=== PATIENT | male | born 1940 | race Two or more races ===

== ENCOUNTER 2020-09-22 08:31 | Outpatient (REF) | payer MEDICARE, MEDICAID, SELFPAY ==
[2020-09-22 10:07] LABS: Estimated Average Glucose 97 mg/dL
[2020-09-22 10:17] LABS: Alanine Aminotransferase 16 U/L (0-40); Alkaline Phosphatase 80 U/L (39-117); Anion Gap 12 (12-20); Aspartate Amino Transferase 14 U/L (5-37); Bilirubin Total 0.6 mg/dL (0.0-1.0); Blood Urea Nitrogen 19 mg/dL (9-16); Calcium 9.1 mg/dL (8.4-10.2); Carbon Dioxide 29 mmol/L (22-29); Chloride 101 mmol/L (96-108); Estimated Glomerular Filt Rate > 60; Glucose Fasting 96 mg/dL (60-99); Potassium 4.5 mmol/l (3.3-5.1); Sodium 137 mmol/L (135-145); Total Protein 6.9 g/dL (6.5-8.0)
[2020-09-22 10:40] LABS: T4 Thyroxine 9.4 ug/dL (4.5-12.0); Thyroid Stimulating Hormone 1.09 mIU/mL (0.32-4.0)
== END 2020-09-22 08:32 | disposition home or self-care (01) ==
LOC: HO.LAB 08:31
PROVIDERS: PCP Internal Medicine; Visit Provider Internal Medicine
DX: G47.00 Insomnia, unspecified (principal); E03.9 Hypothyroidism, unspecified; R73.01 Impaired fasting glucose
CPT/HCPCS: 80053; 83036; 84436; 84443

== ENCOUNTER 2021-03-05 12:46 | Outpatient (REF) | payer MEDICARE, MEDICAID, SELFPAY ==
[2021-03-05 13:25] VITALS: BP 138/79; PULSE 69; RESP 16; TEMP 36.9; O2SAT 95; BMI 23.8
== END 2021-03-05 12:47 | disposition home or self-care (01) ==
LOC: HO.MS 12:46
PROVIDERS: PCP Internal Medicine; Visit Provider Ophthalmology
PROC: (CPT 66821; principal; 2021-03-05 13:30)
DX: H26.491 Other secondary cataract, right eye (principal); D64.9 Anemia, unspecified; E03.9 Hypothyroidism, unspecified; Z79.899 Other long term (current) drug therapy
CPT/HCPCS: 66821

== ENCOUNTER 2021-03-08 12:29 | Outpatient (REF) | payer MEDICARE, MEDICAID, SELFPAY ==
[2021-03-08 13:06] LABS: COVID-19 Test Negative (Negative)
== END 2021-03-08 12:30 | disposition home or self-care (01) ==
LOC: HO.LAB 12:29
PROVIDERS: Visit Provider Internal Medicine
DX: Z20.822 Contact with and (suspected) exposure to COVID-19 (principal)
CPT/HCPCS: 36415; 87635; C9803

== ENCOUNTER 2021-03-10 21:10 | Emergency (ER) | payer MEDICARE, MEDICAID, SELFPAY ==
[2021-03-10 21:13] VITALS: BP 141/76; PULSE 78; RESP 18; TEMP 36.7; O2SAT 98; BMI 26.2
--- NOTE | 2021-03-10 22:52 | ED.DENTAL ---
HPI - Dental/Oral General Chief complaint: Dental/Oral Stated complaint: Dental Pain Time Seen by Provider: 03/10/21 22:52 Source: patient and bilingual interpreter Mode of arrival: ambulatory History of Present Illness HPI Narrative: 80-year-old male with 2 weeks of dental pain at tooth #28 and denies any fevers, chills, nausea, vomiting, difficulty swallowing. Related Data Home Medications Medication Instructions Recorded Confirmed ferrous sulfate 325 mg (65 mg 325 mg PO DAILY 10/12/20 10/12/20 iron) tablet Previous Rx's Medication Instructions Recorded folic acid 1 mg tablet 1 mg PO DAILY #30 cap 11/09/20 zolpidem 5 mg tablet 5 mg PO BEDTIME PRN 30 Days #14 tab 12/26/20 levothyroxine 100 mcg tablet 100 mcg PO QAM #30 cap 01/04/21 ascorbic acid (vitamin C) 500 mg 500 mg PO DAILY #30 cap 02/02/21 tablet cyanocobalamin (vitamin B-12) 1,000 mcg PO DAILY #30 cap 02/02/21 1,000 mcg tablet amoxicillin-pot clavulanate 1 tab PO Q12H 5 Days #10 tab 03/10/21 [Augmentin] Allergies Allergy/AdvReac Type Severity Reaction Status Date / Time No Known Allergies Allergy Verified 03/10/21 21:12 Review of Systems Review of Systems: Pertinent positives and negatives as stated in HPI 10 point review of systems is otherwise negative. [facility] Past Medical History Source: nursing notes reviewed Medical History Anxiety and depression BPH (benign prostatic hyperplasia) GERD (gastroesophageal reflux disease) High prostate specific antigen (PSA) Hypothyroid Pernicious anemia Vitamin B12 deficiency Surgical History H/O ventral hernia repair History of appendectomy History of bilateral cataract extraction Family History Family History Father Medical history unknown Mother No problems noted. Social History Social History Advance Directives: No Advance Directives Information Provided: Yes Physical Exam Vital Signs: Vital Signs: Last Vital Signs Temp 98.1 F 03/10/21 21:13 Pulse 78 03/10/21 21:13 Resp 18 03/10/21 21:13 BP 141/76 H 03/10/21 21:13 Pulse Ox 98 03/10/21 21:13 Body Mass Index 26.2 VITAL SIGNS: Reviewed. GENERAL: Well developed, well nourished, in no acute distress. HEAD: Normocephalic/atraumatic NOSE: Nares patent bilateral OROPHARYNX: no oral lesions noted, posterior pharynx clear, broken tooth at #28 without gum inflammation but pain on tapping NECK: Supple, no adenopathy LUNGS: Normal breath sounds. No adventitious sounds or accessory muscle use. SpO2<98> CARDIOVASCULAR: Regular rate and rhythm without noted murmurs ABDOMEN: Soft, non-tender, non-distended with bowel sounds. NEUROLOGIC: Alert and oriented x 4. Course Course Course Narrative: Is a 80-year-old male with history and clinical presentation consistent with dental pain/infection. Patient was provided with combination analgesics and initial dose of antibiotics and then discharged in stable condition with remaining course of antibiotics and instructions to follow up with the dentist on Friday morning. Discharge Plan Discharge Clinical Impression: Pain, dental Patient Disposition: Home, Self-Care Instructions: Toothache (ED) Additional Instructions: 1. Tylenol 1000 mg, por v?a oral, cada 6 horas seg?n sea necesario para controlar el dolor. No exceda los 4000 mg en 24 horas. 2. Ibuprofeno 400 mg, por v?a oral con leche o alimentos, cada 6 horas seg?n sea necesario para controlar el dolor. 3. Aplique hielo en la cammie de la abhijeet?bula jayda 5 a 10 minutos para obtener un alivio adicional del dolor. 4. Llame a un dentista el lunes por la ma?gurjit para immanuel reevaluaci?n. No dude en volver al servicio de urgencias si experimenta un empeoramiento [place] de kendall s?ntomas. Prescriptions: New amoxicillin-pot clavulanate [Augmentin] 875-125 mg tablet 1 tab PO Q12H 5 Days Qty: 10 RF: 0 No Action folic acid 1 mg tablet 1 mg PO DAILY Qty: 30 RF: 6 zolpidem 5 mg tablet 5 mg PO BEDTIME PRN (Reason: insomnia) 30 Days Qty: 14 RF: 3 levothyroxine 100 mcg tablet 100 mcg PO QAM Qty: 30 RF: 5 cyanocobalamin (vitamin B-12) [Vitamin B-12] 1,000 mcg tablet 1,000 mcg PO DAILY Qty: 30 RF: 11 ascorbic acid (vitamin C) [Vitamin C] 500 mg tablet 500 mg PO DAILY Qty: 30 RF: 11 ferrous sulfate [Feosol] 325 mg (65 mg iron) tablet 325 mg PO DAILY RF: 0 Referrals: Po,Mehnaz Tripp MD [Primary Care Provider] - 2 days (Re-evaluation after seen in the emergency department for tooth pain at #28. Started on antibiotics and instructed to follow-up with a dentist on Friday morning.) Print Language: Montenegrin
[2021-03-10] MEDS: Ketorolac Tromethamine 15 MG/ML VIAL IM (23:04)
[2021-03-10] MEDS: Acetaminophen 325 MG TABLET 975 MG PO (23:04)
[2021-03-10] MEDS: Amoxicillin/Potassium Clav 875 MG TABLET PO (23:04)
== END 2021-03-10 23:03 | disposition home or self-care (01) ==
PROVIDERS: Emergency Provider Student in an Organized Health Care Education/Training Program; PCP Internal Medicine
DX: K08.89 Other specified disorders of teeth and supporting structures (principal)
CPT/HCPCS: 96372; 99283; 99284; J1885

== ENCOUNTER 2021-09-05 07:43 | Outpatient (REF) | payer MEDICARE, MEDICAID, SELFPAY ==
[2021-09-05 08:02] LABS: MANUAL DIFF FLAG NO
[2021-09-05 08:36] LABS: Basophils Percent Auto 0.7 % (0-2); Eosinophils Absolute Auto 0.3 X10*3/uL (0.0-0.4); Eosinophils Percent Auto 6.6 % (0-4); Hematocrit 42.3 % (42-52); Hemoglobin 14.9 g/dl (14.0-18.0); Imm Gran Abs Auto 0.01 X10*3/uL (0.00-0.03); Imm Gran Pct Auto 0.2 % (0.0-0.4); Lymphocytes Absolute Auto 0.9 X10*3/uL (1.2-4.9); Lymphocytes Percent Auto 20.5 % (20-40); Mean Corpuscular HGB Conc 35.2 g/dl (31.0-36.0); Mean Corpuscular Hemoglobin 31.4 pg (27.0-33.0); Mean Corpuscular Volume 89.1 fL (80-98); Mean Platelet Volume 8.9 fL (9.4-12.4); Monocytes Absolute Auto 0.5 X10*3/uL (0.1-1.2); Monocytes Percent Auto 11.2 % (2-11); Neutrophils Absolute Auto 2.8 X10*3/uL (2.0-8.3); Neutrophils Percent Auto 60.8 % (45-73); Platelet Count 242 X10*3/uL (160-400); Red Blood Count 4.75 X10*6/uL (4.60-5.80); Red Cell Distribution Width 12.3 % (11.0-16.0); White Blood Count 4.5 X10*3/uL (4.8-10.8)
[2021-09-05 09:01] LABS: Estimated Average Glucose 97 mg/dL
[2021-09-05 09:02] LABS: Alanine Aminotransferase 14 U/L (0-40); Albumin Level 4.1 g/dL (3.5-5.0); Alkaline Phosphatase 84 U/L (39-117); Anion Gap 10 (12-20); Aspartate Amino Transferase 15 U/L (5-37); Bilirubin Total 0.6 mg/dL (0.0-1.0); Blood Urea Nitrogen 13 mg/dL (9-16); Calcium 9.6 mg/dL (8.4-10.2); Carbon Dioxide 29 mmol/L (22-29); Chloride 103 mmol/L (96-108); Cholesterol 168 mg/dL; Estimated Glomerular Filt Rate > 60; Glucose Random 103 mg/dL (60-115); HDL Cholesterol 36 mg/dL; LDL Cholesterol Calculated 110 mg/dl; Potassium 4.7 mmol/L (3.3-5.1); Sodium 137 mmol/L (135-145); Total Protein 7.2 g/dL (6.5-8.0); Triglycerides 111 mg/dL
[2021-09-05 09:23] LABS: Free T4 (Free Thyroxine) 1.06 ng/dL (0.71-1.85); Thyroid Stimulating Hormone 1.11 uIU/mL (0.32-4.0)
[2021-09-05 09:44] LABS: Folate > 20.0 ng/mL (> or = 4.0); Vitamin B12 756 pg/mL (200-900)
== END 2021-09-05 07:44 | disposition home or self-care (01) ==
LOC: HO.LAB 07:43
PROVIDERS: PCP Internal Medicine; Visit Provider Internal Medicine
DX: R73.01 Impaired fasting glucose (principal); E03.9 Hypothyroidism, unspecified; K21.9 Gastro-esophageal reflux disease without esophagitis; E78.00 Pure hypercholesterolemia, unspecified
CPT/HCPCS: 36415; 80053; 80061; 82607; 82746; 83036; 84439; 84443; 85025

== ENCOUNTER 2022-05-15 10:50 | Emergency (ER) | payer MEDICARE, MEDICAID, SELFPAY ==
[2022-05-15 11:10] VITALS: BP 126/68; PULSE 71; RESP 19; TEMP 36.6; O2SAT 98; BMI 23.6
--- NOTE | 2022-05-15 12:35 | ED.EYEPROB ---
HPI - Eye Problem General Chief complaint: Eye Problems Stated complaint: l eye issue Time Seen by Provider: 05/15/22 12:32 Source: patient Mode of arrival: ambulatory Limitations: no limitations History of Present Illness HPI Narrative: Patient presents emergency department for evaluation of left eye redness and itchiness x1 week. Denies any known injury/trauma. Reports a foreign body sensation. Denies vision changes. The eye is uncomfortable. He is able to move his eye without any change in his pain. chief complaint: eye pain and eye redness Onset (ago): week(s) Onset description: gradual Duration: constant Location: left eye Eye Symptoms: burning, redness, pain, foreign body sensation and itching Associated symptoms: none Treatments Prior to Arrival: none Related Data Previous Rx's Medication Instructions Recorded folic acid 1 mg tablet 1 mg PO DAILY #90 caps 08/01/21 ferrous sulfate 325 mg (65 mg 325 mg PO DAILY #90 caps 12/03/21 iron) tablet levothyroxine 100 mcg tablet 100 mcg PO QAM #90 caps 12/31/21 ascorbic acid (vitamin C) 500 mg 500 mg PO DAILY 90 days #90 caps 01/14/22 tablet (Vitamin C) zolpidem 5 mg tablet 5 mg PO BEDTIME PRN insomnia #90 02/06/22 tabs cyanocobalamin (vitamin B-12) 1,000 mcg PO DAILY #30 caps 03/04/22 1,000 mcg tablet (Vitamin B-12) polymyxin B sulfate 10,000 1 drp ophthalmic-Left Q3H 7 days 05/15/22 unit-trimethoprim 1 mg/mL eye #10 mL drops (Polytrim) Allergies Allergy/AdvReac Type Severity Reaction Status Date / Time trazodone Allergy Mild Hallucinati Verified 04/15/22 13:50 ons Review of Systems Review of Systems: Constitutional: No weight loss, fever, chills, weakness or fatigue. Eye: Positive redness. Positive pain. Skin: No rash or itching. Cardiovascular: No chest pain, chest pressure or chest discomfort. No palpitations Respiratory: No shortness of breath, cough or sputum production. Gastrointestinal: No, nausea, vomiting or diarrhea. No abdominal pain . Yes all other systems are reviewed and are negative PMFSH Past Medical History Attestation statement: The following information was validated with the patient. Source: old records reviewed Medical History High prostate specific antigen (PSA) Pernicious anemia Vitamin B12 deficiency Surgical History H/O ventral hernia repair History of appendectomy History of bilateral cataract extraction Family History Family History Father Medical history unknown Mother No problems noted. Social History Social History Housing: Apartment Alcohol intake: never Patient Tobacco Use Status: Former Tobacco user Tobacco use type: Cigarette Years Smoked: 1989 e-Cigarette/Vaping Use: Never Used Second Hand Smoke Exposure: No Advance Directives: No Advance Directives Information Provided: No Current occupational status: retired Cognitive needs: No Hearing needs: No Vision needs: No Physical Exam Vital Signs: Vital Signs: Last Vital Signs Temp 98 F 05/15/22 11:10 Pulse 71 05/15/22 11:10 Resp 19 05/15/22 11:10 BP 126/68 05/15/22 11:10 Pulse Ox 98 05/15/22 11:10 O2 Del Method 05/15/22 11:10 BMI result Body Mass Index 23.6 Vital signs have been reviewed as normal and appeared to be correct. Blood pressure normal.? Heart rate normal.? Respiration rate normal. Temperature normal.? Oxygen saturation normal. Appearance: Alert.?Oriented to person, place and time. No acute distress.?Normal affect. Eyes: Pupils equal, round and reactive to light.?EOMi. No Nystagmus. Left Sclerae injected, conjunctiva is red. ENT: Pharynx normal.?? Neck: Normal inspection.? Neck supple.?? CVS: Heart sounds normal. Normal heart rate and rhythm.? Pulses normal.?? Respiratory: No respiratory distress.? Lung sounds clear to auscultation bilaterally?? Abdomen: Soft and non-tender. Skin: Skin warm and dry.? Normal skin color.? Extremities: No lower extremity edema.? Neuro: Moves all extremities spontaneously. Sensation intact bilaterally. No motor deficits Ambulates with normal steady gait. Course Course Course Narrative: Patient is an 81-year-old male being evaluated for left eye redness and itchiness. Fluorescein staining reveals significant uptake at 7-8 o'clock, likely consistent with corneal abrasion, with bacterial conjunctivitis, Visual acuity performed without significant impairment. Not consistent with preseptal or orbital cellulitis. He is well-appearing. Extraocular movements are intact. Discussed plan of care for warm moist compresses, erythromycin ointment, follow-up with Ophthalmology, discussed reasons to return back to the emergency department, all questions were answered and he was discharged home in stable condition. Reevaluation(s) Time: 13:43 [facility] - Eye Problem Medical Records Attestation: I reviewed the patient's medical records. Discharge Plan Discharge Clinical Impression: Corneal abrasion, left Patient Disposition: Home, Self-Care Additional Instructions: You were evaluated in the emergency department this for left eye redness pain and itching. You were found to have a corneal abrasion. You have been given a new prescription for antibiotic eyedrops every 3 hours while awake, please take these as prescribed. Contact your technician support association Dr. Hurst to schedule a follow-up visit. Return to the emergency department any new or worsening symptoms or concerns. Prescriptions: New polymyxin B sulf-trimethoprim [Polytrim] 10,000 unit- 1 mg/mL drops 1 drp ophthalmic-Left Q3H 7 Days Qty: 10 0RF Rx Instructions: while awake; do not exceed 6 doses in 24 hours No Action folic acid 1 mg tablet 1 mg PO DAILY Qty: 90 2RF ferrous sulfate 325 mg (65 mg iron) tablet 325 mg PO DAILY Qty: 90 3RF levothyroxine 100 mcg tablet 100 mcg PO QAM Qty: 90 1RF zolpidem 5 mg tablet 5 mg PO BEDTIME PRN (Reason: insomnia) Qty: 90 1RF cyanocobalamin (vitamin B-12) [Vitamin B-12] 1,000 mcg tablet 1,000 mcg PO DAILY Qty: 30 11RF ascorbic acid (vitamin C) [Vitamin C] 500 mg tablet 500 mg PO DAILY 90 Days Qty: 90 3RF Referrals: Daryl Hurst [Physician] - 2 days Interventions: ED Discharge Assessment Last Done: 05/15/22 13:53 Discharge Date/Time: 05/15/22 13:54
[2022-05-15] MEDS: Fluorescein Sodium STRIP 1 STRIP EYE-LEFT (13:01)
[2022-05-15] MEDS: Tetracaine HCl/PF 0.5% Oph Sol 4 ML DROPS 3 DROP EYE-LEFT (13:01)
== END 2022-05-15 13:54 | disposition home or self-care (01) ==
PROVIDERS: Emergency Provider Emergency Medicine; PCP Internal Medicine
DX: S05.02XA Injury of conjunctiva and corneal abrasion without foreign body, left eye, initial encounter (principal); X58.XXXA Exposure to other specified factors, initial encounter; Y93.9 Activity, unspecified; Y92.9 Unspecified place or not applicable; Y99.9 Unspecified external cause status
CPT/HCPCS: 99283

== ENCOUNTER 2022-06-24 11:43 | Outpatient (REF) | payer MEDICARE, MEDICAID, SELFPAY ==
[2022-06-24 12:17] VITALS: BMI 22.3
[2022-06-24 12:18] VITALS: BP 112/62; PULSE 69; RESP 16; TEMP 36.9; O2SAT 95
== END 2022-06-24 11:44 | disposition home or self-care (01) ==
LOC: HO.MS 11:43
PROVIDERS: PCP Internal Medicine; Visit Provider Ophthalmology
PROC: (CPT 66821; principal; 2022-06-24 16:00)
DX: H26.492 Other secondary cataract, left eye (principal); E03.9 Hypothyroidism, unspecified; Z96.1 Presence of intraocular lens; D64.9 Anemia, unspecified; K21.9 Gastro-esophageal reflux disease without esophagitis; Z79.899 Other long term (current) drug therapy
CPT/HCPCS: 66821

== ENCOUNTER 2022-07-15 15:42 | Emergency (ER) | payer MEDICARE, MEDICAID, SELFPAY ==
--- NOTE | 2022-07-15 17:29 | PC.NURSE ---
called x 3 to triage no answer-lwt
== END 2022-07-15 17:43 | disposition left against medical advice (07) ==
PROVIDERS: Emergency Provider Emergency Medicine; PCP Internal Medicine
DX: K62.89 Other specified diseases of anus and rectum (principal)

== ENCOUNTER 2022-12-10 11:58 | Emergency (ER) | payer MEDICARE, MEDICAID, SELFPAY ==
[2022-12-10 12:31] VITALS: BP 122/69; PULSE 65; RESP 19; TEMP 36.6; O2SAT 98; BMI 23.0
--- NOTE | 2022-12-10 12:32 | ED.SKABFB ---
HPI - Skin/Abscess/Foreign Bdy General Chief complaint: Wound/Laceration <MIKIE Apodaca - Last Filed: 12/10/22 12:33> Stated complaint: L thigh redness/pain <MIKIE Apodaca - Last Filed: 12/10/22 12:33> Time Seen by Provider: 12/10/22 13:22 <MIKIE Apodaca - Last Filed: 12/10/22 12:33> Source: patient <Sandee Gandara CNP - Last Filed: 12/10/22 14:48> Mode of arrival: ambulatory <Sandee Gandara CNP - Last Filed: 12/10/22 14:48> Limitations: language barrier (Turkish-speaking medical or surgical instrument maker utilized) <Sandee Gandara CNP - Last Filed: 12/10/22 14:48> History of Present Illness HPI narrative: Patient is an 82-year-old male who presents emergency department for evaluation of left lateral thigh redness and pain. Denies any injury to this area. Denies any known bite. Over the past week it has become increasingly larger in size. Denies any additional skin wounds or lesions. States he is not a diabetic. Has not had any fevers or chills. <Sandee Gandara CNP - Last Filed: 12/10/22 14:48> Related Data Home medications: Previous Rx's Medication Instructions Recorded ferrous sulfate 325 mg (65 mg 325 mg PO DAILY #90 caps 12/03/21 iron) tablet ascorbic acid (vitamin C) 500 mg 500 mg PO DAILY 90 days #90 caps 01/14/22 tablet (Vitamin C) cyanocobalamin (vitamin B-12) 1,000 mcg PO DAILY #30 caps 03/04/22 1,000 mcg tablet (Vitamin B-12) polymyxin B sulfate 10,000 1 drp ophthalmic-Left Q3H 7 days 05/15/22 unit-trimethoprim 1 mg/mL eye #10 mL drops (Polytrim) folic acid 1 mg tablet 1 mg PO DAILY #90 caps 06/17/22 levothyroxine 100 mcg tablet 100 mcg PO QAM #90 caps 07/02/22 zolpidem 5 mg tablet 5 mg PO BEDTIME PRN insomnia #90 08/06/22 tabs cephalexin 500 mg capsule 500 mg PO TID 7 days #21 caps 12/10/22 <MIKIE Apodaca - Last Filed: 12/10/22 12:33> Allergies/Adverse reactions: Allergies Allergy/AdvReac Type Severity Reaction Status Date / Time trazodone Allergy Mild Hallucinati Verified 04/15/22 13:50 ons <MIKIE Apodaca - Last Filed: 12/10/22 12:33> Review of Systems Review of Systems: Constitutional :? Denies history of same, Denies any other sites involved, Denies IV drug use, Denies history of MRSA, Denies swollen glands, Denies injury, Denies Fever, Denies Chills, Denies Systemic symptoms Cardiovascular : No Chest Pain, No SOB Respiratory : No Dyspnea Gastrointestinal : No abdominal pain Musculoskeletal : No Joint Swelling Skin : + left lateral thigh erythema, No skin laceration, No Foreign bodies, No spreading rash, Denies bites, Denies discharge, Neuro : No Weakness, No Numbness/tingling Psych : No SI/HI/thoughts of self injury <Sandee Gandara CNP - Last Filed: 12/10/22 14:48> [facility] Past Medical History Attestation statement: The following information was validated with the patient. <Sandee Gandara CNP - Last Filed: 12/10/22 14:48> Source: old records reviewed <Sandee Gandara CNP - Last Filed: 12/10/22 14:48> Medical History: Medical History High prostate specific antigen (PSA) Pernicious anemia Vitamin B12 deficiency <MIKIE Apodaca - Last Filed: 12/10/22 12:33> Surgical History: Surgical History H/O ventral hernia repair History of appendectomy History of bilateral cataract extraction <MIKIE Apodaca - Last Filed: 12/10/22 12:33> Family History Family History: Family History Father Medical history unknown Mother No problems noted. <MIKIE Apoadca - Last Filed: 12/10/22 12:33> Social History Social History: Social History Housing: Apartment Alcohol intake: never Patient Tobacco Use Status: Former Tobacco user Tobacco use type: Cigarette Years Smoked: 1989 e-Cigarette/Vaping Use: Never Used Second Hand Smoke Exposure: No Advance Directives: No Current occupational status: retired Cognitive needs: No Hearing needs: No Vision needs: No <MIKIE Apodaca - Last Filed: 12/10/22 12:33> Physical Exam Vital Signs: Vital Signs: Last Vital Signs Temp 98 F 12/10/22 12:31 Pulse 65 12/10/22 12:31 Resp 19 12/10/22 12:31 BP 122/69 12/10/22 12:31 Pulse Ox 98 12/10/22 12:31 O2 Del Method 12/10/22 12:31 BMI result Body Mass Index 23.0 <MIKIE Apodaca - Last Filed: 12/10/22 12:33> Vital Signs: Last Vital Signs Temp 98 F 12/10/22 12:31 Pulse 65 12/10/22 12:31 Resp 19 12/10/22 12:31 BP 122/69 12/10/22 12:31 Pulse Ox 98 12/10/22 12:31 O2 Del Method 12/10/22 12:31 BMI result Body Mass Index 23.0 <Sandee Gandara CNP - Last Filed: 12/10/22 14:48> Appearance: Alert.?Oriented to person, place and time. No acute distress.?Normal affect. Neck: Normal inspection.? Neck supple.?? CVS: Heart sounds normal. Normal heart rate and rhythm.? Pulses normal.?? Respiratory: No respiratory distress.? Lung sounds clear to auscultation bilaterally?? Abdomen: Soft and non-tender. Normoactive bowel sounds. No pulsatile mass.?? Skin: Skin warm and dry.? Normal skin color.? Proximal left lateral thigh with 2 cm round area of induration, erythema, and warmth. No fluctuance. Extremities: No lower extremity edema.? Neuro: Moves all extremities spontaneously. Sensation intact bilaterally. Ambulates with normal steady gait. <Sandee Gandara CNP - Last Filed: 12/10/22 14:48> Course Course Course Narrative: RME - 82-year-old Turkish-speaking male presents to the ER for 1 week of worsening left lateral thigh pain and redness. Not diabetic. No fevers. Brief exam reveals injury did, erythematous area without any obvious fluctuance. Vital signs are stable. Stable to go back to the waiting room until treatment room is available. <MIKIE Apodaca - Last Filed: 12/10/22 12:33> Medical Decision Making Medical Decision Making MDM Narrative: Patient is an 82-year-old male with past medical history of BPH, GERD, hypothyroidism who presents to the emergency department for evaluation of left lateral thigh redness and pain. Physical examination is most consistent with cellulitis/early abscess at this time, no areas of fluctuance, do not feel that incision and drainage is warranted at this time. Discussed warm moist compresses, prescription for cephalexin to be sent to patient's pharmacy. Reviewed worrisome signs and symptoms that would warrant re-evaluation including signs of worsening infection, or development of abscess that would require drainage. Patient states he will contact his primary care provider and arrange for a follow-up visit within the next 2 days. <Sandee Gandara CNP - Last Filed: 12/10/22 14:48> Differential Diagnosis Differential Diagnoses: The differential diagnosis associated with the presentation includes (As noted above) <Sandee Gandara CNP - Last Filed: 12/10/22 14:48> Prescription Management I considered prescription management with: Antibiotic <Sandee Gandara CNP - Last Filed: 12/10/22 14:48> Discharge Plan Discharge Clinical Impression: Cellulitis of left thigh <MIKIE Apodaca - Last Filed: 12/10/22 12:33> Patient Disposition: Home, Self-Care <MIKIE Apodaca Last Filed: 12/10/22 12:33> Instructions: Cellulitis (ED) <MIKIE Apodaca Last Filed: 12/10/22 12:33> Additional Instructions: Puede ha Tylenol 500 mg, 2 tabletas (1000 mg) cada 4 a 6 horas seg?n sea necesario para el dolor, ravin sin exceder las 3 dosis diarias (3000 mg). Se envi? immanuel receta de antibi?hasmukh a rodriguez farmacia, complete todo thong curso. [place] discutimos, si rodriguez dolor aumenta, el ?taylor de enrojecimiento aumenta de juan?o, si se vuelve suave o si tiene immanuel apariencia central richie/amarilla, esto necesita ser reevaluado. Daniel discutimos, si un absceso comienza deformado, es posible que sea necesario cortarlo para drenarlo adecuadamente. Comun?quese con rodriguez proveedor de atenci?n primaria para programar immanuel visita de seguimiento dentro de la pr?xima semana para asegurar immanuel mejor?a. Puede regresar al departamento de emergencias con cualquier s?ntoma o inquietud nueva o que empeore. You can take Tylenol 500 mg, 2 tablets (1,000mg) every 4-6 hours as needed for pain, but not to exceed 3 doses daily (3,000mg).? A prescription for antibiotic was sent to your pharmacy, please complete this entire course. As we discussed, if your pain is increasing, the area of redness becomes larger in size, if it becomes soft, or having a central white/yellow appearance this needs to be re-evaluated. As we discussed if an abscess begins deformed this may need to be cut into to drain appropriately Please contact your primary care provider to arrange for a follow-up visit within the next week to assure improvement You may return back to emergency department with any new or worsening symptoms or concerns. <MIKIE Apodaca - Last Filed: 12/10/22 12:33> Prescriptions: New cephalexin 500 mg capsule 500 mg PO TID 7 Days Qty: 21 0RF No Action ferrous sulfate 325 mg (65 mg iron) tablet 325 mg PO DAILY Qty: 90 3RF cyanocobalamin (vitamin B-12) [Vitamin B-12] 1,000 mcg tablet 1,000 mcg PO DAILY Qty: 30 11RF folic acid 1 mg tablet 1 mg PO DAILY Qty: 90 2RF levothyroxine 100 mcg tablet 100 mcg PO QAM Qty: 90 2RF zolpidem 5 mg tablet 5 mg PO BEDTIME PRN (Reason: insomnia) Qty: 90 1RF polymyxin B sulf-trimethoprim [Polytrim] 10,000 unit- 1 mg/mL drops 1 drp ophthalmic-Left Q3H 7 Days Qty: 10 0RF Rx Instructions: while awake; do not exceed 6 doses in 24 hours ascorbic acid (vitamin C) [Vitamin C] 500 mg tablet 500 mg PO DAILY 90 Days Qty: 90 3RF <MIKIE Apodaca - Last Filed: 12/10/22 12:33> Referrals: Po,Mehnaz Tripp MD [Primary Care Provider] - <MIKIE Apodaca - Last Filed: 12/10/22 12:33> Discharge Date/Time: 12/10/22 14:25 <MIKIE Apodaca - Last Filed: 12/10/22 12:33> Print Language: Turkish <MIKIE Apodaca - Last Filed: 12/10/22 12:33>
== END 2022-12-10 14:25 | disposition home or self-care (01) ==
PROVIDERS: Emergency Provider Student in an Organized Health Care Education/Training Program; PCP Internal Medicine
DX: L03.116 Cellulitis of left lower limb (principal); M79.652 Pain in left thigh
CPT/HCPCS: 99282; 99283

== ENCOUNTER 2022-12-12 11:14 | Emergency (ER) | payer MEDICARE, MEDICAID, SELFPAY ==
--- NOTE | 2022-12-12 11:20 | ED_ITS ---
HPI - Skin/Abscess/Foreign Bdy General Chief complaint: Skin/Abscess/Foreign Body <Sandra Samuel NP - Last Filed: 12/12/22 11:25> Stated complaint: l leg pain <Sandra Samuel NP - Last Filed: 12/12/22 11:25> Time Seen by Provider: 12/12/22 11:41 <Sandra Samuel NP - Last Filed: 12/12/22 11:25> Source: patient <MIKIE Fuller - Last Filed: 12/12/22 12:23> Mode of arrival: ambulatory <MIKIE Fuller Last Filed: 12/12/22 12:23> Limitations: language barrier ([place] Speaking ) <MIKIE Fuller - Last Filed: 12/12/22 12:23> History of Present Illness HPI narrative: 82yoM presenting to the ED c c/o worsening abscess/cellulitis despite taking the Keflex that he was prescribed here on 12/10/2022. He reports they told him to come back if it is worse. He reports there is more pain, redness and swelling. Although denies any fevers, chills, nausea/vomiting, spreading of the redness or any other symptoms complaints or concerns at this time. <MIKIE Fuller - Last Filed: 12/12/22 12:23> MD complaint: other (Recheck abscess) <MIKIE Fuller - Last Filed: 12/12/22 12:23> Onset (ago): day(s) (Was seen here 2 days ago) <MIKIE Fuller - Last Filed: 12/12/22 12:23> Location: LLE (Left lateral thigh) <MIKIE Fuller Last Filed: 12/12/22 12:23> Severity: mild <MIKIE Fuller Last Filed: 12/12/22 12:23> Quality: aching <MIKIE Fuller Last Filed: 12/12/22 12:23> Pain Consistency: constant <MIKIE Fuller Last Filed: 12/12/22 12:23> Relieving factors: none <MIKIE Fuller Last Filed: 01/12/23 12:23> Exacerbating factors: none <MIKIE Fuller - Last Filed: 12/12/22 12:23> Context: other (Currently on Keflex 500 mg t.i.d. taking as prescribed) <MIKIE Fuller - Last Filed: 12/12/22 12:23> Associated symptoms: other (Worsening redness/swelling/pain) <MIKIE Fuller - Last Filed: 12/12/22 12:23> Treatments prior to arrival: other (See above) <MIKIE Fuller - Last Filed: 12/12/22 12:23> Related Data Home medications: Previous Rx's Medication Instructions Recorded ferrous sulfate 325 mg (65 mg 325 mg PO DAILY #90 caps 12/03/21 iron) tablet ascorbic acid (vitamin C) 500 mg 500 mg PO DAILY 90 days #90 caps 01/14/22 tablet (Vitamin C) cyanocobalamin (vitamin B-12) 1,000 mcg PO DAILY #30 caps 03/04/22 1,000 mcg tablet (Vitamin B-12) polymyxin B sulfate 10,000 1 drp ophthalmic-Left Q3H 7 days 05/15/22 unit-trimethoprim 1 mg/mL eye #10 mL drops (Polytrim) folic acid 1 mg tablet 1 mg PO DAILY #90 caps 06/17/22 levothyroxine 100 mcg tablet 100 mcg PO QAM #90 caps 07/02/22 zolpidem 5 mg tablet 5 mg PO BEDTIME PRN insomnia #90 08/06/22 tabs cephalexin 500 mg capsule 500 mg PO TID 7 days #21 caps 12/10/22 cephalexin 500 mg capsule 500 mg PO Q6H 14 days #56 caps 12/12/22 doxycycline monohydrate 100 mg 100 mg PO BID 14 days #28 tabs 12/12/22 tablet oxycodone 5 mg tablet 5 mg PO Q6H PRN pain #10 tabs 12/12/22 <Sandra Samuel NP - Last Filed: 12/12/22 11:25> Allergies/Adverse reactions: Allergies Allergy/AdvReac Type Severity Reaction Status Date / Time trazodone Allergy Mild Hallucinati Verified 04/15/22 13:50 ons <Sandra Samuel NP - Last Filed: 12/12/22 11:25> Review of Systems Review of Systems: Constitutional : Denies history of same, Denies any other sites involved, Denies IV drug use, Denies history of MRSA, Denies swollen glands, Denies injury, Denies Fever, Denies Chills, + Sig Pain, Denies Systemic symptoms Cardiovascular : No Chest Pain, No SOB Respiratory : No Dyspnea Gastrointestinal : No abdominal pain Musculoskeletal : No Joint Swelling Skin : + abscess with surrounding erythema, No skin laceration, No Foreign bodies, No spreading rash, Denies bites, Denies discharge, Neuro : No Weakness, No Numbness/tingling Psych : No SI/HI/thoughts of self injury <MIKIE Fuller - Last Filed: 12/12/22 12:23> Yes all other systems are reviewed and are negative <MIKIE Fuller - Last Filed: 12/12/22 12:23> [facility] Past Medical History Attestation statement: The following information was validated with the patient. <MIKIE Fuller - Last Filed: 12/12/22 12:23> Source: old records reviewed and nursing notes reviewed <MIKIE Fuller - Last Filed: 12/12/22 12:23> Medical History: Medical History BPH (benign prostatic hyperplasia) GERD (gastroesophageal reflux disease) High prostate specific antigen (PSA) Hypothyroid Pernicious anemia Vitamin B12 deficiency <Sandra Samuel NP - Last Filed: 12/12/22 11:25> Surgical History: Surgical History H/O ventral hernia repair History of appendectomy History of bilateral cataract extraction <Sandra Samuel NP - Last Filed: 12/12/22 11:25> Family History Family History: Family History Father Medical history unknown Mother No problems noted. <Sandra Samuel NP - Last Filed: 12/12/22 11:25> Social History Social History: Social History Housing: Apartment Alcohol intake: never Patient Tobacco Use Status: Former Tobacco user Tobacco use type: Cigarette Years Smoked: 1989 e-Cigarette/Vaping Use: Never Used Second Hand Smoke Exposure: No Advance Directives: No Current occupational status: retired Cognitive needs: No Hearing needs: No Vision needs: No <Sandra Samuel NP - Last Filed: 12/12/22 11:25> Physical Exam Vital Signs: Vital Signs: Last Vital Signs Temp 97.9 F 12/12/22 11:21 Pulse 70 12/12/22 11:21 Resp 18 12/12/22 11:21 BP 137/79 12/12/22 11:21 Pulse Ox 95 12/12/22 11:21 O2 Del Method 12/12/22 11:21 BMI result Body Mass Index 25.4 <Sandra Samuel NP - Last Filed: 12/12/22 11:25> Vital Signs: Last Vital Signs Temp 97.9 F 12/12/22 11:21 Pulse 70 12/12/22 11:21 Resp 18 12/12/22 11:21 BP 137/79 12/12/22 11:21 Pulse Ox 95 12/12/22 11:21 O2 Del Method 12/12/22 11:21 BMI result Body Mass Index 25.4 vital signs have been reviewed as normal and appeared to be correct. Blood pressure normal Heart rate normal. Respiration rate normal. Temperature normal. Oxygen saturation normal. <MIKIE Fuller - Last Filed: 12/12/22 12:23> Appearance: Alert. Oriented X3. No acute distress. Head: Normal external exam. Normocephalic. Atraumatic. Eyes: PERRLA. EOMI. Conjunctiva and sclera normal. Eyelids normal. ENT: Pharynx normal. Uvula midline. Moist mucous membranes. Neck: Normal inspection. Neck supple. FROM. CVS: Normal heart rate and rhythm. Respiratory: No respiratory distress. Painless inspiration. Skin: Skin warm and dry. Normal skin color. Normal skin turgor. Abscess to left upper lateral thigh c mild surrounding erythema. No streaking noted. No drainage at this time. No additional rashes/lesions/lacerations noted. Extremities: Extremities exhibit normal range of motion. Extremities nontender. Neuro: Oriented X 3. No motor deficit. No sensory deficit. Reflexes normal. Normal steady gait. No focal neuro deficits noted. <MIKIE Fuller - Last Filed: 12/12/22 12:23> Course Course Course Narrative: This is a rapid medical exam. 82-year-old male with past medical history of BPH, GERD, hypothyroidism here with left thigh redness/swelling despite being on cephalexin since 12/10. Patient reports they told me to come back if its worse. Patient feels there is more pain, more redness, swelling. No fevers, chills. Patient with abscess to left lateral thigh with induration/tenderness. ?conducive to I&D. Defer additional HPI, ROS, PE to primary provider. <Sandra Samuel NP - Last Filed: 12/12/22 11:25> Reevaluation(s) Reevaluation #1: Patient now status post I&D of abscess. Patient tolerated procedure well. No complications. There is no streaking. Purulent drainage was excreted moderate amount. I did offer the patient admission although at this time I believe it is not warranted and patient refuses to be admitted. Patient is only on single therapy of antibiotics. The abscess was not eye indeed at that time due to it was not ready. At this time the abscess was ready. Therefore I and D performed. No additional labs or imaging indicated. Admission not warranted at this time as patient is only on 1 antibiotic and he is not have any fevers or chills and there is no streaking on exam. Vital signs are stable. Will start on doxycycline. Will also send a new prescription for Keflex to the patient can take it every 6 hours instead of 3 times a day. Along with pain medication. Instructions return if any new or worsening symptoms. Patient understands agrees with this plan. <MIKIE Fuller - Last Filed: 12/12/22 12:23> Time: 12:20 <MIKIE Fuller - Last Filed: 12/12/22 12:23> Medications Administered Discontinued Medications Generic Name Dose Route Start Last Admin Trade Name Freq PRN Reason Stop Dose Admin Doxycycline Monohydrate 100 mg 12/12/22 11:43 12/12/22 11:55 Doxycycline Monohydrate 100 Mg Capsule PO 12/12/22 11:44 100 mg ONCE ONE Administration Lidocaine HCl 2 ml 12/12/22 11:43 12/12/22 11:55 Lidocaine Hcl 1 % Mpf 2 Ml Vial INFILTRATI 12/12/22 11:44 2 ml ONCE ONE Administration Lidocaine HCl 2 ml 12/12/22 11:43 12/12/22 11:55 Lidocaine Hcl 1 % Mpf 2 Ml Vial INFILTRATI 12/12/22 11:44 2 ml ONCE ONE Administration <Sandra Samuel NP - Last Filed: 12/12/22 11:25> Medications Administered Discontinued Medications Generic Name Dose Route Start Last Admin Trade Name Jesenia PRN Reason Stop Dose Admin Doxycycline Monohydrate 100 mg 12/12/22 11:43 12/12/22 11:55 Doxycycline Monohydrate 100 Mg Capsule PO 12/12/22 11:44 100 mg ONCE ONE Administration Lidocaine HCl 2 ml 12/12/22 11:43 12/12/22 11:55 Lidocaine Hcl 1 % Mpf 2 Ml Vial INFILTRATI 12/12/22 11:44 2 ml ONCE ONE Administration Lidocaine HCl 2 ml 12/12/22 11:43 12/12/22 11:55 Lidocaine Hcl 1 % Mpf 2 Ml Vial INFILTRATI 12/12/22 11:44 2 ml ONCE ONE Administration <MIKIE Fuller - Last Filed: 12/12/22 12:23> Medical Decision Making External Record Review External record reviewed: Office record, Outpatient record, Prior outpatient labs and Primary care record <MIKIE Fuller - Last Filed: 12/12/22 12:23> Prescription Management I considered prescription management with: Pain Medication and Antibiotic <MIKIE Fuller - Last Filed: 12/12/22 12:23> Procedures Abscess I/D Site: lower extremity (Thigh) <MIKIE Fuller - Last Filed: 12/12/22 12:23> Side (if applicable): left <MIKIE Fuller - Last Filed: 12/12/22 12:23> Local Anesthetic: lidocaine 1% <MIKIE Fuller - Last Filed: 12/12/22 12:23> Amount of anesthesia used (mL): 4 <MIKIE Fuller Last Filed: 12/12/22 12:23> Technique: needle aspiration and incised with blade <MIKIE Fuller Last Filed: 12/12/22 12:23> Amount of fluid expressed (mL): 10 <MIKIE Fuller - Last Filed: 12/12/22 12:23> Sent for culture/gram staining?: No <MIKIE Fuller - Last Filed: 12/12/22 12:23> Irrigation: Yes <MIKIE Fuller - Last Filed: 12/12/22 12:23> Packing used?: none <MIKIE Fuller - Last Filed: 12/12/22 12:23> Complications: other (No complications Pt tolerated well) <MIKIE Fuller - Last Filed: 12/12/22 12:23> Discharge Plan Discharge Clinical Impression: Cellulitis, Abscess of skin or subcutaneous tissue <Sandra Samuel NP - Last Filed: 12/12/22 11:25> Patient Disposition: Home, Self-Care <Sandra Samuel NP - Last Filed: 12/12/22 11:25> Instructions: Cellulitis (ED), Abscess Incision and Drainage (DC) <Sandra Samuel NP - Last Filed: 12/12/22 11:25> Additional Instructions: Estoy comenzando con un nuevo antibi?hasmukh llamado doxiciclina que ha? dos veces al d?a jayda 14 d?as. El antibi?hasmukh que est? tomando actualmente. Quiero que tambi?n lo tome cada 6 horas jayda 14 d?as. Por lo tanto, envi? immanuel nueva receta. Tambi?n envi? immanuel receta para analg?sicos. Puede cambiar rodriguez vendaje immanuel o dos veces al d?a. Regrese si ve s?ntomas nuevos o que empeoran, especialmente si desarroll? fiebre o escalofr?os. Otf un seguimiento con rodriguez proveedor de atenci?n primaria. <Sandra Samuel NP - Last Filed: 12/12/22 11:25> Prescriptions: New doxycycline monohydrate 100 mg tablet 100 mg PO BID 14 Days Qty: 28 0RF cephalexin 500 mg capsule 500 mg PO Q6H 14 Days Qty: 56 0RF oxycodone 5 mg tablet 5 mg PO Q6H PRN (Reason: pain) Qty: 10 0RF Rx Instructions: Partial Fill upon patient request. No Action ferrous sulfate 325 mg (65 mg iron) tablet 325 mg PO DAILY Qty: 90 3RF cyanocobalamin (vitamin B-12) [Vitamin B-12] 1,000 mcg tablet 1,000 mcg PO DAILY Qty: 30 11RF folic acid 1 mg tablet 1 mg PO DAILY Qty: 90 2RF levothyroxine 100 mcg tablet 100 mcg PO QAM Qty: 90 2RF zolpidem 5 mg tablet 5 mg PO BEDTIME PRN (Reason: insomnia) Qty: 90 1RF polymyxin B sulf-trimethoprim [Polytrim] 10,000 unit- 1 mg/mL drops 1 drp ophthalmic-Left Q3H 7 Days Qty: 10 0RF Rx Instructions: while awake; do not exceed 6 doses in 24 hours cephalexin 500 mg capsule 500 mg PO TID 7 Days Qty: 21 0RF ascorbic acid (vitamin C) [Vitamin C] 500 mg tablet 500 mg PO DAILY 90 Days Qty: 90 3RF <Sandra Samuel NP - Last Filed: 12/12/22 11:25> Referrals: Po,Mehnaz Tripp MD [Primary Care Provider] - 3 days (For wound check) <Sandra Samuel NP - Last Filed: 12/12/22 11:25> Print Language: Argentine <Sandra Samuel NP - Last Filed: 12/12/22 11:25>
[2022-12-12 11:21] VITALS: BP 137/79; PULSE 70; RESP 18; TEMP 36.6; O2SAT 95; BMI 25.4
[2022-12-12] MEDS: Lidocaine HCl 1 % MPF 2 ML VIAL INFILTRATI ×2 (11:55)
[2022-12-12] MEDS: Doxycycline Monohydrate 100 MG CAPSULE PO (11:55)
[2022-12-12] MEDS: Ibuprofen 800 MG TABLET PO (12:23)
== END 2022-12-12 12:27 | disposition home or self-care (01) ==
PROVIDERS: Emergency Provider Student in an Organized Health Care Education/Training Program; PCP Internal Medicine
DX: L02.416 Cutaneous abscess of left lower limb (principal); L03.116 Cellulitis of left lower limb
CPT/HCPCS: 10060; 99283; 99284

== ENCOUNTER 2022-12-15 22:47 | Emergency (ER) | payer MEDICARE, MEDICAID, SELFPAY ==
[2022-12-15 22:48] VITALS: BP 152/79; PULSE 82; RESP 18; TEMP 36.6; O2SAT 98; BMI 22.1
[2022-12-15 23:11] VITALS: BP 152/87; PULSE 71; RESP 16; TEMP 36.9; O2SAT 98
--- NOTE | 2022-12-15 23:26 | PC.NURSE ---
Assessment: Pt's V/S are stable, Pt is on the monitor and it shows NSR. Pt lungs sounds are clear, pt has constipation for about one week. PT has a soft abd with hypoactive bowel sounds bilaterally throughout all quadrants. Pt reports, hx of constipation.
--- NOTE | 2022-12-15 23:36 | ED_ITS ---
HPI - General Adult General Chief complaint: General Medical Stated complaint: constipated Time Seen by Provider: 12/15/22 23:17 Source: patient Mode of arrival: ambulatory Limitations: no limitations History of Present Illness HPI narrative: Patient history of constipation with constipated for last 1 week tried prune juice and milk of magnesia today without much relief feels abdominal pain when try to push Related Data Previous Rx's Medication Instructions Recorded ferrous sulfate 325 mg (65 mg 325 mg PO DAILY #90 caps 12/03/21 iron) tablet ascorbic acid (vitamin C) 500 mg 500 mg PO DAILY 90 days #90 caps 01/14/22 tablet (Vitamin C) cyanocobalamin (vitamin B-12) 1,000 mcg PO DAILY #30 caps 03/04/22 1,000 mcg tablet (Vitamin B-12) polymyxin B sulfate 10,000 1 drp ophthalmic-Left Q3H 7 days 05/15/22 unit-trimethoprim 1 mg/mL eye #10 mL drops (Polytrim) folic acid 1 mg tablet 1 mg PO DAILY #90 caps 06/17/22 levothyroxine 100 mcg tablet 100 mcg PO QAM #90 caps 07/02/22 zolpidem 5 mg tablet 5 mg PO BEDTIME PRN insomnia #90 08/06/22 tabs cephalexin 500 mg capsule 500 mg PO TID 7 days #21 caps 12/10/22 cephalexin 500 mg capsule 500 mg PO Q6H 14 days #56 caps 12/12/22 doxycycline monohydrate 100 mg 100 mg PO BID 14 days #28 tabs 12/12/22 tablet oxycodone 5 mg tablet 5 mg PO Q6H PRN pain #10 tabs 12/12/22 docusate sodium 100 mg capsule 200 mg PO DAILY #60 caps 12/15/22 (Colace) polyethylene glycol 3350 17 17 g PO DAILY #510 grams 12/15/22 gram/dose oral powder (Miralax) Allergies Allergy/AdvReac Type Severity Reaction Status Date / Time trazodone Allergy Mild Hallucinati Verified 12/15/22 22:53 ons Review of Systems Review of Systems: Yes all other systems are reviewed and are negative PMFSH Past Medical History Medical History BPH (benign prostatic hyperplasia) GERD (gastroesophageal reflux disease) High prostate specific antigen (PSA) Hypothyroid Pernicious anemia Vitamin B12 deficiency Surgical History H/O ventral hernia repair History of appendectomy History of bilateral cataract extraction Family History Family History Father Medical history unknown Mother No problems noted. Social History Social History Housing: Apartment Alcohol intake: never Patient Tobacco Use Status: Former Tobacco user Tobacco use type: Cigarette Years Smoked: 1990 Smoked in Last 30 Days: No e-Cigarette/Vaping Use: Never Used Second Hand Smoke Exposure: No Use of substances other than those prescribed or required for medical reasons: No Advance Directives: No Advance Directives Information Provided: No Current occupational status: retired Cognitive needs: No Hearing needs: No Vision needs: No Physical Exam ED Vital Signs: Vital Signs - 24 hr 12/15/22 22:48 12/15/22 23:11 Temperature 98 F 98.5 F Pulse Rate 82 71 Respiratory Rate 18 16 Blood Pressure 152/79 H 152/87 H Pulse Oximetry 98 98 Oxygen Delivery Method Room Air Room Air BMI result Body Mass Index 22.1 Appearance: Alert. Oriented X3. No acute distress. ENT: Pharynx normal. Oral Mucosa moist Neck: Normal inspection. Neck supple. CVS: Normal heart rate and rhythm. Pulses normal. Respiratory: No respiratory distress. Equal air entry bilateral, no wheezing/rales/rhonchi Abdomen: Soft and nontender. Bowel sounds are present, no mass palpable, no CVA tenderness rectal; soft stool in rectum Skin: Skin warm and dry. Normal skin color. Normal skin turgor. Extremities: No lower extremity edema. No calf tenderness Neuro: Oriented X 3. Medical Decision Making Medical Decision Making MDM Narrative: Patient with constipation will give MiraLax and Dulcolax Fleet enema in the ER advised to follow with PCP Discharge Plan Discharge Clinical Impression: Constipation Patient Disposition: Home, Self-Care Instructions: Constipation (ED) Additional Instructions: Drink plenty of fluids Stool softener as prescribed Follow with PCP as needed Beber mucho l?quido Suavizante de heces seg?n lo prescrito Siga con PCP seg?n sea necesario Prescriptions: New polyethylene glycol 3350 [Miralax] 17 gram/dose powder 17 g PO DAILY Qty: 510 0RF docusate sodium [Colace] 100 mg capsule 200 mg PO DAILY Qty: 60 0RF No Action ferrous sulfate 325 mg (65 mg iron) tablet 325 mg PO DAILY Qty: 90 3RF cyanocobalamin (vitamin B-12) [Vitamin B-12] 1,000 mcg tablet 1,000 mcg PO DAILY Qty: 30 11RF folic acid 1 mg tablet 1 mg PO DAILY Qty: 90 2RF levothyroxine 100 mcg tablet 100 mcg PO QAM Qty: 90 2RF zolpidem 5 mg tablet 5 mg PO BEDTIME PRN (Reason: insomnia) Qty: 90 1RF polymyxin B sulf-trimethoprim [Polytrim] 10,000 unit- 1 mg/mL drops 1 drp ophthalmic-Left Q3H 7 Days Qty: 10 0RF Rx Instructions: while awake; do not exceed 6 doses in 24 hours cephalexin 500 mg capsule 500 mg PO TID 7 Days Qty: 21 0RF doxycycline monohydrate 100 mg tablet 100 mg PO BID 14 Days Qty: 28 0RF cephalexin 500 mg capsule 500 mg PO Q6H 14 Days Qty: 56 0RF oxycodone 5 mg tablet 5 mg PO Q6H PRN (Reason: pain) Qty: 10 0RF Rx Instructions: Partial Fill upon patient request. ascorbic acid (vitamin C) [Vitamin C] 500 mg tablet 500 mg PO DAILY 90 Days Qty: 90 3RF Print Language: Portuguese
[2022-12-15] MEDS: Milk of Magnesia 30 ML ORAL.SUSP PO (23:56)
[2022-12-15] MEDS: bisacodyL 5 MG TABLET.DR 10 MG PO (23:56)
[2022-12-16] MEDS: Sodium Phosphate,Mono-Dibasic 133 ML ENEMA PR (00:23)
== END 2022-12-16 00:48 | disposition home or self-care (01) ==
PROVIDERS: Emergency Provider Internal Medicine; PCP Internal Medicine
DX: K59.00 Constipation, unspecified (principal); Z87.891 Personal history of nicotine dependence; Z79.899 Other long term (current) drug therapy
CPT/HCPCS: 99283; 99284

== ENCOUNTER 2023-03-18 08:12 | Emergency (ER) | payer MEDICARE, MEDICAID, SELFPAY ==
[2023-03-18 08:32] VITALS: BP 121/76; PULSE 92; RESP 20; TEMP 36.8; O2SAT 95; BMI 30.9
--- NOTE | 2023-03-18 08:33 | ED.GENADULT ---
HPI - General Adult General Chief complaint: Extremity Injury, Upper Stated complaint: R Arm Abscess Time Seen by Provider: 03/18/23 08:17 Source: patient Mode of arrival: ambulatory Limitations: no limitations History of Present Illness HPI narrative: This is 82 years old male presented to the emergency department complaining of right arm skin abscess for about 2 weeks denies any systemic symptoms Onset (ago): week(s) (2) Location: left and upper extremity Radiation: non-radiation Severity: moderate Quality: burning Relieving factors: none Exacerbating factors: none Related Data Previous Rx's Medication Instructions Recorded ascorbic acid (vitamin C) 500 mg 500 mg PO DAILY 90 days #90 caps 01/14/22 tablet (Vitamin C) cyanocobalamin (vitamin B-12) 1,000 mcg PO DAILY #30 caps 03/04/22 1,000 mcg tablet (Vitamin B-12) polymyxin B sulfate 10,000 1 drp ophthalmic-Left Q3H 7 days 05/15/22 unit-trimethoprim 1 mg/mL eye #10 mL drops (Polytrim) folic acid 1 mg tablet 1 mg PO DAILY #90 caps 06/17/22 levothyroxine 100 mcg tablet 100 mcg PO QAM #90 caps 07/02/22 docusate sodium 100 mg capsule 200 mg PO DAILY #60 caps 12/15/22 (Colace) polyethylene glycol 3350 17 17 g PO DAILY #510 grams 12/15/22 gram/dose oral powder (Miralax) zolpidem 5 mg tablet 5 mg PO BEDTIME PRN insomnia #90 01/15/23 tabs ferrous sulfate 325 mg (65 mg 325 mg PO DAILY #90 caps 01/28/23 iron) tablet sulfamethoxazole 800 1 tab PO Q12H #7 tabs 03/18/23 mg-trimethoprim 160 mg tablet (Bactrim DS) Allergies Allergy/AdvReac Type Severity Reaction Status Date / Time trazodone Allergy Mild Hallucinati Verified 01/15/23 11:57 ons Review of Systems Constitutional: Constitutional: Reports no additional constitutional complaints Cardiovascular: Cardiovascular: Reports no additional cardiovascular complaints [facility] Past Medical History Medical History Abscess of skin or subcutaneous tissue BPH (benign prostatic hyperplasia) Cellulitis of left thigh GERD (gastroesophageal reflux disease) High prostate specific antigen (PSA) Hypothyroid Medicare annual wellness visit, initial Pernicious anemia Vitamin B12 deficiency Surgical History H/O ventral hernia repair History of appendectomy History of bilateral cataract extraction Family History Family History Father Medical history unknown Mother No problems noted. Social History Social History Housing: Apartment Alcohol intake: never Patient Tobacco Use Status: Former Tobacco user Tobacco use type: Cigarette Years Smoked: 1989 e-Cigarette/Vaping Use: Never Used Second Hand Smoke Exposure: No Advance Directives: No Advance Directives Information Provided: Yes Current occupational status: retired Cognitive needs: No Hearing needs: No Vision needs: No Physical Exam ED Vital Signs: Vital Signs - 24 hr 03/18/23 08:32 Temperature 98.2 F Pulse Rate 92 Respiratory Rate 20 Blood Pressure 121/76 Pulse Oximetry 95 Oxygen Delivery Method Room Air BMI result Body Mass Index 30.9 Const General: cooperative, healthy appearing, no acute distress, well developed, alert and awake Nutritional Appearance: well nourished Orientation/consciousness: patient oriented x3 Limitations: no limitations HENMT Head: Yes normal to inspection General nose exam: Normal external nose present Face and sinus: Yes normal facial exam Throat: Yes posterior oropharynx normal Neck Neck: Yes normal visual inspection and Yes full ROM Chest Chest palpation & inspection: normal inspection of the chest Resp Effort & Inspection: normal respiratory effort Auscultation: clear to auscultation bilaterally Cardio Jugular venous distension: no JVD Rate: regular rate Rhythm: regular rhythm GI Inspection: Yes normal to inspection Palpation (GI): Soft to palpation, not firm, nontender and no guarding Auscultation: normal bowel sounds General: Yes no CVA tenderness Back/Spine/Pelvis Back: no CVA tenderness Skin Other: General skin exam: other (abscess noted in the right forearm (see picture)) Neuro General: patient oriented x3 Cranial nerves: Yes CN's II-XII intact bilaterally Extrem Other: As described above patient has an abscess in the right forearm Course Reevaluation(s) Reevaluation #1: I&D was performed, he has no fevers white count is normal,afebrile and no toxic,OK to d/c home Time: 10:52 Medications Administered Discontinued Medications Generic Name Dose Route Start Last Admin Trade Name Jesenia PRN Reason Stop Dose Admin Ibuprofen 800 mg 03/18/23 08:51 03/18/23 09:08 Ibuprofen 800 Mg Tablet PO 03/18/23 08:52 800 mg ONCE ONE Administration Lidocaine HCl 5 ml 03/18/23 08:25 03/18/23 08:35 Lidocaine Hcl 1 % Mpf 5 Ml Vial INFILTRATI 03/18/23 08:26 5 ml ONCE ONE Administration Procedures Abscess I/D Site: other (Rt forearm) Side (if applicable): right Local Anesthetic: lidocaine 1% Amount of anesthesia used (mL): 5 Technique: incised with blade and other (I and D performed blody material obtained) Amount of fluid expressed (mL): 5 Sent for culture/gram staining?: No Packing used?: plain Medical Decision Making Lab Data 03/18/23 08:57 03/18/23 08:57 Labs: Lab Results 03/18/23 03/18/23 Range/Units 08:57 08:57 WBC 7.8 (4.8-10.8) X10*3/uL RBC 4.41 L (4.60-5.80) X10*6/uL Hgb 14.0 (14.0-18.0) g/dl Hct 39.4 L (42.0-52.0) % MCV 89.3 (80.0-98.0) fL MCH 31.7 (27.0-33.0) pg MCHC 35.5 (31.0-36.0) g/dl RDW 11.9 (11.0-16.0) % Plt Count 210 (160-400) X10*3/uL MPV 8.6 L (9.4-12.4) fL Immature Gran % (Auto) 0.4 (0.0-0.4) % Neut % (Auto) 78.7 H (45-73) % Lymph % (Auto) 7.3 L (20-40) % Calloway % (Auto) 11.2 H (2-11) % Eos % (Auto) 2.0 (0-4) % Baso % (Auto) 0.4 (0-2) % Lymph # (Auto) 0.6 L (1.2-4.9) X10*3/uL Calloway # (Auto) 0.9 (0.1-1.2) X10*3/uL Eos # (Auto) 0.2 (0.0-0.4) X10*3/uL Baso # (Auto) 0.0 (0.0-0.2) X10*3/uL Abs Immat Gran (auto) 0.03 (0.00-0.03) X10*3/uL Absolute Neuts (auto) 6.2 (2.0-8.3) x10*3/uL Absolute Nucleated RBC 0.000 (0.0-0.012) X10*3/uL Nucleated RBC % (auto) 0.0 (0.0-0.2) /100WBC Sodium 136 (135-145) mmol/L Potassium 3.9 (3.3-5.1) mmol/L Chloride 104 (96-108) mmol/L Carbon Dioxide 27 (22-29) mmol/L Anion Gap 9 L (12-20) BUN 16 (9-16) mg/dL Creatinine 0.70 (0.5-1.4) mg/dL Estim Creat Clear Calc 79.8 Estimated GFR > 60 Random Glucose 112 (60-115) mg/dL Calcium 8.7 D (8.4-10.2) mg/dL Total Bilirubin 0.8 (0.0-1.0) mg/dL AST 17 (5-37) U/L ALT 19 (0-40) U/L Alkaline Phosphatase 94 (39-117) U/L Total Protein 6.3 L (6.5-8.0) g/dL Albumin 3.5 (3.5-5.0) g/dL Discharge Plan Discharge Clinical Impression: Abscess of right forearm Patient Disposition: Home, Self-Care Instructions: Abscess Incision and Drainage (DC) Additional Instructions: Follow-up in 2 days to remove the paking Prescriptions: New sulfamethoxazole-trimethoprim [Bactrim DS] 800-160 mg tablet 1 tab PO Q12H Qty: 7 0RF No Action cyanocobalamin (vitamin B-12) [Vitamin B-12] 1,000 mcg tablet 1,000 mcg PO DAILY Qty: 30 11RF folic acid 1 mg tablet 1 mg PO DAILY Qty: 90 2RF levothyroxine 100 mcg tablet 100 mcg PO QAM Qty: 90 2RF ferrous sulfate 325 mg (65 mg iron) tablet 325 mg PO DAILY Qty: 90 3RF polymyxin B sulf-trimethoprim [Polytrim] 10,000 unit- 1 mg/mL drops 1 drp ophthalmic-Left Q3H 7 Days Qty: 10 0RF Rx Instructions: while awake; do not exceed 6 doses in 24 hours polyethylene glycol 3350 [Miralax] 17 gram/dose powder 17 g PO DAILY Qty: 510 0RF docusate sodium [Colace] 100 mg capsule 200 mg PO DAILY Qty: 60 0RF ascorbic acid (vitamin C) [Vitamin C] 500 mg tablet 500 mg PO DAILY 90 Days Qty: 90 3RF zolpidem 5 mg tablet 5 mg PO BEDTIME PRN (Reason: insomnia) Qty: 90 1RF
[2023-03-18] MEDS: Lidocaine HCl 1 % MPF 5 ML VIAL INFILTRATI (08:35)
--- NOTE | 2023-03-18 08:36 | PC.NURSE ---
Pt presents with R AC abscess Redness noted, and warm, pain noted around site at this time, provider at bedside
[2023-03-18 09:01] LABS: MANUAL DIFF FLAG NO
[2023-03-18 09:03] LABS: Basophils Percent Auto 0.4 % (0-2); Eosinophils Absolute Auto 0.2 X10*3/uL (0.0-0.4); Hematocrit 39.4 % (42.0-52.0); Imm Gran Abs Auto 0.03 X10*3/uL (0.00-0.03); Imm Gran Pct Auto 0.4 % (0.0-0.4); Lymphocytes Absolute Auto 0.6 X10*3/uL (1.2-4.9); Lymphocytes Percent Auto 7.3 % (20-40); Mean Corpuscular HGB Conc 35.5 g/dl (31.0-36.0); Mean Corpuscular Hemoglobin 31.7 pg (27.0-33.0); Mean Corpuscular Volume 89.3 fL (80.0-98.0); Mean Platelet Volume 8.6 fL (9.4-12.4); Monocytes Absolute Auto 0.9 X10*3/uL (0.1-1.2); Monocytes Percent Auto 11.2 % (2-11); Neutrophils Absolute Auto 6.2 x10*3/uL (2.0-8.3); Neutrophils Percent Auto 78.7 % (45-73); Platelet Count 210 X10*3/uL (160-400); Red Blood Count 4.41 X10*6/uL (4.60-5.80); Red Cell Distribution Width 11.9 % (11.0-16.0); White Blood Count 7.8 X10*3/uL (4.8-10.8)
[2023-03-18] MEDS: Ibuprofen 800 MG TABLET PO (09:08)
[2023-03-18 09:24] LABS: Alanine Aminotransferase 19 U/L (0-40); Albumin Level 3.5 g/dL (3.5-5.0); Alkaline Phosphatase 94 U/L (39-117); Anion Gap 9 (12-20); Aspartate Amino Transferase 17 U/L (5-37); Bilirubin Total 0.8 mg/dL (0.0-1.0); Blood Urea Nitrogen 16 mg/dL (9-16); Calcium 8.7 mg/dL (8.4-10.2); Carbon Dioxide 27 mmol/L (22-29); Chloride 104 mmol/L (96-108); Creatinine Clr Calc Pharmacy 79.8; Estimated Glomerular Filt Rate > 60; Glucose Random 112 mg/dL (60-115); Potassium 3.9 mmol/L (3.3-5.1); Sodium 136 mmol/L (135-145); Total Protein 6.3 g/dL (6.5-8.0)
== END 2023-03-18 11:10 | disposition home or self-care (01) ==
PROVIDERS: Emergency Provider Emergency Medicine; PCP Internal Medicine
DX: L02.413 Cutaneous abscess of right upper limb (principal); Z87.891 Personal history of nicotine dependence; Z79.899 Other long term (current) drug therapy
CPT/HCPCS: 10060; 36415; 80053; 85025; 99284

== ENCOUNTER 2023-03-20 20:00 | Emergency (ER) | payer MEDICARE, MEDICAID, SELFPAY ==
[2023-03-20 20:27] VITALS: BP 133/76; PULSE 70; RESP 14; TEMP 36.7; O2SAT 98; BMI 21.4
--- NOTE | 2023-03-20 20:27 | ED_ITS ---
HPI - Wound/Laceration General Chief Complaint: Skin/Abscess/Foreign Body Stated Complaint: ? wound infection Time Seen by Provider: 03/20/23 20:38 Source: patient Mode of arrival: ambulatory History of Present Illness HPI narrative: 82-year-old male past medical history of GERD, hypothyroid, pernicious anemia, right forearm abscess s/p I&D in the ED on 03/18 prescribed Bactrim presenting to the ED complaining of persistent pain to area. Reports took a shower got the area wet and pulled out packing. States has only been taking Motrin for pain, denies being prescribed antibiotics, however picked up something from the pharmacy. Denies fever, chills, drainage Onset (ago): day(s) Related Data Previous Rx's Medication Instructions Recorded ascorbic acid (vitamin C) 500 mg 500 mg PO DAILY 90 days #90 caps 01/14/22 tablet (Vitamin C) cyanocobalamin (vitamin B-12) 1,000 mcg PO DAILY #30 caps 03/04/22 1,000 mcg tablet (Vitamin B-12) polymyxin B sulfate 10,000 1 drp ophthalmic-Left Q3H 7 days 05/15/22 unit-trimethoprim 1 mg/mL eye #10 mL drops (Polytrim) folic acid 1 mg tablet 1 mg PO DAILY #90 caps 06/17/22 levothyroxine 100 mcg tablet 100 mcg PO QAM #90 caps 07/02/22 docusate sodium 100 mg capsule 200 mg PO DAILY #60 caps 12/15/22 (Colace) polyethylene glycol 3350 17 17 g PO DAILY #510 grams 12/15/22 gram/dose oral powder (Miralax) zolpidem 5 mg tablet 5 mg PO BEDTIME PRN insomnia #90 01/15/23 tabs ferrous sulfate 325 mg (65 mg 325 mg PO DAILY #90 caps 01/28/23 iron) tablet sulfamethoxazole 800 1 tab PO Q12H #7 tabs 03/18/23 mg-trimethoprim 160 mg tablet (Bactrim DS) sulfamethoxazole 800 1 tab PO Q12H 2 days #3 tabs 03/20/23 mg-trimethoprim 160 mg tablet (Bactrim DS) Allergies Allergy/AdvReac Type Severity Reaction Status Date / Time trazodone Allergy Mild Hallucinati Verified 01/15/23 11:57 ons Review of Systems Review of Systems: Constitutional: No Weight loss, No Fever, No Chills ENT/Mouth: No Ear Pain, No Nasal Congestion, No sore throat, No Rhinorrhea, No Swallowing Difficulty Cardiovascular: No Chest Pain, No SOB Respiratory: No Cough, No Sputum, No Wheezing Gastrointestinal: No Nausea, No Vomiting, No Diarrhea, No Constipation, No Abdominal pain Genitourinary: No Dysuria, No Urinary Frequency, No Hematuria, No Flank Pain Musculoskeletal: No joint pain, No Myalgias, No Joint Swelling Skin: + Skin Lesions, No rash Neuro: No Weakness, No Numbness, No Paresthesias Yes all other systems are reviewed and are negative Constitutional: Constitutional: Reports as per [facility] Past Medical History Attestation statement: The following information was validated with the patient. Medical History Abscess of skin or subcutaneous tissue BPH (benign prostatic hyperplasia) Cellulitis of left thigh GERD (gastroesophageal reflux disease) High prostate specific antigen (PSA) Hypothyroid Medicare annual wellness visit, initial Pernicious anemia Vitamin B12 deficiency Surgical History H/O ventral hernia repair History of appendectomy History of bilateral cataract extraction Family History Family History Father Medical history unknown Mother No problems noted. Social History Social History Housing: Apartment Alcohol intake: never Patient Tobacco Use Status: Former Tobacco user Tobacco use type: Cigarette Years Smoked: 1989 e-Cigarette/Vaping Use: Never Used Second Hand Smoke Exposure: No Advance Directives: No Advance Directives Information Provided: No Current occupational status: retired Cognitive needs: No Hearing needs: No Vision needs: No Physical Exam Vital Signs: Vital Signs: Last Vital Signs Temp 98.1 F 03/20/23 20:27 Pulse 70 03/20/23 20:27 Resp 14 03/20/23 20:27 BP 133/76 03/20/23 20:27 Pulse Ox 98 03/20/23 20:27 O2 Del Method Room Air 03/20/23 20:27 BMI result Body Mass Index 21.4 Const: General: cooperative, healthy appearing and no acute distress Orientation/consciousness: patient oriented x3 Limitations: no limitations HEENT: Head: Yes normal to inspection and Yes atraumatic Ears: hearing grossly normal bilaterally General nose exam: Normal external nose present Face and sinus: Yes normal facial exam Eyes: General: appearance normal, both eyes and all related structures EOM: EOMs intact bilaterally Neck: Neck: Yes normal visual inspection and Yes no meningeal signs Resp: Effort & Inspection: normal respiratory effort and no respiratory distress Cardio: Rate: regular rate Heart sounds: S1 normal heart sound present and S2 normal heart sound present Skin: Other: +healing for open abscess to right proximal forearm. No packing in place. Small amount of surrounding erythema, no warmth, no fluctuance or induration. No expressible drainage Rashes: no rashes Neuro: General: patient oriented x3, tone normal and no meningeal signs Gait exam (Neuro): Normal gait present Extrem: General: Yes normal to inspection Medical Decision Making Medical Decision Making MDM Narrative: 82-year-old male past medical history of GERD, hypothyroid, pernicious anemia, right antecubital abscess s/p I&D in the ED on 03/18 prescribed Bactrim presenting to the ED complaining of persistent pain to area. On exam vital signs stable, NAD, nontoxic appearing, physical exams above with appropriately healing abscess s/p I&D. Patient reports he has been taking what he picked up from the pharmacy q.12 hours as prescribed, suspect patient picked up antibiotic and is just not aware. Per review patient was only sent 7 pills of Bactrim, extended to a total of 5 day course, sent 3 additional pills Wound care/checking discussed with patient and grandson Results discussed with patient including worrisome signs and symptoms and strict return precautions, and when to return to the emergency department. They verbalized understanding and feel safe for discharge at this time. Differential Diagnosis Differential Diagnoses: The differential diagnosis associated with the presentation includes As above Admission/Observation Consideration of admission/observation: Escalation of care including admission/observation considered Lab Data [facility] Lab Attestation statement: I reviewed the patient's lab results. Radiology Impression Discussion of test interpretation with radiology: I have reviewed the radiologist's reading. External Record Review External record reviewed: Inpatient record, Office record, Outpatient record, Prior outpatient labs, Prior outpatient radiology, Primary care record and Outside ED record Discharge Plan Discharge Clinical Impression: Abscess re-check Patient Disposition: Home, Self-Care Instructions: Abscess (ED), Warm Compress or Soak (ED) Additional Instructions: Continue taking previously prescribed antibiotics. Need to take antibiotics for a total of days Apply warm compresses Take Tylenol Motrin for pain If redness spreading, areas growing, you have pus drainage return to the ED Follow-up with her doctor in 2 days Prescriptions: New sulfamethoxazole-trimethoprim [Bactrim DS] 800-160 mg tablet 1 tab PO Q12H 2 Days Qty: 3 0RF No Action cyanocobalamin (vitamin B-12) [Vitamin B-12] 1,000 mcg tablet 1,000 mcg PO DAILY Qty: 30 11RF folic acid 1 mg tablet 1 mg PO DAILY Qty: 90 2RF levothyroxine 100 mcg tablet 100 mcg PO QAM Qty: 90 2RF ferrous sulfate 325 mg (65 mg iron) tablet 325 mg PO DAILY Qty: 90 3RF polymyxin B sulf-trimethoprim [Polytrim] 10,000 unit- 1 mg/mL drops 1 drp ophthalmic-Left Q3H 7 Days Qty: 10 0RF Rx Instructions: while awake; do not exceed 6 doses in 24 hours polyethylene glycol 3350 [Miralax] 17 gram/dose powder 17 g PO DAILY Qty: 510 0RF docusate sodium [Colace] 100 mg capsule 200 mg PO DAILY Qty: 60 0RF sulfamethoxazole-trimethoprim [Bactrim DS] 800-160 mg tablet 1 tab PO Q12H Qty: 7 0RF ascorbic acid (vitamin C) [Vitamin C] 500 mg tablet 500 mg PO DAILY 90 Days Qty: 90 3RF zolpidem 5 mg tablet 5 mg PO BEDTIME PRN (Reason: insomnia) Qty: 90 1RF Referrals: [facility] [Primary Care Provider] - 2 days
--- NOTE | 2023-03-20 20:42 | PC.NURSE ---
Pt asesed in triage by provider. wound redressed. Good CSM, no active bleeding, no drainage. new rx sent to pharmacy
--- NOTE | 2023-03-20 21:00 | PC.NURSE ---
Reviewed discharge instructions with pt, pt verbalized understanding.
== END 2023-03-20 21:01 | disposition home or self-care (01) ==
PROVIDERS: Emergency Provider Emergency Medicine Emergency Medical Services
DX: M79.631 Pain in right forearm (principal); Z48.01 Encounter for change or removal of surgical wound dressing
CPT/HCPCS: 99282; 99283

== ENCOUNTER 2023-06-03 09:52 | Emergency (ER) | payer MEDICARE, MEDICAID, SELFPAY ==
[2023-06-03 09:54] VITALS: BP 154/76; PULSE 79; RESP 16; TEMP 36.1; O2SAT 94; BMI 24.5
--- NOTE | 2023-06-03 09:58 | ED.EXTPRO ---
HPI - Extremity Problem General Chief complaint: Extremity Injury, Upper Stated complaint: R shoulder inj Time Seen by Provider: 06/03/23 09:57 Source: patient and town manager Mode of arrival: ambulatory Limitations: language barrier History of Present Illness HPI Narrative: 82-year-old male with a history of hypothyroidism, GERD, BPH presents to the ER with complaints of right shoulder pain which began after lifting a case of water. Patient is left-hand dominant. No associated numbness or tingling Patient reports yesterday he was leaning over or lifting a 24 bottle case of water to put in his car when he felt a pain in his right posterior shoulder. Since then he has weakness of the right upper extremity and pain despite taking Tylenol Related Data Previous Rx's Medication Instructions Recorded polymyxin B sulfate 10,000 1 drp ophthalmic-Left Q3H 7 days 05/15/22 unit-trimethoprim 1 mg/mL eye #10 mL drops (Polytrim) docusate sodium 100 mg capsule 200 mg PO DAILY #60 caps 12/15/22 (Colace) polyethylene glycol 3350 17 17 g PO DAILY #510 grams 12/15/22 gram/dose oral powder (Miralax) zolpidem 5 mg tablet 5 mg PO BEDTIME PRN insomnia #90 01/15/23 tabs ferrous sulfate 325 mg (65 mg 325 mg PO DAILY #90 caps 01/28/23 iron) tablet levothyroxine 100 mcg tablet 100 mcg PO QAM #90 caps 03/31/23 ascorbic acid (vitamin C) 500 mg 500 mg PO DAILY 90 days #90 caps 04/15/23 tablet (Vitamin C) cyanocobalamin (vitamin B-12) 1,000 mcg PO DAILY #30 caps 05/01/23 1,000 mcg tablet (Vitamin B-12) folic acid 1 mg tablet 1 mg PO DAILY #90 caps 05/01/23 diclofenac sodium 1 % topical gel 2 g topical QID #100 grams 06/03/23 (Voltaren Arthritis Pain) naproxen 500 mg tablet 500 mg PO BID PRN pain #20 tabs 06/03/23 Allergies Allergy/AdvReac Type Severity Reaction Status Date / Time trazodone Allergy Mild Hallucinati Verified 04/07/23 09:59 ons Review of Systems Review of Systems: Yes all other systems are reviewed and are negative Constitutional: Constitutional: Reports no additional constitutional complaints, Denies body ache(s), Denies chills, Denies fever(s), Denies headache(s) and Denies weakness Eyes: Eyes: Reports no additional eye complaints and Denies change in vision ENT: Reports system reviewed and no additional complaints, except as documented, Denies dizziness, Denies headache(s), Denies nasal congestion, Denies nasal discharge and Denies neck pain Cardiovascular: Cardiovascular: Reports no additional cardiovascular complaints, Denies chest pain, Denies leg edema and Denies dyspnea Respiratory: Respiratory: Reports no additional respiratory complaints, Denies cough and Denies dyspnea Gastrointestinal: Gastrointestinal: Reports no additional gastrointestinal complaints, Denies abdominal pain, Denies diarrhea, Denies nausea and Denies vomiting Genitourinary: Genitourinary: Denies urinary incontinence Musculoskeletal: Musculoskeletal: Reports no additional musculoskeletal complaints, Denies back pain, Reports arthralgias, Denies joint swelling, Reports limited range of motion, Denies neck pain, Denies numbness and Denies tingling Integumentary/Breasts: Skin/Breast: Reports system reviewed and no additional complaints, except as docu and Denies rash Neurologic: Reports system reviewed and no additional complaints, except as documented, Denies Abnormal speech present, Denies dizziness, Denies headache(s), Denies numbness, Denies tingling and Denies weakness PMF Past Medical History Attestation statement: The following information was validated with the patient. Source: old records reviewed and nursing notes reviewed Medical History Abscess of skin or subcutaneous tissue BPH (benign prostatic hyperplasia) Cellulitis of left thigh GERD (gastroesophageal reflux disease) High prostate specific antigen (PSA) Hypothyroid Medicare annual wellness visit, initial Pernicious anemia Vitamin B12 deficiency Surgical History H/O ventral hernia repair History of appendectomy History of bilateral cataract extraction Family History Family History Father Medical history unknown Mother No problems noted. Social History Social History Housing: Apartment Alcohol intake: never Patient Tobacco Use Status: Former Tobacco user Tobacco use type: Cigarette Years Smoked: 1990 Smoked in Last 30 Days: No e-Cigarette/Vaping Use: Never Used Second Hand Smoke Exposure: No Use of substances other than those prescribed or required for medical reasons: No Advance Directives: No Advance Directives Information Provided: Yes Current occupational status: retired Cognitive needs: No Hearing needs: No Vision needs: No Physical Exam Vital Signs: Vital Signs: Last Vital Signs Temp 97 F 06/03/23 09:54 Pulse 66 06/03/23 10:41 Resp 19 06/03/23 10:41 BP 120/79 06/03/23 10:41 Pulse Ox 96 06/03/23 10:41 O2 Del Method Room Air 06/03/23 10:41 BMI result Body Mass Index 24.5 Const: General: cooperative, healthy appearing, comfortable and no acute distress Orientation/consciousness: patient oriented x3 Limitations: no limitations HEENT: Head: Yes normal to inspection Ears: hearing grossly normal bilaterally General nose exam: Normal external nose present Face and sinus: Yes normal facial exam Mouth: Normal oral and palatal mucosa present Throat: Yes posterior oropharynx normal Eyes: General: appearance normal, both eyes and all related structures Pupils: Equal, round and reactive pupils present Neck: Neck: Yes normal visual inspection Chest: Chest palpation & inspection: normal inspection of the chest Resp: Effort & Inspection: normal respiratory effort Auscultation: clear to auscultation bilaterally Cardio: Rate: regular rate Rhythm: regular rhythm Peripheral pulses: Peripheral pulses 2+ throughout GI: Inspection: Yes normal to inspection Palpation (GI): Soft to palpation and nontender Auscultation: normal bowel sounds Back/Spine/Pelvis: Thoracic/Lumbar Spine: thoracic and lumbar spine normal to inspection Skin: General skin exam: no rashes or lesions noted Neuro: General: patient oriented x3, no focal motor deficits and normal sensation to monofilament Cranial nerves: Yes Equal, round and reactive pupils present Cognition (Neuro): normal cognition Speech: No Abnormal speech present Gait exam (Neuro): Normal gait present Motor exam (neuro): 5/5 motor strength present throughout Extrem: Other: Pain over the right posterior shoulder with limited abduction due to pain There are palpable radial and ulnar pulses with no difficulty. Normal sensation. No swelling, redness or warmth. General: Yes normal to inspection Course Course Course Narrative: X-ray show no bony fracture. No dislocation. Likely rotator cuff strain. Patient will be discharged home with recommendations for supportive care, NSAIDs and orthopedic follow-up. Due to patient having state insurance will likely need referral from primary care Medical Decision Making Medical Decision Making MDM Narrative: 82-year-old male left-hand dominant here with right posterior shoulder pain and weakness after a lifting injury yesterday. On exam patient with tenderness over the right posterior shoulder with limited abduction due to pain. Will check x-rays. Differential Diagnosis Differential Diagnoses: The differential diagnosis associated with the presentation includes Rotator cuff injury, muscle strain, low concern for fracture or dislocation Independent Interpretation I performed an independent interpretation of an: Plain X-Ray Interpretation: I independently reviewed the x-ray and agree with radiologist's report Radiology Impression Discussion of test interpretation with radiology: I have reviewed the radiologist's reading. Radiologist Impression: [address] [address] XRay Report Signed Patient: Frankie Jose MR#: [id number] : 1940 Acct:[id number] Age/Sex: 82 / M ADM Date: 06/03/23 Loc: .ED Attending Dr: Ordering Physician: Sandra Samuel NP Date of Service: 06/03/23 Procedure(s): XR shoulder RT min 2V Accession Number(s): [id number] cc: Sandra Samuel NP~ EXAMINATION: XR SHOULDER, RIGHT CLINICAL INFORMATION: Injury with pain? COMPARISON: None available.? TECHNIQUE: Three views of the right shoulder. FINDINGS: There is no evidence of acute fracture or dislocation of the right shoulder. No calcific tendinitis. Glenohumeral joint unremarkable. There is subacromial spurring present. There is some mild narrowing with spurring about the acromioclavicular joint without evidence of widening of the coracoclavicular space.? XR/XR shoulder RT min 2V IMPRESSION: No evidence of acute fracture or dislocation of the right shoulder. Prescription Management I considered prescription management with: Pain Medication Patient taking Tylenol with continued symptoms. Will add nsaid Discharge Plan Discharge Clinical Impression: Rotator cuff injury Patient Disposition: Home, Self-Care Instructions: Rotator Cuff Injury (ED), Rotator Cuff Injury Exercises (DC) Additional Instructions: Heat or ice. Gentle stretching. You have no broken bones but you likely have an injury of the rotator cuff of the right shoulder. Please call your primary care doctor tomorrow to get a referral to see an orthopedic doctor. Calor o hielo. Estiramiento suave. No tiene huesos rotos, ravin es probable que tenga immanuel lesi?n en el manguito de los rotadores del hombro derecho. Llame a rodriguez m?dico de atenci?n primaria ma?gurjit para obtener immanuel remisi?n para miguelito a un m?dico ortop?dico. Prescriptions: New naproxen 500 mg tablet 500 mg PO BID PRN (Reason: pain) Qty: 20 0RF diclofenac sodium [Voltaren Arthritis Pain] 1 % gel 2 g topical QID Qty: 100 0RF No Action ferrous sulfate 325 mg (65 mg iron) tablet 325 mg PO DAILY Qty: 90 3RF levothyroxine 100 mcg tablet 100 mcg PO QAM Qty: 90 2RF ascorbic acid (vitamin C) [Vitamin C] 500 mg tablet 500 mg PO DAILY 90 Days Qty: 90 3RF folic acid 1 mg tablet 1 mg PO DAILY Qty: 90 2RF cyanocobalamin (vitamin B-12) [Vitamin B-12] 1,000 mcg tablet 1,000 mcg PO DAILY Qty: 30 11RF polymyxin B sulf-trimethoprim [Polytrim] 10,000 unit- 1 mg/mL drops 1 drp ophthalmic-Left Q3H 7 Days Qty: 10 0RF Rx Instructions: while awake; do not exceed 6 doses in 24 hours polyethylene glycol 3350 [Miralax] 17 gram/dose powder 17 g PO DAILY Qty: 510 0RF docusate sodium [Colace] 100 mg capsule 200 mg PO DAILY Qty: 60 0RF zolpidem 5 mg tablet 5 mg PO BEDTIME PRN (Reason: insomnia) Qty: 90 1RF Referrals: [facility] [Provider Group] - 5 days Po,Mehnaz Tripp MD [Primary Care Provider] - 1 day (Call tomorrow to get orthopedic referral) Interventions: ED Discharge Assessment Last Done: 06/03/23 10:43 Discharge Date/Time: 06/03/23 10:45 Print Language: Tristanian
--- NOTE | 2023-06-03 10:39 | PC.NURSE ---
Patient hurt shoulder yesterday while lifting a 24 pack of water into his car. Patient is having trouble lifting his arm at this time. No swelling noted, shoulder tender to palpitation.
[2023-06-03 10:41] VITALS: BP 120/79; PULSE 66; RESP 19; O2SAT 96
== END 2023-06-03 10:45 | disposition home or self-care (01) ==
LOC: HO.ED 10:32
PROVIDERS: Emergency Provider Emergency Medicine Emergency Medical Services; PCP Internal Medicine
DX: S46.001A Unspecified injury of muscle(s) and tendon(s) of the rotator cuff of right shoulder, initial encounter (principal); X50.0XXA Overexertion from strenuous movement or load, initial encounter; Y93.89 Activity, other specified; Y92.9 Unspecified place or not applicable; Y99.9 Unspecified external cause status; M25.511 Pain in right shoulder
CPT/HCPCS: 73030; 99283; 99284

== ENCOUNTER 2023-06-07 08:17 | Outpatient (REF) | payer MEDICARE, MEDICAID, SELFPAY | END 2023-06-07 08:18 | disposition home or self-care (01) | LOC: HO.LAB 08:17 | PROVIDERS: Absent Provider Nurse Practitioner Family; PCP Internal Medicine; Visit Provider Internal Medicine | DX: Z12.5 Encounter for screening for malignant neoplasm of prostate (principal); R73.01 Impaired fasting glucose; E78.00 Pure hypercholesterolemia, unspecified; D64.9 Anemia, unspecified | CPT/HCPCS: 36415; 80053; 80061; 82607; 82728; 82746; 83036; 84153; 84439; 84443; 85025; 85045 ==

== ENCOUNTER 2023-06-16 11:09 | Outpatient (AMB) | payer MEDICARE, MEDICAID, SELFPAY ==
--- NOTE | 2023-06-16 11:11 | A.OFFPC_ITS ---
Vital Signs 06/16/23 11:12 Height 5 ft 2 in Weight 128 lb BMI 23.4 BP 116/70 Blood Pressure Location Lt brachial Position Sitting Pulse 68 Pulse Source Pulse Oximeter Temp Source Skin Pulse Oximetry (%) 97 Oxygen Delivery Method Room Air Intake Visit Reasons: 6mth f/u Mental Health Professional Required: Yes Allergies trazodone Allergy (Mild, Verified 06/16/23 11:12) Hallucinations Medication List - Last Reconciled 06/16/23 by Mehnaz Abel MD ascorbic acid (vitamin C) (Vitamin C) 500 mg PO DAILY 90 days cyanocobalamin (vitamin B-12) (Vitamin B-12) 1,000 mcg PO DAILY diclofenac sodium 1% (Voltaren Arthritis Pain) 2 grams topical QID docusate sodium (Colace) 200 mg (2 x 100 mg) PO DAILY ferrous sulfate 325 mg PO DAILY folic acid 1 mg PO DAILY levothyroxine 100 mcg PO QAM naproxen 500 mg PO BID PRN polyethylene glycol 3350 (Miralax) 17 grams PO DAILY polymyxin B sulf-trimethoprim 10,000 unit- 1 mg/mL (Polytrim) 1 drp ophthalmic- Left Q3H 7 days zolpidem 5 mg PO BEDTIME PRN Tobacco use date assessed: 06/16/23 Last assessed Fall Risk: 06/16/23 Dental Screening Dental Screen Date: 06/16/23 Did you have a dental visit in the last 12 months?: No Did you have a dental problem in the last 6 months where you did not have access to dental care?: No HPI 6mth f/u HPI Details 82-year-old male with a history of insomnia BPH GERD hypothyroidism impaired glucose tolerance and generalized anxiety disorder last seen in March 2022. Review of the notes has been follow-up with the nurse practitioner recently had some right shoulder injury after lifting water and x-ray was done revealing negative results patient also had some abscess on the arm as well as on the thigh which was incision then drained and placed on antibiotic patient is here for follow-up MAx [id number] complains of pain on the R shoulder . pain on the R shoulder and not able to elevate fully. [facility] Medical History Abscess of skin or subcutaneous tissue BPH (benign prostatic hyperplasia) Cellulitis of left thigh GERD (gastroesophageal reflux disease) High prostate specific antigen (PSA) Hypothyroid Medicare annual wellness visit, initial Pernicious anemia Vitamin B12 deficiency Surgical History H/O ventral hernia repair History of appendectomy History of bilateral cataract extraction Family History Father Medical history unknown Mother No problems noted. Social History Housing: Apartment Alcohol intake: never Patient Tobacco Use Status: Former Tobacco user Tobacco use type: Cigarette Years Smoked: 1989 e-Cigarette/Vaping Use: Never Used Second Hand Smoke Exposure: No Current occupational status: retired Cognitive needs: No Hearing needs: No Vision needs: No Questionnaire Thrive Questionnaire Date Thrive assessed: 01/15/23 AUDIT C Alcohol Use Questionnaire (AUDIT-C) 1. How often do you have a drink containing alcohol?: Never 3. How often do you have six or more drinks on one occasion?: Never Total Score: 0 KETTY-7 AMB Questionnaire KETTY-7 Date KETTY - 7 assessed: 01/15/23 Source: Developed by Drs. Sacha Betancur, Katie Segal, Elmo Barillas and colleagues, with an educational zayra from [employer]. Physical exam (Primary Care) Vital Signs: Last Vital Signs Pulse 68 06/16/23 11:12 BP 116/70 06/16/23 11:12 Pulse Ox 97 06/16/23 11:12 Oxygen Delivery Method Room Air 06/16/23 11:12 BMI result Body Mass Index 23.4 Tobacco/Smoking Status: Tobacco use Status Tobacco use date assessed 06/16/23 06/16/23 11:13 Patient Tobacco Use Status Former Tobacco user 06/16/23 11:13 Tobacco use type Cigarette 06/16/23 11:13 e-Cigarette/Vaping Use Never Used 06/16/23 11:13 Thrive Assessment: Date of Thrive Assessment Date Thrive assessed 01/15/23 06/16/23 11:13 Const General: alert; No acute distress Eyes Conjunctivae: conjunctivae normal Resp Auscultation: clear to auscultation bilaterally Cardio Rate: regular rate Rhythm: regular rhythm GI Inspection: Yes normal to inspection Extrem General: Yes normal to inspection and No edema Assessment and Plan Assessment & Plan (1) Impaired fasting glucose: Code(s): R73.01 - Impaired fasting glucose Plan: Decrease the amount of carbohydrate intake, pasta, bread, rice and potatoes are all sugar and that is aside from all the sweet stuff, remember that fruits are good but they are Sweet also. (2) Hypothyroid: Code(s): E03.9 - Hypothyroidism, unspecified Qualifiers: Hypothyroidism type: acquired Qualified Code(s): E03.9 - Hypothyroidism, unspecified Plan: Continue with thyroid medication (3) GERD (gastroesophageal reflux disease): Comment: EGD January 2015 Dr. Aldridge Code(s): K21.9 - Gastro-esophageal reflux disease without esophagitis Qualifiers: Esophagitis presence: without esophagitis Qualified Code(s): K21.9 - Gastro-esophageal reflux disease without esophagitis Plan: Avoid the foods that causes that usually spicy foods, tomato products, juices, c offee, soda and foods that your sensitive to. After eating do not lie down, allow 3-4 hours before in lie down. And keep the head of bed above 30 degrees to avoid the acid from going up. (4) BPH (benign prostatic hyperplasia): Code(s): N40.0 - Benign prostatic hyperplasia without lower urinary tract symptoms Qualifiers: Lower urinary tract symptom presence: symptoms present Lower urinary tract symptom detail: urinary frequency Qualified Code(s): N40.1 - Benign prostatic hyperplasia with lower urinary tract symptoms; R35.0 - Frequency of micturition Plan: Stable (5) Insomnia: Code(s): G47.00 - Insomnia, unspecified Qualifiers: Insomnia type: primary Qualified Code(s): F51.01 - Primary insomnia Plan: Continue with present medications (6) Right shoulder pain: Code(s): M25.511 - Pain in right shoulder Orders: Orders PT Evaluation and Treatment Today M25.511 - Pain in right shoulder Referrals Orthopedics Referral M25.511 - Pain in right shoulder Medications: Changed From naproxen 500 mg PO BID PRN 20 tabs 0RF pain M25.511 - Pain in right shoulder To naproxen 500 mg PO BID 15 days PRN 30 tabs 0RF pain M25.511 - Pain in right shoulder Coding Level of Care Code Est Pt Level 4 (56505) Diagnoses Impaired fasting glucose R73.01 Hypothyroid E03.9 Hypothyroidism type: acquired GERD (gastroesophageal reflux disease) K21.9 Esophagitis presence: without esophagitis BPH (benign prostatic hyperplasia) N40.1; R35.0 Lower urinary tract symptom presence: symptoms present Lower urinary tract symptom detail: urinary frequency Insomnia F51.01 Insomnia type: primary Right shoulder pain M25.511
[2023-06-16 11:12] VITALS: BP 116/70; PULSE 68; O2SAT 97; BMI 23.4
== END 2023-06-16 12:42 | disposition home or self-care (01) ==
PROVIDERS: Visit Provider Internal Medicine
DX: R73.01 Impaired fasting glucose (principal); E03.9 Hypothyroidism, unspecified; K21.9 Gastro-esophageal reflux disease without esophagitis; N40.1 Benign prostatic hyperplasia with lower urinary tract symptoms; R35.0 Frequency of micturition; F51.01 Primary insomnia; M25.511 Pain in right shoulder
CPT/HCPCS: 99214

== ENCOUNTER 2023-07-20 20:00 | Emergency (ER) | payer MEDICARE, MEDICAID, SELFPAY ==
--- NOTE | ~2023-07-20 | XR_ITS ---
EXAMINATION: XR TIBIA AND FIBULA, RIGHT CLINICAL INFORMATION: Right lower leg redness. Suspected osteomyelitis. COMPARISON: None available. TECHNIQUE: AP and lateral views of the right tibia and fibula were obtained. FINDINGS: Moderate diffuse osteopenia. The bony alignments are intact. No evidence of any cortical destruction or periosteal reaction or soft tissue gas formation to suspect osteomyelitis or soft tissue disease. Partially visualized part of the calcaneus shows well-circumscribed nonspecific osteolytic lesion measuring approximately 2 cm at its maximum dimension. XR/XR tibia fibula RT 2V IMPRESSION: 1. Moderate diffuse osteopenia. 2. No radiographic evidence of osteomyelitis involving the right leg. 3. Partially included visualized part of the calcaneus is remarkable for 2.0 cm maximum dimension radiolucent cyst of indeterminate etiology.
[2023-07-20 20:18] VITALS: BP 147/86; PULSE 94; RESP 20; TEMP 37.4; O2SAT 98; BMI 23.3
--- NOTE | 2023-07-20 20:21 | ED.GENADULT ---
HPI - General Adult General Chief complaint: Skin/Abscess/Foreign Body Stated complaint: Right foot pain Time Seen by Provider: 07/20/23 23:08 Source: patient and rehabilitation coordinator Mode of arrival: ambulatory Limitations: no limitations History of Present Illness HPI narrative: 82-year-old male presented to ED complaining of abscess and infection to the right lower extremity started about 2-3 days ago, denies any trauma or injury, patient is prone to abscesses and skin infection no fever, no chills. Related Data Previous Rx's Medication Instructions Recorded polymyxin B sulfate 10,000 1 drp ophthalmic-Left Q3H 7 days 05/15/22 unit-trimethoprim 1 mg/mL eye #10 mL drops (Polytrim) docusate sodium 100 mg capsule 200 mg PO DAILY #60 caps 12/15/22 (Colace) polyethylene glycol 3350 17 17 g PO DAILY #510 grams 12/15/22 gram/dose oral powder (Miralax) ferrous sulfate 325 mg (65 mg 325 mg PO DAILY #90 caps 01/28/23 iron) tablet levothyroxine 100 mcg tablet 100 mcg PO QAM #90 caps 03/31/23 ascorbic acid (vitamin C) 500 mg 500 mg PO DAILY 90 days #90 caps 04/15/23 tablet (Vitamin C) cyanocobalamin (vitamin B-12) 1,000 mcg PO DAILY #30 caps 05/01/23 1,000 mcg tablet (Vitamin B-12) folic acid 1 mg tablet 1 mg PO DAILY #90 caps 05/01/23 diclofenac sodium 1 % topical gel 2 g topical QID #100 grams 06/03/23 (Voltaren Arthritis Pain) naproxen 500 mg tablet 500 mg PO BID PRN pain 15 days #30 07/03/23 tabs zolpidem 5 mg tablet 5 mg PO BEDTIME PRN insomnia #90 07/10/23 tabs doxycycline hyclate 100 mg tablet 100 mg PO BID #20 tabs 07/20/23 Allergies Allergy/AdvReac Type Severity Reaction Status Date / Time trazodone Allergy Mild Hallucinati Verified 06/16/23 11:12 ons Review of Systems Review of Systems: All other systems are reviewed and are negative Constitutional: Reports as per HPI and Reports no additional constitutional complaints Eyes: Reports as per HPI and Reports no additional eye complaints Reports system reviewed and no additional complaints, except as documented Cardiovascular: Reports as per HPI and Reports no additional cardiovascular complaints Respiratory: Reports as per HPI and Reports no additional respiratory complaints Gastrointestinal: Reports as per HPI and Reports no additional gastrointestinal complaints Genitourinary: Reports no additional female genitourinary complaints Musculoskeletal: Reports no additional musculoskeletal complaints Skin/Breast: Reports system reviewed and no additional complaints, except as docu Psychiatric: Reports no additional psychiatric complaints Endocrine: Reports no additional endocrine complaints Hematologic/Lymphatic: Reports no additional hematologic/lymphatic complaints Allergic/Immunologic: Reports no additional allergic/immunologic complaints Reports system reviewed and no additional complaints, except as documented and Reports Abnormal speech present [facility] Past Medical History Medical History Abscess of skin or subcutaneous tissue BPH (benign prostatic hyperplasia) Cellulitis of left thigh GERD (gastroesophageal reflux disease) High prostate specific antigen (PSA) Hypothyroid Medicare annual wellness visit, initial Pernicious anemia Vitamin B12 deficiency Surgical History H/O ventral hernia repair History of appendectomy History of bilateral cataract extraction Family History Family History Father Medical history unknown Mother No problems noted. Social History Social History Housing: Apartment Alcohol intake: never Patient Tobacco Use Status: Former Tobacco user Tobacco use type: Cigarette Years Smoked: 1989 e-Cigarette/Vaping Use: Never Used Second Hand Smoke Exposure: No Current occupational status: retired Cognitive needs: No Hearing needs: No Vision needs: No Physical Exam ED Vital Signs: Vital Signs - 24 hr 07/20/23 20:18 07/20/23 21:39 Temperature 99.4 F 98.8 F Pulse Rate 94 84 Respiratory Rate 20 16 Blood Pressure 147/86 H 147/90 H Pulse Oximetry 98 98 Oxygen Delivery Method Room Air Room Air BMI result Body Mass Index 23.3 Vital signs have been reviewed as appeared to be correct. Blood pressure normal. Heart rate normal. Respiration rate normal. Temperature normal. Oxygen saturation normal. Appearance: Alert. Oriented X3. No acute distress. Head: Normal external exam. Normocephalic. Atraumatic. No Huerta signs noted. No raccoon eyes noted Eyes: PERRLA. EOMI. Conjunctiva and sclera normal. Eyelids normal. ENT: TM's Normal. Pharynx normal. Uvula midline. Moist mucous membranes. No trismus noted. No drooling noted. No muffled voice noted. Neck: Normal inspection. Neck supple. FROM. No adenopathy. Thyroid Normal. No meningeal signs. No neck mass noted. CVS: Normal heart rate and rhythm. Heart sound normal. No murmurs noted. Pulses normal throughout. Respiratory: No respiratory distress. Painless inspiration. Breath sounds normal. No wheezes/rales/rhonchi noted. Chest nontender. No accessory muscle usage noted or decreased air movement noted. Abdomen: Soft and nontender. Bowel sounds normal in all 4 quadrants. No distention noted. No organomegaly noted. No visible injury noted. Back: No CVA tenderness. Full range of motion noted. Skin: Skin warm and dry. Normal skin color. Normal skin turgor. No rashes/lesions/lacerations noted. Extremities: Right mendiola: 5 x 7 cm area of redness with area of fluctuation at the center pain. Neuro: Oriented X 3. Cranial nerve exam: II-XII are grossly intact No motor deficit. No sensory deficit. Reflexes normal. Course Course Course Narrative: RME: 82 yold male presents to the ED for Right lower leg redness, warmth, and ulcer. patietn denies any trauma, fever, or chills. labs or xray ordered Reevaluation(s) Reevaluation #1: Right lower extremities swelling and abscess s/p I&D, start the patient on doxycycline and return in 3 days for wound check. Time: 23:24 Medications Administered Discontinued Medications Generic Name Dose Route Start Last Admin Trade Name Freq PRN Reason Stop Dose Admin Bacitracin 1 appl 07/20/23 23:55 07/20/23 23:57 Bacitracin Oint 0.9 Gm Packet TOPICAL 07/20/23 23:56 1 appl ONCE ONE Administration Protocol Doxycycline Monohydrate 100 mg 07/20/23 23:19 07/20/23 23:28 Doxycycline Monohydrate 100 Mg Capsule PO 07/20/23 23:20 100 mg ONCE ONE Administration Lidocaine HCl 5 ml 07/20/23 23:19 07/20/23 23:27 Lidocaine Hcl 1 % Mpf 5 Ml Vial SUBCUT 07/20/23 23:20 5 ml ONCE ONE Administration Oxycodone HCl 5 mg 07/20/23 23:19 07/20/23 23:28 Oxycodone Hcl Immed Release 5 Mg Tablet PO 07/20/23 23:20 5 mg ONCE ONE Administration Procedures Abscess I/D Site: lower extremity (Right mendiola) Side (if applicable): right Local Anesthetic: lidocaine 1% Amount of anesthesia used (mL): 5 Technique: incised with blade Amount of fluid expressed (mL): 4 Medical Decision Making Differential Diagnosis Differential Diagnoses: The differential diagnosis associated with the presentation includes (Cellulitis right leg, abscess of the right leg, sepsis, electrolyte abnormality, severe anemia.) Admission/Observation Consideration of admission/observation: Escalation of care including admission/observation considered Lab Data MDM Lab Attestation statement: I reviewed the patient's lab results. 07/20/23 20:45 07/20/23 20:45 Labs: Lab Results 07/20/23 07/20/23 07/20/23 Range/Units 20:45 20:45 20:45 WBC 6.9 (4.8-10.8) X10*3/uL RBC 4.31 L (4.60-5.80) X10*6/uL Hgb 13.6 L (14.0-18.0) g/dl Hct 37.7 L (42.0-52.0) % MCV 87.5 (80.0-98.0) fL MCH 31.6 (27.0-33.0) pg MCHC 36.1 H (31.0-36.0) g/dl RDW 12.1 (11.0-16.0) % Plt Count 249 (160-400) X10*3/uL MPV 8.7 L (9.4-12.4) fL Immature Gran % (Auto) 0.3 (0.0-0.4) % Neut % (Auto) 72.0 (45-73) % Lymph % (Auto) 13.5 L (20-40) % [place] % (Auto) 10.6 (2-11) % Eos % (Auto) 3.2 (0-4) % Baso % (Auto) 0.4 (0-2) % Lymph # (Auto) 0.9 L (1.2-4.9) X10*3/uL [place] # (Auto) 0.7 (0.1-1.2) X10*3/uL Eos # (Auto) 0.2 (0.0-0.4) X10*3/uL Baso # (Auto) 0.0 (0.0-0.2) X10*3/uL Abs Immat Gran (auto) 0.02 (0.00-0.03) X10*3/uL Absolute Neuts (auto) 4.9 (2.0-8.3) x10*3/uL Absolute Nucleated RBC 0.000 (0.0-0.012) X10*3/uL Nucleated RBC % (auto) 0.0 (0.0-0.2) /100WBC ESR 38 H (0-15) MM/HR Sodium 138 (135-145) mmol/L Potassium 3.8 (3.3-5.1) mmol/L Chloride 104 (96-108) mmol/L Carbon Dioxide 24 (22-29) mmol/L Anion Gap 14 (12-20) BUN 11 (9-16) mg/dL Creatinine 0.80 (0.5-1.4) mg/dL Estim Creat Clear Calc 60.6 Estimated GFR > 60 Random Glucose 125 H (60-115) mg/dL Calcium 9.7 (8.4-10.2) mg/dL Total Bilirubin 0.5 (0.0-1.0) mg/dL AST 20 (5-37) U/L ALT 25 (0-40) U/L Alkaline Phosphatase 113 (39-117) U/L C-Reactive Protein 6.99 H (< or = 0.50) mg/dL Total Protein 7.5 (6.5-8.0) g/dL Albumin 3.9 (3.5-5.0) g/dL Independent Interpretation I performed an independent interpretation of an: Plain X-Ray (. Moderate diffuse osteopenia. 2. No radiographic evidence of osteomyelitis involving the right leg. 3. Partially included visualized part of the calcaneus is remarkable for 2.0 cm maximum dimension radiolucent cyst of indeterminate etiology. ) Radiology Impression Discussion of test interpretation with radiology: I have reviewed the radiologist's reading. Discharge Plan Discharge Clinical Impression: Cellulitis of leg, right, Abscess Patient Disposition: Home, Self-Care Instructions: Cellulitis (ED) Prescriptions: New doxycycline hyclate 100 mg tablet 100 mg PO BID Qty: 20 0RF No Action ferrous sulfate 325 mg (65 mg iron) tablet 325 mg PO DAILY Qty: 90 3RF levothyroxine 100 mcg tablet 100 mcg PO QAM Qty: 90 2RF ascorbic acid (vitamin C) [Vitamin C] 500 mg tablet 500 mg PO DAILY 90 Days Qty: 90 3RF folic acid 1 mg tablet 1 mg PO DAILY Qty: 90 2RF cyanocobalamin (vitamin B-12) [Vitamin B-12] 1,000 mcg tablet 1,000 mcg PO DAILY Qty: 30 11RF naproxen 500 mg tablet 500 mg PO BID PRN (Reason: pain) 15 Days Qty: 30 0RF zolpidem 5 mg tablet 5 mg PO BEDTIME PRN (Reason: insomnia) Qty: 90 1RF polymyxin B sulf-trimethoprim [Polytrim] 10,000 unit- 1 mg/mL drops 1 drp ophthalmic-Left Q3H 7 Days Qty: 10 0RF Rx Instructions: while awake; do not exceed 6 doses in 24 hours polyethylene glycol 3350 [Miralax] 17 gram/dose powder 17 g PO DAILY Qty: 510 0RF docusate sodium [Colace] 100 mg capsule 200 mg PO DAILY Qty: 60 0RF diclofenac sodium [Voltaren Arthritis Pain] 1 % gel 2 g topical QID Qty: 100 0RF Referrals: Po,Mehnaz Tripp MD [Primary Care Provider] - Interventions: ED Discharge Assessment Last Done: 07/21/23 00:15 Discharge Date/Time: 07/21/23 00:17
[2023-07-20 20:49] LABS: MANUAL DIFF FLAG NO
[2023-07-20 20:51] LABS: Basophils Percent Auto 0.4 % (0-2); Eosinophils Absolute Auto 0.2 X10*3/uL (0.0-0.4); Eosinophils Percent Auto 3.2 % (0-4); Hematocrit 37.7 % (42.0-52.0); Hemoglobin 13.6 g/dl (14.0-18.0); Imm Gran Abs Auto 0.02 X10*3/uL (0.00-0.03); Imm Gran Pct Auto 0.3 % (0.0-0.4); Lymphocytes Absolute Auto 0.9 X10*3/uL (1.2-4.9); Lymphocytes Percent Auto 13.5 % (20-40); Mean Corpuscular HGB Conc 36.1 g/dl (31.0-36.0); Mean Corpuscular Hemoglobin 31.6 pg (27.0-33.0); Mean Corpuscular Volume 87.5 fL (80.0-98.0); Mean Platelet Volume 8.7 fL (9.4-12.4); Monocytes Absolute Auto 0.7 X10*3/uL (0.1-1.2); Monocytes Percent Auto 10.6 % (2-11); Neutrophils Absolute Auto 4.9 x10*3/uL (2.0-8.3); Platelet Count 249 X10*3/uL (160-400); Red Blood Count 4.31 X10*6/uL (4.60-5.80); Red Cell Distribution Width 12.1 % (11.0-16.0); White Blood Count 6.9 X10*3/uL (4.8-10.8)
[2023-07-20 21:06] LABS: Alanine Aminotransferase 25 U/L (0-40); Albumin Level 3.9 g/dL (3.5-5.0); Alkaline Phosphatase 113 U/L (39-117); Anion Gap 14 (12-20); Aspartate Amino Transferase 20 U/L (5-37); Bilirubin Total 0.5 mg/dL (0.0-1.0); Blood Urea Nitrogen 11 mg/dL (9-16); C Reactive Protein 6.99 mg/dL (< or = 0.50); Calcium 9.7 mg/dL (8.4-10.2); Carbon Dioxide 24 mmol/L (22-29); Chloride 104 mmol/L (96-108); Creatinine Clr Calc Pharmacy 60.6; Estimated Glomerular Filt Rate > 60; Glucose Random 125 mg/dL (60-115); Potassium 3.8 mmol/L (3.3-5.1); Sodium 138 mmol/L (135-145); Total Protein 7.5 g/dL (6.5-8.0)
[2023-07-20 21:29] LABS: Erythrocyte Sedimentation Rate 38 MM/HR (0-15)
[2023-07-20 21:39] VITALS: BP 147/90; PULSE 84; RESP 16; TEMP 37.1; O2SAT 98
--- NOTE | 2023-07-20 21:41 | PC.NURSE ---
Pt is spo, no signs of distress. Pt denies chest pain or sob. Pt reports 9/10 lower right leg pain x8 days. Pt changed into hospital attire. Pt given urinal. plan of care ongoing.
[2023-07-20] MEDS: Lidocaine HCl 1 % MPF 5 ML VIAL SUBCUT (23:27)
[2023-07-20] MEDS: oxyCODONE HCl Immed Release 5 MG TABLET PO (23:28)
[2023-07-20] MEDS: Doxycycline Monohydrate 100 MG CAPSULE PO (23:28)
--- NOTE | 2023-07-20 23:31 | PC.NURSE ---
Pt ca&os4, no signs of distress. Pt medicated per jan. Provider to administer lido. plan of care ongoing.
[2023-07-20] MEDS: Bacitracin Oint 0.9 GM PACKET 1 APPL TOPICAL (23:57)
== END 2023-07-21 00:17 | disposition home or self-care (01) ==
PROVIDERS: Physician Assistant; Emergency Provider Emergency Medicine; PCP Internal Medicine
DX: L03.115 Cellulitis of right lower limb (principal); L02.415 Cutaneous abscess of right lower limb; Z87.891 Personal history of nicotine dependence; Z79.899 Other long term (current) drug therapy
CPT/HCPCS: 36415; 73590; 80053; 85025; 85652; 86140; 99284

== ENCOUNTER 2023-07-23 10:09 | Emergency (ER) | payer MEDICARE, MEDICAID, SELFPAY ==
[2023-07-23 10:12] VITALS: BP 137/76; PULSE 83; RESP 19; TEMP 36.6; O2SAT 98; BMI 21.9
--- NOTE | 2023-07-23 11:12 | ED_ITS ---
HPI - Wound/Laceration General Chief Complaint: Wound/Laceration Stated Complaint: wound check Time Seen by Provider: 07/23/23 10:25 Source: patient, old records reviewed and historical interpreter Mode of arrival: ambulatory Limitations: no limitations History of Present Illness HPI narrative: 82-year-old Indonesian-speaking male presents the ER for evaluation of right lower leg wound. He was seen here 3 days ago where he had an abscess incised and drained. He was discharged on doxycycline. He states The redness around the wound and the swelling are significantly improved. He states he was told to come back here for wound follow-up. He also states he would like some dressing supply changes as he has none at home. He reports overall the wound is getting better. No fevers or chills at home. Onset (ago): day(s) Extremity Location: right: lower leg Place: home Patient tetanus UTD: Yes Treatments prior to arrival: other ( Doxycycline) Related Data Previous Rx's Medication Instructions Recorded polymyxin B sulfate 10,000 1 drp ophthalmic-Left Q3H 7 days 05/15/22 unit-trimethoprim 1 mg/mL eye #10 mL drops (Polytrim) docusate sodium 100 mg capsule 200 mg PO DAILY #60 caps 12/15/22 (Colace) polyethylene glycol 3350 17 17 g PO DAILY #510 grams 12/15/22 gram/dose oral powder (Miralax) ferrous sulfate 325 mg (65 mg 325 mg PO DAILY #90 caps 01/28/23 iron) tablet levothyroxine 100 mcg tablet 100 mcg PO QAM #90 caps 03/31/23 ascorbic acid (vitamin C) 500 mg 500 mg PO DAILY 90 days #90 caps 04/15/23 tablet (Vitamin C) cyanocobalamin (vitamin B-12) 1,000 mcg PO DAILY #30 caps 05/01/23 1,000 mcg tablet (Vitamin B-12) folic acid 1 mg tablet 1 mg PO DAILY #90 caps 05/01/23 diclofenac sodium 1 % topical gel 2 g topical QID #100 grams 06/03/23 (Voltaren Arthritis Pain) naproxen 500 mg tablet 500 mg PO BID PRN pain 15 days #30 07/03/23 tabs doxycycline hyclate 100 mg tablet 100 mg PO BID #20 tabs 07/20/23 zolpidem 5 mg tablet 5 mg PO BEDTIME PRN insomnia #90 07/21/23 tabs Allergies Allergy/AdvReac Type Severity Reaction Status Date / Time trazodone Allergy Mild Hallucinati Verified 07/23/23 10:12 ons Review of Systems Review of Systems: Yes all other systems are reviewed and are negative [facility] Past Medical History Medical History Abscess of skin or subcutaneous tissue BPH (benign prostatic hyperplasia) Cellulitis of left thigh GERD (gastroesophageal reflux disease) High prostate specific antigen (PSA) Hypothyroid Medicare annual wellness visit, initial Pernicious anemia Vitamin B12 deficiency Surgical History H/O ventral hernia repair History of appendectomy History of bilateral cataract extraction Family History Family History Father Medical history unknown Mother No problems noted. Social History Social History Housing: Apartment Alcohol intake: never Patient Tobacco Use Status: Former Tobacco user Tobacco use type: Cigarette Years Smoked: 1989 e-Cigarette/Vaping Use: Never Used Second Hand Smoke Exposure: No Advance Directives: No Advance Directives Information Provided: Yes Current occupational status: retired Cognitive needs: No Hearing needs: No Vision needs: No Physical Exam Vital Signs: Vital Signs: Last Vital Signs Temp 98 F 07/23/23 10:12 Pulse 83 07/23/23 10:12 Resp 19 07/23/23 10:12 BP 137/76 07/23/23 10:12 Pulse Ox 98 07/23/23 10:12 O2 Del Method Room Air 07/23/23 10:12 BMI result Body Mass Index 21.9 Appearance: Alert. Oriented X3. No acute distress. HEENT: normal inspection CVS: Normal heart rate and rhythm. Pulses normal. Respiratory: No respiratory distress. Skin: Skin warm and dry. Normal skin color. Normal skin turgor. No rashes. Extremities: right lower leg with 1.5cm open wound w/ granulation tissue, minimal surrounding swelling, erythema. no fluctunace or induration. no purulent material expressed Neuro: Oriented X 3. No motor deficit. No sensory deficit. Medical Decision Making Medical Decision Making MDM Narrative: 82 yo male presents to the ER for wound evaluation s/p I&D 3 days ago to an abscess of the right lower leg. on doxycycline with improving wound appearance. area was cleansed with saline and new dry sterile dressing applied. wound care discussed using staff respiratory therapist including return precautions. he has f/u with PCP on 08/07. stable for d/c home Differential Diagnosis Differential Diagnoses: The differential diagnosis associated with the presentation includes healing abscess, delayed wound healing, cellulitis, arterial wound, diabetic wound Lab Data [facility] Lab Attestation statement: I reviewed the patient's lab results. no leukocytosis on 07/20 External Record Review External record reviewed: Outpatient record Prescription Management I considered prescription management with: Pain Medication and Antibiotic Critical Care Time Critical Care Time Critical Care Time: No Discharge Plan Discharge Clinical Impression: Abscess Patient Disposition: Home, Self-Care Instructions: Abscess Follow-up (ED) Additional Instructions: Your abscess and wound is healing appropriately. Continue to take the antibiotics as prescribed. Change the dressing daily. You can use warm compresses on the area 2-3 times per day. Follow-up with your doctor to ensure complete resolution. If you develop new or worsening symptoms call 911 or come back to the ER for further evaluation. Rodriguez absceso y herida se est?n curando adecuadamente. Contin?e tomando los antibi?ticos seg?n lo recetado. Cambie el vendaje diariamente. Puedes usar compresas tibias en el ?taylor 2 o 3 veces al d?a. Otf un seguimiento con rodriguez m?dico para garantizar immanuel resoluci?n completa. Si desarrolla s?ntomas nuevos o que empeoran, llame al 911 o regrese a la alvina de emergencias para immanuel evaluaci?n adicional. Prescriptions: No Action ferrous sulfate 325 mg (65 mg iron) tablet 325 mg PO DAILY Qty: 90 3RF levothyroxine 100 mcg tablet 100 mcg PO QAM Qty: 90 2RF ascorbic acid (vitamin C) [Vitamin C] 500 mg tablet 500 mg PO DAILY 90 Days Qty: 90 3RF folic acid 1 mg tablet 1 mg PO DAILY Qty: 90 2RF cyanocobalamin (vitamin B-12) [Vitamin B-12] 1,000 mcg tablet 1,000 mcg PO DAILY Qty: 30 11RF naproxen 500 mg tablet 500 mg PO BID PRN (Reason: pain) 15 Days Qty: 30 0RF zolpidem 5 mg tablet 5 mg PO BEDTIME PRN (Reason: insomnia) Qty: 90 1RF polymyxin B sulf-trimethoprim [Polytrim] 10,000 unit- 1 mg/mL drops 1 drp ophthalmic-Left Q3H 7 Days Qty: 10 0RF Rx Instructions: while awake; do not exceed 6 doses in 24 hours polyethylene glycol 3350 [Miralax] 17 gram/dose powder 17 g PO DAILY Qty: 510 0RF docusate sodium [Colace] 100 mg capsule 200 mg PO DAILY Qty: 60 0RF doxycycline hyclate 100 mg tablet 100 mg PO BID Qty: 20 0RF diclofenac sodium [Voltaren Arthritis Pain] 1 % gel 2 g topical QID Qty: 100 0RF Interventions: ED Discharge Assessment Last Done: 07/23/23 12:50 Discharge Date/Time: 07/23/23 12:51
== END 2023-07-23 12:51 | disposition home or self-care (01) ==
PROVIDERS: Emergency Provider Emergency Medicine; PCP Internal Medicine
DX: Z48.00 Encounter for change or removal of nonsurgical wound dressing (principal); L02.415 Cutaneous abscess of right lower limb
CPT/HCPCS: 99282; 99283

== ENCOUNTER 2023-07-30 10:44 | Outpatient (AMB) | payer MEDICARE, MEDICAID, SELFPAY ==
--- NOTE | 2023-07-30 10:54 | MHC.OFFVIS ---
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 Patient reports he was holding a 24 pack of water and his shoulder gave out about 5 months ago. He states having ongoing pain for 5 months. The patient reports weakness when lifting his right hand above shoulder height. He has tried Tylenol and anti-inflammatory medicines which gave him minimal relief. He has also done physical therapy exercises which aggravated his pain. Allergies trazodone Allergy (Mild, Verified 07/30/23 10:58) Hallucinations Medication List - Last Reconciled 07/30/23 by Milo Hale MD ascorbic acid (vitamin C) (Vitamin C) 500 mg PO DAILY 90 days cyanocobalamin (vitamin B-12) (Vitamin B-12) 1,000 mcg PO DAILY diclofenac sodium 1% (Voltaren Arthritis Pain) 2 grams topical QID docusate sodium (Colace) 200 mg (2 x 100 mg) PO DAILY doxycycline hyclate 100 mg PO BID ferrous sulfate 325 mg PO DAILY folic acid 1 mg PO DAILY levothyroxine 100 mcg PO QAM naproxen 500 mg PO BID PRN 15 days polyethylene glycol 3350 (Miralax) 17 grams PO DAILY polymyxin B sulf-trimethoprim 10,000 unit- 1 mg/mL (Polytrim) 1 drp ophthalmic-Left Q3H 7 days zolpidem 5 mg PO BEDTIME PRN PFSH Medical History Abscess of skin or subcutaneous tissue BPH (benign prostatic hyperplasia) Cellulitis of left thigh GERD (gastroesophageal reflux disease) High prostate specific antigen (PSA) Hypothyroid Medicare annual wellness visit, initial Pernicious anemia Vitamin B12 deficiency Surgical History H/O ventral hernia repair History of appendectomy History of bilateral cataract extraction Family History Father Medical history unknown Mother No problems noted. Social History Housing: Apartment Alcohol intake: never Patient Tobacco Use Status: Former Tobacco user Tobacco use type: Cigarette Years Smoked: 1989 e-Cigarette/Vaping Use: Never Used Second Hand Smoke Exposure: No Current occupational status: retired Cognitive needs: No Hearing needs: No Vision needs: No Physical Exam Vital Signs: BMI result Body Mass Index 21.8 Const Other: Well-nourished well-developed very friendly male awake alert and oriented x3 in no acute distress Extrem Other: Bilateral upper extremity examination shows good capillary refill, no skin lesions noted, normal sensation light touch Right shoulder examination shows slightly decreased range of motion when compared to his left shoulder, 4/5 strength with supraspinatus testing, positive impingement signs, tenderness over his acromioclavicular joint, no instability Office Procedures Joint Injection/Drain Joint Injection/Drain Primary Site: right shoulder Prep: site was prepped using aseptic technique Injected: 40 mg of, Kenalog and 1% plain lidocaine Procedure: The patient tolerated the procedure well Coding 03093 - Large joint Procedure code (CPT) selection complete Results Reviewed Results Reviewed: X-rays of the patient's right shoulder show severe acromioclavicular joint narrowing, type 3 acromion, no acute bony abnormalities Assessment & Plan Assessment & Plan (1) Impingement of right shoulder: Code(s): M25.811 - Other specified joint disorders, right shoulder Plan: Mr. Jose presents with right shoulder pain and weakness due to impingement syndrome and possible rotator cuff tearing. I had a lengthy discussion with the patient regarding the treatment options. He wishes to hold off on surgery for as long as possible. I agree with this plan. The risks and benefits of a right shoulder cortisone injection were discussed at length with the patient. The patient wished to proceed. He tolerated the injection well. The do's and don'ts of lifting were discussed at length with the patient. He will continue with his home stretching program to prevent stiffness. He will follow up with me on an as-needed basis should his symptoms not plateau at an unacceptable level over the next few months. Feel free to call me at any time should questions regarding his orthopedic management arise. Thank you very much for asking me to see this very friendly gentleman. I spent 23 minutes in reviewing the patient's records and imaging studies, seeing the patient and documenting in the medical record. Orders: Orders AMB Joint Injection/Aspiration Today M25.811 - Other specified joint disorders, right shoulder Coding Level of Care Code New Pt Level 2 (27302) Diagnoses Impingement of right shoulder M25.811 CPT Codes Coding - 89806 Large joint: 45237 - Large joint ([id number])
[2023-07-30 10:58] VITALS: BMI 21.8
== END 2023-07-30 11:18 | disposition home or self-care (01) ==
PROVIDERS: PCP Internal Medicine; Visit Provider Orthopaedic Surgery
DX: M25.811 Other specified joint disorders, right shoulder (principal)
CPT/HCPCS: 20610; 99204

== ENCOUNTER → 2023-07-30 10:44 | Outpatient (BNVA) | payer MEDICARE, MEDICAID, SELFPAY | PROVIDERS: PCP Internal Medicine; Visit Provider Orthopaedic Surgery | DX: M25.811 Other specified joint disorders, right shoulder (principal) | CPT/HCPCS: 20610; 99202; J3301 ==

== ENCOUNTER 2023-07-31 12:20 | Emergency (ER) | payer MEDICARE, MEDICAID, SELFPAY ==
[2023-07-31 12:30] VITALS: BP 154/76; PULSE 69; RESP 16; TEMP 36.8; O2SAT 96; BMI 23.3
--- NOTE | 2023-07-31 12:39 | ED.GENADULT ---
HPI - General Adult General Chief complaint: Wound/Laceration Stated complaint: medication refill Time Seen by Provider: 07/31/23 12:39 Source: patient Mode of arrival: ambulatory Limitations: no limitations History of Present Illness HPI narrative: 82 yold male s/p Cellulitis /abscess drainage presents to the ED for evaluation of right leg wound/abscess that was drained and patient was placed on antibiotics. patient finished doxycline and want refill. Patient states no new redness, fever, chills, pus drainage, calf pain, red stereaks, or bluish black discloration. Related Data Previous Rx's Medication Instructions Recorded polymyxin B sulfate 10,000 1 drp ophthalmic-Left Q3H 7 days 05/15/22 unit-trimethoprim 1 mg/mL eye #10 mL drops (Polytrim) docusate sodium 100 mg capsule 200 mg PO DAILY #60 caps 12/15/22 (Colace) polyethylene glycol 3350 17 17 g PO DAILY #510 grams 12/15/22 gram/dose oral powder (Miralax) ferrous sulfate 325 mg (65 mg 325 mg PO DAILY #90 caps 01/28/23 iron) tablet levothyroxine 100 mcg tablet 100 mcg PO QAM #90 caps 03/31/23 ascorbic acid (vitamin C) 500 mg 500 mg PO DAILY 90 days #90 caps 04/15/23 tablet (Vitamin C) cyanocobalamin (vitamin B-12) 1,000 mcg PO DAILY #30 caps 05/01/23 1,000 mcg tablet (Vitamin B-12) folic acid 1 mg tablet 1 mg PO DAILY #90 caps 05/01/23 diclofenac sodium 1 % topical gel 2 g topical QID #100 grams 06/03/23 (Voltaren Arthritis Pain) naproxen 500 mg tablet 500 mg PO BID PRN pain 15 days #30 07/03/23 tabs zolpidem 5 mg tablet 5 mg PO BEDTIME PRN insomnia #90 07/21/23 tabs doxycycline hyclate 100 mg tablet 100 mg PO BID #20 tabs 07/31/23 Allergies Allergy/AdvReac Type Severity Reaction Status Date / Time trazodone Allergy Mild Hallucinati Verified 07/31/23 16:43 ons Review of Systems Review of Systems: RIght leg wound evaliation Yes all other systems are reviewed and are negative PMFSH Past Medical History Medical History Abscess of skin or subcutaneous tissue BPH (benign prostatic hyperplasia) Cellulitis of left thigh GERD (gastroesophageal reflux disease) High prostate specific antigen (PSA) Hypothyroid Medicare annual wellness visit, initial Pernicious anemia Vitamin B12 deficiency Surgical History H/O ventral hernia repair History of appendectomy History of bilateral cataract extraction Family History Family History Father Medical history unknown Mother No problems noted. Social History Social History Housing: Apartment Alcohol intake: never Patient Tobacco Use Status: Former Tobacco user Tobacco use type: Cigarette Years Smoked: 1989 e-Cigarette/Vaping Use: Never Used Second Hand Smoke Exposure: No service: No Current occupational status: retired Cognitive needs: No Hearing needs: No Vision needs: No Physical Exam ED Vital Signs: BMI result Body Mass Index 23.3 Const General: cooperative, healthy appearing, comfortable, no acute distress, well developed, alert, awake and Physically active Orientation/consciousness: oriented to person, oriented to place, oriented to time and patient oriented x3 HENMT Head: Yes normal to inspection, Yes No palpable skull fracture present, Yes normocephalic, Yes atraumatic and No abrasion Eyes General: appearance normal, both eyes and all related structures Neck Neck: Yes normal visual inspection, Yes full ROM, Yes no lymphadenopathy, Yes no meningeal signs, Yes trachea midline, Yes supple, No anterior neck swelling and No tender Chest Chest palpation & inspection: normal inspection of the chest and normal palpation of entire chest wall Resp Effort & Inspection: normal respiratory effort and able to speak in complete sentences Auscultation: clear to auscultation bilaterally Cardio Jugular venous distension: no JVD Heart sounds: S1 normal heart sound present and S2 normal heart sound present GI Inspection: Yes normal to inspection and No abdominal wall ecchymosis Palpation (GI): Soft to palpation, not firm, nontender, no guarding and not rigid General: No CVA tenderness and Yes no CVA tenderness Back/Spine/Pelvis Back: no CVA tenderness, No CVA tenderness and No back tenderness Skin General skin exam: no rashes or lesions noted and elasticity normal Neuro General: oriented to person, oriented to place, oriented to time, patient oriented x3, gait normal, tone normal, moves all extremities, Normal light touch and pain sensation, no meningeal signs, no focal motor deficits, CN's II-XI intact bilaterally and normal sensation to monofilament Extrem General: Yes normal to inspection and Yes full ROM Ankle/foot/toe images: 1. Healing abscess/cellulitis. No new erythema, pus drainage, warmth, or foul odor. negative bluish/black discoloration. Motor/neuro/vascular exam is intact. Psych Appearance: grossly normal, well kempt and not disheveled Course Course Course Narrative: RME: 82 yold male presents to the ED for right leg abscess/cellulitis wound re-evaluation and doxycyceline refill. Patient states significiant improvement in redness and resolving of drainage. patient states no fever, chills, nuasea, vomitting, new redness, calf pain, or trauma. NO need for doxycucline refill. wound is healing. Patient will follow up with [facility] and he aslo states he has PCP appointmetn on 08/07. Medical Decision Making Medical Decision Making MDM Narrative: 82 yold male with presents to the ED for right healing abscess and doxycline refill. Physical exam shows healing absess and no signs of new infection. no need for doxycyline. Patient informed to follow up with wound clinic and PCP ( has appointment on the 08/07/2023) Differential Diagnosis Differential Diagnoses: The differential diagnosis associated with the presentation includes (healing abscess/cellulitis, osteomyelitis, fracture) Admission/Observation Consideration of admission/observation: Escalation of care including admission/observation considered External Record Review External record reviewed: Other (Prior ED visit.) Prescription Management none Social Determinants Patient?s care significantly limited by Social Determinants of Health including: Other Social Determinant of Health (Tajik language) Discharge Plan Discharge Clinical Impression: Abscess re-check Patient Disposition: Home, Self-Care Instructions: Abscess Follow-up (ED) Additional Instructions: No es necesario renovar los antibi?ticos. Otf un seguimiento con la cl?antonio de heridas y el PCP. Regrese al servicio de urgencias si presenta secreci?n, enrojecimiento, hinchaz?n, dolor en la pantorrilla, fiebre, escalofr?os, phillip urbina, decoloraci?n bertha azulada, n?useas, v?mitos o cualquier otro s?ntoma preocupante. Prescriptions: No Action ferrous sulfate 325 mg (65 mg iron) tablet 325 mg PO DAILY Qty: 90 3RF levothyroxine 100 mcg tablet 100 mcg PO QAM Qty: 90 2RF ascorbic acid (vitamin C) [Vitamin C] 500 mg tablet 500 mg PO DAILY 90 Days Qty: 90 3RF folic acid 1 mg tablet 1 mg PO DAILY Qty: 90 2RF cyanocobalamin (vitamin B-12) [Vitamin B-12] 1,000 mcg tablet 1,000 mcg PO DAILY Qty: 30 11RF naproxen 500 mg tablet 500 mg PO BID PRN (Reason: pain) 15 Days Qty: 30 0RF zolpidem 5 mg tablet 5 mg PO BEDTIME PRN (Reason: insomnia) Qty: 90 1RF polymyxin B sulf-trimethoprim [Polytrim] 10,000 unit- 1 mg/mL drops 1 drp ophthalmic-Left Q3H 7 Days Qty: 10 0RF Rx Instructions: while awake; do not exceed 6 doses in 24 hours polyethylene glycol 3350 [Miralax] 17 gram/dose powder 17 g PO DAILY Qty: 510 0RF docusate sodium [Colace] 100 mg capsule 200 mg PO DAILY Qty: 60 0RF diclofenac sodium [Voltaren Arthritis Pain] 1 % gel 2 g topical QID Qty: 100 0RF doxycycline hyclate 100 mg tablet 100 mg PO BID Qty: 20 0RF [place] [facility] [place] (left leg healing abscess) Interventions: ED Discharge Assessment Last Done: 07/31/23 13:03 Discharge Date/Time: 07/31/23 13:04 Print Language: Tajik
== END 2023-07-31 13:04 | disposition home or self-care (01) ==
PROVIDERS: Emergency Provider Emergency Medicine; PCP Internal Medicine
DX: Z48.00 Encounter for change or removal of nonsurgical wound dressing (principal); L02.415 Cutaneous abscess of right lower limb
CPT/HCPCS: 99282

== ENCOUNTER 2023-07-31 15:59 | Outpatient (AMB) | payer MEDICARE, MEDICAID, SELFPAY ==
--- NOTE | 2023-07-31 16:20 | A.OFFPC_ITS ---
Vital Signs 07/31/23 16:21 Height 5 ft 4 in Weight 126 lb BMI 21.6 BP 136/80 Blood Pressure Location Lt brachial Position Sitting [place] [facility] [place] Int[place] Note: [place] [facility] [place] Sign Out Clerk Required: No Accompanied by: Self / Same As Patient Allergies trazodone Allergy (Mild, Verified 07/31/23 16:43) Hallucinations Medication List - Last Reconciled 07/31/23 by Gemma Carnye MD ascorbic acid (vitamin C) (Vitamin C) 500 mg PO DAILY 90 days cyanocobalamin (vitamin B-12) (Vitamin B-12) 1,000 mcg PO DAILY diclofenac sodium 1% (Voltaren Arthritis Pain) 2 grams topical QID docusate sodium (Colace) 200 mg (2 x 100 mg) PO DAILY doxycycline hyclate 100 mg PO BID ferrous sulfate 325 mg PO DAILY folic acid 1 mg PO DAILY levothyroxine 100 mcg PO QAM naproxen 500 mg PO BID PRN 15 days polyethylene glycol 3350 (Miralax) 17 grams PO DAILY polymyxin B sulf-trimethoprim 10,000 unit- 1 mg/mL (Polytrim) 1 drp ophthalmic- Left Q3H 7 days zolpidem 5 mg PO BEDTIME PRN Tobacco use date assessed: 06/16/23 Fall risk assessment: No Falls in past year Last assessed Fall Risk: 07/31/23 Dental Screening Dental Screen Date: 07/31/23 Did you have a dental visit in the last 12 months?: No Did you have a dental problem in the last 6 months where you did not have access to dental care?: No Was dental information given to patient?: Patient declined HPI HPI Comments History of Present Illness Details This is an 82-year-old male with hypothyroid, insomnia and constipation comes today for hospital discharge follow-up with discharge date 07/23/23 due to left leg cellulitis associated with an abscess that was drained. Completed doxycycline course and feels better but still has an open wound and will be referred to wound clinic and have more doxycycline. Last TSH was normal. Insomnia stable with Zolpidem. Constipation stable with Miralax prn. Last TSH in May was normal. REPLACED BY [facility] Medical History (Updated 08/01/23 @ 07:59 by Gemma Carney MD) Abscess of skin or subcutaneous tissue BPH (benign prostatic hyperplasia) Cellulitis of left thigh GERD (gastroesophageal reflux disease) High prostate specific antigen (PSA) Hypothyroid Medicare annual wellness visit, initial Pernicious anemia Vitamin B12 deficiency Surgical History H/O ventral hernia repair History of appendectomy History of bilateral cataract extraction Family History Father Medical history unknown Mother No problems noted. Social History Housing: Apartment Alcohol intake: never Patient Tobacco Use Status: Former Tobacco user Tobacco use type: Cigarette Years Smoked: 1989 e-Cigarette/Vaping Use: Never Used Second Hand Smoke Exposure: No service: No Current occupational status: retired Cognitive needs: No Hearing needs: No Vision needs: No Questionnaire Thrive Questionnaire Date Thrive assessed: 01/15/23 KETTY-7 AMB Questionnaire KETTY-7 Date KETTY - 7 assessed: 01/15/23 Source: Developed by Drs. Sacha Betancur, Katie Segal, Elmo Barillas and colleagues, with an educational zayra from [employer]. Review of Systems Const All systems reviewed & are unremarkable except as noted in HPI and below Eyes Reports no additional complaints, Denies change in vision and Denies other visual disturbances Card Denies chest pain at rest, Denies chest pain with activity, Denies edema, Denies irregular heart rhythm, Denies claudication, Denies dyspnea, Denies dyspnea on exertion, Denies orthopnea, Denies paroxysmal nocturnal dyspnea and Denies slow heart rate Resp Denies cough, Denies dyspnea and Denies dyspnea on exertion GI Denies abdominal pain, Denies change in bowel habits, Denies excessive flatus, Denies nausea and Denies vomiting Denies urinary hesitancy, Denies urinary incontinence and Denies urinary urgency Musc Denies abnormal gait, Denies atrophy, Denies deformity and Denies limited range of motion Skin/Breast Denies bleeding lesions, Denies changing lesions and Denies rash Neuro Denies abnormal gait and Denies lack of coordination Physical exam (Primary Care) Vital Signs: Last Vital Signs BP 136/80 07/31/23 16:21 BMI result Body Mass Index 21.6 Tobacco/Smoking Status: Tobacco use Status Tobacco use date assessed 06/16/23 07/31/23 16:28 Patient Tobacco Use Status Former Tobacco user 07/31/23 16:28 Tobacco use type Cigarette 07/31/23 16:28 e-Cigarette/Vaping Use Never Used 07/31/23 16:28 Thrive Assessment: Date of Thrive Assessment Date Thrive assessed 01/15/23 07/31/23 16:28 Eyes General: appearance normal, both eyes and all related structures Eyelids: Yes eyelids normal Conjunctivae: conjunctivae normal Neck Neck: Yes normal visual inspection and Yes supple Resp Effort & Inspection: normal respiratory effort Auscultation: clear to auscultation bilaterally Cardio Jugular venous distension: no JVD Rate: regular rate Rhythm: regular rhythm Heart sounds: S1 normal heart sound present and S2 normal heart sound present Extrem General: Yes full ROM Assessment and Plan Assessment & Plan (1) Hospital discharge follow-up: Code(s): Z09 - Encounter for follow-up examination after completed treatment for conditions other than malignant neoplasm Plan: Discharge date 07/23/2023 due to left leg abscess that was drained. Patient completed doxycycline course. Went back to ER to check his wound which is still open. Looks markedly improved. Will have refill of doxycycline and referral to wound clinic. (2) Cellulitis of left thigh: Code(s): L03.116 - Cellulitis of left lower limb Plan: Continue doxycycline. (3) Open wound: Code(s): T14.8XXA - Other injury of unspecified body region, initial encounter Plan: Referred to wound clinic. (4) Hypothyroid: Code(s): E03.9 - Hypothyroidism, unspecified Qualifiers: Hypothyroidism type: acquired Qualified Code(s): E03.9 - Hypothyroidism, unspecified Plan: Continue levothyroxine. (5) Insomnia: Code(s): G47.00 - Insomnia, unspecified Qualifiers: Insomnia type: primary Qualified Code(s): F51.01 - Primary insomnia Plan: Continue Zolpidem. (6) Constipation by delayed colonic transit: Code(s): K59.01 - Slow transit constipation Plan: Continue MiraLax as needed. Orders: Referrals Wound Care Referral T14.8XXA - Other injury of unspecified body region, initial encounter Medications: Refilled doxycycline hyclate 100 mg PO BID 20 tabs 0RF Coding Level of Care Code TCM Mod MDM <= 14 Days Diagnoses Hospital discharge follow-up Z09 Cellulitis of left thigh L03.116 Open wound T14.8XXA Hypothyroid E03.9 Hypothyroidism type: acquired Insomnia F51.01 Insomnia type: primary Constipation by delayed colonic transit K59.01 Time Spent (min) 23
[2023-07-31 16:21] VITALS: BP 136/80; BMI 21.6
== END 2023-07-31 16:51 | disposition home or self-care (01) ==
PROVIDERS: PCP Internal Medicine; Visit Provider Internal Medicine
DX: L03.116 Cellulitis of left lower limb (principal); E03.9 Hypothyroidism, unspecified; Z09 Encounter for follow-up examination after completed treatment for conditions other than malignant neoplasm; T14.8XXA Other injury of unspecified body region, initial encounter; F51.01 Primary insomnia; K59.01 Slow transit constipation
CPT/HCPCS: 99214

== ENCOUNTER 2023-08-20 12:07 | Outpatient (RCR) | payer MEDICARE, MEDICAID, SELFPAY | END 2023-08-25 15:37 | disposition home or self-care (01) | LOC: HO.WCC 12:07 | PROVIDERS: PCP Internal Medicine; Visit Provider Surgery | DX: Z09 Encounter for follow-up examination after completed treatment for conditions other than malignant neoplasm (principal); Z87.891 Personal history of nicotine dependence; Z87.2 Personal history of diseases of the skin and subcutaneous tissue | CPT/HCPCS: 99213 ==

== ENCOUNTER 2023-09-29 12:51 | Outpatient (AMB) | payer MEDICARE, MEDICAID, SELFPAY ==
[2023-09-29 13:01] VITALS: BP 120/62; PULSE 62; O2SAT 100; BMI 20.9
--- NOTE | 2023-09-29 13:01 | A.OFFPC_ITS ---
Vital Signs 09/29/23 13:01 Height 5 ft 4 in Weight 122 lb 0.8 oz BMI 20.9 BP 120/62 Blood Pressure Location Lt brachial Position Sitting Pulse 62 Pulse Source Pulse Oximeter Pulse Oximetry (%) 100 Oxygen Delivery Method Room Air Intake Visit Reasons: physical Interlocking And Signal Mechanic Required: Yes Interlocking And Signal Mechanic Language: Guyanese Allergies trazodone Allergy (Mild, Verified 09/29/23 13:01) Hallucinations Medication List - Last Reconciled 09/29/23 by Mehnaz Abel MD ascorbic acid (vitamin C) (Vitamin C) 500 mg PO DAILY 90 days cyanocobalamin (vitamin B-12) (Vitamin B-12) 1,000 mcg PO DAILY docusate sodium (Colace) 200 mg (2 x 100 mg) PO DAILY ferrous sulfate 325 mg PO DAILY folic acid 1 mg PO DAILY levothyroxine 100 mcg PO QAM polyethylene glycol 3350 (Miralax) 17 grams PO DAILY zolpidem 5 mg PO BEDTIME PRN Tobacco use date assessed: 09/29/23 Fall risk assessment: No Falls in past year Last assessed Fall Risk: 09/29/23 Dental Screening Dental Screen Date: 09/29/23 HPI physical HPI Details 82-year-old male with impaired glucose t olerance hypothyroid GERD BPH insomnia coming in for physical exam. Last seen in May 2023. Patient has declined colonoscopy . Patient has been seeing wound care for the right leg wound seen by my colleague right leg cellulitis. Patient also being seen by Ortho for the right shoulder pain diagnosis of impingement of the right shoulder cortisone injection done. deny call or trauma. decline rectal and hernia exam [facility] Medical History (Updated 09/29/23 @ 13:51 by Mehnaz Abel MD) Cellulitis of leg, right Medicare annual wellness visit, initial Abscess of skin or subcutaneous tissue Cellulitis of left thigh Hypothyroid Pernicious anemia GERD (gastroesophageal reflux disease) Vitamin B12 deficiency High prostate specific antigen (PSA) BPH (benign prostatic hyperplasia) Surgical History History of bilateral cataract extraction H/O ventral hernia repair History of appendectomy Family History Father Medical history unknown Mother No problems noted. Social History Housing: Apartment Alcohol intake: never Patient Tobacco Use Status: Former Tobacco user Tobacco use type: Cigarette Years Smoked: 1989 e-Cigarette/Vaping Use: Never Used Second Hand Smoke Exposure: No service: No Current occupational status: retired Cognitive needs: No Hearing needs: No Vision needs: No Questionnaire PHQ-9 Over the last 2 weeks, how often have you been bothered by any of the following problems? 1. Little interest or pleasure in doing things: not at all 2. Feeling down, depressed, or hopeless: not at all 3. Trouble falling or staying asleep, or sleeping too much: not at all 4. Feeling tired or having little energy: not at all 5. Poor appetite or overeating: not at all 6. Feeling bad about yourself - or that you are a failure or have let yourself or your family down: not at all 7. Trouble concentrating on things, such as reading the newspaper or watching television: not at all 8. Moving or speaking so slowly that other people could have noticed. Or the opposite - being so fidgety or restless that you have been moving around a lot more than usual: not at all 9. Thoughts that you would be better off or of hurting yourself in some way: not at all Total score: 0 Depression Screening Interpretation: Negative Depression Screening Done: Yes Source: Developed by Drs. Sacha Betancur, Katie Segal, Elmo Barillas and colleagues, with an educational zayra from [employer]. Thrive Questionnaire Date Thrive assessed: 09/29/23 I am a: Patient What is your living situation today?: I have a steady place to live Within the past 12 months, did the food you bought not last and you didn't have the money to get more?: Never true Within the past 12 months, did you worry whether your food would run out before you got money to buy more?: Never true Do you have trouble paying for medicines?: No Do you have trouble getting transportation to medical appointments?: No Do you have trouble paying your heating and electricity bill?: No Do you have trouble taking care of your child, family member or friend?: No Do you have trouble with day-to-day activities such as bathing, preparing meals, shopping, managing finances, etc.?: No Are you currently unemployed and looking for a job?: No Are you interested in more education?: No AUDIT C Alcohol Use Questionnaire (AUDIT-C) 1. How often do you have a drink containing alcohol?: Never 3. How often do you have six or more drinks on one occasion?: Never Total Score: 0 KETTY-7 AMB Questionnaire KETTY-7 Date KETTY - 7 assessed: 09/29/23 Feeling nervous, anxious, or on edge: 0 = Not at all Not being able to stop or control worryin = Not at all Worrying too much about different things: 0 = Not at all Trouble relaxin = Not at all Being so restless that it is hard to sit still: 0 = Not at all Becoming easily annoyed or irritable: 0 = Not at all Feeling afraid as if something awful might happen: 0 = Not at all Total KETTY-7 score (0-4 normal; 5-9 mild; 10-14 moderate; 15-21 severe): 0 Source: Developed by Drs. Sacha Betancur, Katie Segal, Elmo Barillas and colleagues, with an educational zayra from [employer]. Review of Systems Const Denies poor appetite and Denies weakness Eyes Denies no additional complaints ENT Reports Normal hearing present, Denies dizziness, Denies nasal congestion, Denies tinnitus and Denies sore throat Card Denies chest pain, Denies syncope, Denies rapid heart rate and Denies dyspnea Resp Denies cough and Denies dyspnea GI Denies change in stool character, Reports constipation, Denies diarrhea, Denies nausea and Denies vomiting Denies dysuria and Denies urinary frequency Neuro Reports Normal hearing present, Denies confusion, Denies dizziness, Denies syncope and Denies weakness Psych Denies confusion Physical exam (Primary Care) Vital Signs: Last Vital Signs Pulse 62 09/29/23 13:01 BP 120/62 09/29/23 13:01 Pulse Ox 100 09/29/23 13:01 Oxygen Delivery Method Room Air 09/29/23 13:01 BMI result Body Mass Index 20.9 Tobacco/Smoking Status: Tobacco use Status Tobacco use date assessed 09/29/23 09/29/23 13:03 Patient Tobacco Use Status Former Tobacco user 09/29/23 13:03 Tobacco use type Cigarette 09/29/23 13:03 e-Cigarette/Vaping Use Never Used 09/29/23 13:03 PHQ-9: PHQ-9 Score PHQ-9: Total score 0 09/29/23 13:15 Depression Screening Interpretation: Negative Thrive Assessment: Date of Thrive Assessment Date Thrive assessed 09/29/23 09/29/23 13:03 Const General: No confusion Orientation/consciousness: No confusion HENMT Head: Yes normocephalic Ears: external ears normal and TM's normal bilaterally Face and sinus: Yes normal facial exam Mouth: moist mucous membranes Throat: Yes tonsils normal Eyes Conjunctivae: conjunctivae normal Pupils: Equal, round and reactive pupils present and Pupil accommodation reflex normal Direct Ophthalmoscopy: normal light reflex Neck Neck: No lymphadenopathy Thyroid: Thyroid normal Chest Chest palpation & inspection: normal inspection of the chest Resp Effort & Inspection: normal respiratory effort and no audible wheezes Auscultation: clear to auscultation bilaterally, no crackles, no wheezes and lung sounds not diminished Cardio Rate: regular rate Rhythm: regular rhythm Peripheral pulses: radial pulses present and dorsalis pedis present GI Palpation (GI): no masses Auscultation: normal bowel sounds and normoactive bowel sounds Rectal Exam - Male: Yes deferred Skin General skin exam: no rashes or lesions noted Rashes: no rashes Neuro General: No confusion Cranial nerves: Yes Equal, round and reactive pupils present and Yes Normal hearing present Cognition (Neuro): normal cognition Gait exam (Neuro): Normal gait present Motor exam (neuro): 5/5 motor strength present throughout Deep tendon reflexes (DTR's): Right brachioradialis reflex intensity grade: 2+, Left brachioradialis reflex intensity grade: 2+, Right patellar reflex intensity grade: 2+ and Left patellar reflex intensity grade: 2+ Extrem General: No edema Office Procedures Flu Questionnaire Does the patient have a severe egg allergy?: No Does the patient have severe life threatening allergies?: No Does the patient have a fever or illness today?: No Has the patient ever had Guillain-[place] Syndrome?: No Has the patient ever had any past reaction to a flu shot?: No Immunizations flu vacc [id number] 6mos up(PF) 60 mcg(15 mcgx4)/0.5 mL IM syringe Performing Provider: Mehnaz Abel MD [facility] Administered by: ANGÉLICA Helms on 09/29/23 13:22 Dose Route Admin Location Dispensed Lot Number Expiration Date NDC Carrier Loader 0.5 mL IM Left Deltoid 0.5 mL [id number] 05/30/24 08490-098-61 [employer] VIS Given Date VIS Provided VIS Publication Date 09/29/23 Single Vaccine 21 Eligibility Eligibility Date Funding Source Not [facility] Eligible 09/29/23 Private Assessment and Plan Assessment & Plan (1) Annual physical exam: Code(s): Z00.00 - Encounter for general adult medical examination without abnormal findings (2) Hypothyroid: Code(s): E03.9 - Hypothyroidism, unspecified Qualifiers: Hypothyroidism type: acquired Qualified Code(s): E03.9 - Hypothyroidism, unspecified Plan: Continue with the thyroid medication (3) GERD (gastroesophageal reflux disease): Comment: EGD January 2015 Dr. Aldridge Code(s): K21.9 - Gastro-esophageal reflux disease without esophagitis Qualifiers: Esophagitis presence: without esophagitis Qualified Code(s): K21.9 - Gastro-esophageal reflux disease without esophagitis Plan: Avoid the foods that causes that usually spicy foods, tomato products, juices, coffee, soda and foods that your sensitive to. After eating do not lie down, allow 3-4 hours before in lie down. And keep the head of bed above 30 degrees to avoid the acid from going up. (4) Generalized anxiety disorder: Code(s): F41.1 - Generalized anxiety disorder (5) Impingement of right shoulder: Code(s): M25.811 - Other specified joint disorders, right shoulder Plan: Patient follows up with ortho and has had injections (6) Cellulitis of leg, right: Code(s): L03.115 - Cellulitis of right lower limb Plan: Patient follows up with wound care. Orders: Orders Influenza [id number] Immunization Today Z23 - Encounter for immunization Ferritin 3 Months E03.9 - Hypothyroidism, unspecified Reticulocyte Count 3 Months E03.9 - Hypothyroidism, unspecified Vitamin B12 and Folate 3 Months E03.9 - Hypothyroidism, unspecified Lipid Panel 3 Months E03.9 - Hypothyroidism, unspecified, E78.00 - Pure hypercholesterolemia, unspecified IRON PROFILE 3 Months E03.9 - Hypothyroidism, unspecified Complete Blood Count Auto Diff 3 Months E03.9 - Hypothyroidism, unspecified Comprehensive Met. Panel 3 Months E03.9 - Hypothyroidism, unspecified Free T4 (Free Thyroxine) 3 Months E03.9 - Hypothyroidism, unspecified Thyroid Stimulating Hormone 3 Months E03.9 - Hypothyroidism, unspecified Medications: Refilled docusate sodium (Colace) 200 mg (2 x 100 mg) PO DAILY 180 caps 0RF docusate sodium (Colace) 200 mg (2 x 100 mg) PO DAILY 60 caps 0RF Coding Level of Care Code Est Pt Prev Care >65y(16704) Diagnoses Annual physical exam Z00.00 Acquired hypothyroidism E03.9 Hypothyroidism type: acquired Gastroesophageal reflux disease without esophagitis K21.9 Esophagitis presence: without esophagitis Generalized anxiety disorder F41.1 Impingement of right shoulder M25.811 Cellulitis of leg, right L03.115
== END 2023-09-29 14:18 | disposition home or self-care (01) ==
PROVIDERS: Visit Provider Internal Medicine
DX: Z00.00 Encounter for general adult medical examination without abnormal findings (principal); E03.9 Hypothyroidism, unspecified; K21.9 Gastro-esophageal reflux disease without esophagitis; F41.1 Generalized anxiety disorder; M25.811 Other specified joint disorders, right shoulder; L03.115 Cellulitis of right lower limb; Z23 Encounter for immunization
CPT/HCPCS: 90471; 90686; 99397

== ENCOUNTER 2023-11-24 11:08 | Emergency (ER) | payer MEDICARE, MEDICAID, SELFPAY ==
[2023-11-24 11:13] VITALS: BP 142/99; PULSE 80; RESP 18; TEMP 36.2; O2SAT 98; BMI 23.0
--- NOTE | 2023-11-24 11:15 | ED.GENADULT ---
HPI - General Adult General Chief complaint: Extremity Injury, Lower Stated complaint: l knee pain Time Seen by Provider: 11/24/23 11:17 Source: patient Mode of arrival: ambulatory Limitations: no limitations History of Present Illness HPI narrative: 83-year-old male presents for evaluation of scrape to left knee that occurred a few weeks ago and does not seem to be getting better. He is concerned it may be infected. Does not remember exactly how he got this scrape. No falls or trauma. Denies fevers, chills, numbness, tingling Related Data Previous Rx's Medication Instructions Recorded polyethylene glycol 3350 17 17 g PO DAILY #510 grams 12/15/22 gram/dose oral powder (Miralax) ferrous sulfate 325 mg (65 mg 325 mg PO DAILY #90 caps 01/28/23 iron) tablet levothyroxine 100 mcg tablet 100 mcg PO QAM #90 caps 03/31/23 ascorbic acid (vitamin C) 500 mg 500 mg PO DAILY 90 days #90 caps 04/15/23 tablet (Vitamin C) cyanocobalamin (vitamin B-12) 1,000 mcg PO DAILY #30 caps 05/01/23 1,000 mcg tablet (Vitamin B-12) folic acid 1 mg tablet 1 mg PO DAILY #90 caps 05/01/23 zolpidem 5 mg tablet 5 mg PO BEDTIME PRN insomnia #90 07/21/23 tabs docusate sodium 100 mg capsule 200 mg (2 x 100 mg) PO DAILY #180 09/29/23 (Colace) caps bacitracin 500 unit/gram topical 1 appl topical TID #28 grams 11/24/23 ointment Allergies Allergy/AdvReac Type Severity Reaction Status Date / Time trazodone Allergy Mild Hallucinati Verified 11/24/23 11:12 ons Review of Systems Review of Systems: Constitutional : No Fever, No Chills, Cardiovascular : No Chest Pain, No SOB Respiratory : No Dyspnea Gastrointestinal : No abdominal pain Musculoskeletal : No Joint Swelling Skin : No rash, positive skin laceration Neuro : No Weakness, No Numbness Psych : No SI/HI Yes all other systems are reviewed and are negative [facility] Past Medical History Attestation statement: The following information was validated with the patient. Source: old records reviewed and nursing notes reviewed Medical History (Updated 11/24/23 @ 11:16 by MIKIE Null) Cellulitis of leg, right Medicare annual wellness visit, initial Abscess of skin or subcutaneous tissue Cellulitis of left thigh Hypothyroid Pernicious anemia GERD (gastroesophageal reflux disease) Vitamin B12 deficiency High prostate specific antigen (PSA) BPH (benign prostatic hyperplasia) Surgical History History of bilateral cataract extraction H/O ventral hernia repair History of appendectomy Family History Family History Father Medical history unknown Mother No problems noted. Social History Social History Housing: Apartment Alcohol intake: never Patient Tobacco Use Status: Former Tobacco user Tobacco use type: Cigarette Years Smoked: 1989 e-Cigarette/Vaping Use: Never Used Second Hand Smoke Exposure: No Advance Directives: No Advance Directives Information Provided: Yes service: No Current occupational status: retired Cognitive needs: No Hearing needs: No Vision needs: No Physical Exam ED Vital Signs: Vital Signs - 24 hr 11/24/23 11:13 Temperature 97.2 F Pulse Rate 80 Respiratory Rate 18 Blood Pressure 142/99 H Pulse Oximetry 98 Oxygen Delivery Method Room Air BMI result Body Mass Index 23.0 vss Appearance: Alert.? Oriented X3.? No acute distress.? Head: Normocephalic, atraumatic, no step-offs or deformities Eyes: Pupils equal, round and reactive to light.? CVS: Normal heart rate and rhythm.? Pulses normal.? Respiratory: No respiratory distress.? Breath sounds normal.? Abdomen: Soft and nontender.? Skin: Skin warm and dry.? Normal skin color.? Normal skin turgor.? Extremities: No lower extremity edema.? No calf ttp. 5/5 strength to bilateral upper and lower extremities + small abrasion w/ overlying mild erythema no fluctuance. Full painless rom to b/l knees. normal sensation distally. Ambulating w/ steady gait normal coordination. Neuro: Oriented X 3.? No motor deficit.? No sensory deficit. CN 2-12 intact Medical Decision Making Medical Decision Making MDM Narrative: 83 year old male presents w/ scrape to left knee which he is concerned may be infected. Physical exam significant for 5/5 strength to bilateral upper and lower extremities + small abrasion w/ overlying mild erythema no fluctuance. Full painless rom to b/l knees. normal sensation distally. Ambulating w/ steady gait normal coordination. This is likely an abrasion, no signs of acute infection, septic joint abscess. No signs of neurovascular compromise or threat to limb Plan at this time will discharge patient from triage will give bacitracin. No indication for oral antibiotics. Educated patient on diagnosis and treatment plan, answered all question, patient verbalizes understanding. At this time patient will be discharged home, advised to return with new or worsening symptoms. Educated on worrisome signs and symptoms and when to return. At this time I feel comfortable discharge home. Differential Diagnosis Differential Diagnoses: The differential diagnosis associated with the presentation includes This is likely an abrasion, no signs of acute infection, septic joint abscess. No signs of neurovascular compromise or threat to limb Admission/Observation Consideration of admission/observation: Escalation of care including admission/observation considered no indiaction Prescription Management I considered prescription management with: Antibiotic Critical Care Time Critical Care Time Critical Care Time: No Discharge Plan Discharge Clinical Impression: Abrasion of knee Patient Disposition: Home, Self-Care Instructions: Abrasion (ED) Additional Instructions: Take your medications as prescribed. If you were prescribed antibiotics today, it is important that you take your medication to their entirety, do not skip any doses, do not finish them early. Follow-up with your primary care provider this week. Return to the emergency department with new or worsening symptoms. Such as fevers, chills, chest pain, shortness of breath, nausea, vomiting, dizziness, headache, vision changes, lethargy In case of emergency call 911 Prescriptions: New bacitracin 500 unit/gram ointment 1 appl topical TID Qty: 28 0RF No Action ferrous sulfate 325 mg (65 mg iron) tablet 325 mg PO DAILY Qty: 90 3RF levothyroxine 100 mcg tablet 100 mcg PO QAM Qty: 90 2RF ascorbic acid (vitamin C) [Vitamin C] 500 mg tablet 500 mg PO DAILY 90 Days Qty: 90 3RF folic acid 1 mg tablet 1 mg PO DAILY Qty: 90 2RF cyanocobalamin (vitamin B-12) [Vitamin B-12] 1,000 mcg tablet 1,000 mcg PO DAILY Qty: 30 11RF zolpidem 5 mg tablet 5 mg PO BEDTIME PRN (Reason: insomnia) Qty: 90 1RF polyethylene glycol 3350 [Miralax] 17 gram/dose powder 17 g PO DAILY Qty: 510 0RF docusate sodium [Colace] 100 mg capsule 200 mg PO DAILY Qty: 180 0RF Referrals: Po,Mehnaz Tripp MD [Primary Care Provider] - 2 days Interventions: ED Discharge Assessment Last Done: 11/24/23 11:22
== END 2023-11-24 11:23 | disposition home or self-care (01) ==
PROVIDERS: Emergency Provider Emergency Medicine; PCP Internal Medicine
DX: S80.212A Abrasion, left knee, initial encounter (principal); X58.XXXA Exposure to other specified factors, initial encounter; Y93.9 Activity, unspecified; Y92.9 Unspecified place or not applicable; Y99.9 Unspecified external cause status
CPT/HCPCS: 99282; 99283

== ENCOUNTER 2024-01-10 08:50 | Emergency (ER) | payer MEDICARE, MEDICAID, SELFPAY ==
--- NOTE | ~2024-01-10 | XR_ITS ---
EXAMINATION: Right elbow and right knee pain. CLINICAL INDICATION: Pain and injury. COMPARISON: Right knee 01/27/2020. TECHNIQUE: Right knee 4 views. Right elbow 3 views. FINDINGS: RIGHT KNEE: There is mild loss of tricompartment joint space without bony erosive changes, loose bodies or joint effusion. There is no visible acute fracture or dislocation. There is anterior tibial tubercle fragmentation likely congenital nonfusion or old traumatic injury.. There is minimal anterior soft tissue swelling RIGHT ELBOW: The joint space is maintained normal. There is no fracture, loose bodies or soft tissue swelling. XR/XR elbow RT min 3V IMPRESSION: 1. Mild anterior tibial tubercle fragmentation likely congenital nonfusion or old traumatic injury. There is no acute fracture or dislocation right knee. 2. Unremarkable right elbow exam.
--- NOTE | ~2024-01-10 | XR_ITS ---
EXAMINATION: Right elbow and right knee pain. CLINICAL INDICATION: Pain and injury. COMPARISON: Right knee 01/27/2020. TECHNIQUE: Right knee 4 views. Right elbow 3 views. FINDINGS: RIGHT KNEE: There is mild loss of tricompartment joint space without bony erosive changes, loose bodies or joint effusion. There is no visible acute fracture or dislocation. There is anterior tibial tubercle fragmentation likely congenital nonfusion or old traumatic injury.. There is minimal anterior soft tissue swelling RIGHT ELBOW: The joint space is maintained normal. There is no fracture, loose bodies or soft tissue swelling. XR/XR knee RT 4V IMPRESSION: 1. Mild anterior tibial tubercle fragmentation likely congenital nonfusion or old traumatic injury. There is no acute fracture or dislocation right knee. 2. Unremarkable right elbow exam.
--- NOTE | ~2024-01-10 | CT_ITS ---
EXAMINATION: CT brain and CT cervical spine and CT chest without contrast. CLINICAL INDICATION: Fall, injury and pain. COMPARISON: None. TECHNIQUE: 5 mm thin axial and reformatted 2 mm thin sagittal and coronal images of brain were obtained. Axial 3 mm thin and reformatted 2 mm thin sagittal and coronal images of cervical spine were obtained. Lastly 5 mm thin axial and reformatted 3 mm thin sagittal and coronal images of chest were obtained without contrast. This CT examination was performed using dose optimization technique as appropriate, variously including the following: Automated exposure control Adjustment of MA and/or KV according to patient size(this includes techniques or standardized protocols for targeted exams where dose is matched to indication/reason for exam; extremities or head. Use of iterative reconstruction techniques. FINDINGS: BRAIN: There is no acute intra-axial, extra-axial bleed, masses or midline shift. There is no acute infarction evolution. There is no edema brower to white matter differentiation is maintained normal. The lateral ventricles are symmetrical in size and configuration without enlargement. Bone windows no calvarial abnormality. Bilateral paranasal sinuses and mastoid air cells are well-aerated. No scalp soft tissue abnormality. CERVICAL SPINE: There is mild straightening of cervical lordosis. The vertebral heights, alignment and disc heights are normal. T there are inferior endplate Schmorl's node C5 and C6 vertebra. There is no visible acute fracture, dislocation or subluxation seen. There is mild ventral spondylosis C4-C5, C5-C6 and C6-C7 disc levels. The craniovertebral junction and C1-C2 alignment is normal. The prevertebral and paravertebral soft tissues are normal. The airway is widely patent. The lung apices are clear. CHEST: LUNGS: Lungs are well-expanded and clear. Large cyst is noted in right upper lobe inferior to azygoesophageal recess. There is no contusion, consolidation, mass or pulmonary nodules. Mild atelectatic changes seen in the right middle lobe. Mediastinum: Central trachea and the bronchi are widely patent. The heart size and great vessels are normal caliber. Ascending aorta measures 4.2 x 4.0 cm with no evidence of aneurysm. There is moderate coronary artery calcifications. No pericardial effusion seen. No abnormal size mediastinal or hilar lymph nodes seen. Thyroid lobes are small and barely visible. Pleura: There is no pleural effusion, thickening or calcification. No pneumothorax. Axilla: Small shotty lymph nodes are seen in bilateral axilla the largest lymph node left axilla has a small central fatty lucency suggestive of benign etiology. The chest wall is unremarkable. Osseous structures: No aggressive lytic or sclerotic process seen. There are degenerative disc changes dorsal spine. Upper abdomen: Visualized liver, spleen, pancreas and adrenal glands unremarkable. The gallbladder is unremarkable. There are surgical roro at the GE junction with small hiatal hernia. CT/CT cervical spine wo IV con IMPRESSION: 1. No acute intracranial process seen. 2. There is no acute fracture, dislocation or subluxation of cervical spine. There are degenerative disc changes with inferior endplate Schmorl's node C5 and C6 vertebra. 3. There is no acute process seen in the chest.
[2024-01-10 08:58] VITALS: BP 131/78; PULSE 85; RESP 18; TEMP 36.6; O2SAT 98; BMI 20.8
--- NOTE | 2024-01-10 09:07 | ED_ITS ---
HPI - General Adult General Chief complaint: Fall Stated complaint: Fall couple days ago/L side pain Time Seen by Provider: 01/10/24 09:07 Source: patient and director acute Mode of arrival: ambulatory Limitations: language barrier History of Present Illness HPI narrative: Patient is an 83 year old assigned male at with a history of GERD and BPH presenting to the emergency department today with left rib pain, right knee pain, and right elbow pain. Patient states that 3 days ago he slipped on the side walk when trying to get out of his truck and landed on all his hands and knees. Patient denies hitting his head or having any loss of consciousness. Patient denies any dizziness, lightheadedness, abdominal pain, nausea, vomiting, fever, chills, blurry vision, double vision, loss of vision, chest pain, diffic ulty breathing, shortness of breath, back pain, night sweats, pain with urination, increased urinary frequency, increased urinary urgency, blood in his urine or stool, syncope or a near syncopal episode, bowel incontinence, bladder incontinence, bowel retention, bladder retention, or any other complaints at this time. Onset (ago): day(s) (3) Radiation: non-radiation Severity: mild Severity scale (1-10): 3 Quality: aching Pain Consistency: other (on inspiration ) Relieving factors: none Exacerbating factors: other (on inspiration ) Associated symptoms: denies other symptoms Treatments prior to arrival: none Related Data Previous Rx's Medication Instructions Recorded polyethylene glycol 3350 17 17 g PO DAILY #510 grams 12/15/22 gram/dose oral powder (Miralax) ferrous sulfate 325 mg (65 mg 325 mg PO DAILY #90 caps 01/28/23 iron) tablet ascorbic acid (vitamin C) 500 mg 500 mg PO DAILY 90 days #90 caps 04/15/23 tablet (Vitamin C) cyanocobalamin (vitamin B-12) 1,000 mcg PO DAILY #30 caps 05/01/23 1,000 mcg tablet (Vitamin B-12) folic acid 1 mg tablet 1 mg PO DAILY #90 caps 05/01/23 docusate sodium 100 mg capsule 200 mg (2 x 100 mg) PO DAILY #180 09/29/23 (Colace) caps bacitracin 500 unit/gram topical 1 appl topical TID #28 grams 11/24/23 ointment levothyroxine 100 mcg tablet 100 mcg PO QAM #90 caps 12/26/23 zolpidem 5 mg tablet 5 mg PO BEDTIME PRN insomnia #90 01/09/24 tabs cefuroxime axetil 250 mg tablet 250 mg PO BID 7 days #14 tabs 01/10/24 Allergies Allergy/AdvReac Type Severity Reaction Status Date / Time trazodone Allergy Mild Hallucinati Verified 01/10/24 09:05 ons Review of Systems Constitutional: Constitutional: Reports no additional constitutional complaints, Denies chills, Denies fever(s) and Denies night sweats Eyes: Eyes: Reports no additional eye complaints, Denies blurry vision, Denies change in vision, Denies diplopia, Denies eye discharge, Denies loss of vision and Denies eye pain ENT: Denies dizziness Cardiovascular: Cardiovascular: Reports no additional cardiovascular complaints, Denies chest pain, Denies lightheadedness, Denies Loss of Consciousness and Denies dyspnea Respiratory: Respiratory: Reports no additional respiratory complaints and Denies dyspnea Gastrointestinal: Gastrointestinal: Reports no additional gastrointestinal complaints, Denies abdominal pain, Denies melena, Denies hematochezia, Denies change in bowel habits and Denies change in stool character Genitourinary: Genitourinary: Reports no additional male genitourinary complaints, Denies hematuria, Denies oliguria, Denies difficulty urinating, Denies dysuria, Denies urinary frequency, Denies urinary hesitancy, Denies urinary incontinence and Denies urinary urgency Musculoskeletal: Musculoskeletal: Reports no additional musculoskeletal complaints, Denies numbness and Denies tingling Comments: right elbow pain, right knee pain, left rib pain Neurologic: Denies dizziness, Denies loss of vision, Denies numbness and Denies tingling Psychiatric: Psychiatric: Reports no additional psychiatric complaints Endocrine: Endocrine: Reports no additional endocrine complaints Hematologic/Lymphatic: Hematologic/Lymphatic: Reports no additional hematologic/lymphatic complaints Allergic/Immunologic: Allergic/Immunologic: Reports no additional allergic/immunologic complaints PMFSH Past Medical History Attestation statement: The following information was validated with the patient. Source: old records reviewed and nursing notes reviewed Medical History Hospital discharge follow-up Open wound Right shoulder pain Medicare annual wellness visit, initial Cellulitis of left thigh Annual physical exam Colonoscopy refused Impaired fasting glucose Cellulitis of leg, right Abscess of skin or subcutaneous tissue Hypothyroid Pernicious anemia GERD (gastroesophageal reflux disease) Vitamin B12 deficiency High prostate specific antigen (PSA) BPH (benign prostatic hyperplasia) Surgical History History of bilateral cataract extraction H/O ventral hernia repair History of appendectomy Family History Family History Father Medical history unknown Mother No problems noted. Social History Social History Housing: Apartment Alcohol intake: never Patient Tobacco Use Status: Former Tobacco user Tobacco use type: Cigarette Years Smoked: 1989 e-Cigarette/Vaping Use: Never Used Second Hand Smoke Exposure: No Advance Directives: No Advance Directives Information Provided: No service: No Current occupational status: retired Cognitive needs: No Hearing needs: No Vision needs: No Physical Exam ED Vital Signs: Vital Signs - 24 hr 01/10/24 08:58 Temperature 97.9 F Pulse Rate 85 Respiratory Rate 18 Blood Pressure 131/78 Pulse Oximetry 98 Oxygen Delivery Method Room Air BMI result Body Mass Index 20.8 Const General: no acute distress Nutritional Appearance: average body habitus Orientation/consciousness: patient oriented x3 Limitations: no limitations HENMT Head: Yes normal to inspection and Yes atraumatic Ears: hearing grossly normal bilaterally and external ears normal General nose exam: Normal external nose present, no nasal discharge noted and no epistaxis Face and sinus: Yes normal facial exam, No abrasion and No laceration Mouth: Normal oral and palatal mucosa present, no drooling and no muffled voice Eyes General: appearance normal, both eyes and all related structures Periorbital: periorbital findings normal Eyelids: Yes eyelids normal Conjunctivae: conjunctivae normal Pupils: Equal, round and reactive pupils present EOM: EOMs intact bilaterally Neck Neck: Yes normal visual inspection, Yes full ROM and Yes no lymphadenopathy Chest Chest palpation & inspection: normal inspection of the chest Resp Effort & Inspection: normal respiratory effort Auscultation: clear to auscultation bilaterally GI Inspection: Yes normal to inspection Neuro General: patient oriented x3 Cranial nerves: Yes Equal, round and reactive pupils present Cognition (Neuro): normal cognition Motor exam (neuro): 5/5 motor strength present throughout Sensory Exam: Normal double simultaneous stimulation for sensation Coordination: [id number] test normal Extrem Other: abrasion to right knee abrasion to the right medial elbow with minimal surrounding erythema General: Yes full ROM and Yes capillary refill normal Psych Appearance: grossly normal Mental Status: mental status grossly normal Affect: normal affect Attitude: cooperative Thought process: Normal thought process present Thought content: Normal thought content present Insight: Good insight present (Psych) Medical Decision Making Medical Decision Making MDM Narrative: Patient is an 83 year old assigned male at with a history of GERD and BPH presenting to the emergency department today with right knee pain, right elbow pain, and left rib pain. Patient's physical exam was as noted in the physical exam portion of this note. Patient's right elbow and right knee x-rays showed no acute process. Patient's head, C-spine, and chest CTs showed no acute process. Patient's chest CT did have incidental findings of an expanded aorta at 4.0 x 4.2 and a right upper lobe lung cyst. I explained these to the patient and stressed the importance of following up with his PCP about them. Patient's right elbow abrasion does appear cellulitic, will cover with ABX. I explained my physical exam findings as well as all test results to the patient. I answered all questions asked by the patient. I stressed the importance of the patient taking his medication as prescribed. I stressed the importance of the patient following up with his primary care provider. I stressed the importance of the patient returning to the emergency department immediately if his symptoms were to worsen or if he were to develop any dizziness, shortness of breath, difficulty breathing, chest pain, blurry vision, loss of vision, nausea, vomiting, abdominal pain, fever, chills, back pain, or any other complaints. Patient verbalized agreement and understanding with this treatment plan and discharge. Differential Diagnosis Differential Diagnoses: The differential diagnosis associated with the presentation includes trauma due to fall intercostal muscle strain rib fracture rib joint dysfunction sternal fracture cellulitis abrasion Admission/Observation Consideration of admission/observation: Escalation of care including admission/observation considered Patient would have been admitted to the hospital had his work up had any findings where hospital admission was appropriate and his clinical presentation warranted hospital admission. Independent Interpretation I performed an independent interpretation of an: Plain X-Ray and CT Scan Interpretation: My interpretation is in agreement with the radiologist's impression of these imaging studies. EXAMINATION: CT brain and CT cervical spine and CT chest without contrast. CLINICAL INDICATION: Fall, injury and pain. COMPARISON: None. TECHNIQUE: 5 mm thin axial and reformatted 2 mm thin sagittal and coronal images of brain were obtained. Axial 3 mm thin and reformatted 2 mm thin sagittal and coronal images of cervical spine were obtained. Lastly 5 mm thin axial and reformatted 3 mm thin sagittal and coronal images of chest were obtained without contrast. This CT examination was performed using dose optimization technique as appropriate, variously including the following: Automated exposure control Adjustment of MA and/or KV according to patient size(this includes techniques or standardized protocols for targeted exams where dose is matched to indication/reason for exam; extremities or head. Use of iterative reconstruction techniques. FINDINGS: BRAIN: There is no acute intra-axial, extra-axial bleed, masses or midline shift. There is no acute infarction evolution. There is no edema brower to white matter differentiation is maintained normal. The lateral ventricles are symmetrical in size and configuration without enlargement. Bone windows no calvarial abnormality. Bilateral paranasal sinuses and mastoid air cells are well-aerated. No scalp soft tissue abnormality. CERVICAL SPINE: There is mild straightening of cervical lordosis. The vertebral heights, alignment and disc heights are normal. T there are inferior endplate Schmorl's node C5 and C6 vertebra. There is no visible acute fracture, dislocation or subluxation seen. There is mild ventral spondylosis C4-C5, C5-C6 and C6-C7 disc levels. The craniovertebral junction and C1-C2 alignment is normal. The prevertebral and paravertebral soft tissues are normal. The airway is widely patent. The lung apices are clear. CHEST: LUNGS: Lungs are well-expanded and clear. Large cyst is noted in right upper lobe inferior to azygoesophageal recess. There is no contusion, consolidation, mass or pulmonary nodules. Mild atelectatic changes seen in the right middle lobe. Mediastinum: Central trachea and the bronchi are widely patent. The heart size and great vessels are normal caliber. Ascending aorta measures 4.2 x 4.0 cm with no evidence of aneurysm. There is moderate coronary artery calcifications. No pericardial effusion seen. No abnormal size mediastinal or hilar lymph nodes seen. Thyroid lobes are small and barely visible. Pleura: There is no pleural effusion, thickening or calcification. No pneumothorax. Axilla: Small shotty lymph nodes are seen in bilateral axilla the largest lymph node left axilla has a small central fatty lucency suggestive of benign etiology. The chest wall is unremarkable. Osseous structures: No aggressive lytic or sclerotic process seen. There are degenerative disc changes dorsal spine. Upper abdomen: Visualized liver, spleen, pancreas and adrenal glands unremarkable. The gallbladder is unremarkable. There are surgical roro at the GE junction with small hiatal hernia. CT/CT head/brain wo IV con IMPRESSION: 1. No acute intracranial process seen. 2. There is no acute fracture, dislocation or subluxation of cervical spine. There are degenerative disc changes with inferior endplate Schmorl's node C5 and C6 vertebra. 3. There is no acute process seen in the chest. Dictated By: Tony Cueva MD Signed By: Electronically signed by Tony Cueva MD 01/10/24 1052 EXAMINATION: Right elbow and right knee pain. CLINICAL INDICATION: Pain and injury. COMPARISON: Right knee 01/27/2020. TECHNIQUE: Right knee 4 views. Right elbow 3 views. FINDINGS: RIGHT KNEE: There is mild loss of tricompartment joint space without bony erosive changes, loose bodies or joint effusion. There is no visible acute fracture or dislocation. There is anterior tibial tubercle fragmentation likely congenital nonfusion or old traumatic injury.. There is minimal anterior soft tissue swelling RIGHT ELBOW: The joint space is maintained normal. There is no fracture, loose bodies or soft tissue swelling. XR/XR knee RT 4V IMPRESSION: 1. Mild anterior tibial tubercle fragmentation likely congenital nonfusion or old traumatic injury. There is no acute fracture or dislocation right knee. 2. Unremarkable right elbow exam. Dictated By: Tony Cueva MD Signed By: Electronically signed by Tony Cueva MD 01/10/24 6709 Radiology Impression Discussion of test interpretation with radiology: I have reviewed the radiologist's reading. Prescription Management I considered prescription management with: Antibiotic (patient prescribed an antibiotic for cellulitis) Discharge Plan Discharge Clinical Impression: Cellulitis, Abrasion, Fall, Rib pain on left side Patient Disposition: Home, Self-Care Instructions: Cellulitis (DC), Fall Prevention for Older Adults (ED) Additional Instructions: Your CT scan of the chest showed a cyst in the right upper lung lobe, this needs to be followed up on with your primary care provider. Additionally, it showed your aorta (large artery) to be large at 4.2 x 4.0cm. This also needs to be followed up on by your primary care provider. PLEASE Follow up with your primary care provider. Your right elbow abrasion appears to be infected, please take the antibiotic prescribed for this. Return to the emergency department immediately if your symptoms worsen or if you develop any dizziness, shortness of breath, difficulty breathing, chest pain, blurry vision, loss of vision, nausea, vomiting, abdominal pain, fever, chills, back pain, or any other complaints. Heller tomograf?a computarizada del t?rax mostr? un quiste en el l?bulo superior derecho del pulm?n; esto debe ser examinado con heller proveedor de atenci?n primaria. Adem?s, mostr? que heller aorta (arteria leonardo) era leonardo, de 4,2 x 4,0 cm. Heller proveedor de atenci?n primaria tambi?n debe realizar un seguimiento de esto. POR FAVOR, shaye un seguimiento con heller proveedor de atenci?n primaria. La abrasi?n de heller codo derecho parece estar infectada; tome el antibi?hasmukh prescrito para ello. Regrese al departamento de emergencias inmediatamente si kendall s?ntomas empeoran o si presenta mareos, dificultad para respirar, dificultad para respirar, dolor en el pecho, visi?n borrosa, p?rdida de la visi?n, n?useas, v?mitos, dolor abdominal, fiebre, escalofr?os, dolor de espalda o cualquier otras quejas. Prescriptions: New cefuroxime axetil 250 mg tablet 250 mg PO BID 7 Days Qty: 14 0RF No Action ferrous sulfate 325 mg (65 mg iron) tablet 325 mg PO DAILY Qty: 90 3RF ascorbic acid (vitamin C) [Vitamin C] 500 mg tablet 500 mg PO DAILY 90 Days Qty: 90 3RF folic acid 1 mg tablet 1 mg PO DAILY Qty: 90 2RF cyanocobalamin (vitamin B-12) [Vitamin B-12] 1,000 mcg tablet 1,000 mcg PO DAILY Qty: 30 11RF levothyroxine 100 mcg tablet 100 mcg PO QAM Qty: 90 2RF zolpidem 5 mg tablet 5 mg PO BEDTIME PRN (Reason: insomnia) Qty: 90 1RF polyethylene glycol 3350 [Miralax] 17 gram/dose powder 17 g PO DAILY Qty: 510 0RF bacitracin 500 unit/gram ointment 1 appl topical TID Qty: 28 0RF docusate sodium [Colace] 100 mg capsule 200 mg PO DAILY Qty: 180 0RF Referrals: Po,Mehnaz Tripp MD [Primary Care Provider] - Interventions: ED Discharge Assessment Last Done: 01/10/24 11:19 Discharge Date/Time: 01/10/24 11:19 Print Language: Bangladeshi
== END 2024-01-10 11:19 | disposition home or self-care (01) ==
PROVIDERS: Emergency Provider Emergency Medicine; PCP Internal Medicine
DX: L03.113 Cellulitis of right upper limb (principal); R07.81 Pleurodynia; Z91.81 History of falling
CPT/HCPCS: 70450; 71250; 72125; 73080; 73564; 99282; 99284

== ENCOUNTER 2024-01-15 12:40 | Outpatient (AMB) | payer MEDICARE, MEDICAID, SELFPAY ==
[2024-01-15 12:43] VITALS: BP 132/70; PULSE 63; O2SAT 98; BMI 22.3
--- NOTE | 2024-01-15 12:43 | MHC.PC.OV ---
Vital Signs 01/15/24 12:43 Height 5 ft 3 in Weight 126 lb BMI 22.3 BP 132/70 Blood Pressure Location Lt brachial Position Sitting Pulse 63 Pulse Source Pulse Oximeter Pulse Oximetry (%) 98 Oxygen Delivery Method Room Air Intake Visit Reasons: [facility] [place] Intake Note: Patient has lump on back and he is not sure if that is what came up in the CT scan. Allergies trazodone Allergy (Mild, Verified 01/15/24 12:43) Hallucinations Tobacco use date assessed: 01/15/24 Fall risk assessment: 1 Fall in past year Last assessed Fall Risk: 01/15/24 Dental Screening Dental Screen Date: 01/15/24 Did you have a dental visit in the last 12 months?: Yes Did you have a dental problem in the last 6 months where you did not have access to dental care?: No Was dental information given to patient?: Patient has dentist HPI [facility] [place]24 fall HPI Details 83-year-old male with hypothyroidism GERD generalized anxiety disorder coming in for follow-up. Last seen for physical exam in August 2023 had right leg cellulitis. Review of the notes ER visit 01/10/2024 for fall left rib pain right knee pain right elbow pain x-rays have shown no acute process CT of the spine and CT of the chest negative incidental finding of unexpanded aorta at 4 by 4.2 cm and the right upper lobe lung cyst patient was given an antibiotic for the right elbow abrasion. November 24 ER note again for left knee scraping and was given an antibiotic ointment. abrasion R medial elbow and R knee, pain on the chest rib area, deny getting unsteady and this is the first time after a long time [facility] Medical History Hospital discharge follow-up Open wound Right shoulder pain Medicare annual wellness visit, initial Cellulitis of left thigh Annual physical exam Colonoscopy refused Impaired fasting glucose Cellulitis of leg, right Abscess of skin or subcutaneous tissue Hypothyroid Pernicious anemia GERD (gastroesophageal reflux disease) Vitamin B12 deficiency High prostate specific antigen (PSA) BPH (benign prostatic hyperplasia) Surgical History History of bilateral cataract extraction H/O ventral hernia repair History of appendectomy Family History Father Medical history unknown Mother No problems noted. Social History Housing: Apartment Alcohol intake: never Patient Tobacco Use Status: Former Tobacco user Tobacco use type: Cigarette Years Smoked: 1989 e-Cigarette/Vaping Use: Never Used Second Hand Smoke Exposure: No service: No Current occupational status: retired Cognitive needs: No Hearing needs: No Vision needs: No Questionnaire PHQ-9 Over the last 2 weeks, how often have you been bothered by any of the following problems? 1. Little interest or pleasure in doing things: not at all 2. Feeling down, depressed, or hopeless: not at all 3. Trouble falling or staying asleep, or sleeping too much: not at all 4. Feeling tired or having little energy: not at all 5. Poor appetite or overeating: not at all 6. Feeling bad about yourself - or that you are a failure or have let yourself or your family down: not at all 7. Trouble concentrating on things, such as reading the newspaper or watching television: not at all 8. Moving or speaking so slowly that other people could have noticed. Or the opposite - being so fidgety or restless that you have been moving around a lot more than usual: not at all 9. Thoughts that you would be better off or of hurting yourself in some way: not at all Total score: 0 Depression Screening Interpretation: Negative Depression Screening Done: Yes Source: Developed by Drs. Sacha Betancur, Katie Segal, Elmo Barillas and colleagues, with an educational zayra from [employer]. Thrive Questionnaire Date Thrive assessed: 01/15/24 I am a: Patient What is your living situation today?: I have a steady place to live Within the past 12 months, did the food you bought not last and you didn't have the money to get more?: Never true Within the past 12 months, did you worry whether your food would run out before you got money to buy more?: Never true Do you have trouble paying for medicines?: No Do you have trouble getting transportation to medical appointments?: No Do you have trouble paying your heating and electricity bill?: No Do you have trouble taking care of your child, family member or friend?: No Do you have trouble with day-to-day activities such as bathing, preparing meals, shopping, managing finances, etc.?: No Are you currently unemployed and looking for a job?: No Are you interested in more education?: No Currently or been in a relationship where the following occur: no concerns reported THRIVE Score: 0 AUDIT C Alcohol Use Questionnaire (AUDIT-C) 1. How often do you have a drink containing alcohol?: Never 3. How often do you have six or more drinks on one occasion?: Never Total Score: 0 KETTY-7 AMB Questionnaire KETTY-7 Date KETTY - 7 assessed: 01/15/24 Feeling nervous, anxious, or on edge: 0 = Not at all Not being able to stop or control worryin = Not at all Worrying too much about different things: 0 = Not at all Trouble relaxin = Not at all Being so restless that it is hard to sit still: 0 = Not at all Becoming easily annoyed or irritable: 0 = Not at all Feeling afraid as if something awful might happen: 0 = Not at all Total KETTY-7 score (0-4 normal; 5-9 mild; 10-14 moderate; 15-21 severe): 0 Source: Developed by Drs. Sacha Betancur, Katie Segal, Elmo Barillas and colleagues, with an educational zayra from [employer]. Physical exam (Primary Care) Vital Signs: Last Vital Signs Pulse 63 01/15/24 12:43 BP 132/70 01/15/24 12:43 Pulse Ox 98 01/15/24 12:43 Oxygen Delivery Method Room Air 01/15/24 12:43 BMI result Body Mass Index 22.3 Tobacco/Smoking Status: Tobacco use Status Tobacco use date assessed 01/15/24 01/15/24 12:44 Patient Tobacco Use Status Former Tobacco user 01/15/24 12:44 Tobacco use type Cigarette 01/15/24 12:44 e-Cigarette/Vaping Use Never Used 01/15/24 12:44 PHQ-9: PHQ-9 Score PHQ-9: Total score 0 01/15/24 13:21 Depression Screening Interpretation: Negative Thrive Assessment: Date of Thrive Assessment Date Thrive assessed 01/15/24 01/15/24 12:44 Currently or been in a relationship where the following occur: no concerns reported Const General: alert; No acute distress Eyes Conjunctivae: conjunctivae normal Resp Auscultation: clear to auscultation bilaterally Cardio Rate: regular rate Rhythm: regular rhythm GI Inspection: Yes normal to inspection Assessment and Plan Assessment & Plan (1) Ascending aorta dilatation: Comment: January 2024 4 x 4.2 Code(s): I77.810 - Thoracic aortic ectasia Plan: echo ordered (2) Lung cyst: Comment: Right lung January 2024 Code(s): J98.4 - Other disorders of lung Plan: referral to pulmonary (3) Hypothyroid: Code(s): E03.9 - Hypothyroidism, unspecified Qualifiers: Hypothyroidism type: acquired Qualified Code(s): E03.9 - Hypothyroidism, unspecified (4) GERD (gastroesophageal reflux disease): Comment: EGD January 2015 Dr. Aldridge Code(s): K21.9 - Gastro-esophageal reflux disease without esophagitis Qualifiers: Esophagitis presence: without esophagitis Qualified Code(s): K21.9 - Gastro-esophageal reflux disease without esophagitis (5) Insomnia: Code(s): G47.00 - Insomnia, unspecified Qualifiers: Insomnia type: primary Qualified Code(s): F51.01 - Primary insomnia (6) Abrasion of right elbow: Code(s): S50.311A - Abrasion of right elbow, initial encounter Orders: Orders CA echo transthoracic complete Today I77.810 - Thoracic aortic ectasia Referrals Pulmonology Referral J98.4 - Other disorders of lung Medications: Refilled bacitracin 1 appl topical TID 28 grams 0RF S50.311A - Abrasion of right elbow, initial encounter Coding Level of Care Code Est Pt Level 4 (69172) Diagnoses Ascending aorta dilatation I77.810 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 Acquired hypothyroidism E03.9 Hypothyroidism type: acquired Gastroesophageal reflux disease without esophagitis K21.9 Esophagitis presence: without esophagitis Primary insomnia F51.01 Insomnia type: primary Abrasion of right elbow S50.311A
== END 2024-01-15 13:48 | disposition home or self-care (01) ==
PROVIDERS: PCP Internal Medicine; Visit Provider Internal Medicine
DX: I77.810 Thoracic aortic ectasia (principal); J98.4 Other disorders of lung; E03.9 Hypothyroidism, unspecified; K21.9 Gastro-esophageal reflux disease without esophagitis; F51.01 Primary insomnia; S50.311A Abrasion of right elbow, initial encounter
CPT/HCPCS: 99214

== ENCOUNTER → 2024-02-09 14:40 | Outpatient (REF) | payer MEDICARE, MEDICAID, SELFPAY ==
--- NOTE | 2024-02-09 14:47 | CA_ITS ---
Transthoracic Echocardiogram Patient (Last, First, Middle): Frankie Jose H Gender: Male Date of : 1940 Age: 83 Procedure Date: 02/09/2024 Procedure Type: Transthoracic Echocardiogram Location: OP Height: 162.56 cm Weight: 54.43 kg BSA: 1.57 m2 Heart Rate: 62 bpm BP: 150 / 80 mmHg Pairer: NATE Referring MD: Mehnaz Abel MD Shoe Singer: Cy Shaw MD Symptoms: I77.810 - Thoracic aortic ectasia Study Quality: Adequate ECG Rhythm: Sinus Conclusions: - 1. Normal LV systolic function with LVEF of 55-60% with grade 1 diastolic dysfunction 2. Mild aortic regurgitation 3. Mildly dilated ascending aorta 3.9 cm 4. Normal RV systolic pressure 5. No gross pericardial effusion Findings Left Ventricle Normal left ventricular size, thickness, and systolic function. The visually estimated ejection fraction is between 55-60%. Spectral Doppler is indicative of an impaired relaxation filling pattern. E/E prime ratio is <8, consistent with normal filling pressures. Evidence suggests grade I (mild) diastolic dysfunction. Peak GLS is -18.4%, within normal limits. Right Ventricle Normal right ventricular cavity size and systolic function. Atria The left atrium is normal in size. There is no evidence of interatrial shunt. The right atrium is normal in size. Aortic Valve There is mild calcification of the aortic valve. There is no aortic valve stenosis. There is mild aortic valve regurgitation. Mitral Valve Normal mitral valve structure and function. There is trace mitral valve regurgitation. There is no mitral valve stenosis. Pulmonic Valve The pulmonic valve is likely normal. There is trace pulmonic valve regurgitation. Tricuspid Valve Normal tricuspid valve structure. There is mild tricuspid valve regurgitation. The right ventricular systolic pressure is normal. The right ventricular systolic pressure is 29 mmHg. Normal right atrial pressure. There is no evidence of pulmonary hypertension. Great Vessels The pulmonary artery was not well visualized. There is mild dilatation of the ascending aorta measuring 3.90 cm. Venous The inferior vena cava is normal in size and collapses greater than 50% with inspiration. Pericardium/Pleural There is no evidence of pericardial effusion. Prior Study Comparison No prior study available for comparison. Measurements 2D Linear Measurements IVSd: 1.04 0.6-0.9/0.6-1.0 cm LVIDd: 2.81 3.9-5.3/4.2-5.9 cm LVIDd Index: 1.79 2.4-3.2/2.2-3.1 cm/m2 LVIDs: 1.82 2.0-3.6 cm LVPWd: 0.81 0.7-1.1 cm LA Diam: 3.50 2.7-3.8/3.0-4.0 cm LAIDs Index: 2.23 1.5-2.3 cm/m2 LV Mass: 81.83 67-162/88-224 g LV Mass Index: 52.12 43-95/49-115 g/m2 LVOT Diam: 2.10 3.0+(-)1.3 cm 2D Systolic Function EF 4C: 57.80 >55% EF 2C: 60.10 >55% EF BiP: 58.60 >55% Mitral Valve MV Pk E: 0.51 MV PK A: 0.81 MV Decel Time: 181.00 E/A: 0.60 E'Lateral: 7.40 E'Medial: 5.44 E/E' Med: 9.40 E/E' Lat: 6.90 PHT: 53.00 MVA PHT: 4.15 Decel Maverick: 2.85 Aortic Valve AoV Pk Gurinder: 1.41 AoV Mn Gurinder: 0.99 AoV VTI: 0.29 AoV Pk Grad: 8.00 Aov Mn Grad: 4.00 ANGEL Cont.VTI: 2.75 AI Pk Gurinder: 4.89 AI Maverick: 2.80 LVOT LVOT Pk Gurinder: 1.09 LVOT Mn Gurinder: 0.70 LVOT VTI: 0.22 LVOT Pk Grad: 5.00 LVOT Mn Grad: 2.00 LVOT Diam: 2.10 LVOT Area: 3.46 Diastolic Function MV Pk E: 0.51 MV Pk A: 0.81 E/A: 0.60 E'Medial: 5.44 E/E' Med: 9.40 E' Laterial: 7.40 E/E' Lat: 6.90 Right Ventricle TAPSE (mm): 27.70 TVS' Gurinder: 15.30 Tricuspid Valve TR Pk Gurinder: 2.27 TR Pk Grad: 21.00 RA Press: 8.00 RVSP: 29.00 Great Vessels Aorta Sinus of Valsalva: 4.00 2.0-3.5 cm Ao Asc: 3.90 2.1-3.4 cm Ao Arch: 2.80 Pulmonary Valve PV Pk Gurinder: 1.18 Peak PV Grad: 6.00 Updated in Other Vendor System with Status of Final Cy Shaw MD electronically signed on 02/09/2024 4:39:57 PM with status of Final
== END ==
LOC: HO.CARD 14:40
PROVIDERS: Visit Provider Internal Medicine
DX: I77.810 Thoracic aortic ectasia (principal)
CPT/HCPCS: 93306; 93356

== ENCOUNTER → 2024-02-09 14:47 | Outpatient (BNV) | payer MEDICARE, MEDICAID, SELFPAY | PROVIDERS: Visit Provider Internal Medicine Cardiovascular Disease | DX: I35.1 Nonrheumatic aortic (valve) insufficiency (principal); I36.1 Nonrheumatic tricuspid (valve) insufficiency | CPT/HCPCS: 93306; 93356 ==

== ENCOUNTER 2024-02-26 14:40 | Outpatient (AMB) | payer MEDICARE, MEDICAID, SELFPAY ==
--- NOTE | 2024-02-26 15:09 | A.OFFVIS_ITS ---
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 The patient is an 83-year-old gentleman who apparently was in usual state health until recently when he had a injury fall and went to the ER. The patient did have a CT scan of the chest Because he was having some chest discomfort after the injury. Moderate in severity. Denied any significant shortness breath or cough. I did review the images with him. Appears to have a large cystic area medially in the right hemithorax. Thin walled. The patient does not have any other imaging studies the past to be able to compare. No other abnormalities noted. This appears to be a benign finding. The patient clinically is feeling well. His chest pain now subsided. Denies any shortness of breath. Denies any pulmonary limitations. He has not had any weight loss or night sweats. Will plan to repeat the CT scan in a year's time. However, the patient develops any worsening symptoms he will call for an earlier assessment. [facility] Medical History Hospital discharge follow-up Open wound Right shoulder pain Medicare annual wellness visit, initial Cellulitis of left thigh Annual physical exam Colonoscopy refused Impaired fasting glucose Cellulitis of leg, right Abscess of skin or subcutaneous tissue Hypothyroid Pernicious anemia GERD (gastroesophageal reflux disease) Vitamin B12 deficiency High prostate specific antigen (PSA) BPH (benign prostatic hyperplasia) Surgical History History of bilateral cataract extraction H/O ventral hernia repair History of appendectomy Family History Father Medical history unknown Mother No problems noted. Social History Housing: Apartment Alcohol intake: never Patient Tobacco Use Status: Former Tobacco user Tobacco use type: Cigarette Years Smoked: 1989 e-Cigarette/Vaping Use: Never Used Second Hand Smoke Exposure: No service: No Current occupational status: retired Cognitive needs: No Hearing needs: No Vision needs: No Review of Systems Const Denies fever(s) and Denies weakness Eyes Denies no additional complaints ENT Reports Normal hearing present, Denies dizziness, Denies nasal congestion, Denies tinnitus and Denies sore throat Card Denies chest pain, Denies syncope, Denies rapid heart rate and Denies dyspnea Resp Denies cough, Denies dyspnea and Denies wheezing GI Denies change in stool character, Reports constipation, Denies diarrhea, Denies nausea and Denies vomiting Denies dysuria and Denies urinary frequency Neuro Reports Normal hearing present, Denies confusion, Denies dizziness, Denies syncope and Denies weakness Psych Denies confusion Isaac/Lymph Denies easy bruising and Denies lymphadenopathy Aller/Immun Denies wheezing Physical Exam Vital Signs: Last Vital Signs Pulse 67 02/26/24 15:10 BP 134/70 02/26/24 15:10 Pulse Ox 97 02/26/24 15:10 Oxygen Delivery Method Room Air 02/26/24 15:10 BMI result Body Mass Index 22.1 Const General: No confusion Orientation/consciousness: No confusion HEENT Head: Yes normocephalic Neck Neck: Yes supple Chest Chest palpation & inspection: normal inspection of the chest Resp Effort & Inspection: normal respiratory effort Auscultation: clear to auscultation bilaterally Cardio Heart sounds: S1 normal heart sound present and S2 normal heart sound present GI Palpation (GI): Soft to palpation Skin General skin exam: no rashes or lesions noted Neuro General: No confusion Cranial nerves: Yes Normal hearing present Extrem General: Yes no clubbing, cyanosis or edema Results Reviewed Results Reviewed: Assessment & Plan Assessment & Plan (1) Lung cyst: Comment: Right lung January 2024 Code(s): J98.4 - Other disorders of lung Plan Repeat CT chest in 01/2024 or sooner if any new issues arise F/U after CT chest Orders: Orders 2 CT chest wo IV con 01/03/25 J98.4 - Other disorders of lung Coding Level of Care Code New Pt Level 4 (99470) Diagnoses 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 Time Spent (min) 35
[2024-02-26 15:10] VITALS: BP 134/70; PULSE 67; O2SAT 97; BMI 22.1
== END 2024-02-26 15:26 | disposition home or self-care (01) ==
PROVIDERS: PCP Internal Medicine; Referring Provider Internal Medicine; Visit Provider Hospitalist
DX: J98.4 Other disorders of lung (principal)
CPT/HCPCS: 99204

== ENCOUNTER → 2024-02-26 14:40 | Outpatient (BNVA) | payer MEDICARE, MEDICAID, SELFPAY | PROVIDERS: PCP Internal Medicine; Referring Provider Internal Medicine; Visit Provider Hospitalist | DX: J98.4 Other disorders of lung (principal) | CPT/HCPCS: 99202 ==

== ENCOUNTER 2024-08-31 13:58 | Outpatient (AMB) | payer MEDICARE, MEDICAID, SELFPAY ==
[2024-08-31 14:01] VITALS: BP 126/68; PULSE 70; O2SAT 97; BMI 21.8
--- NOTE | 2024-08-31 14:01 | A.OFFPC_ITS ---
Vital Signs 08/31/24 14:01 Height 5 ft 3 in Weight 123 lb 0.8 oz BMI 21.8 BP 126/68 Blood Pressure Location Lt brachial Position Sitting Pulse 70 Pulse Source Pulse Oximeter Pulse Oximetry (%) 97 Oxygen Delivery Method Room Air Intake Visit Reasons: 3m follow up Hide Cleaner Required: No Allergies trazodone Allergy (Mild, Verified 08/31/24 14:06) Hallucinations Tobacco use date assessed: 01/15/24 Fall risk assessment: No Falls in past year Last assessed Fall Risk: 08/31/24 Dental Screening Dental Screen Date: 01/15/24 Did you have a dental visit in the last 12 months?: Yes Did you have a dental problem in the last 6 months where you did not have access to dental care?: No Was dental information given to patient?: Patient has dentist HPI 3m follow up HPI Details 83-year-old male with a history of GERD BPH hypothyroid generalized anxiety disorder history of ascending aortic dilatation coming in for follow-up. Patient was last seen in January and had an echocardiogram done normal ejection fraction with grade 1 diastolic dysfunction ascending aorta is 3.9. 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 Large cystic area medially in the right hemithorax thin-walled. Appears to be a benign finding advised to repeat CT scan in 1 year. [id number] ([id number])interpret [facility] Medical History Hospital discharge follow-up Open wound Right shoulder pain Medicare annual wellness visit, initial Cellulitis of left thigh Annual physical exam Colonoscopy refused Impaired fasting glucose Cellulitis of leg, right Abscess of skin or subcutaneous tissue Hypothyroid Pernicious anemia GERD (gastroesophageal reflux disease) Vitamin B12 deficiency High prostate specific antigen (PSA) BPH (benign prostatic hyperplasia) Surgical History History of bilateral cataract extraction H/O ventral hernia repair History of appendectomy Family History Father Medical history unknown Mother No problems noted. Social History Housing: Apartment Alcohol intake: never Patient Tobacco Use Status: Former Tobacco user Tobacco use type: Cigarette Years Smoked: 1989 e-Cigarette/Vaping Use: Never Used Second Hand Smoke Exposure: No service: No Current occupational status: retired Cognitive needs: No Hearing needs: No Vision needs: No Questionnaire PHQ-9 Over the last 2 weeks, how often have you been bothered by any of the following problems? 1. Little interest or pleasure in doing things: not at all 2. Feeling down, depressed, or hopeless: not at all 3. Trouble falling or staying asleep, or sleeping too much: not at all 4. Feeling tired or having little energy: not at all 5. Poor appetite or overeating: not at all 6. Feeling bad about yourself - or that you are a failure or have let yourself or your family down: not at all 7. Trouble concentrating on things, such as reading the newspaper or watching television: not at all 8. Moving or speaking so slowly that other people could have noticed. Or the opposite - being so fidgety or restless that you have been moving around a lot more than usual: not at all 9. Thoughts that you would be better off or of hurting yourself in some way: not at all Total score: 0 Depression Screening Interpretation: Negative Depression Screening Done: Yes Source: Developed by Drs. Sacha Betancur, Katie Segal, Elmo Barillas and colleagues, with an educational zayra from [employer] Thrive Questionnaire Date Thrive assessed: 01/15/24 Are you currently unemployed and looking for a job?: Yes AUDIT C Alcohol Use Questionnaire (AUDIT-C) 1. How often do you have a drink containing alcohol?: Never 3. How often do you have six or more drinks on one occasion?: Never Total Score: 0 KETTY-7 AMB Questionnaire KETTY-7 Date KETTY - 7 assessed: 01/15/24 Feeling nervous, anxious, or on edge: 0 = Not at all Not being able to stop or control worryin = Not at all Worrying too much about different things: 0 = Not at all Trouble relaxin = Not at all Being so restless that it is hard to sit still: 0 = Not at all Becoming easily annoyed or irritable: 0 = Not at all Feeling afraid as if something awful might happen: 0 = Not at all Total KETTY-7 score (0-4 normal; 5-9 mild; 10-14 moderate; 15-21 severe): 0 Source: Developed by Drs. Sacha Betancur, Katie Segal, Elmo Barillas and colleagues, with an educational zayra from [employer] Physical exam (Primary Care) Vital Signs: Last Vital Signs Pulse 70 08/31/24 14:01 BP 126/68 08/31/24 14:01 Pulse Ox 97 08/31/24 14:01 Oxygen Delivery Method Room Air 08/31/24 14:01 BMI result Body Mass Index 21.8 Tobacco/Smoking Status: Tobacco use Status Tobacco use date assessed 01/15/24 08/31/24 14:02 Patient Tobacco Use Status Former Tobacco user 08/31/24 14:02 Tobacco use type Cigarette 08/31/24 14:02 e-Cigarette/Vaping Use Never Used 08/31/24 14:02 PHQ-9: PHQ-9 Score PHQ-9: Total score 0 08/31/24 14:40 Depression Screening Interpretation: Negative Thrive Assessment: Date of Thrive Assessment Date Thrive assessed 01/15/24 08/31/24 14:02 Const General: alert; No acute distress Eyes Conjunctivae: conjunctivae normal Resp Auscultation: clear to auscultation bilaterally Cardio Rate: regular rate Rhythm: regular rhythm GI Inspection: Yes normal to inspection Extrem General: Yes normal to inspection and No edema Office Procedures Flu Questionnaire Does the patient have a severe egg allergy?: No Does the patient have severe life threatening allergies?: No Does the patient have a fever or illness today?: No Has the patient ever had Guillain-Durham Syndrome?: No Has the patient ever had any past reaction to a flu shot?: No Immunizations Fluarix Triv 2564-1419 (PF) 45 mcg (15 mcg x 3)/0.5 mL IM syringe Performing Provider: Mehnaz Abel MD Performing Location: [facility] – [place] [facility] Administered by: ANGÉLICA Helms on 08/31/24 14:58 Dose Route Admin Location Dispensed Lot Number Expiration Date [facility] [employer] 0.5 mL IM Left Deltoid 0.5 mL [id number] 05/30/25 [id number] SigFig VIS Given Date VIS Provided VIS Publication Date 08/31/24 Single Vaccine 21 Eligibility Eligibility Date Funding Source Not VFC Eligible 08/31/24 Private Coding Level of Care Code Est Pt Level 4 (16545) Diagnoses 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 Ascending aorta dilatation I77.810 Acquired hypothyroidism E03.9 Hypothyroidism type: acquired Gastroesophageal reflux disease without esophagitis K21.9 Esophagitis presence: without esophagitis Benign prostatic hyperplasia with urinary frequency N40.1; R35.0 Lower urinary tract symptom detail: urinary frequency Lower urinary tract symptom presence: symptoms present Generalized anxiety disorder F41.1 Assessment & Plan Assessment & Plan (1) Lung cyst: Comment: Right lung January 2024 Code(s): J98.4 - Other disorders of lung Category: Medical Plan: Patient was seen by Pulmonary and advised follow-up in 1 year (2) Ascending aorta dilatation: Comment: Normal LV systolic function with LVEF of 55-60% with grade 1 diastolic dysfunction 2. Mild aortic regurgitation 3. Mildly dilated ascending aorta 3.9 cm 4. Normal RV systolic pressure 5. No gross pericardial effusion 01/2024 Code(s): I77.810 - Thoracic aortic ectasia Category: Medical Plan: Echocardiogram showing 3.9 cm and will continue to follow-up (3) Hypothyroid: Code(s): E03.9 - Hypothyroidism, unspecified Category: Medical Qualifiers: Hypothyroidism type: acquired Qualified Code(s): E03.9 - Hypothyroidism, unspecified Plan: Continue with thyroid medication. blood work request (4) GERD (gastroesophageal reflux disease): Comment: EGD January 2015 Dr. Aldridge Code(s): K21.9 - Gastro-esophageal reflux disease without esophagitis Category: Medical Qualifiers: Esophagitis presence: without esophagitis Qualified Code(s): K21.9 - Gastro-esophageal reflux disease without esophagitis Plan: Avoid the foods that causes that usually spicy foods, tomato products, juices, coffee, soda and foods that your sensitive to. After eating do not lie down, allow 3-4 hours before in lie down. And keep the head of bed above 30 degrees to avoid the acid from going up. (5) BPH (benign prostatic hyperplasia): Code(s): N40.0 - Benign prostatic hyperplasia without lower urinary tract symptoms Category: Medical Qualifiers: Lower urinary tract symptom detail: urinary frequency Lower urinary tract symptom presence: symptoms present Qualified Code(s): N40.1 - Benign prostatic hyperplasia with lower urinary tract symptoms; R35.0 - Frequency of micturition Plan: Will continue to monitor (6) Generalized anxiety disorder: Code(s): F41.1 - Generalized anxiety disorder Category: Medical Plan: Stable Orders: Orders Influenza [id number] Immunization Today Z23 - Encounter for immunization Medications: New Fluarix Triv [id number] (PF) (flu vacc [id number] 6mos up(PF)) 0.5 mL IM ONCE 0.5 mL 0RF NS Z23 - Encounter for immunization
== END 2024-08-31 15:04 | disposition home or self-care (01) ==
PROVIDERS: PCP Internal Medicine; Visit Provider Internal Medicine
DX: J98.4 Other disorders of lung (principal); I77.810 Thoracic aortic ectasia; E03.9 Hypothyroidism, unspecified; K21.9 Gastro-esophageal reflux disease without esophagitis; N40.1 Benign prostatic hyperplasia with lower urinary tract symptoms; R35.0 Frequency of micturition; F41.1 Generalized anxiety disorder; Z23 Encounter for immunization

== ENCOUNTER → 2024-08-31 13:58 | Outpatient (BNVA) | payer MEDICARE, MEDICAID, SELFPAY | PROVIDERS: PCP Internal Medicine; Visit Provider Internal Medicine | DX: Z23 Encounter for immunization (principal); F41.1 Generalized anxiety disorder; J98.4 Other disorders of lung; I77.810 Thoracic aortic ectasia; E03.9 Hypothyroidism, unspecified; K21.9 Gastro-esophageal reflux disease without esophagitis | CPT/HCPCS: 90471; 90656; 99212 ==

== ENCOUNTER 2024-12-27 14:35 | Emergency (ER) | payer MEDICARE, MEDICAID, SELFPAY ==
[2024-12-27 14:56] VITALS: BP 147/70; PULSE 74; RESP 16; TEMP 37.2; O2SAT 100; BMI 22.7
--- NOTE | 2024-12-27 14:57 | ED_ITS ---
HPI - General Adult General Chief complaint: Skin/Abscess/Foreign Body Stated complaint: lump on chest in pain Time Seen by Provider: 12/27/24 20:01 Source: patient Limitations: language barrier History of Present Illness ED Provider: Rachel Cain PA-C HPI narrative: 84-year-old male presents with abscess to left chest wall x4 days. Patient has had other such abscesses on other regions of the body. Denies fever Related Data Previous Rx's ?Medication ?Instructions ?Recorded polyethylene glycol 3350 17 17 g PO DAILY #510 grams 12/15/22 gram/dose oral powder (Miralax) docusate sodium 100 mg capsule 200 mg (2 x 100 mg) PO DAILY #180 09/29/23 (Colace) caps bacitracin 500 unit/gram topical 1 appl topical TID #28 grams 01/15/24 ointment folic acid 1 mg tablet 1 mg PO DAILY #90 caps 03/15/24 ferrous sulfate 325 mg (65 mg 325 mg PO DAILY #90 caps 03/27/24 iron) tablet ascorbic acid (vitamin C) 500 mg 500 mg PO DAILY 90 days #90 caps 06/02/24 tablet (Vitamin C) cyanocobalamin (vitamin B-12) 1,000 mcg PO DAILY #30 caps 06/28/24 1,000 mcg tablet (Vitamin B-12) levothyroxine 100 mcg tablet 100 mcg PO QAM #90 caps 09/27/24 zolpidem 5 mg tablet 5 mg PO BEDTIME PRN insomnia #90 12/13/24 tabs doxycycline hyclate 100 mg capsule 100 mg PO BID #14 caps 12/27/24 Allergies Allergy/AdvReac Type Severity Reaction Status Date / Time trazodone Allergy Mild Hallucinati Verified 12/27/24 14:58 ons Review of Systems Review of Systems: Yes all other systems are reviewed and are negative Constitutional: Constitutional: Denies fatigue and Denies fever(s) Gastrointestinal: Gastrointestinal: Denies nausea Integumentary/Breasts: Skin/Breast: Reports erythema and Denies rash Endocrine: Endocrine: Denies fatigue PMFSH Past Medical History Attestation statement: The following information was validated with the patient. Medical History Hospital discharge follow-up Open wound Right shoulder pain Medicare annual wellness visit, initial Cellulitis of left thigh Annual physical exam Colonoscopy refused Impaired fasting glucose Cellulitis of leg, right Abscess of skin or subcutaneous tissue Hypothyroid Pernicious anemia GERD (gastroesophageal reflux disease) Vitamin B12 deficiency High prostate specific antigen (PSA) BPH (benign prostatic hyperplasia) Surgical History History of bilateral cataract extraction H/O ventral hernia repair History of appendectomy Family History Family History Father Medical history unknown Mother No problems noted. Social History Social History Housing: Apartment Alcohol intake: never Patient Tobacco Use Status: Former Tobacco user Tobacco use type: Cigarette Years Smoked: 1989 e-Cigarette/Vaping Use: Never Used Second Hand Smoke Exposure: No Advance Directives: No Advance Directives Information Provided: No Do you have a plan to hurt others: No Plan service: No Current occupational status: retired Cognitive needs: No Hearing needs: No Vision needs: No Physical Exam ED Vital Signs: Vital Signs - 24 hr 12/27/24 14:56 12/27/24 20:49 Temperature 99.0 F 98.9 F Pulse Rate 74 77 Respiratory Rate 16 18 Blood Pressure 147/70 H 156/84 H Pulse Oximetry 100 98 Oxygen Delivery Method Room Air Room Air BMI result Body Mass Index 22.7 Const Other: Alert Orientation/consciousness: patient oriented x3 Chest Other: Indurated erythematous swelling noted inferior to left breast, minimal central fluctuance, tender to palpation no active drainage Resp Effort & Inspection: normal respiratory effort Cardio Other: Normal peripheral perfusion Skin Other: Warm dry no rash Neuro General: patient oriented x3, gait normal, no focal motor deficits and CN's II- XI intact bilaterally Psych Other: Calm cooperative Course Course Course Narrative: RME performed by Danna Adame PA-C. Patient is an 84 year old assigned male at presenting to the emergency department with a left sided chest lump. Patient states that over the last 4 days he has had a small lump on his left chest that is getting larger and more painful. Detailed physical exam and review of systems are deferred to the educational speech language clinician. Patient placed back in the waiting room pending room availability. Medications Administered Discontinued Medications Generic Name Dose Route Start Last Admin Trade Name Freq PRN Reason Stop Dose Admin Doxycycline Monohydrate 100 mg 12/27/24 20:03 12/27/24 21:30 Doxycycline Monohydrate 100 Mg Capsule PO 12/27/24 20:04 100 mg ONCE ONE Administration Procedures Abscess I/D Site: chest Side (if applicable): left Sedation/analgesia: none Local Anesthetic: lidocaine 1% and with epi Amount of anesthesia used (mL): 2 Technique: incised with blade Amount of fluid expressed (mL): 1 Sent for culture/gram staining?: No Irrigation: Yes Packing used?: none Medical Decision Making Medical Decision Making MDM Narrative: 84-year-old male presents with abscess to left chest wall x4 days. Patient has had other such abscesses on other regions of the body. Denies fever No relevant chronic issues History: Per patient I have considered the following differential diagnoses: Cellulitis, purulent cellulitis, folliculitis, abscess Plan: The site needs to be I and D, we will place on doxy Discharge Plan Discharge Clinical Impression: Abscess of skin or subcutaneous tissue Patient Disposition: Home, Self-Care Instructions: Incision and Drainage (ED) Additional Instructions: You had an infection: Abscess, the infection was drained at bedside. See home care instructions. Take the doxycycline as directed and follow up with your primary care provider in a week. Prescriptions: New doxycycline hyclate 100 mg capsule 100 mg PO BID Qty: 14 0RF No Action folic acid 1 mg tablet 1 mg PO DAILY Qty: 90 2RF ferrous sulfate 325 mg (65 mg iron) tablet 325 mg PO DAILY Qty: 90 3RF ascorbic acid (vitamin C) [Vitamin C] 500 mg tablet 500 mg PO DAILY 90 Days Qty: 90 3RF cyanocobalamin (vitamin B-12) [Vitamin B-12] 1,000 mcg tablet 1,000 mcg PO DAILY Qty: 30 11RF levothyroxine 100 mcg tablet 100 mcg PO QAM Qty: 90 2RF zolpidem 5 mg tablet 5 mg PO BEDTIME PRN (Reason: insomnia) Qty: 90 0RF polyethylene glycol 3350 [Miralax] 17 gram/dose powder 17 g PO DAILY Qty: 510 0RF bacitracin 500 unit/gram ointment 1 appl topical TID Qty: 28 0RF docusate sodium [Colace] 100 mg capsule 200 mg PO DAILY Qty: 180 0RF Print Language: Khmer
[2024-12-27 20:49] VITALS: BP 156/84; PULSE 77; RESP 18; TEMP 37.2; O2SAT 98
[2024-12-27] MEDS: Doxycycline Monohydrate 100 MG CAPSULE PO (21:30)
[2024-12-27] MEDS: Lidocaine HCl 1%/Epi 1:100,000 10 ML VIAL INFILTRATI (22:14)
[2024-12-27 22:51] VITALS: BP 162/86; PULSE 78; RESP 14; TEMP 36.7; O2SAT 97; O2SAT 98
== END 2024-12-27 22:52 | disposition home or self-care (01) ==
PROVIDERS: Emergency Provider Emergency Medicine; PCP Internal Medicine
DX: L02.213 Cutaneous abscess of chest wall (principal); Z87.891 Personal history of nicotine dependence
CPT/HCPCS: 10060; 99284; J2004

== ENCOUNTER 2025-02-11 18:18 | Emergency (ER) | payer MEDICARE, MEDICAID, SELFPAY ==
[2025-02-11 18:27] VITALS: BP 144/78; PULSE 76; RESP 18; TEMP 37.1; O2SAT 94; BMI 21.9
[2025-02-11 21:40] VITALS: BP 154/72; PULSE 62; RESP 14; TEMP 36.8; O2SAT 93
--- NOTE | 2025-02-11 21:51 | PC.NURSE ---
Pt a&ox4, no signs of distress. Pt reports 7/10 left eye pain, and itch x3 days, denies visual changes Denies injury/trauma Plan of care ongoing
--- NOTE | 2025-02-11 22:37 | ED_ITS ---
HPI - Eye Problem General Chief complaint: Eye Problems Stated complaint: Left eye pain Time Seen by Provider: 02/11/25 22:36 Source: patient Mode of arrival: ambulatory Limitations: no limitations History of Present Illness ED Provider: HPI Narrative: Patient has been feeling burning pain in the left eye for last 3 days with for having foreign body sensation no direct trauma Related Data Previous Rx's ?Medication ?Instructions ?Recorded polyethylene glycol 3350 17 17 g PO DAILY #510 grams 12/15/22 gram/dose oral powder (Miralax) docusate sodium 100 mg capsule 200 mg (2 x 100 mg) PO DAILY #180 09/29/23 (Colace) caps bacitracin 500 unit/gram topical 1 appl topical TID #28 grams 01/15/24 ointment ferrous sulfate 325 mg (65 mg 325 mg PO DAILY #90 caps 03/27/24 iron) tablet ascorbic acid (vitamin C) 500 mg 500 mg PO DAILY 90 days #90 caps 06/02/24 tablet (Vitamin C) cyanocobalamin (vitamin B-12) 1,000 mcg PO DAILY #30 caps 06/28/24 1,000 mcg tablet (Vitamin B-12) levothyroxine 100 mcg tablet 100 mcg PO QAM #90 caps 09/27/24 zolpidem 5 mg tablet 5 mg PO BEDTIME PRN insomnia #90 12/13/24 tabs doxycycline hyclate 100 mg capsule 100 mg PO BID #14 caps 12/27/24 folic acid 1 mg tablet 1 mg PO DAILY #90 caps 01/31/25 tobramycin 0.3 % eye drops 2 drp ophthalmic (eye) Q4H #5 mL 02/11/25 Allergies Allergy/AdvReac Type Severity Reaction Status Date / Time trazodone Allergy Mild Hallucinati Verified 02/11/25 18:30 ons Review of Systems Review of Systems: Yes all other systems are reviewed and are negative PMFSH Past Medical History Medical History Hospital discharge follow-up Open wound Right shoulder pain Medicare annual wellness visit, initial Cellulitis of left thigh Annual physical exam Colonoscopy refused Impaired fasting glucose Cellulitis of leg, right Abscess of skin or subcutaneous tissue Hypothyroid Pernicious anemia GERD (gastroesophageal reflux disease) Vitamin B12 deficiency High prostate specific antigen (PSA) BPH (benign prostatic hyperplasia) Surgical History History of bilateral cataract extraction H/O ventral hernia repair History of appendectomy Family History Family History Father Medical history unknown Mother No problems noted. Social History Social History Housing: Apartment Alcohol intake: never Patient Tobacco Use Status: Former Tobacco user Tobacco use type: Cigarette Years Smoked: 1990 Smoked in Last 30 Days: No e-Cigarette/Vaping Use: Never Used Second Hand Smoke Exposure: No Use of substances other than those prescribed or required for medical reasons: No Advance Directives: No Advance Directives Information Provided: No Do you have a plan to hurt others: No Plan service: No Current occupational status: retired Cognitive needs: No Hearing needs: No Vision needs: No Physical Exam Vital Signs: Vital Signs: Last Vital Signs Temp 98.3 F 02/11/25 23:52 Pulse 62 02/11/25 23:52 Resp 14 02/11/25 23:52 BP 154/72 H 02/11/25 23:52 Pulse Ox 93 02/11/25 23:52 O2 Del Method Room Air 02/11/25 23:52 BMI result Body Mass Index 21.9 Appearance: Alert. Oriented X3. No acute distress. Eyes: no pallor or icterus left eye palpable conjunctival inflammation no exudate noticed no foreign body no abrasion ENT: Pharynx normal. Oral Mucosa moist Neck: Normal inspection. Neck supple. CVS: Normal heart rate and rhythm. Pulses normal. Respiratory: No respiratory distress. Equal air entry bilateral, no wheezing/rales/rhonchi Abd: soft, not tender Skin: Skin warm and dry. Normal skin color. Normal skin turgor. Extremities: No lower extremity edema, no calf tenderness Neuro: Oriented X 3. Medications Administered Discontinued Medications Generic Name Dose Route Start Last Admin Trade Name Freq PRN Reason Stop Dose Admin Tobramycin Sulfate 2 drop 02/11/25 23:39 02/11/25 23:48 Tobramycin Sulfate 0.3% Trudy Op 5 Ml Btl EYE-LEFT 02/11/25 23:40 2 drop ONCE ONE Administration Discharge Plan Discharge Clinical Impression: Bacterial conjunctivitis Patient Disposition: Home, Self-Care Instructions: Conjunctivitis (ED) Additional Instructions: Use eyedrops as prescribed Follow up with your PCP Prescriptions: New tobramycin 0.3 % drops 2 drp ophthalmic (eye) Q4H Qty: 5 0RF No Action ferrous sulfate 325 mg (65 mg iron) tablet 325 mg PO DAILY Qty: 90 3RF ascorbic acid (vitamin C) [Vitamin C] 500 mg tablet 500 mg PO DAILY 90 Days Qty: 90 3RF cyanocobalamin (vitamin B-12) [Vitamin B-12] 1,000 mcg tablet 1,000 mcg PO DAILY Qty: 30 11RF levothyroxine 100 mcg tablet 100 mcg PO QAM Qty: 90 2RF zolpidem 5 mg tablet 5 mg PO BEDTIME PRN (Reason: insomnia) Qty: 90 0RF folic acid 1 mg tablet 1 mg PO DAILY Qty: 90 2RF polyethylene glycol 3350 [Miralax] 17 gram/dose powder 17 g PO DAILY Qty: 510 0RF doxycycline hyclate 100 mg capsule 100 mg PO BID Qty: 14 0RF bacitracin 500 unit/gram ointment 1 appl topical TID Qty: 28 0RF docusate sodium [Colace] 100 mg capsule 200 mg PO DAILY Qty: 180 0RF Interventions: ED Discharge Assessment Last Done: 02/11/25 23:52 Discharge Date/Time: 02/11/25 23:54 Print Language: Persian
[2025-02-11] MEDS: Tobramycin Sulfate 0.3% Sol Op 5 ML BTL 2 DROP EYE-LEFT (23:48)
[2025-02-11 23:52] VITALS: BP 154/72; PULSE 62; RESP 14; TEMP 36.8; O2SAT 93
--- NOTE | 2025-02-11 23:52 | PC.NURSE ---
Pt medicated per [facility] Plan of care ongoing.
== END 2025-02-11 23:54 | disposition home or self-care (01) ==
PROVIDERS: Emergency Provider Internal Medicine; PCP Internal Medicine
DX: H10.023 Other mucopurulent conjunctivitis, bilateral (principal); H57.12 Ocular pain, left eye; Z87.891 Personal history of nicotine dependence
CPT/HCPCS: 99283; 99284

== ENCOUNTER 2025-03-11 08:54 | Outpatient (REF) | payer MEDICARE, MEDICAID, SELFPAY ==
[2025-03-11 09:10] LABS: MANUAL DIFF FLAG NO
[2025-03-11 09:30] LABS: Basophils Percent Auto 0.8 % (0-2); Eosinophils Absolute Auto 0.2 X10*3/uL (0.0-0.4); Eosinophils Percent Auto 4.1 % (0-4); Hematocrit 41.5 % (42.0-52.0); Hemoglobin 14.4 g/dl (14.0-18.0); Imm Gran Abs Auto 0.01 X10*3/uL (0.00-0.03); Imm Gran Pct Auto 0.2 % (0.0-0.4); Lymphocytes Absolute Auto 0.6 X10*3/uL (1.2-4.9); Lymphocytes Percent Auto 12.9 % (20-40); Mean Corpuscular HGB Conc 34.7 g/dl (31.0-36.0); Mean Corpuscular Hemoglobin 31.9 pg (27.0-33.0); Mean Platelet Volume 8.7 fL (9.4-12.4); Monocytes Absolute Auto 0.7 X10*3/uL (0.1-1.2); Monocytes Percent Auto 13.5 % (2-11); Neutrophils Absolute Auto 3.3 x10*3/uL (2.0-8.3); Neutrophils Percent Auto 68.5 % (45-73); Platelet Count 220 X10*3/uL (160-400); Red Blood Count 4.51 X10*6/uL (4.60-5.80); Red Cell Distribution Width 12.3 % (11.0-16.0); Retic HGB Equivalent 35.4 pg (30.0-35.0); Reticulocyte Percent 1.4 % (0.5-1.8); Reticulocytes Absolute 0.063 X10*6/uL (0.026-0.095); White Blood Count 4.9 X10*3/uL (4.8-10.8)
[2025-03-11 10:28] LABS: Alanine Aminotransferase 18 U/L (0-40); Albumin Level 3.9 g/dL (3.5-5.0); Alkaline Phosphatase 85 U/L (39-117); Anion Gap 9 (12-20); Aspartate Amino Transferase 26 U/L (5-37); Bilirubin Total 0.6 mg/dL (0.0-1.0); Blood Urea Nitrogen 19 mg/dL (9-16); Calcium 9.2 mg/dL (8.4-10.2); Carbon Dioxide 29 mmol/L (22-29); Chloride 103 mmol/L (96-108); Cholesterol 144 mg/dL (<200); Estimated Glomerular Filt Rate > 60; Glucose Random 97 mg/dL (60-115); HDL Cholesterol 36 mg/dL (>40); Iron 91 mcg/dL (45-160); LDL Cholesterol Calculated 93 mg/dL (<100); Percent Iron Saturation 41 % (15-50); Potassium 4.4 mmol/L (3.3-5.1); Sodium 137 mmol/L (135-145); Total Iron Binding Capacity 220 mcg/dL (228-428); Total Protein 7.2 g/dL (6.5-8.0); Triglycerides 75 mg/dL (<150); Unsaturated Iron Binding 129 ug/dL
[2025-03-11 10:33] LABS: Ferritin 341 ng/mL (20-250); Free T4 (Free Thyroxine) 0.97 ng/dL (0.71-1.85); Thyroid Stimulating Hormone 3.13 uIU/mL (0.32-4.0)
[2025-03-11 10:41] LABS: Folate 14.6 ng/mL (> or = 4.0); Vitamin B12 1011 pg/mL (200-900)
== END 2025-03-11 08:55 | disposition home or self-care (01) ==
LOC: HO.LAB 08:54
PROVIDERS: PCP Internal Medicine; Visit Provider Internal Medicine
DX: E03.9 Hypothyroidism, unspecified (principal); E78.00 Pure hypercholesterolemia, unspecified
CPT/HCPCS: 36415; 80053; 80061; 82607; 82728; 82746; 83540; 84439; 84443; 85025; 85045

== ENCOUNTER 2025-03-15 22:40 | Emergency (ER) | payer MEDICARE, MEDICAID, SELFPAY ==
--- NOTE | 2025-03-15 | ECG_ITS ---
Test Reason : BACKPAIN Blood Pressure : */* mmHG Vent. Rate : 65 BPM Atrial Rate : 65 BPM P-R Int : 186 ms QRS Dur : 98 ms QT Int : 400 ms P-R-T Axes : 32 -2 13 degrees QTcB Int : 416 ms Normal sinus rhythm Normal ECG When compared with ECG of 12-Jun-2017 08:55, Nonspecific T wave abnormality no longer evident in Anterior leads Referred By: Generic ED Physician Electronically Signed By: GUANACO LARA MD
--- NOTE | ~2025-03-15 | CT_ITS ---
CLINICAL HISTORY: pain CT thoracic spine without contrast Comparison: None Findings: Normal vertebral body alignment. No acute fractures or dislocations. Osteopenia. Multilevel spondylosis with diffuse osteophytosis, facet arthropathy and degenerative disc disease. Chronic appearing superior endplate height loss noted in the upper thoracic spine at T1, T2, T3 and T4. No acute fractures identified. Thin-walled cysts in the right upper lobe. Atelectasis Moderate-sized hiatal hernia with postsurgical changes of the GE junction. Upper abdominal contents unremarkable. Scattered atheromatous plaques throughout the aorta with descending thoracic aortic aneurysms measuring 3 cm. Comparison with priors and attention on follow-up advised. IMPRESSION: Chronic changes without acute findings. This document has been electronically signed by: Jah Yu MD on 03/16/2025 01:52:42
[2025-03-15 22:48] VITALS: BP 151/81; PULSE 71; RESP 16; TEMP 36.6; O2SAT 98; BMI 22.3
--- NOTE | 2025-03-16 00:06 | ED_ITS ---
HPI - General Adult General Chief complaint: Back Pain/Injury Stated complaint: Back pain Time Seen by Provider: 03/16/25 00:05 Source: patient Limitations: language barrier History of Present Illness ED Provider: Rachel Cain PA-C HPI narrative: 84-year-old male with a history of hypothyroidism, ascending aorta dilatation, lung cyst, anxiety, GERD, BPH who presents with upper back pain since this evening. Pain is diffuse over entire mid to upper back. Denies new activity, heavy lifting, trauma, fall. Denies weakness of upper extremities, paresthesia. Denies chest pain, or abdominal pain. Related Data Previous Rx's ?Medication ?Instructions ?Recorded polyethylene glycol 3350 17 17 g PO DAILY #510 grams 12/15/22 gram/dose oral powder (Miralax) docusate sodium 100 mg capsule 200 mg (2 x 100 mg) PO DAILY #180 09/29/23 (Colace) caps bacitracin 500 unit/gram topical 1 appl topical TID #28 grams 01/15/24 ointment ferrous sulfate 325 mg (65 mg 325 mg PO DAILY #90 caps 03/27/24 iron) tablet ascorbic acid (vitamin C) 500 mg 500 mg PO DAILY 90 days #90 caps 06/02/24 tablet (Vitamin C) cyanocobalamin (vitamin B-12) 1,000 mcg PO DAILY #30 caps 06/28/24 1,000 mcg tablet (Vitamin B-12) levothyroxine 100 mcg tablet 100 mcg PO QAM #90 caps 09/27/24 doxycycline hyclate 100 mg capsule 100 mg PO BID #14 caps 12/27/24 folic acid 1 mg tablet 1 mg PO DAILY #90 caps 01/31/25 tobramycin 0.3 % eye drops 2 drp ophthalmic (eye) Q4H #5 mL 02/11/25 zolpidem 5 mg tablet 5 mg PO BEDTIME PRN insomnia #90 03/14/25 tabs acetaminophen 500 mg tablet 1,000 mg (2 x 500 mg) PO Q8H PRN 03/16/25 (Acetaminophen Extra Strength) pain #20 tabs methylprednisolone 4 mg tablets in 4 mg PO QAM #21 ea 03/16/25 a dose pack (Medrol (Tobi)) Allergies Allergy/AdvReac Type Severity Reaction Status Date / Time trazodone Allergy Mild Hallucinati Verified 03/15/25 22:49 ons Review of Systems Review of Systems: Yes all other systems are reviewed and are negative Constitutional: Constitutional: Denies fatigue and Denies fever(s) ENT: Denies neck pain Cardiovascular: Cardiovascular: Denies chest pain and Denies dyspnea Respiratory: Respiratory: Denies cough and Denies dyspnea Gastrointestinal: Gastrointestinal: Denies abdominal pain, Denies nausea and Denies vomiting Musculoskeletal: Musculoskeletal: Reports back pain, Denies muscle weakness, Denies neck pain, Denies numbness, Denies radiating pain into limb and Denies tingling Neurologic: Denies numbness and Denies tingling Endocrine: Endocrine: Denies fatigue PMF Past Medical History Attestation statement: The following information was validated with the patient. Medical History Hospital discharge follow-up Open wound Right shoulder pain Medicare annual wellness visit, initial Cellulitis of left thigh Annual physical exam Colonoscopy refused Impaired fasting glucose Cellulitis of leg, right Abscess of skin or subcutaneous tissue Hypothyroid Pernicious anemia GERD (gastroesophageal reflux disease) Vitamin B12 deficiency High prostate specific antigen (PSA) BPH (benign prostatic hyperplasia) Surgical History History of bilateral cataract extraction H/O ventral hernia repair History of appendectomy Family History Family History Father Medical history unknown Mother No problems noted. Social History Social History Housing: Apartment Alcohol intake: never Patient Tobacco Use Status: Former Tobacco user Tobacco use type: Cigarette Years Smoked: 1990 Smoked in Last 30 Days: No e-Cigarette/Vaping Use: Never Used Second Hand Smoke Exposure: No Use of substances other than those prescribed or required for medical reasons: No Advance Directives: No Advance Directives Information Provided: Yes Do you have a plan to hurt others: No Plan service: No Current occupational status: retired Cognitive needs: No Hearing needs: No Vision needs: No Physical Exam ED Vital Signs: Vital Signs - 24 hr 03/15/25 22:48 Temperature 97.9 F Pulse Rate 71 Respiratory Rate 16 Blood Pressure 151/81 H Pulse Oximetry 98 Oxygen Delivery Method Room Air BMI result Body Mass Index 22.3 Const Other: Alert well-appearing Orientation/consciousness: patient oriented x3 Resp Effort & Inspection: normal respiratory effort Cardio Other: Normal peripheral perfusion, radial pulses +2 bilaterally Back/Spine/Pelvis Other: Tender the full length of the spine upper down to the base of the T-spine, no step-offs, no deformity, no focality on the exam Skin Other: Warm dry no rash Neuro General: patient oriented x3, gait normal, no focal motor deficits and CN's II- XI intact bilaterally Extrem Other: Strength 5/5 bilateral upper extremities with resistance Psych Other: Cooperative Medications Administered Discontinued Medications Generic Name Dose Route Start Last Admin Trade Name Freq PRN Reason Stop Dose Admin Acetaminophen 975 mg 03/16/25 00:49 03/16/25 01:14 Acetaminophen 325 Mg Tablet PO 03/16/25 00:50 975 mg ONCE ONE Administration Ibuprofen 600 mg 03/16/25 00:49 03/16/25 01:15 Ibuprofen 600 Mg Tablet PO 03/16/25 00:50 600 mg ONCE ONE Administration Medical Decision Making Medical Decision Making MDM Narrative: 84-year-old male with a history of hypothyroidism, ascending aorta dilatation, lung cyst, anxiety, GERD, BPH who presents with upper back pain since this evening. Pain is diffuse over entire mid to upper back. Denies new activity, heavy lifting, trauma, fall. Denies weakness of upper extremities, paresthesia. Denies chest pain, or abdominal pain. Problem: Dilatation of ascending aorta, lung cyst, age History: Per patient I have considered the following differential diagnoses: Musculoskeletal strain, compression fracture, dissection, Plan: Obtaining a CT scan, perhaps he has a spontaneous compression fracture given his age, he has no mechanism of injury for musculoskeletal strain. Thought about dissection given his history of the ascending aorta dilatation, however he is not overtly hypertensive, the pain is focal to the back, radial pulses are equal, he is also neurovascularly intact. We will give Tylenol and ibuprofen. I have independently reviewed the following tests: CT thoracic spine:Findings: Normal vertebral body alignment. No acute fractures or dislocations. Osteopenia. Multilevel spondylosis with diffuse osteophytosis, facet arthropathy and degenerative disc disease. Chronic appearing superior endplate height loss noted in the upper thoracic spine at T1, T2, T3 and T4. No acute fractures identified. Thin-walled cysts in the right upper lobe. Atelectasis Moderate-sized hiatal hernia with postsurgical changes of the GE junction. Upper abdominal contents unremarkable. Scattered atheromatous plaques throughout the aorta with descending thoracic aortic aneurysms measuring 3 cm. Comparison with priors and attention on follow-up advised. IMPRESSION: Chronic changes without acute findings. Discharge Plan Discharge Clinical Impression: Osteoarthritis, Thoracic back pain Patient Disposition: Home, Self-Care Instructions: Thoracic Pain (ED) Additional Instructions: You were found to have arthritis on the CT scan. See home care instructions. You can use Tylenol 1000 mg taken every 8 hours with food for your pain. Take the Medrol Dosepak as directed, start this medication in the morning. This is an anti-inflammatory. Follow up with your primary care provider. Prescriptions: New methylprednisolone [Medrol (Tobi)] 4 mg tablets,dose pack 4 mg PO QAM Qty: 21 0RF Rx Instructions: Take per package instructions acetaminophen [Acetaminophen Extra Strength] 500 mg tablet 1,000 mg PO Q8H PRN (Reason: pain) Qty: 20 0RF No Action ferrous sulfate 325 mg (65 mg iron) tablet 325 mg PO DAILY Qty: 90 3RF ascorbic acid (vitamin C) [Vitamin C] 500 mg tablet 500 mg PO DAILY 90 Days Qty: 90 3RF cyanocobalamin (vitamin B-12) [Vitamin B-12] 1,000 mcg tablet 1,000 mcg PO DAILY Qty: 30 11RF levothyroxine 100 mcg tablet 100 mcg PO QAM Qty: 90 2RF folic acid 1 mg tablet 1 mg PO DAILY Qty: 90 2RF zolpidem 5 mg tablet 5 mg PO BEDTIME PRN (Reason: insomnia) Qty: 90 0RF polyethylene glycol 3350 [Miralax] 17 gram/dose powder 17 g PO DAILY Qty: 510 0RF doxycycline hyclate 100 mg capsule 100 mg PO BID Qty: 14 0RF tobramycin 0.3 % drops 2 drp ophthalmic (eye) Q4H Qty: 5 0RF bacitracin 500 unit/gram ointment 1 appl topical TID Qty: 28 0RF docusate sodium [Colace] 100 mg capsule 200 mg PO DAILY Qty: 180 0RF Print Language: Salvadorean
--- NOTE | 2025-03-16 00:24 | PC.NURSE ---
Provider to bedside for primary eval.
--- NOTE | 2025-03-16 00:43 | PC.NURSE ---
Pt off floor to CT.
[2025-03-16] MEDS: Acetaminophen 325 MG TABLET 975 MG PO (01:14)
[2025-03-16] MEDS: Ibuprofen 600 MG TABLET PO (01:15)
[2025-03-16 02:10] VITALS: BP 151/81; PULSE 71; RESP 16; TEMP 36.6; O2SAT 98
== END 2025-03-16 02:11 | disposition home or self-care (01) ==
PROVIDERS: Emergency Provider Emergency Medicine; PCP Internal Medicine
DX: M47.814 Spondylosis without myelopathy or radiculopathy, thoracic region (principal); M54.6 Pain in thoracic spine; Z87.891 Personal history of nicotine dependence; Z79.899 Other long term (current) drug therapy
CPT/HCPCS: 72128; 93005; 99284; 99285

== ENCOUNTER → 2025-03-15 23:19 | Outpatient (BNV) | payer MEDICARE, MEDICAID, SELFPAY | PROVIDERS: Emergency Provider Emergency Medicine; PCP Internal Medicine; Visit Provider Internal Medicine Cardiovascular Disease | DX: M54.9 Dorsalgia, unspecified (principal) | CPT/HCPCS: 93010 ==

== ENCOUNTER → 2025-03-16 00:24 | Outpatient (BNV) | payer MEDICARE, MEDICAID, SELFPAY | PROVIDERS: Emergency Provider Emergency Medicine; PCP Internal Medicine; Visit Provider Radiology Diagnostic Radiology | DX: M54.6 Pain in thoracic spine (principal) | CPT/HCPCS: 72128 ==

== ENCOUNTER 2025-03-17 13:00 | Outpatient (AMB) | payer MEDICARE, MEDICAID, SELFPAY ==
[2025-03-17 13:08] VITALS: BP 126/70; BMI 22.5
--- NOTE | 2025-03-17 13:08 | A.OFFPC_ITS ---
Vital Signs 03/17/25 13:08 Height 5 ft 4 in Blood Pressure Location Lt brachial Position Sitting Pulse Source Pulse Oximeter Oxygen Delivery Method Room Air Intake Visit Reasons: SWV, AAA, Lung cyst Clock Assembler Required: No Accompanied by: Self / Same As Patient Allergies trazodone Allergy (Mild, Verified 03/17/25 13:09) Hallucinations Tobacco use date assessed: 03/17/25 Last assessed Fall Risk: 03/17/25 Dental Screening Dental Screen Date: 03/17/25 [facility] Medical History Hospital discharge follow-up Open wound Right shoulder pain Medicare annual wellness visit, initial Cellulitis of left thigh Annual physical exam Colonoscopy refused Impaired fasting glucose Cellulitis of leg, right Abscess of skin or subcutaneous tissue Hypothyroid Pernicious anemia GERD (gastroesophageal reflux disease) Vitamin B12 deficiency High prostate specific antigen (PSA) BPH (benign prostatic hyperplasia) Surgical History History of bilateral cataract extraction H/O ventral hernia repair History of appendectomy Family History Father Medical history unknown Mother No problems noted. Social History Housing: Apartment Alcohol intake: never Patient Tobacco Use Status: Former Tobacco user Tobacco use type: Cigarette Years Smoked: 1989 e-Cigarette/Vaping Use: Never Used Second Hand Smoke Exposure: No service: No Current occupational status: retired Cognitive needs: No Hearing needs: No Vision needs: No Questionnaire PHQ-9 Over the last 2 weeks, how often have you been bothered by any of the following problems? 1. Little interest or pleasure in doing things: not at all 2. Feeling down, depressed, or hopeless: not at all 3. Trouble falling or staying asleep, or sleeping too much: not at all 4. Feeling tired or having little energy: not at all 5. Poor appetite or overeating: not at all 6. Feeling bad about yourself - or that you are a failure or have let yourself or your family down: not at all 7. Trouble concentrating on things, such as reading the newspaper or watching television: not at all 8. Moving or speaking so slowly that other people could have noticed. Or the opposite - being so fidgety or restless that you have been moving around a lot more than usual: not at all 9. Thoughts that you would be better off or of hurting yourself in some way: not at all Total score: 0 Depression Screening Interpretation: Negative Depression Screening Done: Yes Source: Developed by Drs. Sacha Betancur, Katie Segal, Elmo Barillas and colleagues, with an educational zayra from [employer]. Thrive Questionnaire Date Thrive assessed: 03/17/25 I am a: Patient What is your living situation today?: I have a steady place to live Within the past 12 months, did the food you bought not last and you didn't have the money to get more?: Never true Within the past 12 months, did you worry whether your food would run out before you got money to buy more?: Never true Do you have trouble paying for medicines?: No Do you have trouble getting transportation to medical appointments?: No Do you have trouble paying your heating and electricity bill?: No Do you have trouble taking care of your child, family member or friend?: No Do you have trouble with day-to-day activities such as bathing, preparing meals, shopping, managing finances, etc.?: No Are you currently unemployed and looking for a job?: Yes Are you interested in more education?: No Please select the resources that you would like help with: None Currently or been in a relationship where the following occur: No concerns reported THRIVE Score: 0 AUDIT C Alcohol Use Questionnaire (AUDIT-C) 1. How often do you have a drink containing alcohol?: Never 3. How often do you have six or more drinks on one occasion?: Never Total Score: 0 KETTY-7 AMB Questionnaire KETTY-7 Date KETTY - 7 assessed: 03/17/25 Feeling nervous, anxious, or on edge: 0 = Not at all Not being able to stop or control worryin = Not at all Worrying too much about different things: 0 = Not at all Trouble relaxin = Not at all Being so restless that it is hard to sit still: 0 = Not at all Becoming easily annoyed or irritable: 0 = Not at all Feeling afraid as if something awful might happen: 0 = Not at all Total KETTY-7 score (0-4 normal; 5-9 mild; 10-14 moderate; 15-21 severe): 0 Source: Developed by Drs. Sacha Betancur, Katie Segal, Elmo Barillas and colleagues, with an educational zayra from [employer]. Physical exam (Primary Care) Tobacco/Smoking Status: Tobacco use Status Tobacco use date assessed 01/15/24 08/31/24 14:02 Patient Tobacco Use Status Former Tobacco user 03/15/25 23:12 Tobacco use type Cigarette 08/31/24 14:02 e-Cigarette/Vaping Use Never Used 08/31/24 14:02 Depression Screening Interpretation: Negative Thrive Assessment: Date of Thrive Assessment Date Thrive assessed 01/15/24 08/31/24 14:02 Currently or been in a relationship where the following occur: No concerns reported Coding
--- NOTE | 2025-03-17 13:23 | AM.OFFVISMDC ---
Intake Vital Signs 03/17/25 13:08 Height 5 ft 4 in Weight 131 lb 4 oz BMI 22.5 BP 126/70 Blood Pressure Location Lt brachial Position Sitting Pulse Source Pulse Oximeter Oxygen Delivery Method Room Air Intake Visit Reasons: SWV, AAA, Lung cyst Prepress Stripper Required: No Accompanied by: Self / Same As Patient Allergies trazodone Allergy (Mild, Verified 03/17/25 13:24) Hallucinations Medication List - Last Reconciled 03/17/25 by Mehnaz Abel MD acetaminophen (Acetaminophen Extra Strength) 1,000 mg (2 x 500 mg) PO Q8H PRN ascorbic acid (vitamin C) (Vitamin C) 500 mg PO DAILY 90 days bacitracin 1 appl topical TID cyanocobalamin (vitamin B-12) (Vitamin B-12) 1,000 mcg PO DAILY docusate sodium (Colace) 200 mg (2 x 100 mg) PO DAILY ferrous sulfate 325 mg PO DAILY folic acid 1 mg PO DAILY levothyroxine 100 mcg PO QAM methylprednisolone (Medrol (Tobi)) 4 mg PO QAM polyethylene glycol 3350 (Miralax) 17 grams PO DAILY tobramycin 0.3% 2 drps ophthalmic (eye) Q4H zolpidem 5 mg PO BEDTIME PRN Do you need a note to return to daycare/school/sports/work: No HPI SWV, AAA, Lung cyst HPI Details [facility] [id number] spnish interpret, surgery on the LUQ- 1 year ago- infecteiob [facility] Medical History Hospital discharge follow-up Open wound Right shoulder pain Medicare annual wellness visit, initial Cellulitis of left thigh Annual physical exam Colonoscopy refused Impaired fasting glucose Cellulitis of leg, right Abscess of skin or subcutaneous tissue Hypothyroid Pernicious anemia GERD (gastroesophageal reflux disease) Vitamin B12 deficiency High prostate specific antigen (PSA) BPH (benign prostatic hyperplasia) Surgical History History of bilateral cataract extraction H/O ventral hernia repair History of appendectomy Family History Father Medical history unknown Mother No problems noted. Social History (Reviewed 03/17/25 @ 13:16 by RAVI Hansen Housing: Apartment Alcohol intake: never Patient Tobacco Use Status: Former Tobacco user Tobacco use type: Cigarette Years Smoked: 1989 e-Cigarette/Vaping Use: Never Used Second Hand Smoke Exposure: No service: No Current occupational status: retired Cognitive needs: No Hearing needs: No Vision needs: No Questionnaire Medicare Wellness Checkup What is your age?: 81 or older What gender do you identify with?: male During the past 4 weeks, how much have you been bothered by emotional problems such as feeling anxious, depressed, irritable, sad or downhearted, and blue?: not at all During the past 4 weeks, has your physical & emotional health limited your social activities with family, friends, neighbors, or groups?: not at all During the past 4 weeks, how much bodily pain have you generally had?: mild pain During the past 4 weeks, was someone available to help you if you needed & wanted help?: no, not at all During the past 4 weeks, what was the hardest physical activity you could do for at least 2 minutes?: light Can you get to places out of walking distance without help? (For eg., can you travel alone on buses, taxis or drive your car?): Yes Can you go shopping for groceries or clothes without someone's help?: Yes Can you prepare your own meals?: Yes Can you do your housework without help?: Yes Because of any health problems, do you need the help of another person with your personal care needs such as eating, bathing, dressing or getting around the house?: No Can you handle your own money without help?: Yes During the past 4 weeks, how would you rate your health in general?: good During the past 4 weeks how have things been going for you?: pretty well Are you having difficulties driving your car?: no Do you always fasten your seat belt when you are in a car?: yes, usually During past 4 weeks, have you been bothered by the following: never: Falling or dizzy when standing up, Sexual problems?, Trouble eating well? and Problems using the telephone? and sometimes: Teeth or denture problems? and Tiredness or fatigue? Have you fallen 2 or more times in the past year?: No Are you afraid of falling?: No Are you a smoker?: no During the past 4 weeks, how many drinks of wine, beer, or other alcoholic beverages did you have?: no alcohol at all Do you exercise for about 20 minutes 3 or more times a week?: no, I usually do not exercise this much Have you been given information to help with the following?: no: Hazards in your house that might hurt you? and no: Keeping track of your medications? How often do you have trouble taking medicines the way you have been told to take them?: I always take medicine as prescribed How confident are you that you can control & manage most of your health problems?: very confident What is your race?: or origin or descent PHQ-9 Over the last 2 weeks, how often have you been bothered by any of the following problems? 1. Little interest or pleasure in doing things: not at all 2. Feeling down, depressed, or hopeless: not at all 3. Trouble falling or staying asleep, or sleeping too much: not at all 4. Feeling tired or having little energy: nearly every day 5. Poor appetite or overeating: not at all 6. Feeling bad about yourself - or that you are a failure or have let yourself or your family down: not at all 7. Trouble concentrating on things, such as reading the newspaper or watching television: nearly every day 8. Moving or speaking so slowly that other people could have noticed. Or the opposite - being so fidgety or restless that you have been moving around a lot more than usual: not at all 9. Thoughts that you would be better off or of hurting yourself in some way: not at all Total score: 6 Depression Screening Interpretation: Negative Depression Screening Done: Yes Source: Developed by Drs. Sacha Betancur, Katie Segal, Elmo Barillas and colleagues, with an educational zayra from [employer]. PHQ-2/PHQ-9 PHQ-2 Over the last 2 weeks, how often have you been bothered by any of the following problems? 1. Little interest or pleasure in doing things: not at all 2. Feeling down, depressed, or hopeless: not at all Total score: 0 If score is 3 or greater, continue 3. Trouble falling or staying asleep, or sleeping too much: not at all 4. Feeling tired or having little energy: nearly every day 5. Poor appetite or overeating: not at all 6. Feeling bad about yourself - or that you are a failure or have let yourself or your family down: not at all 7. Trouble concentrating on things, such as reading the newspaper or watching television: nearly every day 8. Moving or speaking so slowly that other people could have noticed. Or the opposite - being so fidgety or restless that you have been moving around a lot more than usual: not at all 9. Thoughts that you would be better off or of hurting yourself in some way: not at all Total score: 6 0-4 None-Minimal, 5-9 Mild, 10-14 Moderate, 15-19 Moderately Severe, 20-27 Severe Source: Developed by Drs. Sacha Betancur, Katie Segal, Elmo Barillas and colleagues, with an educational zayra from [employer]. Thrive Questionnaire Date Thrive assessed: 03/17/25 I am a: Patient What is your living situation today?: I have a steady place to live Within the past 12 months, did the food you bought not last and you didn't have the money to get more?: Never true Within the past 12 months, did you worry whether your food would run out before you got money to buy more?: Never true Do you have trouble paying for medicines?: No Do you have trouble getting transportation to medical appointments?: No Do you have trouble paying your heating and electricity bill?: No Do you have trouble taking care of your child, family member or friend?: No Do you have trouble with day-to-day activities such as bathing, preparing meals, shopping, managing finances, etc.?: No Are you currently unemployed and looking for a job?: Yes Are you interested in more education?: No Please select the resources that you would like help with: None Currently or been in a relationship where the following occur: No concerns reported THRIVE Score: 0 KETTY-7 AMB Questionnaire KETTY-7 Date KETTY - 7 assessed: 03/17/25 Feeling nervous, anxious, or on edge: 0 = Not at all Not being able to stop or control worryin = Not at all Worrying too much about different things: 0 = Not at all Trouble relaxin = Not at all Being so restless that it is hard to sit still: 0 = Not at all Becoming easily annoyed or irritable: 0 = Not at all Feeling afraid as if something awful might happen: 0 = Not at all Total KETTY-7 score (0-4 normal; 5-9 mild; 10-14 moderate; 15-21 severe): 0 Source: Developed by Drs. Sacha Betancur, Katie Segal, Elmo Barillas and colleagues, with an educational zayra from [employer]. Review of Systems Const Denies poor appetite and Denies weakness Eyes Denies no additional complaints ENT Reports Normal hearing present, Denies dizziness, Denies nasal congestion, Denies tinnitus and Denies sore throat Card Denies chest pain, Denies syncope, Denies rapid heart rate and Denies dyspnea Resp Denies cough and Denies dyspnea GI Denies change in stool character, Reports constipation, Denies diarrhea, Denies nausea and Denies vomiting Denies dysuria and Denies urinary frequency Neuro Reports Normal hearing present, Denies confusion, Denies dizziness, Denies syncope and Denies weakness Psych Denies confusion Physical Exam Vital Signs: Last Vital Signs BP 126/70 03/17/25 13:08 Oxygen Delivery Method Room Air 03/17/25 13:08 BMI result Body Mass Index 22.5 Const General: No confusion Orientation/consciousness: No confusion HEENT Head: Yes normocephalic Ears: external ears normal and TM's normal bilaterally Face and sinus: Yes normal facial exam Mouth: moist mucous membranes Throat: Yes tonsils normal Eyes Conjunctivae: conjunctivae normal Pupils: Equal, round and reactive pupils present and Pupil accommodation reflex normal Direct Ophthalmoscopy: normal light reflex Neck Neck: No lymphadenopathy Thyroid: Thyroid normal Chest Chest palpation & inspection: normal inspection of the chest Resp Effort & Inspection: normal respiratory effort and no audible wheezes Auscultation: clear to auscultation bilaterally, no crackles, no wheezes and lung sounds not diminished Cardio Rate: regular rate Rhythm: regular rhythm Peripheral pulses: radial pulses present and dorsalis pedis present GI Other: declined Palpation (GI): no masses Auscultation: normal bowel sounds and normoactive bowel sounds Rectal Exam - Male: Yes deferred Other: declined Skin General skin exam: no rashes or lesions noted Rashes: no rashes Neuro General: No confusion Cranial nerves: Yes Equal, round and reactive pupils present and Yes Normal hearing present Cognition (Neuro): normal cognition Gait exam (Neuro): Normal gait present Motor exam (neuro): 5/5 motor strength present throughout Deep tendon reflexes (DTR's): Right brachioradialis reflex intensity grade: 2+, Left brachioradialis reflex intensity grade: 2+, Right patellar reflex intensity grade: 2+ and Left patellar reflex intensity grade: 2+ Extrem General: No edema Assessment & Plan Assessment & Plan (1) Medicare annual wellness visit, subsequent: Code(s): Z00.00 - Encounter for general adult medical examination without abnormal findings Plan: Patient is advised to eat healthy, keep well hydrated, keep active and have adequate sleep. (2) GERD (gastroesophageal reflux disease): Comment: EGD January 2015 Dr. Aldridge Code(s): K21.9 - Gastro-esophageal reflux disease without esophagitis Qualifiers: Esophagitis presence: without esophagitis Qualified Code(s): K21.9 - Gastro-esophageal reflux disease without esophagitis Plan: Avoid the foods that causes that usually spicy foods, tomato products, juices, coffee, soda and foods that your sensitive to. After eating do not lie down, allow 3-4 hours before in lie down. And keep the head of bed above 30 degrees to avoid the acid from going up. (3) Hypothyroid: Code(s): E03.9 - Hypothyroidism, unspecified Qualifiers: Hypothyroidism type: acquired Qualified Code(s): E03.9 - Hypothyroidism, unspecified Plan: Continue with thyroid medication (4) Generalized anxiety disorder: Code(s): F41.1 - Generalized anxiety disorder Plan: Stable (5) Ascending aorta dilatation: Comment: Normal LV systolic function with LVEF of 55-60% with grade 1 diastolic dysfunction 2. Mild aortic regurgitation 3. Mildly dilated ascending aorta 3.9 cm 4. Normal RV systolic pressure 5. No gross pericardial effusion 01/2024 Code(s): I77.810 - Thoracic aortic ectasia Plan: Will continue to monitor ascending aorta is mild dilatation (6) Lung cyst: Comment: Right lung January 2024 Code(s): J98.4 - Other disorders of lung Plan: Continue to follow-up with Pulmonary (7) BPH (benign prostatic hyperplasia): Code(s): N40.0 - Benign prostatic hyperplasia without lower urinary tract symptoms Qualifiers: Lower urinary tract symptom detail: urinary frequency Lower urinary tract symptom presence: symptoms present Qualified Code(s): N40.1 - Benign prostatic hyperplasia with lower urinary tract symptoms; R35.0 - Frequency of micturition Plan: Stable Plan History of Present Illness The patient is an 84-year-old male presenting for an annual wellness visit. He has a comprehensive medical history that includes benign prostatic hyperplasia, GERD, hypothyroidism, and generalized anxiety disorder. During a recent evaluation, a thoracic spine CT scan in March 2024 revealed multilevel spondylosis, diffuse osteophytosis, facet arthropathy, and degenerative disc disease. Additionally, a thoracic aortic aneurysm was diagnosed, with the current size measured at 3 cm. The patient has experienced consistent daily heartburn, indicative of gastroesophageal reflux disease, which requires ongoing management. A previous episode of bacterial conjunctivitis in January 2024 required attention, although pulmonary follow-up for a lung cyst was not completed as recommended. He also administratively declined a previous CAT scan for an undisclosed reason. Normal results from recent bloodwork in March 2024, encompassing a complete blood count and biochemical evaluation, were noted without abnormalities. Past issues with trazodone due to hallucinations have been avoided in treatment plans. Constipation has been a concern, initially managed with Miralax and potentially warranting a switch to lactulose. The patient's lifestyle reflects abstention from alcohol and tobacco use, although advisable water intake is under six to eight cups daily. Health Maintenance - Blood tests on March 11, 2024, showed normal results in blood count, liver and renal function, cholesterol, B12, and thyroid levels. - Routine echocardiography in January 2024 indicates continued monitoring of the thoracic aortic aneurysm. - The patient was advised on GERD management, including dietary habits, to reduce episodes of heartburn. - Discussed increasing water intake to 6-8 glasses daily. - Recommended shingles vaccination: non-mandatory but beneficial. - Avoidance of spicy and acidic foods and proper elevation during sleep to manage gastroesophageal reflux. - Informed about potential need for pneumonia vaccine and regular screenings moving forward. - Advised regular exercise and healthy nutrition. Social History - Denies smoking and alcohol use. - Reports regular hydration (3 bottles/day). - Lives independently, no history of substance abuse. - Participates in routine health check-ups but previously declined certain procedures like colonoscopy. Review of Systems - General: Denies recent dizziness or episodes of fainting. - Eyes: History of conjunctivitis, awaiting assessment with eye care. - Cardiovascular: Denies chest pain and shortness of breath on exertion. - Gastrointestinal: Reports daily heartburn; denies nausea, vomiting. Constipation has been managed with Miralax. - Respiratory: Denies shortness of breath at night; does not report persistent cough. - Musculoskeletal: History of thoracic spine degenerative disorders; denies current back pain. - Neurological: Denies recent dizziness, no recent changes in hearing. - Psychiatric: History of hallucinations with trazodone. Physical Exam General: Cooperative, healthy appearing, comfortable, no acute distress and well developed Orientation: Patient oriented x3 Limitations: No limitations Head: Normal to inspection Ears: Hearing grossly normal bilaterally Nose: Normal external nose present Face and sinus: Normal facial exam Eyes: Appearance normal, both eyes and all related structures Neck: Normal visual inspection and Yes full ROM Respiratory: Normal respiratory effort and able to speak in complete sentences. Clear to auscultation bilaterally Cardiovascular: Regular rate and rhythm. Normal S1 and S2 GI: Normal to inspection. Soft to palpation and nontender Skin: No rashes or lesions noted Neuro: Patient oriented x3 Extremities: Normal to inspection Results - Labs: March 11 blood test results indicate normal blood count, electrolytes, renal function, glucose, liver functions, lipid profile, B12, and thyroid levels. - Tests and Diagnostics: CT scan of the thoracic spine shows multilevel spondylosis, diffuse osteophytosis, facet arthropathy, and degenerative disc disease. Prior echocardiogram revealed mild aortic dilatation. Plan During this visit, I addressed multiple aspects of the patient's chronic illnesses and wellness needs. The patient's GERD symptoms warrant lifestyle modification and possibly medication intervention due to daily heartburn occurrence. Bloodwork and prior imaging studies confirmed ongoing management sufficiency for benign prostatic hyperplasia and hypothyroidism. The evaluation of potential complications due to the identified thoracic aortic aneurysm and structural back changes led to advisories in engaging continued surveillance and necessary follow-ups. With the patient's historical refusal of the colonoscopic procedure, emphasis was placed on ongoing symptom monitoring. Contributing factors to prior hallucinations associated with trazodone were reiterated to ensure avoidance, supplementing the patient's treatment plan by selecting non-reactive medications like those for constipation alleviation. Implementing vaccination updates and ensuring habit formation perception around zolpidem usage were discussed implicitly. Patient was informed and verbally consented to the use of an ambient scribe for clinic note documentation during this visit. Discussion Notes In my discussions with the patient, I emphasized the need to continue monitoring various conditions, including GERD, benign prostatic hyperplasia, and the thoracic aortic aneurysm. We discussed the importance of routine follow-ups, specifically for those conditions revealed in imaging studies. For GERD, I advised dietary adjustments and upheld recommendations for avoiding certain triggers and maintaining upright posture post-meals. We reiterated the need to contact pulmonary specialists for further evaluation of the lung cyst, despite past recommendations unheeded by the patient. I explained the risks and benefits of continuing current medication regimens, particularly focusing on potential side effects and indicated follow-ups. When addressing the potential shingle vaccination, I informed the patient about the availability and benefits through pharmacy acquisition. Patient understanding of the association between certain lifestyle habits and disease management improvement was secured across discussions regarding hydration, nutrition, and medication compliance. Exploring zolpidem?s non-addictive yet habitual nature facilitated an open conversation about long-term reliance risks. The patient was appreciative of concise communication, and our engagement assures sustained continuity. Patient Instructions - Take any GERD medications regularly as prescribed and follow dietary guidelines to prevent heartburn. - Consistently complete routine follow-ups for thoracic aortic aneurysm monitoring and other chronic conditions. - Increase water intake to 6-8 glasses daily for proper hydration. - Discuss shingles vaccine with a pharmacy for scheduling. - Avoid spicy and acidic foods and do not lie down immediately after meals to manage GERD. - If constipation persists, use lactulose as directed and if symptoms continue, return for follow-up care. - Be proactive in keeping all recommended specialist appointments. - Report any new symptoms or concerns promptly. - Continue current thyroid medication as prescribed. - Comply with routine physical exams and laboratory assessments. Orders: Orders CA echo transthoracic complete Today I77.810 - Thoracic aortic ectasia Medications: New omeprazole 20 mg PO DAILY 30 caps 0RF K21.9 - Gastro-esophageal reflux disease without esophagitis Quality Reporting (2019) Depression/Bipolar (159/160/161/177) PHQ-9: Total score: 6 Coding Level of Care Code Medicare Subsequent (G0439) Diagnoses Medicare annual wellness visit, subsequent Z00.00 Gastroesophageal reflux disease without esophagitis K21.9 Esophagitis presence: without esophagitis Acquired hypothyroidism E03.9 Hypothyroidism type: acquired Generalized anxiety disorder F41.1 Ascending aorta dilatation I77.810 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 Benign prostatic hyperplasia with urinary frequency N40.1; R35.0 Lower urinary tract symptom detail: urinary frequency Lower urinary tract symptom presence: symptoms present
== END 2025-03-17 14:12 | disposition home or self-care (01) ==
LOC: HO.HMCH 13:00
PROVIDERS: PCP Internal Medicine; Visit Provider Internal Medicine
DX: Z00.00 Encounter for general adult medical examination without abnormal findings (principal); I77.810 Thoracic aortic ectasia; K21.9 Gastro-esophageal reflux disease without esophagitis; E03.9 Hypothyroidism, unspecified; F41.1 Generalized anxiety disorder; J98.4 Other disorders of lung; N40.1 Benign prostatic hyperplasia with lower urinary tract symptoms; R35.0 Frequency of micturition

== ENCOUNTER → 2025-03-17 13:00 | Outpatient (BNVA) | payer MEDICARE, MEDICAID, SELFPAY | PROVIDERS: PCP Internal Medicine; Visit Provider Internal Medicine | DX: Z13.89 Encounter for screening for other disorder (principal) ==

== ENCOUNTER 2025-04-07 10:42 | Emergency (ER) | payer MEDICARE, MEDICAID, SELFPAY ==
[2025-04-07 10:45] VITALS: BP 152/86; PULSE 80; RESP 16; TEMP 37.1; O2SAT 96; BMI 22.6
--- NOTE | 2025-04-07 10:58 | ED.LOWEXIN ---
HPI - Extremity Injury (Lower) General Chief Complaint: Extremity Injury, Lower Stated Complaint: L leg infection Time Seen by Provider: 04/07/25 10:58 Source: patient, RN notes reviewed and per diem interpreter Mode of arrival: ambulatory Limitations: language barrier History of Present Illness ED Provider: Crystal Macias PA-C HPI Narrative: This is a 84-year-old portuguese-speaking male, with a history of hypothyroidism, ascending aorta dilatation, lung cyst, anxiety, GERD, BPH, who presents to the ER with concerns for a area of redness and pain on his right lower leg. Patient states that he noticed to area of redness his leg 3-4 days ago. He states that it has increased in size. He is unsure how this began however states that he often times has abscesses that required incision and drainage. He denies any fevers or chills. Denies taking any medications at home to treat his current symptoms. No other complaints or concerns at this time. Onset (ago): day(s) Relieving factors: nothing Exacerbating factors: nothing Associated symptoms: swelling Other symptoms: none Related Data Previous Rx's ?Medication ?Instructions ?Recorded polyethylene glycol 3350 17 17 g PO DAILY #510 grams 12/15/22 gram/dose oral powder (Miralax) docusate sodium 100 mg capsule 200 mg (2 x 100 mg) PO DAILY #180 09/29/23 (Colace) caps bacitracin 500 unit/gram topical 1 appl topical TID #28 grams 01/15/24 ointment ferrous sulfate 325 mg (65 mg 325 mg PO DAILY #90 caps 03/27/24 iron) tablet ascorbic acid (vitamin C) 500 mg 500 mg PO DAILY 90 days #90 caps 06/02/24 tablet (Vitamin C) cyanocobalamin (vitamin B-12) 1,000 mcg PO DAILY #30 caps 06/28/24 1,000 mcg tablet (Vitamin B-12) levothyroxine 100 mcg tablet 100 mcg PO QAM #90 caps 09/27/24 folic acid 1 mg tablet 1 mg PO DAILY #90 caps 01/31/25 tobramycin 0.3 % eye drops 2 drp ophthalmic (eye) Q4H #5 mL 02/11/25 zolpidem 5 mg tablet 5 mg PO BEDTIME PRN insomnia #90 03/14/25 tabs acetaminophen 500 mg tablet 1,000 mg (2 x 500 mg) PO Q8H PRN 03/16/25 (Acetaminophen Extra Strength) pain #20 tabs methylprednisolone 4 mg tablets in 4 mg PO QAM #21 ea 03/16/25 a dose pack (Medrol (Tobi)) omeprazole 20 mg capsule,delayed 20 mg PO DAILY #30 caps 03/17/25 release cephalexin 500 mg capsule 500 mg PO QID 5 days #20 caps 04/07/25 doxycycline hyclate 100 mg capsule 100 mg PO BID 7 days #14 caps 04/07/25 Allergies Allergy/AdvReac Type Severity Reaction Status Date / Time trazodone Allergy Mild Hallucinati Verified 04/07/25 10:48 ons Review of Systems Review of Systems: Constitutional: No Weight loss, No Fever, No Chills, No Night Sweats, No Fatigue, No Malaise ENT/Mouth: No Hearing loss, No Ear Pain, No Nasal Congestion, No Sinus Pain, No Hoarseness, No sore throat, No Rhinorrhea, No Swallowing Difficulty Eyes: No Eye Pain, No Swelling, No Redness, No Foreign Body, No Discharge, No Vision Changes Cardiovascular: No Chest Pain, No SOB, No Dyspnea on Exertion, No Orthopnea, No Edema, No Palpitations Respiratory: No Cough, No Sputum, No Wheezing, No Smoke Exposure, No Dyspnea Gastrointestinal: No Nausea, No Vomiting, No Diarrhea, No Constipation, No Abdominal pain, No Hematochezia, No Melena Genitourinary: No irregular bleeding, No Dysuria, No Urinary Frequency, No Hematuria, No Urinary Incontinence/retention, No Urgency, No Flank Pain, No Urinary Flow Changes, No Hesitancy Musculoskeletal: No joint pain, No Myalgias, No Joint Swelling Skin: + Skin Lesions, No rash Neuro: No Weakness, No Numbness, No Paresthesias, No Loss of Consciousness, No Dizziness, No Headache Psych: No Anxiety/Panic, No Depression, No SI/HI/AH/VH, No Social Issues, Heme/Lymph: No Bruising, No Bleeding,No Lymphadenopathy Endocrine: No Polyuria, No Polydipsia, No Temperature Intolerance Yes all other systems are reviewed and are negative Constitutional: Constitutional: Reports as per [facility] Past Medical History Medical History Hospital discharge follow-up Open wound Right shoulder pain Medicare annual wellness visit, initial Cellulitis of left thigh Annual physical exam Colonoscopy refused Impaired fasting glucose Cellulitis of leg, right Abscess of skin or subcutaneous tissue Hypothyroid Pernicious anemia GERD (gastroesophageal reflux disease) Vitamin B12 deficiency High prostate specific antigen (PSA) BPH (benign prostatic hyperplasia) Surgical History History of bilateral cataract extraction H/O ventral hernia repair History of appendectomy Family History Family History Father Medical history unknown Mother No problems noted. Social History Social History Housing: Apartment Alcohol intake: never Patient Tobacco Use Status: Former Tobacco user Tobacco use type: Cigarette Years Smoked: 1989 e-Cigarette/Vaping Use: Never Used Second Hand Smoke Exposure: No Advance Directives: No Advance Directives Information Provided: Yes service: No Current occupational status: retired Cognitive needs: No Hearing needs: No Vision needs: No Physical Exam Vital Signs: Vital Signs: Last Vital Signs Temp 98.7 F 04/07/25 12:14 Pulse 80 04/07/25 12:14 Resp 16 04/07/25 12:14 BP 152/86 H 04/07/25 12:14 Pulse Ox 96 04/07/25 12:14 O2 Del Method Room Air 04/07/25 12:14 BMI result Body Mass Index 22.6 Const: Other: Appearance: Alert. Oriented X3. No acute distress. Eyes: Pupils equal, round and reactive to light. ENT: Pharynx normal. Neck: Normal inspection. Neck supple. CVS: Normal heart rate and rhythm. Pulses normal. Respiratory: No respiratory distress. Breath sounds normal. Abdomen: Soft and nontender. +BS x4 Skin: Skin warm and dry. Normal skin color. Normal skin turgor. No rashes. Extremities: Right lower leg, lateral aspect of the leg, mid calf, with a 2 x 2 cm area of erythema, warmth, fluctuance and induration. Mild surrounding erythema approximating proximally 3 cm circumferentially. Tender to palpation. No active drainage. Neuro: Oriented X 3. No motor deficit. No sensory deficit. CN II-XII intact. Medications Administered Discontinued Medications Generic Name Dose Route Start Last Admin Trade Name Jesenia PRN Reason Stop Dose Admin Bacitracin 1 appl 04/07/25 11:40 04/07/25 11:44 Bacitracin Oint 0.9 Gm Packet TOPICAL 04/07/25 11:41 1 appl ONCE ONE Administration Protocol Cephalexin HCl 500 mg 04/07/25 11:40 04/07/25 11:53 Cephalexin 500 Mg Capsule PO 04/07/25 11:41 500 mg ONCE ONE Administration Doxycycline Monohydrate 100 mg 04/07/25 11:40 04/07/25 11:53 Doxycycline Monohydrate 100 Mg Capsule PO 04/07/25 11:41 100 mg ONCE ONE Administration Lidocaine HCl 5 ml 04/07/25 11:21 04/07/25 11:28 Lidocaine Hcl 1 % Mpf 5 Ml Vial SUBCUT 04/07/25 11:22 5 ml ONCE ONE Administration Medical Decision Making Medical Decision Making MDM Narrative: This is a 84-year-old portuguese-speaking male, with a history of hypothyroidism, ascending aorta dilatation, lung cyst, anxiety, GERD, BPH, who presents emergency department with concerns for right lower leg redness and swelling. Patient with superficial abscess noted to the lateral leg. Mild surrounding erythema and warmth. Discussed options of performing incision and drainage or treating conservatively with oral antibiotics however advised patient that if we do not excise it, he may need to return for an excision and drainage. He agrees for incision and drainage today. See procedure note for detail. He tolerated this procedure well without any complications or concerns. He was placed on doxycycline and Keflex. Given strict return precautions. His Tdap is updated, last received in 2019. Patient stable for discharge Differential Diagnosis Differential Diagnoses: The differential diagnosis associated with the presentation includes abscess, cyst, cellulitis, wound, insect bite Procedures Abscess I/D Site: lower extremity Side (if applicable): right Local Anesthetic: lidocaine 1% Amount of anesthesia used (mL): 2 Technique: incised with blade Amount of fluid expressed (mL): 5 Sent for culture/gram staining?: Yes Irrigation: Yes Packing used?: none Discharge Plan Discharge Clinical Impression: Abscess, Cellulitis Patient Disposition: Home, Self-Care Instructions: Cellulitis (ED), Incision and Drainage (ED) Additional Instructions: You were seen in the emergency department due to right lower extremity redness and swelling. Your exam was concerning for an abscess that we excised and drained. We sent out a culture for this wound. We will call you if we need to change any antibiotics. Please take both courses of antibiotics as prescribed. Finish the entire course even if your symptoms improve. Warm compresses multiple times per day. Please be advised that this will continue to drain for several days. Watch for any new or worsening symptoms including but not limited to increased redness, pain, fevers, chills if any of these occur, please seek emergent care. Take your antibiotic as prescribed until it is complete. Even if your symptoms start to resolve, you must complete the antibiotic course. Yeadon el antibi?hasmukh seg?n lo prescrito hasta completarlo. Aunque los s?ntomas empiecen a mejorar, debe completar el tratamiento antibi?hasmukh. Follow up with your primary care provider. Return to the emergency department immediately?if your symptoms?were to worsen or if you were to develop any shortness of breath, difficulty breathing, chest pain, dizziness, lightheadedness, back pain, abdominal pain, fever, chills, or any other symptoms. Otf?seguimiento?con rodriguez m?dico de atenci?n primaria. Acuda inmediatamente al servicio de urgencias si kendall s?ntomas empeoran o si presenta falta de aliento, dificultad para respirar, dolor tor?cico, mareos, aturdimiento, dolor de espalda, dolor abdominal, fiebre, escalofr?os o cualquier otro s?ntoma. Prescriptions: New cephalexin 500 mg capsule 500 mg PO QID 5 Days Qty: 20 0RF doxycycline hyclate 100 mg capsule 100 mg PO BID 7 Days Qty: 14 0RF No Action ferrous sulfate 325 mg (65 mg iron) tablet 325 mg PO DAILY Qty: 90 3RF ascorbic acid (vitamin C) [Vitamin C] 500 mg tablet 500 mg PO DAILY 90 Days Qty: 90 3RF cyanocobalamin (vitamin B-12) [Vitamin B-12] 1,000 mcg tablet 1,000 mcg PO DAILY Qty: 30 11RF levothyroxine 100 mcg tablet 100 mcg PO QAM Qty: 90 2RF folic acid 1 mg tablet 1 mg PO DAILY Qty: 90 2RF zolpidem 5 mg tablet 5 mg PO BEDTIME PRN (Reason: insomnia) Qty: 90 0RF polyethylene glycol 3350 [Miralax] 17 gram/dose powder 17 g PO DAILY Qty: 510 0RF tobramycin 0.3 % drops 2 drp ophthalmic (eye) Q4H Qty: 5 0RF methylprednisolone [Medrol (Tobi)] 4 mg tablets,dose pack 4 mg PO QAM Qty: 21 0RF Rx Instructions: Take per package instructions acetaminophen [Acetaminophen Extra Strength] 500 mg tablet 1,000 mg PO Q8H PRN (Reason: pain) Qty: 20 0RF bacitracin 500 unit/gram ointment 1 appl topical TID Qty: 28 0RF docusate sodium [Colace] 100 mg capsule 200 mg PO DAILY Qty: 180 0RF omeprazole 20 mg capsule,delayed release(DR/EC) 20 mg PO DAILY Qty: 30 0RF Interventions: ED Discharge Assessment Last Done: 04/07/25 12:14 Discharge Date/Time: 04/07/25 12:14 Print Language: Martiniquais
[2025-04-07] MEDS: Lidocaine HCl 1 % MPF 5 ML VIAL SUBCUT (11:28)
[2025-04-07] MEDS: Bacitracin Oint 0.9 GM PACKET 1 APPL TOPICAL (11:44)
[2025-04-07] MEDS: Doxycycline Monohydrate 100 MG CAPSULE PO (11:53)
[2025-04-07] MEDS: cephALEXin 500 MG CAPSULE PO (11:53)
[2025-04-07 12:14] VITALS: BP 152/86; PULSE 80; RESP 16; TEMP 37.1; O2SAT 96
== END 2025-04-07 12:14 | disposition home or self-care (01) ==
PROVIDERS: Emergency Provider Emergency Medicine Emergency Medical Services; PCP Internal Medicine
DX: L02.415 Cutaneous abscess of right lower limb (principal); L03.115 Cellulitis of right lower limb; M79.662 Pain in left lower leg
CPT/HCPCS: 10060; 87070; 87077; 87186; 87205; 99282; 99284; J2003

== ENCOUNTER 2025-04-10 17:08 | Emergency (ER) | payer MEDICARE, MEDICAID, SELFPAY ==
[2025-04-10 17:10] VITALS: BP 130/82; PULSE 80; RESP 19; TEMP 36.6; O2SAT 95; BMI 21.6
--- NOTE | 2025-04-10 17:10 | ED_ITS ---
HPI - General Adult General Chief complaint: Eye Problems Stated complaint: left eye issues Time Seen by Provider: 04/10/25 20:11 Source: patient Mode of arrival: ambulatory Limitations: language barrier (Patient's 1st language is Cameroonian, he does speak some Kinyarwanda, [facility] rouge sifter used) History of Present Illness ED Provider: Dr. Eddy Chew HPI narrative: 84-year-old male history of anxiety, GERD, BPH, who presents emergency department for evaluation of left eye pain, swelling and discharge x2 days. Patient denies any injury. He states he has had a similar presentation in the past and was treated for an eye infection. Patient states he does have blurred vision. He denied fever, chills, headache, nausea, vomiting. Related Data Previous Rx's ?Medication ?Instructions ?Recorded polyethylene glycol 3350 17 17 g PO DAILY #510 grams 12/15/22 gram/dose oral powder (Miralax) docusate sodium 100 mg capsule 200 mg (2 x 100 mg) PO DAILY #180 09/29/23 (Colace) caps bacitracin 500 unit/gram topical 1 appl topical TID #28 grams 01/15/24 ointment ferrous sulfate 325 mg (65 mg 325 mg PO DAILY #90 caps 03/27/24 iron) tablet ascorbic acid (vitamin C) 500 mg 500 mg PO DAILY 90 days #90 caps 06/02/24 tablet (Vitamin C) cyanocobalamin (vitamin B-12) 1,000 mcg PO DAILY #30 caps 06/28/24 1,000 mcg tablet (Vitamin B-12) levothyroxine 100 mcg tablet 100 mcg PO QAM #90 caps 09/27/24 folic acid 1 mg tablet 1 mg PO DAILY #90 caps 01/31/25 tobramycin 0.3 % eye drops 2 drp ophthalmic (eye) Q4H #5 mL 02/11/25 zolpidem 5 mg tablet 5 mg PO BEDTIME PRN insomnia #90 03/14/25 tabs acetaminophen 500 mg tablet 1,000 mg (2 x 500 mg) PO Q8H PRN 03/16/25 (Acetaminophen Extra Strength) pain #20 tabs methylprednisolone 4 mg tablets in 4 mg PO QAM #21 ea 03/16/25 a dose pack (Medrol (Tobi)) omeprazole 20 mg capsule,delayed 20 mg PO DAILY #30 caps 03/17/25 release cephalexin 500 mg capsule 500 mg PO QID 5 days #20 caps 04/07/25 doxycycline hyclate 100 mg capsule 100 mg PO BID 7 days #14 caps 04/07/25 sulfacetamide sodium 10 % eye drops 2 drp ophthalmic-Left QID 10 days 04/10/25 #15 mL Allergies Allergy/AdvReac Type Severity Reaction Status Date / Time trazodone Allergy Mild Hallucinati Verified 04/10/25 17:12 ons Review of Systems Review of Systems: Yes all other systems are reviewed and are negative [facility] Past Medical History Medical History Hospital discharge follow-up Open wound Right shoulder pain Medicare annual wellness visit, initial Cellulitis of left thigh Annual physical exam Colonoscopy refused Impaired fasting glucose Cellulitis of leg, right Abscess of skin or subcutaneous tissue Hypothyroid Pernicious anemia GERD (gastroesophageal reflux disease) Vitamin B12 deficiency High prostate specific antigen (PSA) BPH (benign prostatic hyperplasia) Surgical History History of bilateral cataract extraction H/O ventral hernia repair History of appendectomy Family History Family History Father Medical history unknown Mother No problems noted. Social History Social History Housing: Apartment Alcohol intake: never Patient Tobacco Use Status: Former Tobacco user Tobacco use type: Cigarette Years Smoked: 1989 e-Cigarette/Vaping Use: Never Used Second Hand Smoke Exposure: No Advance Directives: No Advance Directives Information Provided: Yes Do you have a plan to hurt others: No Plan service: No Current occupational status: retired Cognitive needs: No Hearing needs: No Vision needs: No Physical Exam ED Vital Signs: Vital Signs - 24 hr 04/10/25 17:10 Temperature 98 F Pulse Rate 80 Respiratory Rate 19 Blood Pressure 130/82 Pulse Oximetry 95 Oxygen Delivery Method Room Air BMI result Body Mass Index 21.6 Vital signs were normal except for slight elevation in his blood pressure of 130/82 Exam: General: Awake, alert in no distress Head: Normocephalic, atraumatic EENT: Patient has left eye revealed injected conjunctiva with a watery discharge, fluorescein dye and exam with Wood's lamp revealed no uptake of the dye and no acute abrasion Psych: Pleasant, cooperative Course Course Course Narrative: RME performed by Danna Adame PA-C. Patient is an 84 year old assigned male at presenting to the emergency department with left eye irritation and burning. Patient states over the last few days he has had left eye burning and pain. Detailed physical exam and review of systems are deferred to the educational speech language clinician. Patient placed back in the waiting room pending room availability. Medical Decision Making Medical Decision Making MDM Narrative: 84-year-old male history of anxiety, GERD, BPH, who presents emergency department for evaluation of left eye pain, swelling and discharge x2 days. Patient denies any injury. He states he has had a similar presentation in the past and was treated for an eye infection. Patient states he does have blurred vision. He denied fever, chills, headache, nausea, vomiting. Vital signs revealed an elevated blood pressure otherwise unremarkable. Exam of the left I did reveal injected conjunctiva with a watery discharge, no increased uptake with fluorescein dye and Wood's lamp evaluation. Differential diagnosis: ?Includes but is not limited to conjunctivitis, scleritis, corneal abrasion Course: 20:42 Patient's examination is consistent with acute conjunctivitis with no evidence for an abrasion at this time. Patient was started on sulfacetamide 2 drops 4 times a day for 10 days. He was given his 1st dose of this medication here in the emergency department. He was given printed and verbal instructions and d ischarged home. Admission/Observation Consideration of admission/observation: Escalation of care including admission/observation considered (No) Prescription Management I considered prescription management with: Other (Bleph 10 (sulfacetamide) optic drops) Discharge Plan Discharge Clinical Impression: Acute conjunctivitis of left eye Patient Disposition: Home, Self-Care Instructions: How to Use Eye Drops (ED), Conjunctivitis (ED) Additional Instructions: Your exam is consistent with an infection of your eye. You do not have a abrasion/scratch to your eye based on your exam today. Use Bleph-10 (sulfacetamide) apply to the left eye, two drop 4 times a day for 10 days. Follow-up with your eye doctor in 2 days Please return to the emergency department if your symptoms get worse or if you d evelop any symptoms that are concerning to you. Prescriptions: New sulfacetamide sodium 10 % drops 2 drp ophthalmic-Left QID 10 Days Qty: 15 0RF No Action ferrous sulfate 325 mg (65 mg iron) tablet 325 mg PO DAILY Qty: 90 3RF ascorbic acid (vitamin C) [Vitamin C] 500 mg tablet 500 mg PO DAILY 90 Days Qty: 90 3RF cyanocobalamin (vitamin B-12) [Vitamin B-12] 1,000 mcg tablet 1,000 mcg PO DAILY Qty: 30 11RF levothyroxine 100 mcg tablet 100 mcg PO QAM Qty: 90 2RF folic acid 1 mg tablet 1 mg PO DAILY Qty: 90 2RF zolpidem 5 mg tablet 5 mg PO BEDTIME PRN (Reason: insomnia) Qty: 90 0RF polyethylene glycol 3350 [Miralax] 17 gram/dose powder 17 g PO DAILY Qty: 510 0RF cephalexin 500 mg capsule 500 mg PO QID 5 Days Qty: 20 0RF doxycycline hyclate 100 mg capsule 100 mg PO BID 7 Days Qty: 14 0RF tobramycin 0.3 % drops 2 drp ophthalmic (eye) Q4H Qty: 5 0RF methylprednisolone [Medrol (Tobi)] 4 mg tablets,dose pack 4 mg PO QAM Qty: 21 0RF Rx Instructions: Take per package instructions acetaminophen [Acetaminophen Extra Strength] 500 mg tablet 1,000 mg PO Q8H PRN (Reason: pain) Qty: 20 0RF bacitracin 500 unit/gram ointment 1 appl topical TID Qty: 28 0RF docusate sodium [Colace] 100 mg capsule 200 mg PO DAILY Qty: 180 0RF omeprazole 20 mg capsule,delayed release(DR/EC) 20 mg PO DAILY Qty: 30 0RF Print Language: Cameroonian
[2025-04-10 20:59] VITALS: BP 151/81; PULSE 69; RESP 18; TEMP 36.5; O2SAT 98
[2025-04-10] MEDS: Sulfacetamide Sodium 10 % Oph 15 ML DRBTL 2 DROP EYE-LEFT (21:02)
== END 2025-04-10 21:03 | disposition home or self-care (01) ==
PROVIDERS: Emergency Provider Emergency Medicine Emergency Medical Services
DX: H10.32 Unspecified acute conjunctivitis, left eye (principal); H53.8 Other visual disturbances; Z79.899 Other long term (current) drug therapy
CPT/HCPCS: 99282; 99283

== ENCOUNTER 2025-04-13 16:30 | Emergency (ER) | payer MEDICARE, MEDICAID, SELFPAY ==
--- NOTE | 2025-04-13 16:33 | ED_ITS ---
HPI - Eye Problem General Chief complaint: Eye Problems Stated complaint: Eye pain/irritation, seen other day Time Seen by Provider: 04/13/25 17:10 Source: patient Mode of arrival: ambulatory Limitations: no limitations History of Present Illness ED Provider: HPI Narrative: Patient is 84 years old with history of GERD, hypothyroidism, general anxiety disorder comes here for redness of the left eye with purulent discharge was seen here on 04/10 prescribed sulfacetamide fluorescein test was negative patient did have purulent discharge that time at this time patient does not have any significant discharge but feels increased burning sensation when he puts eyedrops I was not able to sleep last night patient is requesting to change antibiotic eyedrops patient does not have any issues with the right eye no history of glaucoma no vision changes Related Data Previous Rx's ?Medication ?Instructions ?Recorded polyethylene glycol 3350 17 17 g PO DAILY #510 grams 12/15/22 gram/dose oral powder (Miralax) docusate sodium 100 mg capsule 200 mg (2 x 100 mg) PO DAILY #180 09/29/23 (Colace) caps bacitracin 500 unit/gram topical 1 appl topical TID #28 grams 01/15/24 ointment ferrous sulfate 325 mg (65 mg 325 mg PO DAILY #90 caps 03/27/24 iron) tablet ascorbic acid (vitamin C) 500 mg 500 mg PO DAILY 90 days #90 caps 06/02/24 tablet (Vitamin C) cyanocobalamin (vitamin B-12) 1,000 mcg PO DAILY #30 caps 06/28/24 1,000 mcg tablet (Vitamin B-12) levothyroxine 100 mcg tablet 100 mcg PO QAM #90 caps 09/27/24 folic acid 1 mg tablet 1 mg PO DAILY #90 caps 01/31/25 tobramycin 0.3 % eye drops 2 drp ophthalmic (eye) Q4H #5 mL 02/11/25 zolpidem 5 mg tablet 5 mg PO BEDTIME PRN insomnia #90 03/14/25 tabs acetaminophen 500 mg tablet 1,000 mg (2 x 500 mg) PO Q8H PRN 03/16/25 (Acetaminophen Extra Strength) pain #20 tabs methylprednisolone 4 mg tablets in 4 mg PO QAM #21 ea 03/16/25 a dose pack (Medrol (Tobi)) omeprazole 20 mg capsule,delayed 20 mg PO DAILY #30 caps 03/17/25 release cephalexin 500 mg capsule 500 mg PO QID 5 days #20 caps 04/07/25 doxycycline hyclate 100 mg capsule 100 mg PO BID 7 days #14 caps 04/07/25 sulfacetamide sodium 10 % eye drops 2 drp ophthalmic-Left QID 10 days 04/10/25 #15 mL tobramycin 0.3 % eye drops 2 drp ophthalmic-Left Q4H #5 mL 04/13/25 Allergies Allergy/AdvReac Type Severity Reaction Status Date / Time trazodone Allergy Mild Hallucinati Verified 04/13/25 16:48 ons Review of Systems Review of Systems: Yes all other systems are reviewed and are negative [facility] Past Medical History Medical History Hospital discharge follow-up Open wound Right shoulder pain Medicare annual wellness visit, initial Cellulitis of left thigh Annual physical exam Colonoscopy refused Impaired fasting glucose Cellulitis of leg, right Abscess of skin or subcutaneous tissue Hypothyroid Pernicious anemia GERD (gastroesophageal reflux disease) Vitamin B12 deficiency High prostate specific antigen (PSA) BPH (benign prostatic hyperplasia) Surgical History History of bilateral cataract extraction H/O ventral hernia repair History of appendectomy Family History Family History Father Medical history unknown Mother No problems noted. Social History Social History Housing: Apartment Alcohol intake: never Patient Tobacco Use Status: Former Tobacco user Tobacco use type: Cigarette Years Smoked: 1990 Smoked in Last 30 Days: No e-Cigarette/Vaping Use: Never Used Second Hand Smoke Exposure: No Use of substances other than those prescribed or required for medical reasons: No Advance Directives: No Advance Directives Information Provided: Yes service: No Current occupational status: retired Cognitive needs: No Hearing needs: No Vision needs: No Physical Exam Vital Signs: Vital Signs: Last Vital Signs Temp 98.3 F 04/13/25 18:03 Pulse 64 04/13/25 18:03 Resp 16 04/13/25 18:03 BP 114/90 H 04/13/25 18:03 Pulse Ox 97 04/13/25 18:03 O2 Del Method Room Air 04/13/25 18:03 BMI result Body Mass Index 23.4 Appearance: Alert. Oriented X3. No acute distress. Eyes: no pallor or icterus erythematous conjunctiva no foreign body seen watery discharge anterior chamber normal cornea normal ENT: Pharynx normal Oral Mucosa moist tympanic membrane intact no erythema, Neck: Normal inspection. Neck supple. CVS: Normal heart rate and rhythm. Pulses normal. Respiratory: No respiratory distress. Equal air entry bilateral, no wheezing/rales/rhonchi Abd: soft, not tender Skin: Skin warm and dry. Normal skin color. Normal skin turgor. Extremities: No lower extremity edema, no calf tenderness Neuro: Oriented X 3. Course Course Course Narrative: This is a rapid medical exam performed by Javier Turner NP: Additional HPI, ROS, PE not included below will be deferred to primary provider. 84 yo male with PMHx of hypothyroidism, GERD, anemia, BPH, presents to the ED due to L eye pain. Patient states he was seen in [facility] [place] ED on Friday (04/10) and was started on tobramycin drops for suspected pink eye. States he began using drops yesterday (04/12) and has increased pain and burning in L eye after starting medications. Plan: visual acuity Medications Administered Discontinued Medications Generic Name Dose Route Start Last Admin Trade Name Derekq PRN Reason Stop Dose Admin Tobramycin Sulfate 2 drop 04/13/25 17:22 04/13/25 18:02 Tobramycin Sulfate 0.3% Rtudy Op 5 Ml Btl EYE-LEFT 04/13/25 17:23 2 drop ONCE ONE Administration Medical Decision Making Medical Decision Making [facility] Narrative: Patient' with conjunctivitis feels increased burning sensation when he puts sulfacetamide eyedrops no purulent discharge at this time will prescribe tobramycin patient has had fluorescein test was negative during last visit also there was no foreign body seen Discharge Plan Discharge Clinical Impression: Bacterial conjunctivitis Patient Disposition: Home, Self-Care Instructions: Conjunctivitis (ED) Additional Instructions: Use eyedrops as provided every 4 hours till clear Stop using sulfacetamide eyedrops Follow with your PCP if not better Prescriptions: New tobramycin 0.3 % drops 2 drp ophthalmic-Left Q4H Qty: 5 0RF No Action ferrous sulfate 325 mg (65 mg iron) tablet 325 mg PO DAILY Qty: 90 3RF ascorbic acid (vitamin C) [Vitamin C] 500 mg tablet 500 mg PO DAILY 90 Days Qty: 90 3RF cyanocobalamin (vitamin B-12) [Vitamin B-12] 1,000 mcg tablet 1,000 mcg PO DAILY Qty: 30 11RF levothyroxine 100 mcg tablet 100 mcg PO QAM Qty: 90 2RF folic acid 1 mg tablet 1 mg PO DAILY Qty: 90 2RF zolpidem 5 mg tablet 5 mg PO BEDTIME PRN (Reason: insomnia) Qty: 90 0RF polyethylene glycol 3350 [Miralax] 17 gram/dose powder 17 g PO DAILY Qty: 510 0RF cephalexin 500 mg capsule 500 mg PO QID 5 Days Qty: 20 0RF doxycycline hyclate 100 mg capsule 100 mg PO BID 7 Days Qty: 14 0RF tobramycin 0.3 % drops 2 drp ophthalmic (eye) Q4H Qty: 5 0RF methylprednisolone [Medrol (Tobi)] 4 mg tablets,dose pack 4 mg PO QAM Qty: 21 0RF Rx Instructions: Take per package instructions acetaminophen [Acetaminophen Extra Strength] 500 mg tablet 1,000 mg PO Q8H PRN (Reason: pain) Qty: 20 0RF sulfacetamide sodium 10 % drops 2 drp ophthalmic-Left QID 10 Days Qty: 15 0RF bacitracin 500 unit/gram ointment 1 appl topical TID Qty: 28 0RF docusate sodium [Colace] 100 mg capsule 200 mg PO DAILY Qty: 180 0RF omeprazole 20 mg capsule,delayed release(DR/EC) 20 mg PO DAILY Qty: 30 0RF Interventions: ED Discharge Assessment Last Done: 04/13/25 18:03 Discharge Date/Time: 04/13/25 18:03 Print Language: Luxembourger
[2025-04-13 16:44] VITALS: BP 114/90; PULSE 64; RESP 16; TEMP 36.8; O2SAT 97; BMI 23.4
[2025-04-13] MEDS: Tobramycin Sulfate 0.3% Sol Op 5 ML BTL 2 DROP EYE-LEFT (18:02)
[2025-04-13 18:03] VITALS: BP 114/90; PULSE 64; RESP 16; TEMP 36.8; O2SAT 97
== END 2025-04-13 18:03 | disposition home or self-care (01) ==
PROVIDERS: Emergency Provider Internal Medicine; PCP Internal Medicine
DX: H10.89 Other conjunctivitis (principal); H57.12 Ocular pain, left eye; F41.9 Anxiety disorder, unspecified; Z87.891 Personal history of nicotine dependence
CPT/HCPCS: 99283

== ENCOUNTER 2025-05-08 12:45 | Emergency (ER) | payer MEDICARE, MEDICAID, SELFPAY ==
[2025-05-08 12:58] VITALS: BP 118/79; PULSE 79; RESP 18; TEMP 37; O2SAT 97; BMI 24.0
--- NOTE | 2025-05-08 12:58 | ED_ITS ---
HPI - Extremity Injury (Lower) General Chief Complaint: Extremity Injury, Lower Stated Complaint: l foot toe pain Time Seen by Provider: 05/08/25 13:01 Source: patient, RN notes reviewed and old records reviewed Mode of arrival: ambulatory History of Present Illness ED Provider: Kristen Cesar PA-C HPI Narrative: 84-year-old Greenlandic-speaking male with a past medical history hypothyroid, GERD, anemia, BPH, presenting to the ED complaining of painful, erythematous, & pruritic left 5th toe x 3 days. Admits he was wearing older/larger shoes, denies that at present. Denies known injury, trauma, fall, drainage from area, fever Related Data Previous Rx's ?Medication ?Instructions ?Recorded polyethylene glycol 3350 17 17 g PO DAILY #510 grams 12/15/22 gram/dose oral powder (Miralax) docusate sodium 100 mg capsule 200 mg (2 x 100 mg) PO DAILY #180 09/29/23 (Colace) caps bacitracin 500 unit/gram topical 1 appl topical TID #28 grams 01/15/24 ointment ferrous sulfate 325 mg (65 mg 325 mg PO DAILY #90 caps 03/27/24 iron) tablet ascorbic acid (vitamin C) 500 mg 500 mg PO DAILY 90 days #90 caps 06/02/24 tablet (Vitamin C) cyanocobalamin (vitamin B-12) 1,000 mcg PO DAILY #30 caps 06/28/24 1,000 mcg tablet (Vitamin B-12) levothyroxine 100 mcg tablet 100 mcg PO QAM #90 caps 09/27/24 folic acid 1 mg tablet 1 mg PO DAILY #90 caps 01/31/25 tobramycin 0.3 % eye drops 2 drp ophthalmic (eye) Q4H #5 mL 02/11/25 zolpidem 5 mg tablet 5 mg PO BEDTIME PRN insomnia #90 03/14/25 tabs acetaminophen 500 mg tablet 1,000 mg (2 x 500 mg) PO Q8H PRN 03/16/25 (Acetaminophen Extra Strength) pain #20 tabs methylprednisolone 4 mg tablets in 4 mg PO QAM #21 ea 03/16/25 a dose pack (Medrol (Tobi)) omeprazole 20 mg capsule,delayed 20 mg PO DAILY #30 caps 03/17/25 release cephalexin 500 mg capsule 500 mg PO QID 5 days #20 caps 04/07/25 doxycycline hyclate 100 mg capsule 100 mg PO BID 7 days #14 caps 04/07/25 sulfacetamide sodium 10 % eye drops 2 drp ophthalmic-Left QID 10 days 04/10/25 #15 mL tobramycin 0.3 % eye drops 2 drp ophthalmic-Left Q4H #5 mL 04/13/25 cephalexin 500 mg capsule 500 mg PO QID 5 days #20 caps 05/08/25 Allergies Allergy/AdvReac Type Severity Reaction Status Date / Time trazodone Allergy Mild Hallucinati Verified 05/08/25 13:01 ons Review of Systems Review of Systems: Yes all other systems are reviewed and are negative Constitutional: Constitutional: Reports as per [facility] Past Medical History Attestation statement: The following information was validated with the patient. Source: old records reviewed Medical History Hospital discharge follow-up Open wound Right shoulder pain Medicare annual wellness visit, initial Cellulitis of left thigh Annual physical exam Colonoscopy refused Impaired fasting glucose Cellulitis of leg, right Abscess of skin or subcutaneous tissue Hypothyroid Pernicious anemia GERD (gastroesophageal reflux disease) Vitamin B12 deficiency High prostate specific antigen (PSA) BPH (benign prostatic hyperplasia) Surgical History History of bilateral cataract extraction H/O ventral hernia repair History of appendectomy Family History Family History Father Medical history unknown Mother No problems noted. Social History Social History Housing: Apartment Alcohol intake: never Patient Tobacco Use Status: Former Tobacco user Tobacco use type: Cigarette Years Smoked: 1989 e-Cigarette/Vaping Use: Never Used Second Hand Smoke Exposure: No service: No Current occupational status: retired Cognitive needs: No Hearing needs: No Vision needs: No Physical Exam Vital Signs: Vital Signs: Last Vital Signs Temp 98.6 F 05/08/25 12:58 Pulse 79 05/08/25 12:58 Resp 18 05/08/25 12:58 BP 118/79 05/08/25 12:58 Pulse Ox 97 06/08/25 12:58 O2 Del Method Room Air 05/08/25 12:58 BMI result Body Mass Index 24.0 Const: General: cooperative, healthy appearing and no acute distress Orientation/consciousness: patient oriented x3 Limitations: no limitations HEENT: Head: Yes normal to inspection and Yes atraumatic Ears: hearing grossly normal bilaterally General nose exam: Normal external nose present Face and sinus: Yes normal facial exam Eyes: General: appearance normal, both eyes and all related structures EOM: EOMs intact bilaterally Neck: Neck: Yes normal visual inspection and Yes no meningeal signs Resp: Effort & Inspection: normal respiratory effort and no respiratory distress Cardio: Rate: regular rate Skin: Other: Left 5th toe with mild swelling and erythema. Nontender to palpation. No pointing, no fluctuance/induration or streaking. Neurovascularly intact. No pitting edema. Rashes: no rashes Neuro: General: patient oriented x3, tone normal and no meningeal signs Cranial nerves: Yes CN's II-XII intact bilaterally Gait exam (Neuro): Normal gait present Extrem: General: Yes normal to inspection Medical Decision Making Medical Decision Making MDM Narrative: 84-year-old [place]ic-speaking male with a past medical history hypothyroid, GERD, anemia, BPH, presenting to the ED complaining of painful, erythematous, & pruritic left 5th toe x 3 days. On exam vital signs stable, NAD, nontoxic appearing, physical exam as noted above. Concern for early cellulitis vs pressure wound/erythema. No evidence of abscess or blister formation. Low suspicion for osteomyelitis, no evidence of lymphangitis. Unlikely DVT Plan: P.o. antibiotics, PCP follow-up Please refer to course for remaining clinical decision making, interpretation of labs/imaging results, and discussions with consultants and/or family members. Results discussed with patient including worrisome signs and symptoms and strict return precautions, and when to return to the emergency department. They verbalized understanding and feel safe for discharge at this time. Differential Diagnosis Differential Diagnoses: The differential diagnosis associated with the presentation includes As above External Record Review External record reviewed: Inpatient record, Office record, Outpatient record, Prior outpatient labs, Prior outpatient radiology, Primary care record and Outside ED record Tests considered The following testing was considered but not selected: As above Prescription Management I considered prescription management with: Pain Medication and Antibiotic Chronic Conditions Patient?s care impacted by: Other Social Determinants Patient?s care significantly limited by Social Determinants of Health including: Other Social Determinant of Health Discharge Plan Discharge Clinical Impression: Cellulitis Patient Disposition: Home, Self-Care Instructions: Cellulitis (ED) Additional Instructions: The redness your toes likely from increased pressure, please wear appropriately size shoes This could be an early infection, Keflex as an antibiotic please take as prescribed until completion If redness/swelling is worsening, persistent, you have streaking up your leg, fever, pointing, drainage return to the ED immediately Follow up with your doctor Prescriptions: New cephalexin 500 mg capsule 500 mg PO QID 5 Days Qty: 20 0RF No Action ferrous sulfate 325 mg (65 mg iron) tablet 325 mg PO DAILY Qty: 90 3RF ascorbic acid (vitamin C) [Vitamin C] 500 mg tablet 500 mg PO DAILY 90 Days Qty: 90 3RF cyanocobalamin (vitamin B-12) [Vitamin B-12] 1,000 mcg tablet 1,000 mcg PO DAILY Qty: 30 11RF levothyroxine 100 mcg tablet 100 mcg PO QAM Qty: 90 2RF folic acid 1 mg tablet 1 mg PO DAILY Qty: 90 2RF zolpidem 5 mg tablet 5 mg PO BEDTIME PRN (Reason: insomnia) Qty: 90 0RF polyethylene glycol 3350 [Miralax] 17 gram/dose powder 17 g PO DAILY Qty: 510 0RF cephalexin 500 mg capsule 500 mg PO QID 5 Days Qty: 20 0RF doxycycline hyclate 100 mg capsule 100 mg PO BID 7 Days Qty: 14 0RF tobramycin 0.3 % drops 2 drp ophthalmic-Left Q4H Qty: 5 0RF tobramycin 0.3 % drops 2 drp ophthalmic (eye) Q4H Qty: 5 0RF methylprednisolone [Medrol (Tobi)] 4 mg tablets,dose pack 4 mg PO QAM Qty: 21 0RF Rx Instructions: Take per package instructions acetaminophen [Acetaminophen Extra Strength] 500 mg tablet 1,000 mg PO Q8H PRN (Reason: pain) Qty: 20 0RF sulfacetamide sodium 10 % drops 2 drp ophthalmic-Left QID 10 Days Qty: 15 0RF bacitracin 500 unit/gram ointment 1 appl topical TID Qty: 28 0RF docusate sodium [Colace] 100 mg capsule 200 mg PO DAILY Qty: 180 0RF omeprazole 20 mg capsule,delayed release(DR/EC) 20 mg PO DAILY Qty: 30 0RF Referrals: Po,Mehnaz Tripp MD [Primary Care Provider] - 1 week Print Language: Greenlandic
[2025-05-08 13:20] VITALS: BP 118/79; PULSE 79; RESP 18; TEMP 37; O2SAT 97
== END 2025-05-08 13:21 | disposition home or self-care (01) ==
PROVIDERS: Emergency Provider Emergency Medicine; PCP Internal Medicine
DX: L03.032 Cellulitis of left toe (principal); M79.675 Pain in left toe(s)
CPT/HCPCS: 99282; 99283

== ENCOUNTER 2025-05-18 19:18 | Emergency (ER) | payer MEDICARE, MEDICAID, SELFPAY ==
[2025-05-18 19:26] VITALS: BP 134/69; PULSE 74; RESP 20; TEMP 36.8; O2SAT 95; BMI 21.6
--- NOTE | 2025-05-18 19:32 | ED.GENADULT ---
HPI - General Adult General Chief complaint: Skin/Abscess/Foreign Body Stated complaint: med refill Time Seen by Provider: 05/18/25 19:31 Source: patient, RN notes reviewed and old records reviewed Mode of arrival: ambulatory Limitations: no limitations History of Present Illness ED Provider: Andrew HPI narrative: 84-year-old male with past medical history significant for hypothyroidism, GERD, anemia, BPH presents for evaluation of continued left 5th toe pain. He will be seen here 11 days ago and diagnosed with possible cellulitis. He took 5 days with the Keflex. He reports that the redness improved and the pain improved, however it returned after stopping the antibiotic. He is requesting a refill Denies any trauma or injury to the area. He reports he was able to get she has Related Data Previous Rx's ?Medication ?Instructions ?Recorded polyethylene glycol 3350 17 17 g PO DAILY #510 grams 12/15/22 gram/dose oral powder (Miralax) docusate sodium 100 mg capsule 200 mg (2 x 100 mg) PO DAILY #180 09/29/23 (Colace) caps bacitracin 500 unit/gram topical 1 appl topical TID #28 grams 01/15/24 ointment ferrous sulfate 325 mg (65 mg 325 mg PO DAILY #90 caps 03/27/24 iron) tablet ascorbic acid (vitamin C) 500 mg 500 mg PO DAILY 90 days #90 caps 06/02/24 tablet (Vitamin C) cyanocobalamin (vitamin B-12) 1,000 mcg PO DAILY #30 caps 06/28/24 1,000 mcg tablet (Vitamin B-12) levothyroxine 100 mcg tablet 100 mcg PO QAM #90 caps 09/27/24 folic acid 1 mg tablet 1 mg PO DAILY #90 caps 01/31/25 tobramycin 0.3 % eye drops 2 drp ophthalmic (eye) Q4H #5 mL 02/11/25 zolpidem 5 mg tablet 5 mg PO BEDTIME PRN insomnia #90 03/14/25 tabs acetaminophen 500 mg tablet 1,000 mg (2 x 500 mg) PO Q8H PRN 03/16/25 (Acetaminophen Extra Strength) pain #20 tabs methylprednisolone 4 mg tablets in 4 mg PO QAM #21 ea 03/16/25 a dose pack (Medrol (Tobi)) omeprazole 20 mg capsule,delayed 20 mg PO DAILY #30 caps 03/17/25 release cephalexin 500 mg capsule 500 mg PO QID 5 days #20 caps 04/07/25 doxycycline hyclate 100 mg capsule 100 mg PO BID 7 days #14 caps 04/07/25 sulfacetamide sodium 10 % eye drops 2 drp ophthalmic-Left QID 10 days 04/10/25 #15 mL tobramycin 0.3 % eye drops 2 drp ophthalmic-Left Q4H #5 mL 04/13/25 cephalexin 500 mg capsule 500 mg PO QID 5 days #20 caps 05/08/25 cephalexin 500 mg tablet 500 mg PO QID #28 tabs 05/18/25 Allergies Allergy/AdvReac Type Severity Reaction Status Date / Time trazodone Allergy Mild Hallucinati Verified 05/18/25 19:27 ons Review of Systems Constitutional: Constitutional: Denies body ache(s), Denies chills and Denies fever(s) ENT: Denies dizziness Musculoskeletal: Comments: Pain to left 5th toe Integumentary/Breasts: Skin/Breast: Reports erythema Neurologic: Denies dizziness [facility] Past Medical History Medical History Hospital discharge follow-up Open wound Right shoulder pain Medicare annual wellness visit, initial Cellulitis of left thigh Annual physical exam Colonoscopy refused Impaired fasting glucose Cellulitis of leg, right Abscess of skin or subcutaneous tissue Hypothyroid Pernicious anemia GERD (gastroesophageal reflux disease) Vitamin B12 deficiency High prostate specific antigen (PSA) BPH (benign prostatic hyperplasia) Surgical History History of bilateral cataract extraction H/O ventral hernia repair History of appendectomy Family History Family History Father Medical history unknown Mother No problems noted. Social History Social History Housing: Apartment Alcohol intake: never Patient Tobacco Use Status: Former Tobacco user Tobacco use type: Cigarette Years Smoked: 1989 e-Cigarette/Vaping Use: Never Used Second Hand Smoke Exposure: No Advance Directives: No Advance Directives Information Provided: No service: No Current occupational status: retired Cognitive needs: No Hearing needs: No Vision needs: No Physical Exam ED Vital Signs: Vital Signs - 24 hr 05/18/25 19:26 05/18/25 19:39 Temperature 98.3 F 98.3 F Pulse Rate 74 74 Respiratory Rate 20 20 Blood Pressure 134/69 134/69 Pulse Oximetry 95 95 Oxygen Delivery Method Room Air Room Air BMI result Body Mass Index 21.6 Const General: healthy appearing, comfortable, no acute distress, alert and awake Nutritional Appearance: well nourished Orientation/consciousness: patient oriented x3 HENMT Head: Yes normocephalic and Yes atraumatic Eyes Eyelids: Yes eyelids normal Conjunctivae: conjunctivae normal Sclerae: sclerae normal Corneas: corneas normal Pupils: Equal, round and reactive pupils present EOM: EOMs intact bilaterally Neck Neck: Yes full ROM Resp Effort & Inspection: normal respiratory effort, able to speak in complete sentences and not labored Skin Other: There is erythema to the left 5th toe, no obvious wounds. There appears to be minimal edema. There is some tenderness to palpation. The patient is able to flex and extend the toe. No streaking erythema, no tenderness extending up the left foot. General skin exam: elasticity normal Neuro General: patient oriented x3 Cranial nerves: Yes Equal, round and reactive pupils present and Yes Bilaterally intact EOM present Cognition (Neuro): normal cognition Extrem Other: Moving all extremities well without any obvious deformities Medical Decision Making Medical Decision Making MDM Narrative: The patient appears to have a continued cellulitis of the left foot. He reports that his symptoms improved with the cephalexin but he was only given a 5 day course, we will try an additional 1 week course. 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 There were no open wounds, he is not a diabetic. There was no evidence of abscess, low suspicion for osteomyelitis. Differential Diagnosis Differential Diagnoses: The differential diagnosis associated with the presentation includes Cellulitis Gout Paronychia Abscess Discharge Plan Discharge Clinical Impression: Cellulitis of fifth toe Patient Disposition: Home, Self-Care Instructions: Cellulitis (ED) Additional Instructions: The redness in you toe may be consistent with cellulitis. Take the antibiotics as prescribed for 1 full week. It is important to follow up with your primary doctor. If your symptoms are not improving you may have to see Podiatry Prescriptions: New cephalexin 500 mg tablet 500 mg PO QID Qty: 28 0RF No Action ferrous sulfate 325 mg (65 mg iron) tablet 325 mg PO DAILY Qty: 90 3RF ascorbic acid (vitamin C) [Vitamin C] 500 mg tablet 500 mg PO DAILY 90 Days Qty: 90 3RF cyanocobalamin (vitamin B-12) [Vitamin B-12] 1,000 mcg tablet 1,000 mcg PO DAILY Qty: 30 11RF levothyroxine 100 mcg tablet 100 mcg PO QAM Qty: 90 2RF folic acid 1 mg tablet 1 mg PO DAILY Qty: 90 2RF zolpidem 5 mg tablet 5 mg PO BEDTIME PRN (Reason: insomnia) Qty: 90 0RF polyethylene glycol 3350 [Miralax] 17 gram/dose powder 17 g PO DAILY Qty: 510 0RF cephalexin 500 mg capsule 500 mg PO QID 5 Days Qty: 20 0RF doxycycline hyclate 100 mg capsule 100 mg PO BID 7 Days Qty: 14 0RF tobramycin 0.3 % drops 2 drp ophthalmic-Left Q4H Qty: 5 0RF tobramycin 0.3 % drops 2 drp ophthalmic (eye) Q4H Qty: 5 0RF methylprednisolone [Medrol (Tobi)] 4 mg tablets,dose pack 4 mg PO QAM Qty: 21 0RF Rx Instructions: Take per package instructions acetaminophen [Acetaminophen Extra Strength] 500 mg tablet 1,000 mg PO Q8H PRN (Reason: pain) Qty: 20 0RF sulfacetamide sodium 10 % drops 2 drp ophthalmic-Left QID 10 Days Qty: 15 0RF cephalexin 500 mg capsule 500 mg PO QID 5 Days Qty: 20 0RF bacitracin 500 unit/gram ointment 1 appl topical TID Qty: 28 0RF docusate sodium [Colace] 100 mg capsule 200 mg PO DAILY Qty: 180 0RF omeprazole 20 mg capsule,delayed release(DR/EC) 20 mg PO DAILY Qty: 30 0RF Interventions: ED Discharge Assessment Last Done: 05/18/25 19:39 Discharge Date/Time: 05/18/25 19:40 Print Language: Bulgarian
[2025-05-18 19:39] VITALS: BP 134/69; PULSE 74; RESP 20; TEMP 36.8; O2SAT 95
== END 2025-05-18 19:40 | disposition home or self-care (01) ==
PROVIDERS: Emergency Provider Emergency Medicine
DX: L03.032 Cellulitis of left toe (principal); M79.675 Pain in left toe(s)
CPT/HCPCS: 99282; 99283

== ENCOUNTER 2025-07-18 09:06 | Emergency (ER) | payer MEDICARE, MEDICAID, SELFPAY ==
--- NOTE | ~2025-07-18 | US_ITS ---
CLINICAL HISTORY: testicular pain and swelliing redness US Scrotum with color flow and pulse Doppler with spectral analysis: Comparison: None Technique: Real time sonographic imaging, including pulse Doppler and color-flow imaging, was performed. Multiple home office representative static images were saved for review. Findings: Right testicle normal size and echotexture, measuring 2.7 x 1.5 x 2.0 cm. Normal color and spectral analysis. Left testicle normal size and echotexture, measuring 2.5 x 1.6 x 2.0 cm. Normal color and spectral analysis. No testicular masses or inflammatory signs of orchitis Normal epididymides. No varicoceles. There is scrotal skin thickening mostly on the left Impression: The testicles are unremarkable. No signs of testicular torsion. There is considerable skin thickening involving the left scrotum with hyperemia indicating cellulitis of skin and superficial fascia. There is a left scrotal reactive hydrocele. This document has been electronically signed by: Aries Martin MD on 07/18/2025 18:54:54
--- NOTE | ~2025-07-18 | US_ITS ---
CLINICAL HISTORY: testicular pain and swelliing redness US Scrotum with color flow and pulse Doppler with spectral analysis: Comparison: None Technique: Real time sonographic imaging, including pulse Doppler and color-flow imaging, was performed. Multiple telesales representative static images were saved for review. Findings: Right testicle normal size and echotexture, measuring 2.7 x 1.5 x 2.0 cm. Normal color and spectral analysis. Left testicle normal size and echotexture, measuring 2.5 x 1.6 x 2.0 cm. Normal color and spectral analysis. No testicular masses or inflammatory signs of orchitis Normal epididymides. No varicoceles. There is scrotal skin thickening mostly on the left Impression: The testicles are unremarkable. No signs of testicular torsion. There is considerable skin thickening involving the left scrotum with hyperemia indicating cellulitis of skin and superficial fascia. There is a left scrotal reactive hydrocele. This document has been electronically signed by: Aries Martin MD on 07/18/2025 18:54:54
--- NOTE | ~2025-07-18 | CT_ITS ---
CLINICAL HISTORY: testicular redness. mingo gangrene? Pelvis CT with Contrast: Comparison: Ultrasound 07/18/2025 Findings: Bowel loops in the lower abdomen are of normal caliber without inflammatory changes. No signs of bowel obstruction. Paravertebral musculature is normal. The pelvic sidewalls are unremarkable. Urinary bladder outer surface outline is smooth. The urinary bladder uroepithelia is difficult to evaluate without contrast excreted in the urinary bladder. The prostate is enlarged measuring 5.8 x 5.2 x 6.6 cm Few scattered arterial vascular calcified plaques are present in the distal aorta and iliac arteries. No free intraperitoneal fluid. No intra-abdominal adenopathy. Few scattered bilateral inguinal subcentimeter short axis diameter fibro fatty lymph nodes are present. There is 1.2 cm edematous thickening of the scrotum of both testicles, mostly in the left. No CT tiny gas bubbles of gas-forming organism. No inguinal hernias. Impression: 1. Large prostate gland with nodular contour. 2. Edematous skin thickening of the scrotal sac and perineum. Differential diagnosis would include cellulitis, idiopathic scrotal edema, scrotal lymphatic edema, and Mingo gangrene. Although there are no tiny gas bubbles of gas-forming organism, it should be noted that only 54% of the patients with necrotizing fasciitis present on CT with tiny gas bubbles. Anytime deep fascia is involved, necrotizing fasciitis must be considered in the differential diagnosis. This document has been electronically signed by: Aries Martin MD on 07/18/2025 20:05:56
[2025-07-18 09:38] VITALS: BP 138/75; PULSE 70; RESP 16; TEMP 37; O2SAT 97; BMI 24.6
--- NOTE | 2025-07-18 09:42 | ED.MALEGU ---
HPI - Male Genitourinary General Chief complaint: Urogenital-Male Stated complaint: pt states has testicular pain Time Seen by Provider: 07/18/25 17:39 Source: patient Mode of arrival: ambulatory Limitations: no limitations History of Present Illness ED Provider: Chidi Berry HPI Narrative: 84 yold male presents to the ED for scrotum redness, itchniess with pain for one week. patient states no painful urination, penile lesions, or dysuria/hematuria. Related Data Previous Rx's ?Medication ?Instructions ?Recorded polyethylene glycol 3350 17 17 g PO DAILY #510 grams 12/15/22 gram/dose oral powder (Miralax) docusate sodium 100 mg capsule 200 mg (2 x 100 mg) PO DAILY #180 09/29/23 (Colace) caps bacitracin 500 unit/gram topical 1 appl topical TID #28 grams 01/15/24 ointment ascorbic acid (vitamin C) 500 mg 500 mg PO DAILY 90 days #90 caps 06/02/24 tablet (Vitamin C) cyanocobalamin (vitamin B-12) 1,000 mcg PO DAILY #30 caps 06/28/24 1,000 mcg tablet (Vitamin B-12) folic acid 1 mg tablet 1 mg PO DAILY #90 caps 01/31/25 tobramycin 0.3 % eye drops 2 drp ophthalmic (eye) Q4H #5 mL 02/11/25 acetaminophen 500 mg tablet 1,000 mg (2 x 500 mg) PO Q8H PRN 03/16/25 (Acetaminophen Extra Strength) pain #20 tabs methylprednisolone 4 mg tablets in 4 mg PO QAM #21 ea 03/16/25 a dose pack (Medrol (Tobi)) omeprazole 20 mg capsule,delayed 20 mg PO DAILY #30 caps 03/17/25 release cephalexin 500 mg capsule 500 mg PO QID 5 days #20 caps 04/07/25 doxycycline hyclate 100 mg capsule 100 mg PO BID 7 days #14 caps 04/07/25 sulfacetamide sodium 10 % eye drops 2 drp ophthalmic-Left QID 10 days 04/10/25 #15 mL tobramycin 0.3 % eye drops 2 drp ophthalmic-Left Q4H #5 mL 04/13/25 cephalexin 500 mg capsule 500 mg PO QID 5 days #20 caps 05/08/25 cephalexin 500 mg tablet 500 mg PO QID #28 tabs 05/18/25 ferrous sulfate 325 mg (65 mg 325 mg PO DAILY #90 caps 06/01/25 iron) tablet zolpidem 5 mg tablet 5 mg PO BEDTIME PRN insomnia #90 06/06/25 tabs levothyroxine 100 mcg tablet 100 mcg PO QAM #90 caps 07/10/25 cephalexin 500 mg capsule 500 mg PO QID 7 days #28 caps 07/18/25 doxycycline hyclate 100 mg capsule 100 mg PO BID 7 days #14 caps 07/18/25 naproxen 500 mg tablet 500 mg PO BID PRN pain #14 tabs 07/18/25 Allergies Allergy/AdvReac Type Severity Reaction Status Date / Time trazodone Allergy Mild Hallucinati Verified 07/19/25 07:01 ons Review of Systems Review of Systems: scrotal pain, redness, itchniess Yes all other systems are reviewed and are negative [facility] Past Medical History Medical History Hospital discharge follow-up Open wound Right shoulder pain Medicare annual wellness visit, initial Cellulitis of left thigh Annual physical exam Colonoscopy refused Impaired fasting glucose Cellulitis of leg, right Abscess of skin or subcutaneous tissue Hypothyroid Pernicious anemia GERD (gastroesophageal reflux disease) Vitamin B12 deficiency High prostate specific antigen (PSA) BPH (benign prostatic hyperplasia) Surgical History History of bilateral cataract extraction H/O ventral hernia repair History of appendectomy Family History Family History Father Medical history unknown Mother No problems noted. Social History Social History (System 07/19/25 @ 07:01 by Kiki Vasquez) Housing: Apartment Alcohol intake: never Patient Tobacco Use Status: Former Tobacco user Tobacco use type: Cigarette Years Smoked: 1989 e-Cigarette/Vaping Use: Never Used Second Hand Smoke Exposure: No service: No Current occupational status: retired Cognitive needs: No Hearing needs: No Vision needs: No Physical Exam Vital Signs: Vital Signs: Last Vital Signs Temp 98.6 F 07/18/25 22:38 Pulse 70 07/18/25 22:38 Resp 16 07/18/25 22:38 BP 138/75 07/18/25 22:38 Pulse Ox 97 07/18/25 22:38 BMI result Body Mass Index 24.6 Const: General: cooperative, healthy appearing, comfortable, no acute distress, well developed, alert, awake and Physically active Orientation/consciousness: patient oriented x3 HEENT: Head: Yes normal to inspection, Yes No palpable skull fracture present, Yes normocephalic and Yes atraumatic Eyes: General: appearance normal, both eyes and all related structures Neck: Neck: Yes normal visual inspection, Yes full ROM, Yes no lymphadenopathy, Yes no meningeal signs, Yes trachea midline, Yes supple, No anterior neck swelling and No tender Chest: Chest palpation & inspection: normal inspection of the chest and normal palpation of entire chest wall Resp: Effort & Inspection: normal respiratory effort and able to speak in complete sentences Auscultation: clear to auscultation bilaterally Cardio: Jugular venous distension: no JVD Heart sounds: S1 normal heart sound present and S2 normal heart sound present GI: Inspection: Yes normal to inspection Palpation (GI): Soft to palpation, not firm, nontender, no guarding and not rigid : Other: General: Yes no CVA tenderness Back/Spine/Pelvis: Back: no CVA tenderness and No back tenderness Skin: General skin exam: no rashes or lesions noted, elasticity normal and turgor normal Neuro: General: patient oriented x3, gait normal, moves all extremities, Normal light touch and pain sensation, no meningeal signs, no focal motor deficits, CN's II-XI intact bilaterally and normal sensation to monofilament Extrem: General: Yes normal to inspection, Yes full ROM and Yes capillary refill normal Psych: Appearance: grossly normal, well kempt and not disheveled Course Course Course Narrative: This is a Rapid Medical Examination (RME) performed by Yury Lui PA-C in triage. Full HPI, ROS, assessment and treatment plan per primary provider in the Main ED. Hx: 84 yo M here for eval of scrotal itching x1 week. states he is not sexually active. denies any penile discharge or dysuria. PE/vitals: area not evaled in triage d/t privacy. Plan: UA, CTNG, further eval in room Medications Administered Discontinued Medications Generic Name Dose Route Start Last Admin Trade Name Freq PRN Reason Stop Dose Admin Ceftriaxone Sodium 1 gm 07/18/25 21:08 08/18/25 21:51 Ceftriaxone Sodium 1 Gm Vial IVPUSH 07/18/25 21:09 1 gm ONCE ONE Administration Iohexol 100 ml 07/18/25 19:20 07/18/25 19:20 Iohexol 350 Mg/Ml 100 Ml Infus..Btl IV 07/18/25 19:21 85 ml ONCE ONE Administration Medical Decision Making Medical Decision Making MDM Narrative: 84-year-old male presents to ED for testicular redness and swelling for 1 week. Patient denies any recent trauma be sexually active. Exam positive for erythematous redness of testicles with tenderness and pain. Ultrasound showed cellulitis without any signs of torsion. CAT scan shows cellulitis with possible Mingo gangrene as differential. Physical exam negative for signs of gangrene or black eschar. Case discussed with urologist Dr. Dee who disagrees with radiologist reading of possible Mingo gangrene and states patient can be discharged after 1 dose of IV antibiotics. Patient is well-appearing and not toxic. Not suspecting Mingo gangrene. Patient's, daughter and mother explained worrisome signs and informed to return to the ED immediately. Dr. Vogel states patient also can be discharged Differential Diagnosis Differential Diagnoses: The differential diagnosis associated with the presentation includes (Cellulitis, fungal infection, Mingo gangrene, torsion, epididymitis) Admission/Observation Consideration of admission/observation: Escalation of care including admission/observation considered Consult Healthcare Provider Management of the patient was discussed with: Hospitalist (Dr. Vogel) and Javascript Front End Developer (Dr. Dee) Lab Data MDM Lab Attestation statement: I reviewed the patient's lab results. 07/18/25 18:31 07/18/25 18:31 Labs: Lab Results 07/18/25 07/18/25 Range/Units 18:31 22:06 WBC 7.5 (4.8-10.8) X10*3/uL RBC 4.49 L (4.60-5.80) X10*6/uL Hgb 14.3 (14.0-18.0) g/dl Hct 39.9 L (42.0-52.0) % MCV 88.9 (80.0-98.0) fL MCH 31.8 (27.0-33.0) pg MCHC 35.8 (31.0-36.0) g/dl RDW 12.3 (11.0-16.0) % Plt Count 268 (160-400) X10*3/uL MPV 8.8 L (9.4-12.4) fL Immature Gran % (Auto) 0.3 (0.0-0.4) % Neut % (Auto) 72.8 (45-73) % Lymph % (Auto) 13.1 L (20-40) % [place] % (Auto) 8.8 (2-11) % Eos % (Auto) 4.5 H (0-4) % Baso % (Auto) 0.5 (0-2) % Lymph # (Auto) 1.0 L (1.2-4.9) X10*3/uL [place] # (Auto) 0.7 (0.1-1.2) X10*3/uL Eos # (Auto) 0.3 (0.0-0.4) X10*3/uL Baso # (Auto) 0.0 (0.0-0.2) X10*3/uL Abs Immat Gran (auto) 0.02 (0.00-0.03) X10*3/uL Absolute Neuts (auto) 5.5 (2.0-8.3) x10*3/uL Absolute Nucleated RBC 0.000 (0.0-0.012) X10*3/uL Nucleated RBC % (auto) 0.0 (0.0-0.2) /100WBC Sodium 142 (135-145) mmol/L Potassium 3.8 (3.3-5.1) mmol/L Chloride 105 (96-108) mmol/L Carbon Dioxide 28 (22-29) mmol/L Anion Gap 13 (12-20) BUN 14 (9-16) mg/dL Creatinine 0.69 (0.5-1.4) mg/dL Estim Creat Clear Calc 60.0 Estimated GFR > 60 Random Glucose 95 (60-115) mg/dL Calcium 9.3 (8.4-10.2) mg/dL Total Bilirubin 0.4 (0.0-1.0) mg/dL AST 30 (5-37) U/L ALT 16 (0-40) U/L Alkaline Phosphatase 92 (39-117) U/L Total Protein 7.7 (6.5-8.0) g/dL Albumin 4.4 (3.5-5.0) g/dL Urine Color Yellow Urine Appearance Clear Urine pH 6.5 (5.0-9.0) Ur Specific [place] 1.010 (1.005-1.025) Urine Protein Negative (Neg-Trace) mg/dL Urine Glucose (UA) Negative (Negative) mg/dL Urine Ketones Negative (Negative) mg/dL Urine Blood Negative (Negative) Urine Nitrite Negative (Negative) Ur Leukocyte Esterase Negative (Negative) Ur N gonorrhoeae DNA (PCR) NOT DETECTED (Not Detect.) Ur Chlamydia DNA (PCR) NOT DETECTED (Not Detect.) Independent Interpretation I performed an independent interpretation of an: CT Scan Independent Historian Clinical information obtained from an independent historian. History obtained from or confirmed by: Other (Patient) Prescription Management I considered prescription management with: Pain Medication and Antibiotic Critical Care Time Critical Care Time Critical Care Time: Yes Total Critical Care Time: 60 Attestation: scrotal cellulitis, IV anitiobitcs, usltrasound, CT scan ordered, URologist consult. Discharge Plan Discharge Clinical Impression: Cellulitis, scrotum Patient Disposition: Home, Self-Care Instructions: Cellulitis (ED) Additional Instructions: Recommend follow up with primary care provider and our urologist Dr. Dee. You will need to take antibiotics to fight skin infection of your scrotum. Return to the ED for worsening pain, increased swelling, increased redness, pus discharge, foul odor, black gangrene color, fever, chills, altered mental status, weakness, or any other concerning symptoms. Our covering urologist, Dr. Dee, does not believe you have mingo Gangrene. Ordering Physician: Chidi Berry Date of Service: 07/18/25 Procedure(s): US scrotum Accession Number(s): [id number] cc: Chidi Berry; Mehnaz Abel MD~ CLINICAL HISTORY: testicular pain and swelliing redness US Scrotum with color flow and pulse Doppler with spectral analysis: Comparison: None Technique: Real time sonographic imaging, including pulse Doppler and color-flow imaging, was performed. Multiple manufacturers representative static images were saved for review. Findings: Right testicle normal size and echotexture, measuring 2.7 x 1.5 x 2.0 cm. Normal color and spectral analysis. Left testicle normal size and echotexture, measuring 2.5 x 1.6 x 2.0 cm. Normal color and spectral analysis. No testicular masses or inflammatory signs of orchitis Normal epididymides. No varicoceles. There is scrotal skin thickening mostly on the left Impression: The testicles are unremarkable. No signs of testicular torsion. There is considerable skin thickening involving the left scrotum with hyperemia indicating cellulitis of skin and superficial fascia. There is a left scrotal reactive hydrocele. This document has been electronically signed by: Aries Martin MD on 07/18/2025 18:54:[address] [place] [id number] [address] Scan Report Signed with Addenda Patient: Frankie Jose MR#: [id number] : 1940 Acct:[id number] Age/Sex: 84 / M ADM Date: 07/18/25 Loc: HO.ED Attending Dr: Ordering Physician: Chidi Berry Date of Service: 07/18/25 Procedure(s): CT pelvis w IV con Accession Number(s): [id number] cc: Chidi Berry; Mehnaz Abel MD~ Report Number: [id number]: Total DLP = 264.00 mGy-cm ADDENDUMThis document has been electronically signed by: Aries Martin MD on 07/18/2025 20:05:56 ADDENDUM: This report was discussed with Jamal DELUNA on Jul 18, 2025 20:26:00 EDT. This document has been electronically signed by: Radha Ratliff on 07/18/2025 20:27:33 Addendum Dictated By: Aries Martin MD Addendum Signed By: <Electronically signed by Aries Martin MD in OV> 07/18/252027 Addendum Cosigned By: DD/ TD/TT: 07/18/25 CLINICAL HISTORY: testicular redness. mingo gangrene? Pelvis CT with Contrast: Comparison: Ultrasound 07/18/2025 Findings: Bowel loops in the lower abdomen are of normal caliber without inflammatory changes. No signs of bowel obstruction. Paravertebral musculature is normal. The pelvic sidewalls are unremarkable. Urinary bladder outer surface outline is smooth. The urinary bladder uroepithelia is difficult to evaluate without contrast excreted in the urinary bladder. The prostate is enlarged measuring 5.8 x 5.2 x 6.6 cm Few scattered arterial vascular calcified plaques are present in the distal aorta and iliac arteries. No free intraperitoneal fluid. No intra-abdominal adenopathy. Few scattered bilateral inguinal subcentimeter short axis diameter fibro fatty lymph nodes are present. There is 1.2 cm edematous thickening of the scrotum of both testicles, mostly in the left. No CT tiny gas bubbles of gas-forming organism. No inguinal hernias. Impression: 1. Large prostate gland with nodular contour. 2. Edematous skin thickening of the scrotal sac and perineum. Differential diagnosis would include cellulitis, idiopathic scrotal edema, scrotal lymphatic edema, and Mingo gangrene. Although there are no tiny gas bubbles of gas-forming organism, it should be noted that only 54% of the patients with necrotizing fasciitis present on CT with tiny gas bubbles. Anytime deep fascia is involved, necrotizing fasciitis must be considered in the differential diagnosis. This document has been electronically signed by: Aries Martin MD on 07/18/2025 20:05:56 Prescriptions: New cephalexin 500 mg capsule 500 mg PO QID 7 Days Qty: 28 0RF doxycycline hyclate 100 mg capsule 100 mg PO BID 7 Days Qty: 14 0RF naproxen 500 mg tablet 500 mg PO BID PRN (Reason: pain) Qty: 14 0RF No Action ascorbic acid (vitamin C) [Vitamin C] 500 mg tablet 500 mg PO DAILY 90 Days Qty: 90 3RF cyanocobalamin (vitamin B-12) [Vitamin B-12] 1,000 mcg tablet 1,000 mcg PO DAILY Qty: 30 11RF folic acid 1 mg tablet 1 mg PO DAILY Qty: 90 2RF ferrous sulfate 325 mg (65 mg iron) tablet 325 mg PO DAILY Qty: 90 3RF zolpidem 5 mg tablet 5 mg PO BEDTIME PRN (Reason: insomnia) Qty: 90 0RF levothyroxine 100 mcg tablet 100 mcg PO QAM Qty: 90 2RF polyethylene glycol 3350 [Miralax] 17 gram/dose powder 17 g PO DAILY Qty: 510 0RF cephalexin 500 mg capsule 500 mg PO QID 5 Days Qty: 20 0RF doxycycline hyclate 100 mg capsule 100 mg PO BID 7 Days Qty: 14 0RF tobramycin 0.3 % drops 2 drp ophthalmic-Left Q4H Qty: 5 0RF cephalexin 500 mg tablet 500 mg PO QID Qty: 28 0RF tobramycin 0.3 % drops 2 drp ophthalmic (eye) Q4H Qty: 5 0RF methylprednisolone [Medrol (Tobi)] 4 mg tablets,dose pack 4 mg PO QAM Qty: 21 0RF Rx Instructions: Take per package instructions acetaminophen [Acetaminophen Extra Strength] 500 mg tablet 1,000 mg PO Q8H PRN (Reason: pain) Qty: 20 0RF sulfacetamide sodium 10 % drops 2 drp ophthalmic-Left QID 10 Days Qty: 15 0RF cephalexin 500 mg capsule 500 mg PO QID 5 Days Qty: 20 0RF bacitracin 500 unit/gram ointment 1 appl topical TID Qty: 28 0RF docusate sodium [Colace] 100 mg capsule 200 mg PO DAILY Qty: 180 0RF omeprazole 20 mg capsule,delayed release(DR/EC) 20 mg PO DAILY Qty: 30 0RF Referrals: [facility] [Provider Group, Urology] - 2 days Referral Note: Scrotal cellulitis Clinical Impression: Cellulitis, scrotum Po,Mehnaz Tripp MD [Primary Care Provider, Internal Medicine] - 2 days Referral Note: Testicular pain. Scrotal redness Clinical Impression: Cellulitis, scrotum Interventions: ED Discharge Assessment Last Done: 07/18/25 22:38 Discharge Date/Time: 07/18/25 22:39 Print Language: Nepali
[2025-07-18 18:39] LABS: MANUAL DIFF FLAG NO
[2025-07-18 18:46] LABS: Hematocrit 39.9 % (42.0-52.0); Hemoglobin 14.3 g/dl (14.0-18.0); Imm Gran Abs Auto 0.02 X10*3/uL (0.00-0.03); Imm Gran Pct Auto 0.3 % (0.0-0.4); Lymphocytes Absolute Auto 1.0 X10*3/uL (1.2-4.9); Mean Corpuscular HGB Conc 35.8 g/dl (31.0-36.0); Mean Corpuscular Hemoglobin 31.8 pg (27.0-33.0); Mean Corpuscular Volume 88.9 fL (80.0-98.0); NRBC Abs Auto 0.000 X10*3/uL (0.0-0.012); NRBC Pct Auto 0.0 /100WBC (0.0-0.2); Platelet Count 268 X10*3/uL (160-400); Red Blood Count 4.49 X10*6/uL (4.60-5.80); White Blood Count 7.5 X10*3/uL (4.8-10.8)
[2025-07-18 18:58] LABS: Alanine Aminotransferase 16 U/L (0-40); Albumin Level 4.4 g/dL (3.5-5.0); Alkaline Phosphatase 92 U/L (39-117); Anion Gap 13 (12-20); Aspartate Amino Transferase 30 U/L (5-37); Blood Urea Nitrogen 14 mg/dL (9-16); Calcium 9.3 mg/dL (8.4-10.2); Carbon Dioxide 28 mmol/L (22-29); Chloride 105 mmol/L (96-108); Creatinine Clr Calc Pharmacy 60.0; Estimated Glomerular Filt Rate > 60; Potassium 3.8 mmol/L (3.3-5.1); Sodium 142 mmol/L (135-145); Total Protein 7.7 g/dL (6.5-8.0)
[2025-07-18] MEDS: iohexoL 350 MG/ML 100 ML INFUS..BTL IV (19:20)
[2025-07-18 22:14] LABS: Appearance Urine Clear; Glucose Urine UA Negative (Negative); PH 6.5 (5.0-9.0); Specific Gravity - Urine 1.010 (1.005-1.025)
[2025-07-18 22:38] VITALS: BP 138/75; PULSE 70; RESP 16; TEMP 37; O2SAT 97
[2025-07-19 01:58] LABS: CT PCR Urine NOT DETECTED (Not Detect.); NG PCR Urine NOT DETECTED (Not Detect.)
== END 2025-07-18 22:39 | disposition home or self-care (01) ==
PROVIDERS: Physician Assistant; Physician Assistant Medical; Emergency Provider Emergency Medicine; PCP Internal Medicine
DX: N49.2 Inflammatory disorders of scrotum (principal); N50.82 Scrotal pain; N50.89 Other specified disorders of the male genital organs
CPT/HCPCS: 36415; 72193; 76870; 80053; 81003; 85025; 87040; 87491; 87591; 93975; 96374; 99282; 99284; J0696; Q9967

== ENCOUNTER → 2025-07-18 17:53 | Outpatient (BNV) | payer MEDICARE, MEDICAID, SELFPAY | PROVIDERS: Emergency Provider Emergency Medicine; PCP Internal Medicine; Visit Provider Radiology Diagnostic Radiology | DX: N40.2 Nodular prostate without lower urinary tract symptoms (principal); N50.89 Other specified disorders of the male genital organs; N50.819 Testicular pain, unspecified; N49.2 Inflammatory disorders of scrotum; N43.3 Hydrocele, unspecified | CPT/HCPCS: 72193; 76870; 93975 ==

== ENCOUNTER 2025-07-21 10:30 | Outpatient (AMB) | payer MEDICARE, MEDICAID, SELFPAY ==
--- NOTE | 2025-07-21 10:42 | MHC.PC.OV ---
Vital Signs 07/21/25 10:43 Height 5 ft 1 in Weight 129 lb 4 oz BMI 24.4 BP 110/60 Blood Pressure Location Lt brachial Position Sitting Respiration 18 Pulse 68 Temp 96.2 F L Pulse Oximetry (%) 99 Oxygen Delivery Method Room Air Intake Visit Reasons: Insomnia, GERD Online Marketing Manager Required: No Accompanied by: Self / Same As Patient Allergies trazodone Allergy (Mild, Verified 07/21/25 10:44) Hallucinations Medication List - Last Reconciled 07/21/25 by Mehnaz Abel MD acetaminophen (Acetaminophen Extra Strength) 1,000 mg (2 x 500 mg) PO Q8H PRN ascorbic acid (vitamin C) (Vitamin C) 500 mg PO DAILY 90 days bacitracin 1 appl topical TID cephalexin 500 mg PO QID 7 days cyanocobalamin (vitamin B-12) (Vitamin B-12) 1,000 mcg PO DAILY docusate sodium (Colace) 200 mg (2 x 100 mg) PO DAILY doxycycline hyclate 100 mg PO BID 7 days ferrous sulfate 325 mg PO DAILY folic acid 1 mg PO DAILY levothyroxine 100 mcg PO QAM naproxen 500 mg PO BID PRN omeprazole 20 mg PO DAILY polyethylene glycol 3350 (Miralax) 17 grams PO DAILY zolpidem 5 mg PO BEDTIME PRN Tobacco use date assessed: 07/21/25 Fall risk assessment: No Falls in past year Last assessed Fall Risk: 07/21/25 Dental Screening Dental Screen Date: 07/21/25 Did you have a dental visit in the last 12 months?: Yes Did you have a dental problem in the last 6 months where you did not have access to dental care?: No Was dental information given to patient?: Patient has dentist HPI Insomnia, GERD HPI Details patient states doing good with the infection [facility] Medical History Hospital discharge follow-up Open wound Right shoulder pain Medicare annual wellness visit, initial Cellulitis of left thigh Annual physical exam Colonoscopy refused Impaired fasting glucose Cellulitis of leg, right Abscess of skin or subcutaneous tissue Hypothyroid Pernicious anemia GERD (gastroesophageal reflux disease) Vitamin B12 deficiency High prostate specific antigen (PSA) BPH (benign prostatic hyperplasia) Surgical History History of bilateral cataract extraction H/O ventral hernia repair History of appendectomy Family History Father Medical history unknown Mother No problems noted. Social History Housing: Apartment Alcohol intake: never Patient Tobacco Use Status: Former Tobacco user Tobacco use type: Cigarette Years Smoked: 1989 e-Cigarette/Vaping Use: Never Used Second Hand Smoke Exposure: No service: No Current occupational status: retired Cognitive needs: No Hearing needs: No Vision needs: No Questionnaire PHQ-9 Over the last 2 weeks, how often have you been bothered by any of the following problems? 1. Little interest or pleasure in doing things: not at all 2. Feeling down, depressed, or hopeless: not at all 3. Trouble falling or staying asleep, or sleeping too much: not at all 4. Feeling tired or having little energy: not at all 5. Poor appetite or overeating: not at all 6. Feeling bad about yourself - or that you are a failure or have let yourself or your family down: not at all 7. Trouble concentrating on things, such as reading the newspaper or watching television: not at all 8. Moving or speaking so slowly that other people could have noticed. Or the opposite - being so fidgety or restless that you have been moving around a lot more than usual: not at all 9. Thoughts that you would be better off or of hurting yourself in some way: not at all Total score: 0 Source: Developed by Drs. Sacha Betancur, Katie Segal, Elmo Barillas and colleagues, with an educational zayra from [facility]. Thrive Questionnaire Date Thrive assessed: 07/21/25 I am a: Patient What is your living situation today?: I have a steady place to live Within the past 12 months, did the food you bought not last and you didn't have the money to get more?: Never true Within the past 12 months, did you worry whether your food would run out before you got money to buy more?: Never true Do you have trouble paying for medicines?: No Do you have trouble getting transportation to medical appointments?: No Do you have trouble paying your heating and electricity bill?: No Do you have trouble taking care of your child, family member or friend?: No Do you have trouble with day-to-day activities such as bathing, preparing meals, shopping, managing finances, etc.?: No Are you currently unemployed and looking for a job?: No Are you interested in more education?: No Please select the resources that you would like help with: None Currently or been in a relationship where the following occur: No concerns reported THRIVE Score: 0 AUDIT C Alcohol Use Questionnaire (AUDIT-C) 1. How often do you have a drink containing alcohol?: Never Total Score: 0 KETTY-7 AMB Questionnaire KETTY-7 Date KETTY - 7 assessed: 07/21/25 Feeling nervous, anxious, or on edge: 0 = Not at all Not being able to stop or control worryin = Not at all Worrying too much about different things: 0 = Not at all Trouble relaxin = Not at all Being so restless that it is hard to sit still: 0 = Not at all Becoming easily annoyed or irritable: 0 = Not at all Feeling afraid as if something awful might happen: 0 = Not at all Total KETTY-7 score (0-4 normal; 5-9 mild; 10-14 moderate; 15-21 severe): 0 Source: Developed by Drs. Sacha Betancur, Katie Segal, Elmo Barillas and colleagues, with an educational zayra from [facility]. Physical exam (Primary Care) Vital Signs: Last Vital Signs Temp 96.2 F L 07/21/25 10:43 Pulse 68 07/21/25 10:43 Resp 18 07/21/25 10:43 BP 110/60 07/21/25 10:43 Pulse Ox 99 07/21/25 10:43 Oxygen Delivery Method Room Air 07/21/25 10:43 BMI result Body Mass Index 24.4 Tobacco/Smoking Status: Tobacco use Status Tobacco use date assessed 07/21/25 07/21/25 10:50 Patient Tobacco Use Status Former Tobacco user 07/21/25 10:50 Tobacco use type Cigarette 07/21/25 10:50 e-Cigarette/Vaping Use Never Used 07/21/25 10:50 PHQ-9: PHQ-9 Score PHQ-9: Total score 0 07/21/25 11:22 Thrive Assessment: Date of Thrive Assessment Date Thrive assessed 07/21/25 07/21/25 10:50 Currently or been in a relationship where the following occur: No concerns reported Const General: alert; No acute distress Eyes Conjunctivae: conjunctivae normal Resp Auscultation: clear to auscultation bilaterally Cardio Rate: regular rate Rhythm: regular rhythm GI Inspection: Yes normal to inspection Extrem General: Yes normal to inspection and No edema Coding Level of Care Code Est Pt Level 4 (03481) Diagnoses Cellulitis, toe L03.039 Cellulitis, scrotum N49.2 Gastroesophageal reflux disease without esophagitis K21.9 Esophagitis presence: without esophagitis Acquired hypothyroidism E03.9 Hypothyroidism type: acquired Benign prostatic hyperplasia with urinary frequency N40.1; R35.0 Lower urinary tract symptom detail: urinary frequency Lower urinary tract symptom presence: symptoms present Generalized anxiety disorder F41.1 Assessment & Plan Assessment & Plan (1) Cellulitis, toe: Code(s): L03.039 - Cellulitis of unspecified toe Category: Medical Plan: Patient was treated with antibiotics in May (2) Cellulitis, scrotum: Code(s): N49.2 - Inflammatory disorders of scrotum Category: Medical Plan: Patient was just seen in the hospital and was treated with cephalexin and doxycycline (3) GERD (gastroesophageal reflux disease): Comment: EGD January 2015 Dr. Aldridge Code(s): K21.9 - Gastro-esophageal reflux disease without esophagitis Category: Medical Qualifiers: Esophagitis presence: without esophagitis Qualified Code(s): K21.9 - Gastro-esophageal reflux disease without esophagitis Plan: Avoid the foods that causes that usually spicy foods, tomato products, juices, coffee, soda and foods that your sensitive to. After eating do not lie down, allow 3-4 hours before in lie down. And keep the head of bed above 30 degrees to avoid the acid from going up. (4) Hypothyroid: Code(s): E03.9 - Hypothyroidism, unspecified Category: Medical Qualifiers: Hypothyroidism type: acquired Qualified Code(s): E03.9 - Hypothyroidism, unspecified Plan: Continue with thyroid medication March 2025 last blood work (5) BPH (benign prostatic hyperplasia): Code(s): N40.0 - Benign prostatic hyperplasia without lower urinary tract symptoms Category: Medical Qualifiers: Lower urinary tract symptom detail: urinary frequency Lower urinary tract symptom presence: symptoms present Qualified Code(s): N40.1 - Benign prostatic hyperplasia with lower urinary tract symptoms; R35.0 - Frequency of micturition Plan: Stable (6) Generalized anxiety disorder: Code(s): F41.1 - Generalized anxiety disorder Category: Medical Plan: Stable Plan History of Present Illness The patient is an 84-year-old male presenting for a follow-up visit. The patient has a history of Benign Prostatic Hyperplasia (BPH), Gastroesophageal Reflux Disease (GERD), hypothyroidism, and generalized anxiety disorder. He was last seen in March 2025 for an annual wellness visit and has declined a colonoscopy. The patient was hospitalized on July 18 for testicular pain, where he was found to have scleral redness and testicular cellulitis without torsion. He was treated with cephalexin and doxycycline. In May, the patient was hospitalized for an infection in the fifth toe, which was also treated with cephalexin. In March, he experienced eye pain due to conjunctivitis and was treated with tobramycin. The patient's last blood work in July 18 showed normal blood count, electrolytes, renal function, blood sugar, and liver function. His last cholesterol test in March 2025 showed an LDL of 93 mg/dL. Health Maintenance - Declined colonoscopy - Last cholesterol test in March 2025 with LDL of 93 mg/dL Social History Review of Systems - Genitourinary: Reports testicular pain - Integumentary: Reports infection in the fifth toe - Ophthalmologic: Reports eye pain Physical Exam Results - Labs: Normal blood count, electrolytes, renal function, blood sugar, and liver function as of July 18 - Cholesterol: LDL of 93 mg/dL in March 2025 Plan The patient will continue with current medications for hypothyroidism and GERD management. He is advised to maintain hygiene to prevent recurrent infections, particularly in areas prone to cellulitis. Follow-up with a urologist is scheduled to address ongoing concerns related to testicular health. Patient was informed and verbally consented to the use of an ambient scribe for clinic note documentation during this visit. Discussion Notes During the visit, I discussed the importance of maintaining hygiene to prevent infections, especially in areas prone to cellulitis. We also reviewed the patient's medication regimen for hypothyroidism and GERD, ensuring adherence to prescribed treatments. A follow-up appointment with a urologist was confirmed to further evaluate testicular health concerns. Patient Instructions - Continue taking your thyroid and GERD medications as prescribed. - Maintain good hygiene, especially in areas prone to infection. - Attend your follow-up appointment with the urologist.
[2025-07-21 10:43] VITALS: BP 110/60; PULSE 68; RESP 18; TEMP 35.7; O2SAT 99; BMI 24.4
--- OUTSIDE RECORDS SUMMARY | 2025-07-21 12:01 | XMS_ITS | Patient Health Record ---
Author Organization [facility] Address [address] [place] [id number] Care Team Providers Care Animal Care Assistant Name Role Phone Mehnaz Abel MD Primary Care Provider Sacha Davis [phone] Allergies Allergen (clinical drug ingredient) Drug/Non Drug Allergy documented on EMR Reaction Allergy Type Onset Date Status ? soap (uncoded) Unknown Allergy Act sohail Reason For Referral No Information Medications Medication SIG (Take, Route, Frequency, Duration) Notes Start Date End Date Status Zolpidem Tartrate 5 MG 1 tablet at bedti me as needed Orally Once a day Active Folic Acid 1 MG 1 tablet Oral Once a day Active Multi Vitamin/Minerals 1 1 Orally QD Active Omeprazole 20 MG Oral for 030 Active Cyanocobalamin 1000 MCG/ML 1 Injection monthly Active DocQLace 100 MG 1 capsule as needed Orally Once a day Active Problems Problem Type SNOMED Code ICD Code Onset Dates Problem Status W/U Status Risk Notes Problem Vitamin B6 deficiency (109191542) Vitamin B<SUB>6</SUB> deficiency (266.1) Active confirmed Problem Nutritional anemia (90766497) Anemia associated with other specified nutritional deficiency (281.8) Active confirmed Problem Vitamin products adverse reaction (370305000) Vitamins, not elsewhere classified, causing adverse effect in therapeutic use (E933.5) Active confirmed Problem Constipation (41305870) Constipation (564.00) Active confirmed Problem Gastroesophageal reflux disease (931977238) GERD (gastroesophage al reflux disease) (530.81) Active confirmed Problem Chronic antral gastritis (25800854) Chronic antral gastritis (535.10) Active confirmed Plan Of Treatment Pending Test Test Name Order Date PARIETAL CELL ANTIBODY 01/04/2015 Future Test Test Name Order Date UPPER GI ENDOSCOPY 01/04/2015 Insurance Providers Payer Name Payer Address Payer Phone Subscriber Number Group Number Insured Name Patient Relationship to Insured Coverage Start Date Coverage End Date MED[place]ARE OF [place] [address] [place] [address] [phone] [id number] LILY SANTOS Self - patient is the insured MEDICAID OF [facility] [address] [place] [phone] [id number] LILY SANTOS Self - patient is the insured Medical (General) History Medical History History ICD Code Denies [place],DM,CVA,Lung disease,renal dise ase Hypothyroidism B12 deficiency with anemia - found in 12/2014-receiving B12 shots--he had a normal folate level, iron level, and iron saturation at that time as well. He has a positive intrinsic factor antibody EGD's in [address] Vasquez-re cords not available EGD in 01/2015-hiatal hernia and mild gastritis--biopsies were negative for celiac disease and negative for H. pylori--there was no esophagitis nor Amato's esophagus. Surgical History Surgery Date(Month/Year) Esophagus surgery-Dr. Vasquez- -records are not available but this sounds like he had a hiatal hernia operation Appy
== END 2025-07-21 11:31 | disposition home or self-care (01) ==
LOC: HO.HMCH 10:31
PROVIDERS: PCP Internal Medicine; Visit Provider Internal Medicine
DX: L03.039 Cellulitis of unspecified toe (principal); N49.2 Inflammatory disorders of scrotum; K21.9 Gastro-esophageal reflux disease without esophagitis; E03.9 Hypothyroidism, unspecified; N40.1 Benign prostatic hyperplasia with lower urinary tract symptoms; R35.0 Frequency of micturition; F41.1 Generalized anxiety disorder

== ENCOUNTER → 2025-07-21 10:30 | Outpatient (BNVA) | payer MEDICARE, MEDICAID, SELFPAY | PROVIDERS: PCP Internal Medicine; Visit Provider Internal Medicine | DX: N49.2 Inflammatory disorders of scrotum (principal); K21.9 Gastro-esophageal reflux disease without esophagitis; E03.9 Hypothyroidism, unspecified; N40.1 Benign prostatic hyperplasia with lower urinary tract symptoms; R35.0 Frequency of micturition; F41.1 Generalized anxiety disorder; Z87.891 Personal history of nicotine dependence | CPT/HCPCS: 99212 ==

== ENCOUNTER 2025-07-22 11:14 | Outpatient (AMB) | payer MEDICARE, MEDICAID, SELFPAY ==
--- OUTSIDE RECORDS SUMMARY | 2025-07-22 11:21 | XMS_ITS | Patient Health Record ---
Author Organization [facility] Address [address] [place] [id number] Care Team Providers Care Senior Project Architect Name Role Phone Mehnaz Abel MD Primary Care Provider Sacha Davis [phone] Allergies Allergen (clinical drug ingredient) Drug/Non Drug [...] Status Risk Notes Problem Vitamin B6 deficiency (601304649) Vitamin B<SUB>6</SUB> deficiency (266.1) Active confirmed Problem Nutritional anemia (47947945) Anemia associated with other specified nutritional deficiency (281.8) Active confirmed Problem Vitamin products adverse reaction (517637396) Vitamins, not elsewhere classified, causing adverse effect in therapeutic use (E933.5) Active confirmed Problem Constipation (34505283) Constipation (564.00) Active confirmed Problem GERD (gastroesophagea l reflux disease) (530.81) Active confirmed Problem Chronic antral gastritis (68878735) Chronic antral gastritis (535.10) Active confirmed Plan Of Treatment Pending Test Test Name Order Date PARIETAL CELL ANTIBODY 01/04/2015 Future Test Test Name Order Date UPPER GI ENDOSCOPY 01/04/2015 Insurance Providers Payer Name Payer Address Payer Phone Subscriber Number Group Number Insured Name Patient Relationship to Insured Coverage Start Date Coverage End Date MEDICARE OF [place] [address] [place] [id number] WILLIAM AlysiaLILY Self - patient is the insured MEDICAID OF [facility] [address] [place] [phone] [id number] LILY SANTOS Self - patient is the insured Medical (General) History Medical History History ICD Code Denies [place],DM,CVA,Lung disease,renal dise ase Hypothyroidism B12 deficiency with [...]
--- NOTE | 2025-07-22 11:41 | MHC.OFFVIS ---
Intake Visit Reasons: Scrotal edema (this week per Dr. Dee) Intake Note: New Patient is present for scrotal edema Urology Rx:VITB-12 Blood Thinners:none Imaging completed: none General Foreman Required: No Accompanied by: Self / Same As Patient Allergies trazodone Allergy (Mild, Verified 07/22/25 12:00) Hallucinations HPI Comments Details: Frankie is a pleasant Citizen Of [place]-speaking male. He is a patient of Dr. Abel. He is seen for the following urologic conditions - scrotal cellulitis Saying given IV antibiotics Has ER Significant scrotal pruritus Obvious damage from itching Prescribed amitriptyline to reduced nocturnal itching [facility] Medical History Hospital discharge follow-up Open wound Right shoulder pain Medicare annual wellness visit, initial Cellulitis of left thigh Annual physical exam Colonoscopy refused Impaired fasting glucose Cellulitis of leg, right Abscess of skin or subcutaneous tissue Hypothyroid Pernicious anemia GERD (gastroesophageal reflux disease) Vitamin B12 deficiency High prostate specific antigen (PSA) BPH (benign prostatic hyperplasia) Surgical History History of bilateral cataract extraction H/O ventral hernia repair History of appendectomy Family History Father Medical history unknown Mother No problems noted. Social History Housing: Apartment Alcohol intake: never Patient Tobacco Use Status: Former Tobacco user Tobacco use type: Cigarette Years Smoked: 1989 e-Cigarette/Vaping Use: Never Used Second Hand Smoke Exposure: No service: No Current occupational status: retired Cognitive needs: No Hearing needs: No Vision needs: No Review of Systems Const Denies chills and Denies fever(s) Card Reports no additional complaints and Denies syncope Resp Denies cough GI Denies abdominal pain and Denies heartburn Reports as per HPI and Denies change in libido Neuro Denies syncope Psych Denies change in libido Endo Denies change in libido Physical Exam Const General: cooperative, healthy appearing, comfortable and no acute distress Orientation/consciousness: patient oriented x3 HEENT Face and sinus: Yes normal facial exam Mouth: moist mucous membranes Neck Neck: Yes normal visual inspection, Yes full ROM and Yes trachea midline Chest Chest palpation & inspection: normal inspection of the chest Resp Effort & Inspection: normal respiratory effort, able to speak in complete sentences and no respiratory distress GI Inspection: Yes normal to inspection Back/Spine/Pelvis Cervical Spine: normal cervical lordosis Thoracic/Lumbar Spine: thoracic and lumbar spine normal to inspection Skin General skin exam: no rashes or lesions noted Neuro General: patient oriented x3, gait normal, tone normal and moves all extremities Extrem General: Yes normal to inspection and Yes capillary refill normal Results AMB Urinalysis, Automated UA Leukoctes 0 Eliezer/uL Last Edit by TERESITA Cristina on 07/22/25 12:13 UA Nitrite Negative Last Edit by Sandra Carter CCM on 07/22/25 12:13 UA Urobilinogen 0.2 mg/dL Last Edit by Sandra Carter CCM on 07/22/25 12:13 UA Protein 0 mg/dL Last Edit by Sandra Carter CCM on 07/22/25 12:13 UA pH 6.0 Last Edit by Sandra Carter CCM on 07/22/25 12:13 UA Blood 0 Panfilo/uL Last Edit by Sandra Carter CCM on 07/22/25 12:13 UA Specific [place] 1.010 Last Edit by TERESITA Cristina on 07/22/25 12:13 UA Ketone Negative Last Edit by TERESITA Cristina on 07/22/25 12:13 UA Bilirubin 0 mg/dL Last Edit by Sandra Carter CCM on 07/22/25 12:13 UA Glucose 0 mg/dL Last Edit by Sandra Carter CCM on 07/22/25 12:13 Results Reviewed Results Reviewed: Laboratory Last Values Urine pH (Auto) 6.0 07/22/25 12:11 Specific [place] (Auto) 1.010 07/22/25 12:11 Urine Protein (Auto) 0 mg/dL 07/22/25 12:11 Glucose (UA)(Auto) 0 mg/dL 07/22/25 12:11 Urine Ketones (Auto) Negative 07/22/25 12:11 Urine Blood (Auto) 0 Panfilo/uL 07/22/25 12:11 Urine Nitrite (Auto) Negative 07/22/25 12:11 Urine Bilirubin (Auto) 0 mg/dL 07/22/25 12:11 Urine Urobilinogen (Auto) 0.2 mg/dL 07/22/25 12:11 Leukocyte Esterase (Auto) 0 Eliezer/uL 07/22/25 12:11 Assessment & Plan Assessment & Plan (1) Scrotal pruritus: Code(s): L29.1 - Pruritus scroti Category: Medical Plan Three-month follow-up Orders: Orders AMB Urinalysis Automated Today Z13.9 - Encounter for screening, unspecified Medications: New amitriptyline 25 mg PO BEDTIME 30 tabs 1RF 30 days L29.1 - Pruritus scroti Patient Instructions: This note is constructed using voice recognition software. While every effort has been made to ensure accuracy salad maker errors may have been included. Imaging studies, laboratory and physical exam results were discussed and reviewed in detail. No major barriers to patient understanding were identified. An opportunity to ask questions regarding the treatment plan was provided. All questions were answered. The patient expressed understanding and agreement with the above treatment plan. The patient is aware they should contact our office by phone for worsening of their current condition or the appearance of new urologic symptoms. Compliance is encouraged with any medications and followup testing that is ordered. It is a privilege to participate in the urologic care of your patient. If you have any questions or concerns regarding treatment for the above conditions, or other urologic issues, please do not hesitate to contact me. The office telephone contact is [phone]. Sincerely, Dr Abel Dee MD, [facility] - Urology Compassionate Specialist Care for the Genitourinary System Coding Level of Care Code New Pt Level 4 (69794) Diagnoses Scrotal pruritus L29.1
== END 2025-07-22 13:39 | disposition home or self-care (01) ==
LOC: HO.HUSH 11:15
PROVIDERS: PCP Internal Medicine; Visit Provider Urology
DX: Z13.9 Encounter for screening, unspecified (principal); L29.1 Pruritus scroti
CPT/HCPCS: 99204

== ENCOUNTER → 2025-07-22 11:14 | Outpatient (BNVA) | payer MEDICARE, MEDICAID, SELFPAY | PROVIDERS: PCP Internal Medicine; Visit Provider Urology | DX: L29.1 Pruritus scroti (principal) | CPT/HCPCS: 81003; 99202 ==

== ENCOUNTER 2025-09-08 11:04 | Emergency (ER) | payer MEDICARE, MEDICAID, SELFPAY ==
[2025-09-08 11:20] VITALS: BP 119/72; PULSE 79; RESP 18; TEMP 36.9; O2SAT 95; BMI 22.0
--- NOTE | 2025-09-08 11:33 | ED.GENADULT ---
HPI - General Adult General Chief complaint: Eye Problems Stated complaint: L eye irritation Time Seen by Provider: 09/08/25 14:13 Related Data Previous Rx's ?Medication ?Instructions ?Recorded polyethylene glycol 3350 17 17 g PO DAILY #510 grams 12/15/22 gram/dose oral powder (Miralax) docusate sodium 100 mg capsule 200 mg (2 x 100 mg) PO DAILY #180 09/29/23 (Colace) caps bacitracin 500 unit/gram topical 1 appl topical TID #28 grams 01/15/24 ointment acetaminophen 500 mg tablet 1,000 mg (2 x 500 mg) PO Q8H PRN 03/16/25 (Acetaminophen Extra Strength) pain #20 tabs omeprazole 20 mg capsule,delayed 20 mg PO DAILY #30 caps 03/17/25 release amitriptyline 25 mg tablet 25 mg PO BEDTIME 30 days #30 tabs 07/22/25 ascorbic acid (vitamin C) 500 mg 500 mg PO DAILY 90 days #90 caps 08/10/25 tablet (Vitamin C) cyanocobalamin (vitamin B-12) 1,000 mcg PO DAILY #30 caps 09/01/25 1,000 mcg tablet (Vitamin B-12) zolpidem 5 mg tablet 5 mg PO BEDTIME PRN insomnia #90 09/02/25 tabs Allergies Allergy/AdvReac Type Severity Reaction Status Date / Time trazodone Allergy Mild Hallucinati Verified 09/09/25 10:27 [facility] Past Medical History Medical History Hospital discharge follow-up Open wound Right shoulder pain Medicare annual wellness visit, initial Cellulitis of left thigh Annual physical exam Colonoscopy refused Impaired fasting glucose Cellulitis of leg, right Abscess of skin or subcutaneous tissue Hypothyroid Pernicious anemia GERD (gastroesophageal reflux disease) Vitamin B12 deficiency High prostate specific antigen (PSA) BPH (benign prostatic hyperplasia) Surgical History History of bilateral cataract extraction H/O ventral hernia repair History of appendectomy Family History Family History Father Medical history unknown Mother No problems noted. Social History Social History (Reviewed 09/09/25 @ 14:47 by NATO Lopez Housing: Apartment Alcohol intake: never Patient Tobacco Use Status: Former Tobacco user Tobacco use type: Cigarette Years Smoked: 1989 e-Cigarette/Vaping Use: Never Used Second Hand Smoke Exposure: No Advance Directives: No Advance Directives Information Provided: Yes service: No Current occupational status: retired Cognitive needs: No Hearing needs: No Vision needs: No Physical Exam ED Vital Signs: Vital Signs - 24 hr 09/08/25 11:20 Temperature 98.4 F Pulse Rate 79 Respiratory Rate 18 Blood Pressure 119/72 Pulse Oximetry 95 Oxygen Delivery Method Room Air BMI result Body Mass Index 22.0 Course Course Course Narrative: This is a rapid medical exam performed by Javier Turner NP: Additional HPI, ROS, PE not included below will be deferred to primary provider. Patient is a an 84-year-old male presenting in the emergency department with complaint of left eye redness and pain with vision loss for the past 3 days. IOP: OD: 10, OS: 12 Plan: Visual acuity Patient left the emergency department before myself or any of the other clinicians could review or explain physical exam findings, test results, need or lack there of for additional testing, treatment options, or a treatment plan. Attempted to call patient to encourage return to the ED, no answer, left voicemail to return to ED or follow up with ophthalmology. Discharge Plan Discharge Clinical Impression: Acute pain in left eye Patient Disposition: Left W/O Completing Treatment Prescriptions: No Action ascorbic acid (vitamin C) [Vitamin C] 500 mg tablet 500 mg PO DAILY 90 Days Qty: 90 3RF cyanocobalamin (vitamin B-12) [Vitamin B-12] 1,000 mcg tablet 1,000 mcg PO DAILY Qty: 30 11RF zolpidem 5 mg tablet 5 mg PO BEDTIME PRN (Reason: insomnia) Qty: 90 0RF polyethylene glycol 3350 [Miralax] 17 gram/dose powder 17 g PO DAILY Qty: 510 0RF acetaminophen [Acetaminophen Extra Strength] 500 mg tablet 1,000 mg PO Q8H PRN (Reason: pain) Qty: 20 0RF bacitracin 500 unit/gram ointment 1 appl topical TID Qty: 28 0RF docusate sodium [Colace] 100 mg capsule 200 mg PO DAILY Qty: 180 0RF amitriptyline 25 mg tablet 25 mg PO BEDTIME 30 Days Qty: 30 1RF omeprazole 20 mg capsule,delayed release(DR/EC) 20 mg PO DAILY Qty: 30 0RF Discharge Date/Time: 09/08/25 14:15
--- NOTE | 2025-09-08 11:55 | MHC.EDTECH ---
pt did the visual acuity testing but only can see out of the right only. pt saying he cant see at all through the left eye.
== END 2025-09-08 14:15 | disposition left against medical advice (07) ==
PROVIDERS: Emergency Provider Emergency Medicine; PCP Internal Medicine
DX: H57.12 Ocular pain, left eye (principal); H54.62 Unqualified visual loss, left eye, normal vision right eye
CPT/HCPCS: 99282

== ENCOUNTER 2025-09-09 10:17 | Emergency (ER) | payer MEDICARE, MEDICAID, SELFPAY ==
[2025-09-09 10:22] VITALS: BP 141/63; PULSE 86; RESP 18; TEMP 37; O2SAT 96; BMI 22.0
--- NOTE | 2025-09-09 10:24 | ED.EYEPROB ---
HPI - Eye Problem General Chief complaint: Eye Problems Stated complaint: L eye issues Time Seen by Provider: 09/09/25 11:16 Source: patient, RN notes reviewed and old records reviewed Mode of arrival: ambulatory History of Present Illness ED Provider: Kristen Cesar PA-C HPI Narrative: 84-year-old Comoran-speaking male with past medical history cataract surgery, presenting to the ED complaining of sudden onset left eye blurry vision 3 days ago with associated burning and pruritus. Reports associated photophobia. Denies wearing glasses or contacts. Denies drainage, injury, trauma/fall, headache, nausea/vomiting, vision loss Related Data Previous Rx's ?Medication ?Instructions ?Recorded polyethylene glycol 3350 17 17 g PO DAILY #510 grams 12/15/22 gram/dose oral powder (Miralax) docusate sodium 100 mg capsule 200 mg (2 x 100 mg) PO DAILY #180 09/29/23 (Colace) caps bacitracin 500 unit/gram topical 1 appl topical TID #28 grams 01/15/24 ointment acetaminophen 500 mg tablet 1,000 mg (2 x 500 mg) PO Q8H PRN 03/16/25 (Acetaminophen Extra Strength) pain #20 tabs omeprazole 20 mg capsule,delayed 20 mg PO DAILY #30 caps 03/17/25 release amitriptyline 25 mg tablet 25 mg PO BEDTIME 30 days #30 tabs 07/22/25 ascorbic acid (vitamin C) 500 mg 500 mg PO DAILY 90 days #90 caps 08/10/25 tablet (Vitamin C) cyanocobalamin (vitamin B-12) 1,000 mcg PO DAILY #30 caps 09/01/25 1,000 mcg tablet (Vitamin B-12) zolpidem 5 mg tablet 5 mg PO BEDTIME PRN insomnia #90 09/02/25 tabs Allergies Allergy/AdvReac Type Severity Reaction Status Date / Time trazodone Allergy Mild Hallucinati Verified 09/09/25 10:27 ons Review of Systems Review of Systems: Yes all other systems are reviewed and are negative Constitutional: Constitutional: Reports as per HPI Eyes: Eyes: Reports photophobia (Left) PMFSH Past Medical History Attestation statement: The following information was validated with the patient. Source: old records reviewed Medical History Hospital discharge follow-up Open wound Right shoulder pain Medicare annual wellness visit, initial Cellulitis of left thigh Annual physical exam Colonoscopy refused Impaired fasting glucose Cellulitis of leg, right Abscess of skin or subcutaneous tissue Hypothyroid Pernicious anemia GERD (gastroesophageal reflux disease) Vitamin B12 deficiency High prostate specific antigen (PSA) BPH (benign prostatic hyperplasia) Surgical History History of bilateral cataract extraction H/O ventral hernia repair History of appendectomy Family History Family History Father Medical history unknown Mother No problems noted. Social History Social History Housing: Apartment Alcohol intake: never Patient Tobacco Use Status: Former Tobacco user Tobacco use type: Cigarette Years Smoked: 1989 e-Cigarette/Vaping Use: Never Used Second Hand Smoke Exposure: No Advance Directives: No Advance Directives Information Provided: Yes service: No Current occupational status: retired Cognitive needs: No Hearing needs: No Vision needs: No Physical Exam Vital Signs: Vital Signs: Last Vital Signs Temp 98.6 F 09/09/25 13:34 Pulse 86 09/09/25 13:34 Resp 18 09/09/25 13:34 BP 141/63 H 09/09/25 13:34 Pulse Ox 96 09/09/25 13:34 O2 Del Method Room Air 09/09/25 13:34 BMI result Body Mass Index 22.0 Const: General: cooperative, healthy appearing and no acute distress Orientation/consciousness: patient oriented x3 Limitations: no limitations HEENT: Head: Yes normal to inspection and Yes atraumatic Ears: hearing grossly normal bilaterally General nose exam: Normal external nose present Face and sinus: Yes normal facial exam Eyes: Other: IOP wnl bilaterally No fluorescein uptake on staining. No evidence of globe rupture. General: appearance normal, both eyes and all related structures Periorbital: periorbital findings normal Eyelids: Yes eyelids normal Conjunctivae: conjunctival abnormal left conjunctival injection diffuse Pupils: Equal, round and reactive pupils present EOM: EOMs intact bilaterally and no movement deficit Direct Ophthalmoscopy: photophobia (Left) Neck: Neck: Yes normal visual inspection and Yes no meningeal signs Resp: Effort & Inspection: normal respiratory effort and no respiratory distress Cardio: Rate: regular rate Skin: Rashes: no rashes Wounds: no wounds Neuro: General: patient oriented x3, tone normal and no meningeal signs Cranial nerves: Yes CN's II-XII intact bilaterally and Yes Equal, round and reactive pupils present Gait exam (Neuro): Normal gait present Extrem: General: Yes normal to inspection Course Course Course Narrative: This is an RME: Additional HPI, ROS, PE not included below will be deferred to primary provider. RME assessment and note performed by: Crystal Macias PA-C This is a [id number] who presents to the ER with a complaint of left eye redness, pain and itchiness. Patient reports that this started 3 days ago he felt as though his vision has been compromised. He states that objects looked darker, and are blurry. He states that his central vision is good however does report some difficulty seeing in the periphery however this was a very difficult conversation to have with patient. Hx of retinal surgery in L eye 10 years ago. Left eye conjunctiva is injected, pupils intact. Patient does appear to be photophobic in the left eye. Plan: Further ER evaluation needed. -case discussed with Dr. Hurst who is also patient's automotive parts counter assistant. Recommend moisturizing drops or patient can walk directly over to his office. This was discussed with patient and with shared decision-making patient will be discharged from the ED to present directly to Dr. Hurst's office for further evaluation Medications Administered Discontinued Medications Generic Name Dose Route Start Last Admin Trade Name Freq PRN Reason Stop Dose Admin Fluorescein Sodium 1 strip 09/09/25 10:34 09/09/25 10:45 Fluorescein Sodium Strip EYE-LEFT 09/09/25 10:35 1 strip ONCE ONE Administration Tetracaine HCl 1 drop 09/09/25 10:34 09/09/25 10:45 Tetracaine Hcl/Pf 0.5% Oph Trudy 4 Ml Drops EYE-LEFT 09/09/25 10:35 1 drop ONCE ONE Administration Medical Decision Making Medical Decision Making [facility] Narrative: 84-year-old Comoran-speaking male with past medical history cataract surgery, presenting to the ED complaining of sudden onset left eye blurry vision 3 days ago with associated burning and pruritus. On exam VSS, NAD, nontoxic appearing, physical exam as noted above with diffusely injected left eye. EOMs intact without entrapment. Intra-ocular pressure is within normal limits bilaterally. No fluorescein uptake. No evidence of globe rupture or preseptal/septal cellulitis. Concern for iritis vs allergic conjunctivitis. Low suspicion for acute glaucoma with normal pressures Plan: Visual acuity, fluorescein staining, pressures, consult Ophthalmology Please refer to course for remaining clinical decision making, interpretation of labs/imaging results, and discussions with consultants and/or family members. Differential Diagnosis Differential Diagnoses: The differential diagnosis associated with the presentation includes As above Consult Healthcare Provider Management of the patient was discussed with: Mid Level Developer (Dr. Hurst) External Record Review External record reviewed: Inpatient record, Office record, Outpatient record, Prior outpatient labs, Prior outpatient radiology, Primary care record and Outside ED record Tests considered The following testing was considered but not selected: As above Prescription Management I considered prescription management with: Pain Medication and Antibiotic Chronic Conditions Patient?s care impacted by: Other Social Determinants Patient?s care significantly limited by Social Determinants of Health including: Other Social Determinant of Health Discharge Plan Discharge Clinical Impression: Blurred vision, left eye Patient Disposition: Home, Self-Care Instructions: Blurred Vision (ED) Additional Instructions: Please proceed to your automotive parts counter assistant, Dr. Hurst's office straight from the emergency department, they will be expecting you Prescriptions: No Action ascorbic acid (vitamin C) [Vitamin C] 500 mg tablet 500 mg PO DAILY 90 Days Qty: 90 3RF cyanocobalamin (vitamin B-12) [Vitamin B-12] 1,000 mcg tablet 1,000 mcg PO DAILY Qty: 30 11RF zolpidem 5 mg tablet 5 mg PO BEDTIME PRN (Reason: insomnia) Qty: 90 0RF polyethylene glycol 3350 [Miralax] 17 gram/dose powder 17 g PO DAILY Qty: 510 0RF acetaminophen [Acetaminophen Extra Strength] 500 mg tablet 1,000 mg PO Q8H PRN (Reason: pain) Qty: 20 0RF bacitracin 500 unit/gram ointment 1 appl topical TID Qty: 28 0RF docusate sodium [Colace] 100 mg capsule 200 mg PO DAILY Qty: 180 0RF amitriptyline 25 mg tablet 25 mg PO BEDTIME 30 Days Qty: 30 1RF omeprazole 20 mg capsule,delayed release(DR/EC) 20 mg PO DAILY Qty: 30 0RF Referrals: Daryl Hurst [Physician, Ophthalmology] Referral Note: now Interventions: ED Discharge Assessment Last Done: 09/09/25 13:34 Discharge Date/Time: 09/09/25 13:35 Print Language: Comoran
[2025-09-09] MEDS: Tetracaine HCl/PF 0.5% Oph Sol 4 ML DROPS 1 DROP EYE-LEFT (10:45)
[2025-09-09] MEDS: Fluorescein Sodium STRIP 1 STRIP EYE-LEFT (10:45)
[2025-09-09 13:34] VITALS: BP 141/63; PULSE 86; RESP 18; TEMP 37; O2SAT 96
== END 2025-09-09 13:35 | disposition home or self-care (01) ==
PROVIDERS: Emergency Provider Emergency Medicine Emergency Medical Services; PCP Internal Medicine
DX: H53.8 Other visual disturbances (principal); Z86.69 Personal history of other diseases of the nervous system and sense organs; Z79.899 Other long term (current) drug therapy
CPT/HCPCS: 99282; 99283

== ENCOUNTER 2025-09-26 10:20 | Emergency (ER) | payer MEDICARE, MEDICAID, SELFPAY ==
[2025-09-26 10:25] VITALS: BP 133/73; PULSE 92; RESP 18; TEMP 36.6; O2SAT 96; BMI 36.5
--- NOTE | 2025-09-26 10:51 | ED_ITS ---
HPI - General Adult General Chief complaint: General Medical Stated complaint: INFECTION Time Seen by Provider: 09/26/25 10:28 Source: patient, old records reviewed and embedded developer Mode of arrival: ambulatory Limitations: no limitations History of Present Illness ED Provider: MAXI WYNN narrative: 84 yo male with PMH of BPH, GERD, hypothyroidism, anxiety, here with c/o noting a boil on his R buttock x 4 days that he has used ointment on and bandaids. He does have a hx of this in past. He has no fevers, no n/v/d. He is asking for antibiotics. He has no other symptoms. MD complaint: boil Onset (ago): day(s) (4) Location: buttocks Radiation: non-radiation Severity: mild Quality: aching Pain Consistency: intermittent Relieving factors: none Exacerbating factors: other Associated symptoms: denies other symptoms Treatments prior to arrival: other Related Data Previous Rx's ?Medication ?Instructions ?Recorded polyethylene glycol 3350 17 17 g PO DAILY #510 grams 0 12/15/22 gram/dose oral powder (Miralax) docusate sodium 100 mg capsule 200 mg (2 x 100 mg) PO DAILY #180 09/29/23 (Colace) caps bacitracin 500 unit/gram topical 1 appl topical TID #2 8 grams 01/15/24 ointment acetaminophen 500 mg tablet 1,000 mg (2 x 500 mg) PO Q 8H PRN 03/16/25 (Acetaminophen Extra Strength) pain #20 tabs omeprazole 20 mg capsule,delayed 20 mg PO DAILY #30 ca ps 03/17/25 release amitriptyline 25 mg tablet 25 mg PO BEDTIME 30 days #3 0 tabs 07/22/25 ascorbic acid (vitamin C) 500 mg 500 mg PO DAILY 90 da ys #90 caps 08/10/25 tablet (Vitamin C) cyanocobalamin (vitamin B-12) 1,000 mcg PO DAILY #30 c aps 09/01/25 1,000 mcg tablet (Vitamin B-12) zolpidem 5 mg tablet 5 mg PO BEDTIME PRN insomnia #90 09/02/25 tabs cephalexin 500 mg capsule 500 mg PO BID 7 days #14 cap s 09/26/25 chlorhexidine gluconate 4 % 1 appl topical Q5M 2 doses #3,800 09/26/25 topical liquid (Antiseptic Skin mL Cleanser (chlorhexidine)) doxycycline hyclate 100 mg capsule 100 mg PO BID 7 day s #14 caps 09/26/25 Allergies Allergy/AdvReac Type Severity Reaction Status Date / Time trazodone Allergy Mild Hallucinati Verified 09/26/25 10:26 ons Review of Systems Review of Systems: Constitutional : No Fever, No Chills ENT/Mouth : No sore throat, No Rhinorrhea Eyes: No Eye Pain, No Swelling, No Redness Cardiovascular : No Chest Pain, No SOB Respiratory : No Cough, No Sputum Gastrointestinal : No Nausea, No Vomiting, No Diarrhea, No abdominal Pain Genitourinary : No Dysuria, No Hematuria Musculoskeletal : No joint pain, No Myalgias, No Joint Swelling Skin : No Skin Lesions, positive skin rash Neuro : No Weakness, No Numbness, No Headache All other systems reviewed and are negative [facility] Past Medical History Attestation statement: The following information was validated with the patient. Source: old records reviewed Medical History Hospital discharge follow-up Open wound Right shoulder pain Medicare annual wellness visit, initial Cellulitis of left thigh Annual physical exam Colonoscopy refused Impaired fasting glucose Cellulitis of leg, right Abscess of skin or subcutaneous tissue Hypothyroid Pernicious anemia GERD (gastroesophageal reflux disease) Vitamin B12 deficiency High prostate specific antigen (PSA) BPH (benign prostatic hyperplasia) Surgical History History of bilateral cataract extraction H/O ventral hernia repair History of appendectomy Family History Family History Father Medical history unknown Mother No problems noted. Social History Social History Housing: Apartment Alcohol intake: never Patient Tobacco Use Status: Former Tobacco user Tobacco use type: Cigarette Years Smoked: 1989 e-Cigarette/Vaping Use: Never Used Second Hand Smoke Exposure: No Advance Directives: No Advance Directives Information Provided: Yes service: No Current occupational status: retired Cognitive needs: No Hearing needs: No Vision needs: No Physical Exam ED Vital Signs: Vital Signs - 24 hr 09/26/25 10:25 Temperature 97.8 F Pulse Rate 92 Respiratory Rate 18 Blood Pressure 133/73 Pulse Oximetry 96 Oxygen Delivery Method Room Air BMI result Body Mass Index 36.5 Appearance: Alert. Oriented X3. No acute distress. Eyes: Pupils equal, round and reactive to light. ENT: Pharynx normal. Neck: Normal inspection. Neck supple. CVS: Normal heart rate and rhythm. Pulses normal. Respiratory: No respiratory distress. Breath sounds normal. Abdomen: Soft and nontender. Buttock: R buttock very small boil but there is a white cap to it but no surrounding cellulitis nothing goes to the perineum or rectum Skin: Skin warm and dry. Normal skin color. Extremities: No lower extremity edema. Neuro: Oriented X 3. No motor deficit. No sensory deficit. Medications Administered Discontinued Medications Generic Name Dose Route Start Last Admin Trade Name Derekq PRN Reason Stop Dose Admin Cephalexin HCl 500 mg 09/26/25 11:15 09/26/25 11:33 Cephalexin 500 Mg Capsule PO 09/26/25 11:16 500 mg ONCE ONE Administration Doxycycline Monohydrate 100 mg 09/26/25 11:15 09/26/25 11:33 Doxycycline Monohydrate 100 Mg Capsule PO 09/26/25 11:16 100 mg ONCE ONE Administration Lidocaine HCl 1 appl 09/26/25 11:15 09/26/25 11:33 Lidocaine 4 % Cream Kit TOPICAL 09/26/25 11:16 1 appl ONCE ONE Administration Protocol Procedures Abscess I/D Site: other Side (if applicable): left Local Anesthetic: other anesthetic Technique: needle aspiration Sent for culture/gram staining?: No Irrigation: No Packing used?: none Medical Decision Making Medical Decision Making MDM Narrative: 84 yo male with PMH of BPH, GERD, hypothyroidism, anxiety, here with c/o boil to buttock but no systemic symptoms at this time will need I+D and start of oral abx. No gangrene suspectted Differential Diagnosis Differential Diagnoses: The differential diagnosis associated with the presentation includes boil Admission/Observation Consideration of admission/observation: Escalation of care including admission/observation considered no systemic symptoms not toxic, stable for DC External Record Review External record reviewed: Outpatient record Prescription Management I considered prescription management with: Antibiotic and Other Discharge Plan Discharge Clinical Impression: Boil of buttock Patient Disposition: Home, Self-Care Instructions: Abscess (ED) Additional Instructions: continue all antibiotics can use ointment on area allow area to drain return for fevers over 100.4, worsening pain, increased swelling or rednesss or any other concerns change dressing daily On doxycycline, do not take pills immediately before going to bed and swallow pills with plenty of water. Avoid direct sunlight, iron, antacids, and Pepto Bismol. Call your provider if you develop new ringing in your ears, new problems hearing, dizziness, difficulty swallowing, rash, abdominal discomfort, nausea, or diarrhea.? On a cephalosporin?antibiotic, softer bowel movements are to be expected. Call your provider if you move your bowels more than 4 times a day, your bowel movements are almost all liquid, or you get a rash.?? Prescriptions: New doxycycline hyclate 100 mg capsule 100 mg PO BID 7 Days Qty: 14 0RF cephalexin 500 mg capsule 500 mg PO BID 7 Days Qty: 14 0RF chlorhexidine gluconate [Antiseptic Skin Clnsr(chlorhe)] 4 % liquid 1 appl topical Q5M Qty: 3800 0RF No Action ascorbic acid (vitamin C) [Vitamin C] 500 mg tablet 500 mg PO DAILY 90 Days Qty: 90 3RF cyanocobalamin (vitamin B-12) [Vitamin B-12] 1,000 mcg tablet 1,000 mcg PO DAILY Qty: 30 11RF zolpidem 5 mg tablet 5 mg PO BEDTIME PRN (Reason: insomnia) Qty: 90 0RF polyethylene glycol 3350 [Miralax] 17 gram/dose powder 17 g PO DAILY Qty: 510 0RF acetaminophen [Acetaminophen Extra Strength] 500 mg tablet 1,000 mg PO Q8H PRN (Reason: pain) Qty: 20 0RF bacitracin 500 unit/gram ointment 1 appl topical TID Qty: 28 0RF docusate sodium [Colace] 100 mg capsule 200 mg PO DAILY Qty: 180 0RF amitriptyline 25 mg tablet 25 mg PO BEDTIME 30 Days Qty: 30 1RF omeprazole 20 mg capsule,delayed release(DR/EC) 20 mg PO DAILY Qty: 30 0RF Print Language: Dominican
--- NOTE | 2025-09-26 11:09 | PC.NURSE ---
Dr. Wolfe at bedside with patient experience advocate Tevin. Pt requests no females present for rectal exam
[2025-09-26] MEDS: Lidocaine 4 % Cream KIT 1 APPL TOPICAL (11:33)
--- NOTE | 2025-09-26 11:41 | PC.NURSE ---
wound on R buttocks cleansed with ns and patted dry. prescribed lido applied and covered with tegaderm
[2025-09-26 12:29] VITALS: BP 144/77; PULSE 69; RESP 18; O2SAT 97
[2025-09-26 12:34] VITALS: BP 144/77; PULSE 69; RESP 18; TEMP -17.7; TEMP 0; O2SAT 97
--- OUTSIDE RECORDS SUMMARY | 2025-09-26 13:09 | XMS_ITS | Patient Health Record ---
Author Organization [facility] Address [address] [place] [id number] Care Team Providers Care Supervisor [employer] Name Role Phone Mehnaz Abel MD Primary Care Provider Sacha Davis [phone] Allergies Allergen (clinical drug ingredient) Drug/Non Drug [...] 1 Orally QD Active Omeprazole 20 MG Oral; Duration: 030 Active Cyanocobalamin 1000 MCG/ML 1 Injection monthly Active DocQLace 100 MG 1 capsule as needed Orally Once a day Active Problems Problem Type SNOMED Code ICD Code Onset Dates Problem Status W/U Status Risk Notes Problem Vitamin B6 deficiency (777410167) Vitamin B<SUB>6</SUB> deficiency (266.1) Active confirmed Problem Nutritional anemia (08937950) Anemia associated with other specified nutritional deficiency (281.8) Active confirmed Problem Vitamin products adverse reaction (844369927) Vitamins, not elsewhere classified, causing adverse effect in therapeutic use (E933.5) Active confirmed Problem Constipation (60175980) Constipation (564.00) Active confirmed Problem Gastroesophageal reflux disease (830675730) GERD (gastroesophage al reflux disease) (530.81) Active confirmed Problem 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) Chronic antral gastritis (535.10) Active confirmed Plan Of Treatment Pending Test Test Name Order Date PARIETAL CELL ANTIBODY 01/04/2015 Future Test Test Name Order Date UPPER GI ENDOSCOPY 01/04/2015 Insurance Providers Payer Name Payer Address Payer Phone Subscriber Number Group Number Insured Name Patient Relationship to Insured Coverage Start Date Coverage End Date MED[place]ARE OF [place] [address] [place] [address] [id number] LILY SANTOS Self - patient is the insured MEDICAID OF [employer] [address] [place] [phone] [id number] LILY SANTOS Self - patient is the insured Medical (General) History Medical History History ICD Code Denies [place],DM,CVA,Lung disease,renal dise ase Hypothyroidism B12 deficiency with [...]
== END 2025-09-26 12:34 | disposition home or self-care (01) ==
PROVIDERS: Emergency Provider Emergency Medicine; PCP Internal Medicine
DX: L02.32 Furuncle of buttock (principal); Z79.899 Other long term (current) drug therapy
CPT/HCPCS: 10061; 99283; 99284

== ENCOUNTER 2025-09-29 12:52 | Outpatient (REF) | payer MEDICARE, MEDICAID, SELFPAY ==
--- OUTSIDE RECORDS SUMMARY | 2011-09-26 06:15 | XMS_ITS | Continuity of Care Document ---
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 Name Role Phone Rika Stack MD Unavailable Unavailable Procedures Procedure Date Ht muscle image spect mult Tc99m tetrofosmin TL201 thallium Cardiovascular stress test Tte w/doppler complete Office/outpatient visit new Advance Directives Directive Yes / No Effective Date File Name No Information Encounters Encounter Description Practice Location Reason(s) For Visit Diagnoses Date Provider Providers Copied on Encounter [id number] [facility], [address], [place], [place], [facility], tel:[phone] cardiac testing (chief complaint) Respiratory InsufficiencyAbn ormal ECGHypertension, Unspec.Diabetes II, Uncomplicated 1 Sreekanth Meléndez. [address] [place] [address] , [address], [place], [place], [id number], [place]. tel:[phone] Referring Provider: Tristian Armenta, [address] [place], [address]. tel:[phone] Office/outpa tient visit new [address] [facility], [address], [place], [address], [place] tel:[phone] dizziness (chief complaint) Orthostatic hypotensionHyper tension, benignHyperlipid emia, mixedDizzinessRe spiratory InsufficiencyAbn ormal ECG 1 Behairy Rika. [address], [address], [place], [place], [id number], [place]. tel:[phone] Referring Provider: Tristian Armenta, [address] [place], [address]. tel:[phone] Family History Family Member Type Diagnosis Age At Onset No Information Payers Payer name Insurance type Covered green party ID Authoriza tion(s) [employer] [facility] [id number] Social History Type Description Quantity Date Captured Comments Sex Male Smoking Status No Information Chief Complaint And Reason For Visit From encounter dated '09/26/2011 10:15'. cardiac testing (chief complaint) Reason For Referral Reason For Referral No Information History Of Present Illness Encounter Date Complaint History Of Prese nt Illness No Information Functional Status Date Functional Assessmen t No Information Instructions Date Instruction Additional Infor mation No Information Assessments Type Assessment Date No Information Patient Care Teams Name Effective Dates (start - stop) Status Members No Information
[2025-09-29 14:26] LABS: MANUAL DIFF FLAG NO
[2025-09-29 14:51] LABS: Hematocrit 39.7 % (42.0-52.0); Hemoglobin 13.8 g/dl (14.0-18.0); Imm Gran Abs Auto 0.01 X10*3/uL (0.00-0.03); Imm Gran Pct Auto 0.2 % (0.0-0.4); Lymphocytes Absolute Auto 1.0 X10*3/uL (1.2-4.9); Mean Corpuscular HGB Conc 34.8 g/dl (31.0-36.0); Mean Corpuscular Hemoglobin 31.2 pg (27.0-33.0); Mean Corpuscular Volume 89.8 fL (80.0-98.0); NRBC Abs Auto 0.000 X10*3/uL (0.0-0.012); NRBC Pct Auto 0.0 /100WBC (0.0-0.2); Platelet Count 259 X10*3/uL (160-400); Red Blood Count 4.42 X10*6/uL (4.60-5.80); White Blood Count 4.8 X10*3/uL (4.8-10.8)
[2025-09-29 15:22] LABS: Hemoglobin A1C 121.1582 umol/L
[2025-09-29 16:19] LABS: Anion Gap 9 (12-20); Blood Urea Nitrogen 15 mg/dL (9-16); Calcium 9.3 mg/dL (8.4-10.2); Carbon Dioxide 30 mmol/L (22-29); Chloride 103 mmol/L (96-108); Estimated Glomerular Filt Rate > 60; Potassium 4.3 mmol/L (3.3-5.1); Sodium 138 mmol/L (135-145)
== END 2025-09-29 12:53 | disposition home or self-care (01) ==
LOC: HO.LAB 12:52
PROVIDERS: PCP Internal Medicine
DX: Z01.818 Encounter for other preprocedural examination (principal); Z13.1 Encounter for screening for diabetes mellitus; Z13.29 Encounter for screening for other suspected endocrine disorder
CPT/HCPCS: 36415; 80048; 83036; 84443; 85025; 99212

== ENCOUNTER 2025-09-29 12:52 | Outpatient (AMB) | payer MEDICARE, MEDICAID, SELFPAY ==
[2025-09-29 12:59] VITALS: BP 112/72; PULSE 71; RESP 18; TEMP 36.2; O2SAT 98; BMI 37.2
--- NOTE | 2025-09-29 12:59 | MHC.PC.OV ---
Vital Signs 09/29/25 12:59 Height 4 ft 1.61 in Weight 130 lb 6 oz BMI 37.2 BP 112/72 Blood Pressure Location Rt brachial Position Sitting Respiration 18 Pulse 71 Pulse Source Pulse Oximeter Temp 97.1 F Temp Source Temporal Artery Scan Pulse Oximetry (%) 98 Oxygen Delivery Method Room Air Intake Visit Reasons: [facility] 10/05 Nat Instructor Required: Yes Nat Instructor Name: David/Peyman Accompanied by: Self / Same As Patient Allergies trazodone Allergy (Mild, Verified 09/29/25 13:41) Hallucinations Medication List - Last Reconciled 09/29/25 by BRENDA Patel acetaminophen (Acetaminophen Extra Strength) 1,000 mg (2 x 500 mg) PO Q8H PRN amitriptyline 25 mg PO BEDTIME 30 days ascorbic acid (vitamin C) (Vitamin C) 500 mg PO DAILY 90 days bacitracin 1 appl topical TID cephalexin 500 mg PO BID 7 days chlorhexidine gluconate 4% (Antiseptic Skin Cleanser (chlorhexidine)) 1 appl topical Q5M 2 doses cyanocobalamin (vitamin B-12) (Vitamin B-12) 1,000 mcg PO DAILY docusate sodium (Colace) 200 mg (2 x 100 mg) PO DAILY doxycycline hyclate 100 mg PO BID 7 days omeprazole 20 mg PO DAILY polyethylene glycol 3350 (Miralax) 17 grams PO DAILY zolpidem 5 mg PO BEDTIME PRN Tobacco use date assessed: 09/29/25 Fall risk assessment: No Falls in past year Last assessed Fall Risk: 09/29/25 Dental Screening Dental Screen Date: 09/29/25 Did you have a dental visit in the last 12 months?: No Did you have a dental problem in the last 6 months where you did not have access to dental care?: No Was dental information given to patient?: Patient has dentist HPI [facility] 10/05 HPI Details The patient is a 84-year-old male presenting for preop clearance. Patient of Dr. Abel, last seen in the office on 07/21/2025 The patient reports longstanding history of cataract. Reports having cataract surgery about 25 years ago on both eyes. Reports that his right eye maintain integrity but left eye has progressively declined. The patient reports that if he closes his right eye is unable to see out of the left at this point. Surgeon/location:Agustin Buckner at [facility] in [place], [place] Date: 10/05/2025 Surgery: Vitrectomy with macular hole repair Anesthesia: Mac. The patient had similar anesthesia potency many years ago. History of ventral hernia repair, and appendectomy. He denies any adverse reactions from anesthesia. The patient denies any postoperative hypothermia or clotting disorders and he is not on any blood thinners. Medical history is significant for ascending aorta dilatation, hypothyroidism, GERD, generalized anxiety disorder, BPH, insomnia The patient denies chest pain, shortness of breath, heart palpitation and dizziness [facility] Medical History Hospital discharge follow-up Open wound Right shoulder pain Medicare annual wellness visit, initial Cellulitis of left thigh Annual physical exam Colonoscopy refused Impaired fasting glucose Cellulitis of leg, right Abscess of skin or subcutaneous tissue Hypothyroid Pernicious anemia GERD (gastroesophageal reflux disease) Vitamin B12 deficiency High prostate specific antigen (PSA) BPH (benign prostatic hyperplasia) Surgical History History of bilateral cataract extraction H/O ventral hernia repair History of appendectomy Family History Father Medical history unknown Mother No problems noted. Social History Housing: Apartment Alcohol intake: never Patient Tobacco Use Status: Former Tobacco user Tobacco use type: Cigarette Years Smoked: 1989 e-Cigarette/Vaping Use: Never Used Second Hand Smoke Exposure: No service: No Current occupational status: retired Cognitive needs: No Hearing needs: No Vision needs: No Questionnaire Thrive Questionnaire Date Thrive assessed: 07/21/25 I am a: Patient What is your living situation today?: I have a steady place to live Within the past 12 months, did the food you bought not last and you didn't have the money to get more?: Never true Within the past 12 months, did you worry whether your food would run out before you got money to buy more?: Never true Do you have trouble paying for medicines?: No Do you have trouble getting transportation to medical appointments?: No Do you have trouble paying your heating and electricity bill?: No Do you have trouble taking care of your child, family member or friend?: No Do you have trouble with day-to-day activities such as bathing, preparing meals, shopping, managing finances, etc.?: No Are you currently unemployed and looking for a job?: No Are you interested in more education?: No Please select the resources that you would like help with: None Currently or been in a relationship where the following occur: No concerns reported THRIVE Score: 0 KETTY-7 AMB Questionnaire KETTY-7 Date KETTY - 7 assessed: 07/21/25 Source: Developed by Drs. Sacha Betancur, Katie Segal, Elmo Barillas and colleagues, with an educational zayra from [employer]. Review of Systems Const Denies headache(s) Eyes Denies loss of vision ENT Denies vertigo, Denies dizziness, Denies headache(s) and Denies sore throat Card Denies chest pain, Denies leg edema and Denies lightheadedness Resp Denies cough, Denies hemoptysis and Denies wheezing GI Denies abdominal pain, Denies melena, Denies constipation, Denies diarrhea and Denies vomiting Denies dysuria, Denies urinary frequency and Denies urinary urgency Musc Denies arthralgias, Denies joint swelling, Denies numbness and Denies tingling Neuro Denies Abnormal speech present, Denies behavioral changes, Denies vertigo, Denies dizziness, Denies headache(s), Denies loss of vision, Denies memory loss, Denies numbness and Denies tingling Psych Denies anxiety, Denies behavioral changes, Denies depression, Denies memory loss and Denies panic attacks Isaac/Lymph Denies easy bleeding and Denies easy bruising Aller/Immun Denies wheezing Physical exam (Primary Care) Vital Signs: Last Vital Signs Temp 97.1 F 09/29/25 12:59 Pulse 71 09/29/25 12:59 Resp 18 09/29/25 12:59 BP 112/72 09/29/25 12:59 Pulse Ox 98 09/29/25 12:59 Oxygen Delivery Method Room Air 09/29/25 12:59 BMI result Body Mass Index 37.2 Tobacco/Smoking Status: Tobacco use Status Tobacco use date assessed 09/29/25 09/29/25 13:03 Patient Tobacco Use Status Former Tobacco user 09/29/25 13:03 Tobacco use type Cigarette 09/29/25 13:03 e-Cigarette/Vaping Use Never Used 09/29/25 13:03 Thrive Assessment: Date of Thrive Assessment Date Thrive assessed 07/21/25 09/29/25 13:03 Currently or been in a relationship where the following occur: No concerns reported Const General: healthy appearing, no acute distress, alert and awake Nutritional Appearance: well nourished Orientation/consciousness: oriented to person, oriented to place and oriented to time HENMT Ears: TM's normal bilaterally General nose exam: Normal nasal mucous membranes and turbinates present Eyes Conjunctivae: conjunctivae normal Sclerae: sclerae normal Pupils: Equal, round and reactive pupils present Neck Neck: Yes no lymphadenopathy and Yes no JVD Thyroid: Thyroid normal Carotids: no bruits Resp Effort & Inspection: normal respiratory effort and not tachypneic Auscultation: no crackles, no rales, no rhonchi and no wheezes Cardio Rate: regular rate Rhythm: regular rhythm Heart sounds: no murmurs and normal S1 and S2 GI Palpation (GI): Soft to palpation, nontender, no hepatomegaly and no splenomegaly Auscultation: normal bowel sounds Skin General skin exam: no rashes or lesions noted and dry skin Neuro General: oriented to person, oriented to place and oriented to time Cranial nerves: Yes Equal, round and reactive pupils present Speech: No Abnormal speech present Gait exam (Neuro): Normal gait present Motor exam (neuro): no tremor noted Extrem Right upper extremity: full ROM Left upper extremity: full ROM Right lower extremity: full ROM; no edema Left lower extremity: full ROM; no edema Psych Mental Status: mental status grossly normal Speech and movement: Normal speech and movement present Affect: normal affect Attitude: cooperative Thought process: Normal thought process present Results Reviewed Results Reviewed: Laboratory Tests 09/29/25 14:25 WBC 4.8 RBC 4.42 L Hgb 13.8 L Hct 39.7 L MCV 89.8 MCH 31.2 MCHC 34.8 RDW 12.4 Plt Count 259 Sodium 138 Potassium 4.3 Chloride 103 Carbon Dioxide 30 H Anion Gap 9 L BUN 15 Creatinine 0.71 Estimated GFR > 60 Random Glucose 103 Estimat Average Glucose 103 Hemoglobin A1c % 5.2 Calcium 9.3 TSH 2.74 Coding Level of Care Code Est Pt Level 4 (82594) Diagnoses Preoperative clearance Z01.818 Gastroesophageal reflux disease without esophagitis K21.9 Esophagitis presence: without esophagitis Acquired hypothyroidism E03.9 Hypothyroidism type: acquired Ascending aorta dilatation I77.810 Generalized anxiety disorder F41.1 Time Spent (min) 38 Assessment & Plan Assessment & Plan (1) Preoperative clearance: Code(s): Z01.818 - Encounter for other preprocedural examination Category: Medical Plan: Plan: Recent labs and EKG reviewed Regarding preop clearance, the patient is at acceptable risk for proposed surgery. Reviewed with the patient that no surgery is completely free of risk and that this examination is to assist the surgeon in reviewing informed consent. (2) GERD (gastroesophageal reflux disease): Comment: EGD January 2015 Dr. Aldrdige Code(s): K21.9 - Gastro-esophageal reflux disease without esophagitis Category: Medical Qualifiers: Esophagitis presence: without esophagitis Qualified Code(s): K21.9 - Gastro-esophageal reflux disease without esophagitis Plan: Do not eat meals or drink carbonated beverages within 3 hr of bedtime Decrease the amount of fried, fatty, and spicy foods to decrease gastric acid production Raise the head of the bed using 4 to 6-inch blocks, especially if nocturnal symptoms are present Lose weight if indicated; avoid tight-fitting clothing, especially around the waist Avoid foods that relax the Lower esophageal sphincter (chocolate, peppermint, high-fat foods etc.,) (3) Hypothyroid: Code(s): E03.9 - Hypothyroidism, unspecified Category: Medical Qualifiers: Hypothyroidism type: acquired Qualified Code(s): E03.9 - Hypothyroidism, unspecified Plan: Euthyroidism, currently stable without medical management. We will continue to monitor (4) Ascending aorta dilatation: Comment: Normal LV systolic function with LVEF of 55-60% with grade 1 diastolic dysfunction 2. Mild aortic regurgitation 3. Mildly dilated ascending aorta 3.9 cm 4. Normal RV systolic pressure 5. No gross pericardial effusion 01/2024 Code(s): I77.810 - Thoracic aortic ectasia Category: Medical Plan: The patient had an echocardiogram in 02/09/2024 showed ejection fraction of 55-60% with grade 1 diastolic dysfunction, mild aortic regurgitation, mildly dilated ascending aorta 3.9 cm, normal right ventricle systolic pressure with no gross pericardial effusion. Continue strict blood pressure control. (5) Generalized anxiety disorder: Code(s): F41.1 - Generalized anxiety disorder Category: Medical Plan: Encouraged CBT Continue amitriptyline 25 mg at bedtime Denies SI/HI Orders: Orders Hemoglobin A1c Today Z01.818 - Encounter for other preprocedural examination Complete Blood Count Auto Diff Today Z01.818 - Encounter for other preprocedural examination Basic Metabolic Panel Today Z01.818 - Encounter for other preprocedural examination TSH reflex Free T4 Today Z01.818 - Encounter for other preprocedural examination
--- OUTSIDE RECORDS SUMMARY | 2025-09-29 15:44 | XMS_ITS | Patient Health Record ---
Author Organization [facility] Address [address] [place] [id number] Care Team Providers Care Facilitator Name Role Phone Mehnaz Abel MD Primary Care Provider Sacha Davis [phone] Allergies Allergen (clinical drug ingredient) Drug/Non Drug [...] Status Risk Notes Problem Vitamin B6 deficiency (465319103) Vitamin B<SUB>6</SUB> deficiency (266.1) Active confirmed Problem Nutritional anemia (55834762) Anemia associated with other specified nutritional deficiency (281.8) Active confirmed Problem Vitamin products adverse reaction (941549396) Vitamins, not elsewhere classified, causing adverse effect in therapeutic use (E933.5) Active confirmed Problem Constipation (30842134) Constipation (564.00) Active confirmed Problem Gastroesophageal reflux disease (953150794) GERD (gastroesophage al reflux disease) (530.81) Active confirmed Problem Chronic antral gastritis (11608014) Chronic antral gastritis (535.10) Active confirmed Plan Of Treatment Pending Test Test Name Order Date PARIETAL CELL ANTIBODY 01/04/2015 Future Test Test Name Order Date UPPER GI ENDOSCOPY 01/04/2015 Insurance Providers Payer Name Payer Address Payer Phone Subscriber Number Group Number Insured Name Patient Relationship to Insured Coverage Start Date Coverage End Date MEDICARE OF [place] [address] [place] [id number] LILY SANTOS Self - patient is the insured MEDICAID OF [facility] [address] [place] [phone] [id number] LILY SANTOS Self - patient is the insured Medical (General) History Medical History History ICD Code Denies GA,DM,CVA,Lung disease,renal dise ase Hypothyroidism B12 deficiency with [...]
== END 2025-09-29 14:47 | disposition home or self-care (01) ==
LOC: HO.HMCH 12:52
PROVIDERS: PCP Internal Medicine
DX: Z01.818 Encounter for other preprocedural examination (principal); K21.9 Gastro-esophageal reflux disease without esophagitis; E03.9 Hypothyroidism, unspecified; I77.810 Thoracic aortic ectasia; F41.1 Generalized anxiety disorder

== ENCOUNTER 2025-11-08 10:27 | Outpatient (AMB) | payer MEDICARE, MEDICAID, SELFPAY ==
--- NOTE | 2025-11-08 11:26 | MHC.PC.OV ---
Vital Signs 11/08/25 11:32 Height 4 ft 1.61 in Weight 132 lb 6 oz BMI 37.8 BP 130/60 Blood Pressure Location Lt brachial Position Sitting Pulse 76 Pulse Source Pulse Oximeter Temp 96.9 F Temp Source Temporal Artery Scan Pulse Oximetry (%) 98 Oxygen Delivery Method Room Air Intake Visit Reasons: Insomnia Intake Note: Patient is here to follow up on Insomnia. Press Set Up Person Required: No Auto Parts Handler: Not Required per policy Accompanied by: Self / Same As Patient Allergies trazodone Allergy (Mild, Verified 11/08/25 11:27) Hallucinations Medication List - Last Reconciled 11/08/25 by Ej Soria MD acetaminophen (Acetaminophen Extra Strength) 1,000 mg (2 x 500 mg) PO Q8H PRN amitriptyline 25 mg PO BEDTIME 30 days ascorbic acid (vitamin C) (Vitamin C) 500 mg PO DAILY 90 days bacitracin 1 appl topical TID chlorhexidine gluconate 4% (Antiseptic Skin Cleanser (chlorhexidine)) 1 appl topical Q5M 2 doses cyanocobalamin (vitamin B-12) (Vitamin B-12) 1,000 mcg PO DAILY docusate sodium (Colace) 200 mg (2 x 100 mg) PO DAILY omeprazole 20 mg PO DAILY polyethylene glycol 3350 (Miralax) 17 grams PO DAILY zolpidem 5 mg PO BEDTIME PRN Tobacco use date assessed: 11/08/25 Fall risk assessment: No Falls in past year Last assessed Fall Risk: 11/08/25 Dental Screening Dental Screen Date: 09/29/25 HPI HPI Comments History of Present Illness Details The patient is an 85-year-old male presenting for a follow-up visit. The patient has known history of GERD, cataract, BPH, Hypothyroidism, and KETTY. He has a history of cataracts and underwent cataract surgery on both eyes recently. His past medical history is also significant for scrotal cellulitis, GERD, hypothyroidism, and BPH. He reports taking his medications, including amitriptyline, B12, and vitamin B1, but is unsure of other medications. His primary care provider is Dr. Abel. The patient had a recent Blood work done on 09/29 that is stable from previous ones. He denies any current or new symptoms. [facility] Medical History (Updated 11/08/25 @ 13:01 by Ej Soria MD) Hospital discharge follow-up Open wound Right shoulder pain Medicare annual wellness visit, initial Cellulitis of left thigh Annual physical exam Colonoscopy refused Impaired fasting glucose Cellulitis of leg, right Abscess of skin or subcutaneous tissue Hypothyroid Pernicious anemia GERD (gastroesophageal reflux disease) Vitamin B12 deficiency High prostate specific antigen (PSA) BPH (benign prostatic hyperplasia) Surgical History (Updated 11/08/25 @ 11:38 by ANGÉLICA Nunes) History of bilateral cataract extraction H/O ventral hernia repair History of appendectomy Family History Father Medical history unknown Mother No problems noted. Social History Housing: Apartment Alcohol intake: never Patient Tobacco Use Status: Former Tobacco user Tobacco use type: Cigarette Years Smoked: 1989 e-Cigarette/Vaping Use: Never Used Second Hand Smoke Exposure: Yes service: No Current occupational status: retired Cognitive needs: No Hearing needs: No Vision needs: No Questionnaire Thrive Questionnaire Date Thrive assessed: 07/21/25 I am a: Patient What is your living situation today?: I have a steady place to live Within the past 12 months, did the food you bought not last and you didn't have the money to get more?: Never true Within the past 12 months, did you worry whether your food would run out before you got money to buy more?: Never true Do you have trouble paying for medicines?: No Do you have trouble getting transportation to medical appointments?: No Do you have trouble paying your heating and electricity bill?: No Do you have trouble taking care of your child, family member or friend?: No Do you have trouble with day-to-day activities such as bathing, preparing meals, shopping, managing finances, etc.?: No Are you currently unemployed and looking for a job?: No Are you interested in more education?: No Please select the resources that you would like help with: None Currently or been in a relationship where the following occur: No concerns reported THRIVE Score: 0 KETTY-7 AMB Questionnaire KETTY-7 Date KETTY - 7 assessed: 07/21/25 Source: Developed by Drs. Sacha Betancur, Katie Elmo Slater and colleagues, with an educational zayra from [employer]. Review of Systems Const Details: As per HPI. Physical exam (Primary Care) Vital Signs: Last Vital Signs Temp 96.9 F 11/08/25 11:32 Pulse 76 11/08/25 11:32 BP 130/60 11/08/25 11:32 Pulse Ox 98 11/08/25 11:32 Oxygen Delivery Method Room Air 11/08/25 11:32 BMI result Body Mass Index 37.8 Tobacco/Smoking Status: Tobacco use Status Tobacco use date assessed 11/08/25 11/08/25 11:27 Patient Tobacco Use Status Former Tobacco user 11/08/25 11:27 Tobacco use type Cigarette 11/08/25 11:27 e-Cigarette/Vaping Use Never Used 11/08/25 11:27 Thrive Assessment: Date of Thrive Assessment Date Thrive assessed 07/21/25 11/08/25 11:27 Currently or been in a relationship where the following occur: No concerns reported Const Other: Pertinent findings are in BOLD GENERAL APPEARANCE NAD, activity normal for age, well developed/ well nourished, no cyanosis, pallor, or diaphoresis. EYES lids/conjunctiva normal. EARS/NOSE/THROAT Mucous membranes moist, nares normal, lips/teeth normal uvula midline without oral pharyngeal erythema, exudate or swelling TMs normal bilaterally. No lymphangitis/lymphedema. HEAD/NECK normocephalic atraumatic, no facial trauma, neck is supple. RESPIRATORY respiratory effort normal, speaks in full sentences, no tripod position, no accessory muscle use. Lungs clear to auscultation without rhonchi, wheezes, rales CARDIAC Regular rate and rhythm, no edema. ABDOMINAL Soft, ND/NT. No evidence of fluid wave. No pulsatile masses on exam, rebound tenderness, Gonzalez sign or pain over Mcburney's point. MUSCLES/EXTREMITIES No abnormal range of motion, no swelling. SKIN Warm, pink and dry. No rashes, dermatoses, petechiae or lesions. NEUROLOGICAL Speech is clear and appropriate. Normal level of consciousness. Gait and coordination are normal. 5/5 strength in all extremities. PSYCH Normal mood and affect. Judgement/competence is appropriate Coding Level of Care Code Tele Est Pt Level 3 (95904) Diagnoses Healthcare maintenance Z00.00 Primary insomnia F51.01 Insomnia type: primary Gastroesophageal reflux disease without esophagitis K21.9 Esophagitis presence: without esophagitis Constipation by delayed colonic transit K59.01 Time Spent (min) 20 Assessment & Plan Assessment & Plan (1) Healthcare maintenance: Code(s): Z00.00 - Encounter for general adult medical examination without abnormal findings Category: Medical Plan: CBC, CMP, Lipid panel, A1C, TSH w T4, vit D. Done recently. Shingles 2 doses when >50 yo. Declined. COVID: two doses. Completed in the past. Pneumococcal: >50 yo. 18-49 with CKD, lung disease, weakened immune system, Heart disease, DM, cochlear implant. Completed in the past. Flu vaccine: Declined. Tdap: every 10 years. Done in 2018. Next due in 2028. Colonoscopy: 45-75. Declined. Aged out. AAA: 65 -75. Aged out. CT lun - 80. Aged out. PSA: 50 -70 every two years. Aged out. (2) Insomnia: Code(s): G47.00 - Insomnia, unspecified Category: Medical Qualifiers: Insomnia type: primary Qualified Code(s): F51.01 - Primary insomnia Plan: Continue Zolpidem and Amitryptiline. (3) GERD (gastroesophageal reflux disease): Comment: EGD January 2015 Dr. Aldridge Code(s): K21.9 - Gastro-esophageal reflux disease without esophagitis Category: Medical Qualifiers: Esophagitis presence: without esophagitis Qualified Code(s): K21.9 - Gastro-esophageal reflux disease without esophagitis Plan: Continue Omeprazole. (4) Constipation by delayed colonic transit: Code(s): K59.01 - Slow transit constipation Category: Medical Plan: Continue Miralax, and Colace. Plan I reviewed the patient's history and current status. As he reported feeling well with no new issues, I advised him to follow up with his primary care provider, Dr. Abel, in three months, and he agreed.
[2025-11-08 11:32] VITALS: BP 130/60; PULSE 76; TEMP 36.1; O2SAT 98; BMI 37.8
== END 2025-11-08 11:51 | disposition home or self-care (01) ==
LOC: HO.HMCH 10:27
PROVIDERS: PCP Internal Medicine; Visit Provider Internal Medicine
DX: Z00.00 Encounter for general adult medical examination without abnormal findings (principal); F51.01 Primary insomnia; K21.9 Gastro-esophageal reflux disease without esophagitis; K59.01 Slow transit constipation

== ENCOUNTER → 2025-11-08 10:27 | Outpatient (BNVA) | payer MEDICARE, MEDICAID, SELFPAY | PROVIDERS: PCP Internal Medicine; Visit Provider Internal Medicine | DX: K21.9 Gastro-esophageal reflux disease without esophagitis (principal); F51.01 Primary insomnia; K59.01 Slow transit constipation | CPT/HCPCS: 99212 ==